=== PATIENT | male | born 1935 | race Caucasian/White ===

== ENCOUNTER → 2016-08-27 | Outpatient (CLI) | payer BC ==
[~2016-08-27] MED LIST: ACET-1256 PO; ADVIN25/60 INH; ALBUAER19 INH; AMB5 PO; ASPEC81 PO; ASPI81TA21 PO; ATOR10TA82 PO; BALS1CAP2 PO; BISA1TAB15 PO; CLON1TAB3 PO; CRD200 PO; DABI150C PO; DLC5 PO; DOCU100C31 PO; FLX10 PO; FNTTP25 TOP; FNTTP50 TD; GABA-113 PO; HYDR-5688 PO; IMD/2 PO; IMMODIUM PO; LDDP5 TD; LEVO88TA3 PO; LORA-741 PO; LSN5 PO; MRLP17 PO; MRLP17X PO; NUTR-977 PO; OXYC1TAB3 PO; PRD150 PO; PRD20 PO; PRD75 PO; PREG100C PO; SIMV10TA5 PO; TADA10TA PO; TAMS0.4C38 PO; TRAM-10 PO; ULT50X PO; VLTG EXT; VLTG TOP; oxycodone
== END | disposition home or self-care (01) ==
LOC: C.LABVPSUW 09:39
PROVIDERS: ATTEND Internal Medicine Critical Care Medicine
DX: E03.9 Hypothyroidism, unspecified (principal)

== ENCOUNTER 2016-11-07 08:15 | Inpatient (IN) | payer BC, OTHER ==
[~2016-11-07] VITALS: Ht 182.9 cm; Wt 80.9 kg
[~2016-11-07 08:15] MED LIST changes: -ACET-1256 PO; -ADVIN25/60 INH; -AMB5 PO; -ASPI81TA21 PO; -ATOR10TA82 PO; -BISA1TAB15 PO; -DABI150C PO; -DLC5 PO; -DOCU100C31 PO; -FLX10 PO; -FNTTP25 TOP; -FNTTP50 TD; -GABA-113 PO; -HYDR-5688 PO; -IMD/2 PO; -LDDP5 TD; -LEVO88TA3 PO; -LORA-741 PO; -LSN5 PO; -MRLP17 PO; -MRLP17X PO; -NUTR-977 PO; -OXYC1TAB3 PO; -PRD150 PO; -PRD20 PO; -PREG100C PO; -TRAM-10 PO; -ULT50X PO; -VLTG EXT; -VLTG TOP; -oxycodone
[2016-11-07] MEDS ORDERED: ONDANSETRON 4MG OD TAB PO STA (08:56)
[2016-11-07] MEDS ORDERED: KETOROLAC TROMETHAMINE 60 MG/2 ML VIAL IM STA (08:56)
[2016-11-07] MEDS ORDERED: HYDROmorphone INJ 2 MG/ML SYR/VIAL IM STA (08:56)
[2016-11-07] MEDS ORDERED: DEXAMETHASONE SOD INJ 10 MG/ML VIAL IM STA (08:56)
[2016-11-07] MEDS ORDERED: ADVIN25/60 INH (09:01)
[2016-11-07] MEDS ORDERED: PRD150 PO (09:01)
[2016-11-07] MEDS ORDERED: CRD200 PO (09:01)
[2016-11-07] MEDS ORDERED: ASPI81TA21 PO (09:01)
[2016-11-07] MEDS ORDERED: NALOXONE HCL 0.4 MG/1 ML VIAL/CARP ONE (10:12)
--- NOTE | 2016-11-07 11:47 | DIAGNOSTIC IMAGING REPORT ---
MRI LUMBAR SPINE W/O CONTRAST CLINICAL HISTORY: LOW BACK PAIN TECHNIQUE: Sagittal and axial T1, T2 and STIR images were obtained. COMPARISON STUDY: No previous studies for comparison. OBSERVATIONS: There is a possible transitional vertebra present. There is complete marrow replacement and expansion of what will be labeled the S1 vertebra. There is extension of the marrow replacement process into the transverse processes. There is secondary spinal canal narrowing. 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 No additional areas of marrow replacement are visualized L1-2: No disc protrusions or extrusions. No evidence of spinal canal or neural foraminal compromise. L2-3: No disc protrusions or extrusions. No evidence of spinal canal or neural foraminal compromise. L3-4: There is a mild circumferential disc bulge. There is no significant spinal foraminal stenosis L4-5: There is a mild circumferential disc bulge. There is no significant spinal or foraminal stenosis L5-S1: There is spinal canal narrowing secondary to the expansile S1 mass. There is a grade 2/4 spondylolisthesis of L5 on S1. The conus medullaris and cauda equina appear normal. 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 Further workup and/or biopsy is recommended. Electronically signed by: Joe Jerome M.D. 11/07/2016 11:45 AM Dictated Date/Time: 11/07/2016 11:37 AM
--- NOTE | 2016-11-07 12:23 | DIAGNOSTIC IMAGING REPORT ---
CHEST ONE VIEW PORTABLE CLINICAL HISTORY: Pt c/o spine mass pain. Mass. COMPARISON STUDY: 10/16/2014 FINDINGS: Old fracture left clavicle. Lungs are clear. Diaphragms smooth. IMPRESSION: No acute process. Electronically signed by: Yahir Wells M.D. 11/07/2016 12:22 PM Dictated Date/Time: 11/07/2016 12:21 PM
[2016-11-07 12:43] LABS: BASO % 0.1 %; BASO ABS # 0.01 K/uL (0-0.2); COMPLETE YES; EOS % 0.2 %; HEMATOCRIT 43.5 % (42-52); IG% 0.2 %; LYMPH % 4.3 %; LYMPH ABS # 0.35 K/uL (1.2-3.4); MEAN CELL VOLUME 95.8 fL (80-100); MEAN CORPUSCULAR HEMOGLOBIN 31.1 pg (25-34); MEAN CORPUSCULAR HGB CONC 32.4 g/dl (32-36); MEAN PLATELET VOLUME 9.9 fL (7.4-10.4); MONO % 1.5 %; NEUT % 93.7 %; PLATELET COUNT 143 K/uL (130-400); RED BLOOD COUNT 4.54 M/uL (4.7-6.1)
[2016-11-07 13:03] LABS: BUN/CREATININE RATIO 18.3 (10-20); CREATININE 1.1 mg/dl (0.60-1.40)
[2016-11-07 13:08] LABS: PROSTATE SPECIFIC ANTIGEN 2.06 ng/ml (0.000-4.000)
--- NOTE | 2016-11-07 13:08 | EMERGENCY ROOM VISIT NOTE ---
History Report prepared by Jitendra: Fouzia Figueroa Under the Supervision of: Dr. Raymond Plasencia M.D. First contact with patient: 08:19 Chief Complaint: BACK PAIN Stated Complaint: BACK PAIN History of Present Illness The patient is a 81 year old male who presents to the Emergency Room with complaints of worsening left lower back pain that started yesterday. He describes the pain as dull. The patient states that the pain gradually worsened throughout the day yesterday. He has been going to physical therapy for right- sided back pain secondary to ankylosing spondylitis. The right-sided back pain started 2 weeks ago and yesterday, the pain moved into the left side of his back. The patient has been following with Dr. Padilla for his right-sided back pain. He rates his discomfort as a 10/10 in severity. The patient has been alternating between Tylenol and aspirin to relieve his pain. The patient took Tylenol this morning, but has not taken Aleve since yesterday. The pain is worse when changing from a recumbent position to sitting upright. The patient states that he is able to walk with a limp, but he feels unsteady. He denies any bowel or bladder incontinence. The patient is on Plavix. Source of History: patient Onset: yesterday Position: back (lower left) Symptom Intensity: 10/10 Quality: dull Timing: worsening (gradually) Modifying Factors (Worsening): movement (from recumbent position to sitting upright) Modifying Factors (Relieving): other (None) Note: able to walk with limp but feels unsteady, no bowel or bladder incontinence Review of Systems See HPI for pertinent positives & negatives. A total of 10 systems reviewed and were otherwise negative. Past Medical & Surgical Medical Problems: (1) Anemia (2) Atrial fibrillation (3) Cataract, left (4) Cataract, right (5) Hyperkalemia (6) Hypotension (7) Hypothyroid (8) Influenza-like illness (9) Influenza-like symptoms Surgical Problems: (1) History of hip replacement (2) History of knee replacement (3) Post-operative state Family History Cancer Gallbladder disease Heart disease Hypertension Lung disease Social History Smoking Status: Never Smoker Drug Use: none Marital Status: in relationship Housing Status: lives alone Occupation Status: retired Current/Historical Medications Scheduled Amiodarone HCl (Amiodarone HCl), 200 MG PO DAILY Aspirin Enteric Coated (Ecotrin Or Generic), 81 MG PO DAILY Balsalazide Disodium (Colazal), 750 MG PO QAM Clonazepam (Klonopin), 1 MG PO HS Dabigatran Elexilate (Pradaxa), 150 MG PO BID Fluticasone Prop/Salmeterol (Advair Diskus 250/50 60 Dose), 1 PUFF INH BID Simvastatin (Zocor), 10 MG PO QPM Tamsulosin Hcl (Flomax), 0.4 MG PO HS Allergies Coded Allergies: Animal Dander (Verified Allergy, Mild, ASTHMATIC REACTION, 11/07/16) IMPROVEMENT WITH INHALERS Horse Serum Proteins (Verified Allergy, Unknown, ASTHMA ATTACK, 11/07/16) Physical Exam Vital Signs Date Time Temp Pulse Resp B/P (MAP) Pulse Ox O2 Delivery O2 Flow Rate FiO2 11/07/16 13:10 46 11/07/16 12:24 54 16 124/80 97 Room Air 11/07/16 11:29 58 16 143/78 95 Room Air 11/07/16 10:17 57 11/07/16 10:17 57 16 117/56 97 2.0 11/07/16 08:24 36.8 53 16 178/97 94 Room Air Physical Exam GENERAL: Patient is an uncomfortable-appearing well-nourished male HEAD: Normocephalic atraumatic EYES: Ocular movements intact pupils equal and react to light OROPHARYNX mucous membranes are moist no exudates present no erythema or edema present NECK: Supple no nuchal rigidity CHEST: Good equal expansion LUNGS: Clear and equal to auscultation CARDIAC: Normal S1 and S2 ABDOMEN: Soft nontender no guarding BACK: No CVA tenderness, no loss of bowel or bladder control, no saddle anesthesia EXTREMITIES: Lower extremity strength 4/5 bilaterally no pain upon palpation normal muscle strength in all groups no clubbing cyanosis or edema NEURO: Patient is following commands and answering questions appropriately. Alert and oriented x3 Cranial Nerves 2-12 grossly intact Medical Decision & Procedures ER Provider Diagnostic Interpretation: Radiology results as stated below per my review and radiologist interpretation: CHEST ONE VIEW PORTABLE CLINICAL HISTORY: Pt c/o spine mass pain. Mass. COMPARISON STUDY: 10/16/2014 FINDINGS: Old fracture left clavicle. Lungs are clear. Diaphragms smooth. IMPRESSION: No acute process. Electronically signed by: Yahir Wells M.D. 11/07/2016 12:22 PM Dictated Date/Time: 11/07/2016 12:21 PM MRI LUMBAR SPINE W/O CONTRAST OBSERVATIONS: There is a possible transitional vertebra present. There is complete marrow replacement and expansion of what will be labeled the S1 vertebra. There is extension of the marrow replacement process into the transverse processes. There is secondary spinal canal narrowing. 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 No additional areas of marrow replacement are visualized L1-2: No disc protrusions or extrusions. No evidence of spinal canal or neural foraminal compromise. L2-3: No disc protrusions or extrusions. No evidence of spinal canal or neural foraminal compromise. L3-4: There is a mild circumferential disc bulge. There is no significant spinal foraminal stenosis L4-5: There is a mild circumferential disc bulge. There is no significant spinal or foraminal stenosis L5-S1: There is spinal canal narrowing secondary to the expansile S1 mass. There is a grade 2/4 spondylolisthesis of L5 on S1. The conus medullaris and cauda equina appear normal. 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 Further workup and/or biopsy is recommended. Electronically signed by: Joe Jerome M.D. 11/07/2016 11:45 AM Dictated Date/Time: 11/07/2016 11:37 AM Laboratory Results 11/07/16 12:20 Red Blood Count 4.54, Mean Corpuscular Volume 95.8, Mean Corpuscular Hemoglobin 31.1, Mean Corpuscular Hemoglobin Concent 32.4, Mean Platelet Volume 9.9, Neutrophils (%) (Auto) 93.7, Lymphocytes (%) (Auto) 4.3, Monocytes (%) (Auto) 1.5, Eosinophils (%) (Auto) 0.2, Basophils (%) (Auto) 0.1, Neutrophils # (Auto) 7.58, Lymphocytes # (Auto) 0.35, Monocytes # (Auto) 0.12, Eosinophils # (Auto) 0.02, Basophils # (Auto) 0.01 11/07/16 12:20 Test 11/07/16 12:20 White Blood Count 8.10 K/uL (4.8-10.8) Red Blood Count 4.54 M/uL (4.7-6.1) Hemoglobin 14.1 g/dL (14.0-18.0) Hematocrit 43.5 % (42-52) Mean Corpuscular Volume 95.8 fL (80-100) Mean Corpuscular Hemoglobin 31.1 pg (25-34) Mean Corpuscular Hemoglobin Concent 32.4 g/dl (32-36) Platelet Count 143 K/uL (130-400) Mean Platelet Volume 9.9 fL (7.4-10.4) Neutrophils (%) (Auto) 93.7 % Lymphocytes (%) (Auto) 4.3 % Monocytes (%) (Auto) 1.5 % Eosinophils (%) (Auto) 0.2 % Basophils (%) (Auto) 0.1 % Neutrophils # (Auto) 7.58 K/uL (1.4-6.5) Lymphocytes # (Auto) 0.35 K/uL (1.2-3.4) Monocytes # (Auto) 0.12 K/uL (0.11-0.59) Eosinophils # (Auto) 0.02 K/uL (0-0.5) Basophils # (Auto) 0.01 K/uL (0-0.2) RDW Standard Deviation 45.2 fL (36.4-46.3) RDW Coefficient of Variation 12.9 % (11.5-14.5) Immature Granulocyte % (Auto) 0.2 % Immature Granulocyte # (Auto) 0.02 K/uL (0.00-0.02) Anion Gap 8.0 mmol/L (3-11) Est Creatinine Clear Calc Drug Dose 59.8 ml/min Estimated GFR () 73.6 Estimated GFR (Non- 63.5 BUN/Creatinine Ratio 18.3 (10-20) Calcium Level 8.7 mg/dl (8.5-10.1) Total Bilirubin 0.6 mg/dl (0.2-1) Direct Bilirubin 0.1 mg/dl (0-0.2) Aspartate Amino Transf (AST/SGOT) 18 U/L (15-37) Alanine Aminotransferase (ALT/SGPT) 21 U/L (12-78) Alkaline Phosphatase 56 U/L (45-117) Total Protein 6.8 gm/dl (6.4-8.2) Albumin 3.7 gm/dl (3.4-5.0) Lipase 73 U/L (73-393) Prostate Specific Antigen 2.060 ng/ml (0.000-4.000) Labs reviewed by ED physician. Medications Administered Medications (Trade) Dose Ordered Sig/Cassandra Route Start Time Stop Time Status Last Admin Dose Admin Ketorolac Tromethamine (Toradol Inj) 30 mg NOW STAT IM 11/07/16 08:56 11/07/16 08:59 DC 11/07/16 09:06 30 MG Hydromorphone HCl (Dilaudid Inj) 2 mg NOW STAT IM 11/07/16 08:56 11/07/16 08:59 DC 11/07/16 09:05 6 MG Dexamethasone Sodium Phosphate (Decadron Inj) 10 mg NOW STAT IM 11/07/16 08:56 11/07/16 08:59 DC 11/07/16 09:04 10 MG Ondansetron HCl (Zofran Odt) 4 mg ONE STAT PO 11/07/16 08:56 11/07/16 08:59 DC 11/07/16 09:07 4 MG Naloxone HCl (Narcan Inj) 0.4 mg STK-MED ONCE .ROUTE 11/07/16 10:12 11/07/16 10:13 DC 11/07/16 10:15 0.4 MG ECG Indication: back/shoulder pain Rate (beats per minute): 48 Rhythm: junctional Findings: no acute ischemic change, no ectopy ED Course 0822: The medical student evaluated the patient at this time. We discussed his findings and potential treatment plans. 0852: Past medical records reviewed. The patient was evaluated in room B12. A complete history and physical examination was performed. 0856: Ordered Zofran Odt 4 mg PO, Decadron Inj 10 mg IM, Dilaudid Inj 2 mg IM, Toradol Inj 30 mg IM 1010: The lead principal technical architect informed me that the patient appears cyanotic with oxygen saturations in 50s-60s. 1011: I immediately evaluated the patient. 1012: Ordered Narcan Inj 0.4 mg IV 1013: I reassessed the patient. His oxygen saturations have improved. 1121: The patient just got back from MRI. He is resting comfortable. 1140: The lead principal technical architect informed me that the patient is desaturating when he sleeps, so he put an oxygen mask on him and his oxygen saturations have improved. 1200: Upon reexamination the patient is resting comfortably. I discussed results and treatment plan with the patient. He verbalizes agreement and understanding. The patient will be evaluated for further management. 1216: I discussed the patient's case with Dr. Jordin RUEDA, he asked me to consult Dr. Valerie Scott before he evaluates him for further management. 1218: I discussed the patient's case with Dr. Valerie Scott. He recommended admitting the patient to medicine and he also requested that I consult oncology. 1251: I discussed the patient's case with Dr. Montero - Hematology & Oncology. He agrees that the patient should be evaluated for further management. He has agreed to consult. 1256: I updated Dr. Jordin RUEDA on the patient's case. He has agreed to evaluate the patient for further management and care. Medical Decision Differential diagnosis: Etiologies such as musculoskeletal, disc herniation, fracture, aortic disease, metastatic disease, cord compression, discitis, infection, renal colic, gastrointestinal, acute exacerbation of chronic back pain, sciatica, cauda equina, as well as others were entertained. Medication Reconciliation: I attest that I have personally reviewed the patient' s current medication list This is a 81-year-old male who presents emergency department complaining of diffuse back pain. Due to the inability the patient to walk he was sent for an MRI. He was also given 2 mg of Dilaudid in the emergency department along with Toradol. He was sent for an MRI the back. This was concerning for neoplastic lesion S1. Based on these findings I did discuss the patient with both orthopedics as well as oncology. Consults Time Called: 1208 Consulting Physician: Dr. Jordin RUEDA Returned Call: 1216 I discussed the patient's case with Dr. Jordin RUEDA, he asked me to consult Dr. Valerie Scott before he evaluates him for further management. Additional Consults: Time Called: 1216 Consulted Physician: Dr. Valerie [facility] Returned Call: 1218 Additional Comments: I discussed the patient's case with Dr. Valerie Scott. He recommended admitting the patient to medicine and he also requested that I consult oncology. Time Called: 1233 Consulted Physician: Dr. Montero - Hematology & Oncology Returned Call: 1251 Additional Comments: I discussed the patient's case with Dr. Montero - Hematology & Oncology. He agrees that the patient should be evaluated for further management. He has agreed to consult. Impression Primary Impression: Back pain Additional Impression: Sacral lesion Scribe Attestation The scribe's documentation has been prepared under my direction and personally reviewed by me in its entirety. I confirm that the note above accurately reflects all work, treatment, procedures, and medical decision making performed by me. Departure Information Dispostion Being Evaluated By Hospitalist Referrals [facility] (PCP) Patient Instructions My [facility] Problem Qualifiers Primary Impression: Back pain Back pain location: low back pain Chronicity: acute Back pain laterality: left Sciatica presence: unspecified whether sciatica present Qualified Codes : M54.5 - Low back pain
[2016-11-07 13:09] LABS: CALCIUM 8.7 mg/dl (8.5-10.1)
[2016-11-07] MEDS ORDERED: MAGNESIUM HYDROXIDE SUSP 30 ML UDC PO PRN (13:45)
[2016-11-07] MEDS ORDERED: ONDANSETRON INJ 2 MG/ML 2 ML VIAL IV PRN (13:45)
[2016-11-07] MEDS ORDERED: ALUMINUM/MAGNESIUM/SIMETH (MAALOX MAX) 30 ML UDC PO PRN (13:45)
--- NOTE | 2016-11-07 14:25 | History and Physical ---
History & Physical Date & Time of Service: Nov 07, 2016 at 13:49 Chief Complaint: Back Pain Primary Care Physician: Steven Cummings M.D. History of Present Illness Source: patient, partner Patient is a 81 year old male that presents with left sided back pain since 10pm yesterday evening. The patient has a past medical history of ankylosing spondylitis, bph, atrial fibrillation, and bilateral hip and knee replacements. The patient has been having right sided leg pain of a similar nature for the last few weeks and had an appointment with Dr. Padilla last Thursday. He has been participating in physical therapy for the pain. Starting earlier this week he began having left sided pain that he attributed to his diagnosis, but last night the pain became 10/10 in severity. He said he took a high dose of Tylenol last night but was able to sleep. This morning he needed to roll over and to get out of bed and use his knees because the pain was unbearable. In the ED the patient had an MRI that showed the chronic ankylosing spondylitis in addition to spinal canal narrowing secondary to the expansile S1 mass. The patient has had some pain relief with Dilaudid in the ED, but states that earlier today it was a 10/10 with hip flexion and 7/10 at rest. The pain did not radiate down the leg, he denies any numbness or tingling, he has not lost control of his bowel or bladder, and says there is still full strength in the leg with only severe pain. Past Medical/Surgical History Medical Problems: (1) Anemia Status: Resolved (2) Atrial fibrillation Status: Resolved (3) Cataract, left Status: Resolved (4) Cataract, right Status: Resolved (5) Hyperkalemia Status: Resolved (6) Hypotension Status: Resolved (7) Hypothyroid Status: Resolved (8) Influenza-like illness Status: Resolved (9) Influenza-like symptoms Status: Resolved Surgical Problems: (1) History of hip replacement Status: Resolved (2) History of knee replacement Status: Resolved (3) Post-operative state Status: Resolved Family History Cancer Gallbladder disease Heart disease Hypertension Lung disease Social History Smoking Status: Never Smoker Drug Use: none Marital Status: in relationship Occupational Status: retired Allergies Coded Allergies: Animal Dander (Verified Allergy, Mild, ASTHMATIC REACTION, 11/07/16) IMPROVEMENT WITH INHALERS Horse Serum Proteins (Verified Allergy, Unknown, ASTHMA ATTACK, 11/07/16) Home Medications Scheduled Amiodarone HCl (Amiodarone HCl), 200 MG PO DAILY Aspirin Enteric Coated (Ecotrin Or Generic), 81 MG PO DAILY Balsalazide Disodium (Colazal), 750 MG PO QAM Clonazepam (Klonopin), 1 MG PO HS Dabigatran Elexilate (Pradaxa), 150 MG PO BID Fluticasone Prop/Salmeterol (Advair Diskus 250/50 60 Dose), 1 PUFF INH BID Simvastatin (Zocor), 10 MG PO QPM Tamsulosin Hcl (Flomax), 0.4 MG PO HS Review of Systems See HPI for pertinent positives and negatives. A total of ten systems were reviewed and were otherwise negative. Constitutional: No fever, No chills Eyes: No problem reported ENT: No problem reported Respiratory: No cough, No shortness of breath Cardiovascular: No chest pain, No edema Abdomen: No pain, No nausea, No vomiting Musculoskeletal: No joint pain Genitourinary - Male: No urinary urgency, No urinary incontinence Neurologic: No paralysis, No weakness, No numbness/tingling Endocrine: No fatigue Hematologic / Lymphatic: No abnormal bleeding/bruising Integumentary: No rash, No bleeding Allergic / Immunologic: No problem reported Physical Exam Vital Signs Date Time Temp Pulse Resp B/P (MAP) Pulse Ox O2 Delivery O2 Flow Rate FiO2 11/07/16 13:10 46 11/07/16 12:24 54 16 124/80 97 Room Air 11/07/16 11:29 58 16 143/78 95 Room Air 11/07/16 10:17 57 11/07/16 10:17 57 16 117/56 97 2.0 11/07/16 08:24 36.8 53 16 178/97 94 Room Air General Appearance: WD/WN, no apparent distress Head: normocephalic, atraumatic Respiratory/Chest: chest non-tender, lungs clear, normal breath sounds Cardiovascular: regular rate, rhythm, no edema, no gallop Abdomen/GI: normal bowel sounds, non tender, soft Back: normal inspection, no CVA tenderness Extremities/Musculoskelatal: normal inspection, no calf tenderness, no pedal edema, + pertinent finding (Left sided point tenderness over the region of the left iliac crest) Neurologic/Psych: no motor/sensory deficits, alert, oriented x 3 Diagnostics Laboratory Results Results Past 24 Hours Test 11/07/16 12:20 Range/Units White Blood Count 8.10 4.8-10.8 K/uL Red Blood Count 4.54 4.7-6.1 M/uL Hemoglobin 14.1 14.0-18.0 g/dL Hematocrit 43.5 42-52 % Mean Corpuscular Volume 95.8 80-100 fL Mean Corpuscular Hemoglobin 31.1 25-34 pg Mean Corpuscular Hemoglobin Concent 32.4 32-36 g/dl Platelet Count 143 130-400 K/uL Mean Platelet Volume 9.9 7.4-10.4 fL Neutrophils (%) (Auto) 93.7 % Lymphocytes (%) (Auto) 4.3 % Monocytes (%) (Auto) 1.5 % Eosinophils (%) (Auto) 0.2 % Basophils (%) (Auto) 0.1 % Neutrophils # (Auto) 7.58 1.4-6.5 K/uL Lymphocytes # (Auto) 0.35 1.2-3.4 K/uL Monocytes # (Auto) 0.12 0.11-0.59 K/uL Eosinophils # (Auto) 0.02 0-0.5 K/uL Basophils # (Auto) 0.01 0-0.2 K/uL RDW Standard Deviation 45.2 36.4-46.3 fL RDW Coefficient of Variation 12.9 11.5-14.5 % Immature Granulocyte % (Auto) 0.2 % Immature Granulocyte # (Auto) 0.02 0.00-0.02 K/uL Sodium Level 139 136-145 mmol/L Potassium Level 4.0 3.5-5.1 mmol/L Chloride Level 103 98-107 mmol/L Carbon Dioxide Level 28 21-32 mmol/L Anion Gap 8.0 3-11 mmol/L Blood Urea Nitrogen 20 7-18 mg/dl Creatinine 1.10 0.60-1.40 mg/dl Est Creatinine Clear Calc Drug Dose 59.8 ml/min Estimated GFR () 73.6 Estimated GFR (Non- 63.5 BUN/Creatinine Ratio 18.3 10-20 Random Glucose 118 70-99 mg/dl Calcium Level 8.7 8.5-10.1 mg/dl Total Bilirubin 0.6 0.2-1 mg/dl Direct Bilirubin 0.1 0-0.2 mg/dl Aspartate Amino Transf (AST/SGOT) 18 15-37 U/L Alanine Aminotransferase (ALT/SGPT) 21 12-78 U/L Alkaline Phosphatase 56 45-117 U/L Total Protein 6.8 6.4-8.2 gm/dl Albumin 3.7 3.4-5.0 gm/dl Lipase 73 73-393 U/L Prostate Specific Antigen 2.060 0.000-4.000 ng/ml Impression Assessment and Plan Patient is a 81 year old male that presents with severe back pain. 1) Back Pain 2/2 S1 mass causing stenosis vs Ankylosing Spondylitis - Pain Control - 0.5mg Dilaudid q3h PRN for pain - Oncology consult - Orthopaedic Surgery consult 2) Atrial Fibrillation - EKG - Continue home Pradaxa 150mg PO BID - Continue home Amiodarone HCL 200mg PO Daily 3) BPH - Flomax 0.4mg PO HS 4) Hyperlipidemia - Simvastatin 10mg PO QPM 5) CAD - Aspitin 81mg PO Daily 6) Resume Home Medications - Colazal 750mg PO QAM - Clonazepam 1mg PO HS - Advair Diskus 250/50 1 Puff INH BID 7) DVT - Continue home Pradaxa 8) Code Status - Full Resuscitation Resident Physician Supervision Note: I was present with the PA. I discussed the case with the resident and agree with the findings and plan as documented in the note. Any exceptions or clarifications are listed here: 81 y/o M w/Hx Ankylosing Spondylitis who follows with ortho spine - worsening back pain over the past 2 days Pt presents with worsening back pain and difficulty walking An MRI was obtained and shows a likely cancerous lesion on S1 leading to a degree of stenosis OE AAO x 3 S1,2 R CTAB NT, ND, BS+ No significant LE numbness - ROM limited by pain P: Will need diagnosis Ortho and H/O to be consulted PT/OT following ortho consult if can weight bear safely Supportive measures currently Documented By: Erik Brenenr Level of Care Med/Surg Resuscitation Status FULL RESUSCITATION VTE Prophylaxis VTE Risk Assessment Done? Y/N: Yes Risk Level: Moderate Given or contraindicated: Other Anticoagulation (Pradaxa)
[2016-11-07] MEDS ORDERED: HYDROmorphone INJ 1 MG/ML SYR IM PRN (15:00)
[2016-11-07 15:12] LABS: URINE APPEARANCE CLEAR (CLEAR); URINE BILIRUBIN NEG (NEG); URINE COLOR YELLOW; URINE NITRITE NEG (NEG); URINE SPECIFIC GRAVITY 1.018 (1.000-1.030); UROBILINOGEN NEG (NEG)
[2016-11-07 15:17] LABS: MANUAL MICROSCOPIC REQUIRED? NO; REVIEW REQ? NO
[2016-11-07 15:50] VITALS: BP 160/81; PULSE 52; TEMP 36.4; O2SAT 97; Ht 182.9 cm; Wt 80.9 kg
--- NOTE | 2016-11-07 16:33 | Oncology Consultation ---
Oncology/Heme Consultation Date of Consultation: Nov 07, 2016. Attending Physician: Erik Brenner M.D. Reason for Consultation: Abnormal appearing S1 Back and leg pain History of Present Illness Mr. Glaser is a 81-year-old gentleman that states for the past few weeks he's had proximal right leg discomfort with associated back pain in his lower back. Last evening he developed the rather acute pain again in his low back with proximal left thigh discomfort that was quite severe. This prompted a visit to the emergency room where an MRI showed an expansile S1 mass. No other abnormalities were noted in regards to the bones. He was subsequently admitted for pain control and diagnostic procedures. Records reflect that in July she had a atraumatic injury to his right lozano. He denies any fever or chills or unusual weight loss. He denies shortness of breath or chest pain. History of having what he states was a benign colon tumor removed in the late requiring a colostomy for short period of time Past Medical/Surgical History Medical Problems: (1) Back pain Status: Acute (2) Sacral lesion Status: Acute Family History Cancer Gallbladder disease Heart disease Hypertension Lung disease Negative for carcinoma in first-degree relatives Social History Negative for significant smoking or alcohol usage Smoking Status: Never Smoker Drug Use: none Marital Status: in relationship Housing Status: lives alone Occupation Status: retired Allergies Coded Allergies: Animal Dander (Verified Allergy, Mild, ASTHMATIC REACTION, 11/07/16) IMPROVEMENT WITH INHALERS Horse Serum Proteins (Verified Allergy, Unknown, ASTHMA ATTACK, 11/07/16) Home Medications Scheduled Amiodarone HCl (Amiodarone HCl), 200 MG PO DAILY Aspirin Enteric Coated (Ecotrin Or Generic), 81 MG PO DAILY Balsalazide Disodium (Colazal), 750 MG PO QAM Clonazepam (Klonopin), 1 MG PO HS Dabigatran Elexilate (Pradaxa), 150 MG PO BID Fluticasone Prop/Salmeterol (Advair Diskus 250/50 60 Dose), 1 PUFF INH BID Simvastatin (Zocor), 10 MG PO QPM Tamsulosin Hcl (Flomax), 0.4 MG PO HS Current Inpatient Medications Current Inpatient Medications Medications (Trade) Dose Ordered Sig/Cassandra Route Start Time Stop Time Status Last Admin Dose Admin Acetaminophen (Tylenol Tab) 650 mg Q4H PRN PO 11/07/16 13:45 7/16/17 13:44 Al Hydrox/Mg Hydrox/Simethicone (Maalox Max Susp) 15 ml Q4H PRN PO 11/07/16 13:45 12/07/16 13:44 Magnesium Hydroxide (Milk Of Magnesia Susp) 30 ml Q6H PRN PO 11/07/16 13:45 12/07/16 13:44 Ondansetron HCl (Zofran Inj) 4 mg Q6H PRN IV 11/07/16 13:45 12/07/16 13:44 Amiodarone HCl (Cordarone Tab) 200 mg DAILY PO 11/08/16 08:00 12/08/16 08:59 Aspirin (Ecotrin Tab) 81 mg DAILY PO 11/08/16 08:00 12/08/16 08:59 Clonazepam (Klonopin Tab) 1 mg HS PO 11/07/16 21:00 12/07/16 20:59 Salmeterol Xinafoate/ Fluticasone (Advair Diskus 250/50 Inh) 1 puff BID INH 11/07/16 20:00 12/07/16 20:59 Simvastatin (Zocor Tab) 10 mg QPM PO 11/07/16 21:00 12/07/16 20:59 Tamsulosin HCl (Flomax Cap) 0.4 mg HS PO 11/07/16 21:00 12/07/16 20:59 Miscellaneous Information (Order Awaiting Action) 1 ea QS N/A 11/07/16 16:00 12/07/16 15:59 Dabigatran (Pradaxa Cap) 150 mg BID PO 11/07/16 20:00 12/07/16 20:59 Hydromorphone HCl (Dilaudid Inj) 0.5 mg Q3H PRN IM 11/07/16 15:00 11/21/16 14:59 11/07/16 15:38 0.5 MG Review of Systems Constitutional: Negative for weight loss, night sweats, or fever Eyes: Negative for event change of vision ENT: Negative for epistaxis, nasal discharge, sore throat, or deafness Cardiovascular: Negative for chest pain, palpitations, dizziness, diaphoresis Respiratory: Negative for new shortness of breath,hemoptysis, or purulent cough Gastrointestinal: Negative for diarrhea, hematemesis, melena, nausea, vomiting , or dyspepsia Integumentary (skin): Negative for rash or jaundice discoloration Genitourinary: Negative for urinary frequency, hematuria, or dysuria Neurological: Negative for weakness, seizure activity, headache, or dizziness. He is able to control bowel and bladder. He denies any numbness in his extremities Lymphatic/Hematologic: Negative for petechiae, bleeding or new adenopathy Musculoskeletal: Again positive for low back pain and now proximal portion of both legs particularly the left thigh Allergic/Immunologic: Negative for unusual rash or pruritis. Physical Exam Date Time Temp Pulse Resp B/P (MAP) Pulse Ox O2 Delivery O2 Flow Rate FiO2 11/07/16 14:09 51 16 146/70 98 Diffusion Mask 3.0 11/07/16 13:10 46 11/07/16 12:24 54 16 124/80 97 Room Air 11/07/16 11:29 58 16 143/78 95 Room Air 11/07/16 10:17 57 11/07/16 10:17 57 16 117/56 97 2.0 11/07/16 08:24 36.8 53 16 178/97 94 Room Air Constitutional: vitals are stable. Eyes: Eyes are LYNN EOMI without conjuctival erythema or icterus. ENT: External examination was negative for masses. Neck: Negative for masses or palpable thyromegaly Respiratory: Lung sounds were generally clear bilaterally Cardiovascular: Heart was RRR with occasional ectopic beat significant murmur, gallops or rubs (history of atrial fibrillation) Gastrointestinal: No palpable hepatic or splenomegaly. The abdomen was soft with normal bowel sounds. Lymphatic system: there was no palpable peripheral lymphadenopathy Musculoskeletal System: The musculoskeletal system seemed concordant with age. He has a deformed left clavicle that he states he fractured years ago Skin: The skin was negative for jaundice. Neurologic exam: The exam was negative for any focal findings. Deep tendon reflexes were equal and symmetrical. Psychiatric exam: Was essentially negative with normal mood and effect. Extremities: Negative for edema or erythema. Laboratory Results Last 24 Hours Test 11/07/16 12:20 11/07/16 14:45 White Blood Count 8.10 K/uL Red Blood Count 4.54 M/uL Hemoglobin 14.1 g/dL Hematocrit 43.5 % Mean Corpuscular Volume 95.8 fL Mean Corpuscular Hemoglobin 31.1 pg Mean Corpuscular Hemoglobin Concent 32.4 g/dl Platelet Count 143 K/uL Mean Platelet Volume 9.9 fL Neutrophils (%) (Auto) 93.7 % Lymphocytes (%) (Auto) 4.3 % Monocytes (%) (Auto) 1.5 % Eosinophils (%) (Auto) 0.2 % Basophils (%) (Auto) 0.1 % Neutrophils # (Auto) 7.58 K/uL Lymphocytes # (Auto) 0.35 K/uL Monocytes # (Auto) 0.12 K/uL Eosinophils # (Auto) 0.02 K/uL Basophils # (Auto) 0.01 K/uL RDW Standard Deviation 45.2 fL RDW Coefficient of Variation 12.9 % Immature Granulocyte % (Auto) 0.2 % Immature Granulocyte # (Auto) 0.02 K/uL Sodium Level 139 mmol/L Potassium Level 4.0 mmol/L Chloride Level 103 mmol/L Carbon Dioxide Level 28 mmol/L Anion Gap 8.0 mmol/L Blood Urea Nitrogen 20 mg/dl Creatinine 1.10 mg/dl Est Creatinine Clear Calc Drug Dose 59.8 ml/min Estimated GFR () 73.6 Estimated GFR (Non- 63.5 BUN/Creatinine Ratio 18.3 Random Glucose 118 mg/dl Calcium Level 8.7 mg/dl Total Bilirubin 0.6 mg/dl Direct Bilirubin 0.1 mg/dl Aspartate Amino Transf (AST/SGOT) 18 U/L Alanine Aminotransferase (ALT/SGPT) 21 U/L Alkaline Phosphatase 56 U/L Total Protein 6.8 gm/dl Albumin 3.7 gm/dl Lipase 73 U/L Prostate Specific Antigen 2.060 ng/ml Urine Color YELLOW Urine Appearance CLEAR Urine pH 7.0 Urine Specific [place] 1.018 Urine Protein NEG Urine Glucose (UA) NEG Urine Ketones 1+ Urine Occult Blood TRACE Urine Nitrite NEG Urine Bilirubin NEG Urine Urobilinogen NEG Urine Leukocyte Esterase NEG Urine WBC (Auto) 1-5 /hpf Urine RBC (Auto) 5-10 /hpf Urine Hyaline Casts (Auto) 0 /lpf Urine Epithelial Cells (Auto) 5-10 /lpf Urine Bacteria (Auto) NEG Assessment & Plan Radiologic evidence of an expansile mass at S1 rule out underlying neoplasm MRI of his lower back was reviewed. Radiologist feels comfortable that this is probably not osteomyelitis in that the lesion is so expansile and without discitis. A biopsy will eventually need to be done. Along the way a CT scan of his chest abdomen pelvis should be done. His CBC general chemistries are acceptable. We will ask for a serum immunofixation and LDH. Again I suspect that a biopsy will need to be done of S1 unless something else turns up on the CT scans
[2016-11-07] MEDS ORDERED: OPTIRAY 320 IV PRN (16:45)
--- NOTE | 2016-11-07 17:23 | ORTHOPEDIC CONSULTATION ---
DATE OF CONSULTATION: 11/07/2016 CHIEF COMPLAINT: Low back pain. HISTORY OF PRESENT ILLNESS: Mr. Cardoso is a delightful gentleman. I have known him for the past, saw him in the office only a week ago. He had a history at the time of back pain, aFib and some knee replacements (hip and knee ) and he is doing well. He is a stoic individual, not a complainer, only takes Tylenol for pain. He developed some back pain, lower extremity difficulty that escalated over the last 24 hours, basically unbearable. He could not get comfortable, anyway shape or form. He had just gotten started physical therapy. This morning he rolled over and pain again was unbearable, came to the Emergency Room for evaluation and treatment. The MRI showed some spondylosis of the spine and spinal cord narrowing, a spondylolisthesis and unfortunately an expansile mass of the sacral 1 segment. It seems to be an outpocketing posterior, the posterior wall of the S1 vertebra. PAST MEDICAL HISTORY: Positive for anemia, atrial fibrillation, bilateral cataracts, hypotension; all basically resolved. PAST SURGICAL HISTORY: Has a history of hip and knee replacements. FAMILY HISTORY: Gallbladder disease, heart disease, hypertension. SOCIAL HISTORY: He is a nonsmoker, non-ETOH user. He is . He is retired. REVIEW OF SYSTEMS: He denies any blurred vision, double vision, tinnitus, vertigo, mentation issues. Denies any shortness of breath, coughing. Denies chest pain, angina. No nausea, vomiting. No urgency, frequency, dysuria. He did have some constipation over the last couple days. MEDICATIONS: Listed. OBJECTIVE: VITAL SIGNS: Blood pressure 130/80; pulse of 80, slightly irregular. HEENT: Ear, nose and throat normal. RESPIRATORY: Good breath sounds. ABDOMEN: Soft, nontender. BACK: Spine was normal on palpation. He does have some pain in lower lumbar segments. EXTREMITIES: He has no edema to the extremities. NEUROLOGIC: He had intact motor sensory exam. LABORATORY DATA: White blood count was 8.1, hemoglobin 14.1, hematocrit 43.5. IMAGING DATA: His MRI scan was evaluated. I agree with the findings. This seemed to have an expansile aspect to the S1 segment from the vertebral body posteriorly, giving him significant compression. Does not appear to be infectious etiology and I think it is a stretch that I think is simply trauma related but the patient has not had trauma in the course of last few weeks. 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 DISPOSITION: He will be admitted to the medical service. I am on board from the spine aspect. Doubtful he will need spinal surgery, decompression but I will be prepared if that is required. Sometimes the nerves get significantly compressed and it does need a decompression. I would recommend a radiation treatment to this problem preceded by a biopsy to try to get good tissue. If need be, I could get good tissue from a surgical perspective too if it cannot be done by the department of radiology. ROLAN
[2016-11-07 20:02] VITALS: BP 179/90; PULSE 53; TEMP 36.5; O2SAT 95
--- NOTE | 2016-11-07 20:20 | DIAGNOSTIC IMAGING REPORT ---
CHEST, ABDOMEN AND PELVIS CT WITH CONTRAST CT DOSE: 816.66 mGy.cm HISTORY: S1 mass. abnormal S1 r/o underlying neoplasm TECHNIQUE: Multiaxial CT images of the chest, abdomen and pelvis were performed following the oral and intravenous administration of contrast. COMPARISON: Lumbar spine MRI 11/07/2016. FINDINGS: There are few small scarlike linear densities within the right lung apex. Bilateral lower lobe linear densities favor subsegmental atelectasis. No suspicious pulmonary nodules. No pleural effusions. No pneumothorax. 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 No suspicious lytic or blastic osseous lesions within the chest. Old, healed bilateral rib fractures. The heart is normal in size. No mediastinal or hilar lymphadenopathy. The ascending thoracic aorta measures up to 4 cm in diameter. The central pulmonary arteries are patent. Moderate calcified plaque within the left coronary artery. 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 Destructive soft tissue abnormality occupying the majority of the S1 vertebral body. This likely represents a mass. This demonstrates epidural extension which measures up to 5 mm resulting in severe central canal narrowing at this location. Small fat-containing midline ventral hernias. Left external iliac lymph nodes measure subcentimeter in short axis diameter. The pelvic structures are not well visualized due to the metallic artifact. This includes the majority of the bladder. The prostate gland is enlarged. Tiny fat-containing left inguinal hernia. No retroperitoneal or mesenteric lymphadenopathy. Multiple subcentimeter hypodense lesions within the kidneys with the largest measuring 5 mm. These are too small to characterize. There are also 2 hypodense lesions within the left kidney which measure 2.2 and 3.1 cm. These likely represent cysts. Left circumaortic renal vein. The liver, gallbladder, left adrenal gland, and pancreas are unremarkable. There is a 1 cm indeterminate lesion within the right adrenal gland. The spleen is mildly enlarged measuring 14 cm in length. The appendix is surgically absent. Colonic diverticulosis. No bowel wall thickening or obstruction. IMPRESSION: 1. Destructive soft tissue abnormality occupying the majority S1 vertebral body with soft tissue epidural extension which measures up to 5 mm. This results in severe central canal narrowing at this location. This favors a mass and may represent a lymphoma. Infectious process could also have a similar appearance but is considered less likely. 2. Mild splenomegaly. 3. No significant abnormality within the chest. Electronically signed by: Rk Pritchett M.D. 11/07/2016 8:19 PM Dictated Date/Time: 11/07/2016 7:54 PM
[2016-11-07] MEDS: TAMSULOSIN HCL 0.4 MG CAP PO SCH (21:15)
[2016-11-07] MEDS: CLONAZEPAM 1 MG TAB PO SCH (21:15)
[2016-11-07] MEDS: SIMVASTATIN 10 MG TAB PO SCH (21:15)
[2016-11-07] MEDS: DABIGATRAN ELEXILATE 75 MG CAP PO SCH (21:16)
[2016-11-07] MEDS: FLUTICASONE/SALMETEROL 250/50 (ADVAIR) 14 PUFF/1 INHALER INH SCH ×2 (21:17→21:25)
[2016-11-07] MEDS ORDERED: NURSING VERBAL MED ORDER ONE (22:45)
[2016-11-08] VITALS (8 sets, daily range): BP systolic 97–143; BP diastolic 57–84; PULSE 46–68; TEMP 36.4–36.6; O2SAT 93–99
[2016-11-08] MEDS: HYDROmorphone INJ 0.5 MG/0.5 ML SYR IV PRN ×2 (03:18→22:00)
[2016-11-08] MEDS ORDERED: ASPIRIN 81 MG ECTAB PO SCH (08:00)
[2016-11-08] MEDS: FLUTICASONE/SALMETEROL 250/50 (ADVAIR) 14 PUFF/1 INHALER INH SCH ×2 (08:14→20:00)
[2016-11-08] MEDS: DABIGATRAN ELEXILATE 75 MG CAP PO SCH (08:15)
[2016-11-08] MEDS: AMIODARONE 200 MG TAB PO SCH (08:15)
--- NOTE | 2016-11-08 10:52 | Hematology/Oncology Prog Note ---
Hematology/Onc Progress Note Date of Service Nov 08, 2016. Diagnoses Abnormal appearing S1 rule out underlying neoplasm Back pain Radicular pain down both legs (thighs) Medications Medications Administered Medications (Trade) Dose Ordered Sig/Cassandra Route Start Time Stop Time Status Last Admin Dose Admin Ketorolac Tromethamine (Toradol Inj) 30 mg NOW STAT IM 11/07/16 08:56 11/07/16 08:59 DC 11/07/16 09:06 30 MG Hydromorphone HCl (Dilaudid Inj) 2 mg NOW STAT IM 11/07/16 08:56 11/07/16 08:59 DC 11/07/16 09:05 6 MG Dexamethasone Sodium Phosphate (Decadron Inj) 10 mg NOW STAT IM 11/07/16 08:56 11/07/16 08:59 DC 11/07/16 09:04 10 MG Ondansetron HCl (Zofran Odt) 4 mg ONE STAT PO 11/07/16 08:56 11/07/16 08:59 DC 11/07/16 09:07 4 MG Naloxone HCl (Narcan Inj) 0.4 mg STK-MED ONCE .ROUTE 11/07/16 10:12 11/07/16 10:13 DC 11/07/16 10:15 0.4 MG Amiodarone HCl (Cordarone Tab) 200 mg DAILY PO 11/08/16 08:00 12/08/16 08:59 11/08/16 08:15 200 MG Aspirin (Ecotrin Tab) 81 mg DAILY PO 11/08/16 08:00 12/08/16 08:59 11/08/16 08:15 81 MG Clonazepam (Klonopin Tab) 1 mg HS PO 11/07/16 21:00 12/07/16 20:59 11/07/16 21:15 1 MG Salmeterol Xinafoate/ Fluticasone (Advair Diskus 250/50 Inh) 1 puff BID INH 11/07/16 20:00 12/07/16 20:59 11/08/16 08:14 1 PUFF Simvastatin (Zocor Tab) 10 mg QPM PO 11/07/16 21:00 12/07/16 20:59 11/07/16 21:15 10 MG Tamsulosin HCl (Flomax Cap) 0.4 mg HS PO 11/07/16 21:00 12/07/16 20:59 11/07/16 21:15 0.4 MG Dabigatran (Pradaxa Cap) 150 mg BID PO 11/07/16 20:00 11/08/16 08:59 DC 11/08/16 08:15 150 MG Hydromorphone HCl (Dilaudid Inj) 0.5 mg Q3H PRN IM 11/07/16 15:00 11/07/16 22:57 DC 11/07/16 15:38 0.5 MG Hydromorphone HCl (Dilaudid Inj) 0.5 mg Q3H PRN IV 11/07/16 23:00 11/21/16 22:59 11/08/16 03:18 0.5 MG Subjective Seems to be doing well. Denies new bone pain. No further neurologic deficit Review of Systems: Constitutional: Negative for night sweats, or fever Eyes: Negative for event change of vision ENT: Negative for epistaxis, nasal discharge, sore throat, or deafness Cardiovascular: Negative for chest pain, palpitations, dizziness, diaphoresis Respiratory: Negative for new shortness of breath,hemoptysis, or purulent cough Gastrointestinal: Negative for diarrhea, hematemesis, melena, nausea, vomiting , or dyspepsia Integumentary (skin): Negative for rash or jaundice discoloration Genitourinary: Negative for urinary frequency, hematuria, or dysuria Neurological: Negative for weakness, seizure activity, headache, or dizziness Lymphatic/Hematologic: Negative for petechiae, bleeding or new adenopathy Musculoskeletal: Admitted with back pain Allergic/Immunologic: Negative for unusual rash or pruritis. Vital Signs Vital Signs Past 12 Hours Date Time Temp Pulse Resp B/P (MAP) Pulse Ox O2 Delivery O2 Flow Rate FiO2 11/08/16 07:44 36.4 46 18 97/59 (72) 93 CPAP 11/08/16 04:30 36.5 57 18 105/57 (73) 94 CPAP 11/08/16 00:19 36.5 52 16 116/66 (83) 94 Room Air 11/08/16 00:00 Room Air Physical Exam Constitutional: vitals are stable. Eyes: Eyes are LYNN EOMI without conjuctival erythema or icterus. ENT: External examination was negative for masses. Neck: Negative for masses or palpable thyromegaly Respiratory: Lung sounds were generally clear bilaterally Cardiovascular: Heart was RRR without significant murmur, gallops aoe rubs Gastrointestinal: No palpable hepatic or splenomegaly. The abdomen was soft with normal bowel sounds. Lymphatic system: there was no palpable peripheral lymphadenopathy Musculoskeletal System: The musculoskeletal system seemed concordant with age. Skin: The skin was negative for jaundice. Neurologic exam: The exam was negative for any focal findings. Deep tendon reflexes were equal and symmetrical. Psychiatric exam: Was essentially negative with normal mood and effect. Extremities: Negative for edema. Evidence of skin changes consistent with vascular insufficiency bilateral lower extremities. Laboratory Last 24 Hours Test 11/07/16 12:20 11/07/16 14:45 11/07/16 17:49 White Blood Count 8.10 K/uL Red Blood Count 4.54 M/uL Hemoglobin 14.1 g/dL Hematocrit 43.5 % Mean Corpuscular Volume 95.8 fL Mean Corpuscular Hemoglobin 31.1 pg Mean Corpuscular Hemoglobin Concent 32.4 g/dl Platelet Count 143 K/uL Mean Platelet Volume 9.9 fL Neutrophils (%) (Auto) 93.7 % Lymphocytes (%) (Auto) 4.3 % Monocytes (%) (Auto) 1.5 % Eosinophils (%) (Auto) 0.2 % Basophils (%) (Auto) 0.1 % Neutrophils # (Auto) 7.58 K/uL Lymphocytes # (Auto) 0.35 K/uL Monocytes # (Auto) 0.12 K/uL Eosinophils # (Auto) 0.02 K/uL Basophils # (Auto) 0.01 K/uL RDW Standard Deviation 45.2 fL RDW Coefficient of Variation 12.9 % Immature Granulocyte % (Auto) 0.2 % Immature Granulocyte # (Auto) 0.02 K/uL Sodium Level 139 mmol/L Potassium Level 4.0 mmol/L Chloride Level 103 mmol/L Carbon Dioxide Level 28 mmol/L Anion Gap 8.0 mmol/L Blood Urea Nitrogen 20 mg/dl Creatinine 1.10 mg/dl Est Creatinine Clear Calc Drug Dose 59.8 ml/min Estimated GFR () 73.6 Estimated GFR (Non- 63.5 BUN/Creatinine Ratio 18.3 Random Glucose 118 mg/dl Calcium Level 8.7 mg/dl Total Bilirubin 0.6 mg/dl Direct Bilirubin 0.1 mg/dl Aspartate Amino Transf (AST/SGOT) 18 U/L Alanine Aminotransferase (ALT/SGPT) 21 U/L Alkaline Phosphatase 56 U/L Total Protein 6.8 gm/dl Albumin 3.7 gm/dl Lipase 73 U/L Prostate Specific Antigen 2.060 ng/ml Urine Color YELLOW Urine Appearance CLEAR Urine pH 7.0 Urine Specific [place] 1.018 Urine Protein NEG Urine Glucose (UA) NEG Urine Ketones 1+ Urine Occult Blood TRACE Urine Nitrite NEG Urine Bilirubin NEG Urine Urobilinogen NEG Urine Leukocyte Esterase NEG Urine WBC (Auto) 1-5 /hpf Urine RBC (Auto) 5-10 /hpf Urine Hyaline Casts (Auto) 0 /lpf Urine Epithelial Cells (Auto) 5-10 /lpf Urine Bacteria (Auto) NEG Erythrocyte Sedimentation Rate 2 mm/hr Lactate Dehydrogenase 194 U/L Assessment & Plan CT scans of chest abdomen pelvis are interpreted as not reflecting any changes that could be consistent with a neoplastic process. The S1 change continues to be seen and it appears that then that area will need to be biopsied. Patient was informed of the CT scan results. Interestingly the sedimentation rate is 2 and the rest of the blood work is quite normal. He also reviews with me that the trauma to his left lozano was over a year ago. Will await results of biopsy.
[2016-11-08] MEDS: ACETAMINOPHEN 325 MG TAB PO PRN (15:22)
--- NOTE | 2016-11-08 15:40 | Progress Note ---
Subjective Date of Service: Nov 08, 2016. Subjective Pt evaluation today including: conversation w/ patient, conversation w/ family , physical exam, lab review, review of studies, conversation w/ outbound sales consultant, review of inpatient medication list Pain: mild back pain PO Intake: adequate Voiding: no voiding problems appreciate consults from spine surgery and oncology need to get biopsy of lesion, no evidence of prostate CA (PSA normal) and no lung lesions on CT chest need to d/w radiology, possibility of biopsy Thursday? updated patient on plan, answered all questions, he is stable, ambulating in hallway Problem List Medical Problems: (1) Back pain Status: Acute (2) Sacral lesion Status: Acute Review of Systems Musculoskeletal: + joint pain (low back, radicular pain on left) All Other Systems: Reviewed and Negative Medications Current Inpatient Medications Medications (Trade) Dose Ordered Sig/Cassandra Route Start Time Stop Time Status Last Admin Dose Admin Acetaminophen (Tylenol Tab) 650 mg Q4H PRN PO 11/07/16 13:45 12/07/16 13:44 11/08/16 15:22 650 MG Al Hydrox/Mg Hydrox/Simethicone (Maalox Max Susp) 15 ml Q4H PRN PO 11/07/16 13:45 12/07/16 13:44 Magnesium Hydroxide (Milk Of Magnesia Susp) 30 ml Q6H PRN PO 11/07/16 13:45 12/07/16 13:44 Ondansetron HCl (Zofran Inj) 4 mg Q6H PRN IV 11/07/16 13:45 12/07/16 13:44 Amiodarone HCl (Cordarone Tab) 200 mg DAILY PO 11/08/16 08:00 12/08/16 08:59 11/08/16 08:15 200 MG Aspirin (Ecotrin Tab) 81 mg DAILY PO 11/08/16 08:00 12/08/16 08:59 11/08/16 08:15 81 MG Clonazepam (Klonopin Tab) 1 mg HS PO 11/07/16 21:00 12/07/16 20:59 11/07/16 21:15 1 MG Salmeterol Xinafoate/ Fluticasone (Advair Diskus 250/50 Inh) 1 puff BID INH 11/07/16 20:00 12/07/16 20:59 11/08/16 08:14 1 PUFF Simvastatin (Zocor Tab) 10 mg QPM PO 11/07/16 21:00 12/07/16 20:59 11/07/16 21:15 10 MG Tamsulosin HCl (Flomax Cap) 0.4 mg HS PO 11/07/16 21:00 12/07/16 20:59 11/07/16 21:15 0.4 MG Ioversol (Optiray 320) 100 ml UD PRN IV 11/07/16 16:45 11/11/16 16:44 Hydromorphone HCl (Dilaudid Inj) 0.5 mg Q3H PRN IV 11/07/16 23:00 11/21/16 22:59 11/08/16 03:18 0.5 MG Balsalazide (Colazal) 750 mg DAILY PO 11/09/16 08:00 12/09/16 07:59 Objective Vital Signs Date Time Temp Pulse Resp B/P (MAP) Pulse Ox O2 Delivery O2 Flow Rate FiO2 11/08/16 15:19 36.6 60 18 112/80 (91) 98 11/08/16 11:28 36.5 55 16 102/60 (74) 94 Room Air 11/08/16 08:30 93 Room Air 11/08/16 07:44 36.4 46 18 97/59 (72) 93 CPAP 11/08/16 04:30 36.5 57 18 105/57 (73) 94 CPAP 11/08/16 00:19 36.5 52 16 116/66 (83) 94 Room Air 11/08/16 00:00 Room Air 11/07/16 20:02 36.5 53 19 179/90 (119) 95 Room Air 11/07/16 20:00 Room Air 11/07/16 15:50 36.4 52 18 160/81 97 Nasal Cannula 3.0 Physical Exam General Appearance: no apparent distress, + thin Neck: supple, no adenopathy, no JVD, trachea midline Respiratory/Chest: chest non-tender, lungs clear, normal breath sounds, no respiratory distress, no accessory muscle use Cardiovascular: regular rate, rhythm, no edema, no gallop, no JVD, no murmur Abdomen: normal bowel sounds, non tender, soft, no organomegaly Extremities: normal inspection, no pedal edema, no calf tenderness, normal capillary refill, pelvis stable, + pertinent finding (decreased ROM of lumbar spine) Neurologic/Psychiatric: 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
[2016-11-08] MEDS: TAMSULOSIN HCL 0.4 MG CAP PO SCH (20:00)
[2016-11-08] MEDS: SIMVASTATIN 10 MG TAB PO SCH (22:00)
[2016-11-08] MEDS: CLONAZEPAM 1 MG TAB PO SCH (22:01)
[2016-11-09] VITALS (9 sets, daily range): BP systolic 106–136; BP diastolic 65–80; PULSE 51–72; TEMP 36.5–36.7; O2SAT 94–98
[2016-11-09] MEDS: HYDROmorphone INJ 0.5 MG/0.5 ML SYR IV PRN ×4 (04:33→21:30)
[2016-11-09] MEDS: FLUTICASONE/SALMETEROL 250/50 (ADVAIR) 14 PUFF/1 INHALER INH SCH ×2 (07:33→20:00)
[2016-11-09] MEDS: BALSALAZIDE 750 MG CAP PO SCH (07:34)
[2016-11-09] MEDS: AMIODARONE 200 MG TAB PO SCH (07:34)
--- NOTE | 2016-11-09 11:06 | Progress Note ---
Subjective Date of Service: Nov 09, 2016. Subjective Pt evaluation today including: conversation w/ patient, conversation w/ family , physical exam, conversation w/ performance consultant, review of inpatient medication list Pain: some pain earlier, went away PO Intake: adequate Voiding: no voiding problems confirmed with radiology today that they will plan to perform CT guided biopsy of S1 lesion tomorrow patient doing well, no new issues, still with intermittent low back pain Problem List Medical Problems: (1) Back pain Status: Acute (2) Sacral lesion Status: Acute Review of Systems Constitutional: + weakness Musculoskeletal: + joint pain (low back pain, radiating left side) All Other Systems: Reviewed and Negative Medications Current Inpatient Medications Medications (Trade) Dose Ordered Sig/Cassandra Route Start Time Stop Time Status Last Admin Dose Admin Acetaminophen (Tylenol Tab) 650 mg Q4H PRN PO 11/07/16 13:45 12/07/16 13:44 11/08/16 15:22 650 MG Al Hydrox/Mg Hydrox/Simethicone (Maalox Max Susp) 15 ml Q4H PRN PO 11/07/16 13:45 12/07/16 13:44 Magnesium Hydroxide (Milk Of Magnesia Susp) 30 ml Q6H PRN PO 11/07/16 13:45 12/07/16 13:44 Ondansetron HCl (Zofran Inj) 4 mg Q6H PRN IV 11/07/16 13:45 12/07/16 13:44 Amiodarone HCl (Cordarone Tab) 200 mg DAILY PO 11/08/16 08:00 12/08/16 08:59 11/09/16 07:34 200 MG Clonazepam (Klonopin Tab) 1 mg HS PO 11/07/16 21:00 12/07/16 20:59 11/08/16 22:01 1 MG Salmeterol Xinafoate/ Fluticasone (Advair Diskus 250/50 Inh) 1 puff BID INH 11/07/16 20:00 12/07/16 20:59 11/09/16 07:33 1 PUFF Simvastatin (Zocor Tab) 10 mg QPM PO 11/07/16 21:00 12/07/16 20:59 11/08/16 22:00 10 MG Tamsulosin HCl (Flomax Cap) 0.4 mg HS PO 11/07/16 21:00 12/07/16 20:59 11/08/16 20:00 0.4 MG Ioversol (Optiray 320) 100 ml UD PRN IV 11/07/16 16:45 11/11/16 16:44 Hydromorphone HCl (Dilaudid Inj) 0.5 mg Q3H PRN IV 11/07/16 23:00 11/21/16 22:59 11/09/16 07:39 0.5 MG Balsalazide (Colazal) 750 mg DAILY PO 11/09/16 08:00 12/09/16 07:59 11/09/16 07:34 750 MG Objective Vital Signs Date Time Temp Pulse Resp B/P (MAP) Pulse Ox O2 Delivery O2 Flow Rate FiO2 11/09/16 08:30 98 Room Air 11/09/16 07:30 36.6 72 16 125/78 (94) 98 11/09/16 04:00 36.5 51 16 131/76 (94) 95 Room Air 11/09/16 01:26 36.5 53 16 127/69 (88) 94 BiPAP 11/09/16 00:00 Room Air 11/08/16 19:41 36.5 68 19 143/84 (103) 99 Room Air 11/08/16 16:00 98 Room Air 11/08/16 15:19 36.6 60 18 112/80 (91) 98 11/08/16 11:28 36.5 55 16 102/60 (74) 94 Room Air Physical Exam General Appearance: WD/WN, no apparent distress Eyes: normal inspection, EOMI, sclerae normal Neck: supple, no adenopathy, no JVD, trachea midline Respiratory/Chest: chest non-tender, lungs clear, normal breath sounds, no respiratory distress, no accessory muscle use Cardiovascular: regular rate, rhythm, no edema, no gallop, no JVD, no murmur Abdomen: normal bowel sounds, non tender, soft, no organomegaly Extremities: normal range of motion, non-tender, normal inspection, no pedal edema, no calf tenderness Neurologic/Psychiatric: 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 - Pain Control - 0.5mg Dilaudid q3h PRN for pain, providing adequate relief, will keep for now, transition to PO narcotics prior to D/C - appreciate consults from ortho and oncology, need to get biopsy - plan for CT guided biopsy tomorrow, last dose of Pradaxa was Thursday AM, 48 hours would be tomorrow AM - PSA normal and no lung lesions on CT chest so treating this likely primary spine lesion 2) Atrial Fibrillation - rate controlled on Amiodarone, hold Pradaxa for planned biopsy Thursday would be earliest 3) BPH - Flomax 0.4mg PO HS 4) Hyperlipidemia - Simvastatin 10mg PO QPM 5) CAD - will hold Aspirin for planned biopsy 7) DVT: SCD only 8) Code Status - Full Resuscitation
--- NOTE | 2016-11-09 11:30 | ORTHOPEDIC PROGRESS NOTE ---
DATE: 11/08/2016 CHIEF COMPLAINT: Presents with low back pain with bilateral radiculopathy. HISTORY OF PRESENT ILLNESS: Mr. Cardoso is a 81-year-old male admitted to [facility] recently. He has had an exacerbation of low back pain, bilateral radiculopathy of his lower extremities. On today's visit, he is sitting up in bed. He is alert and oriented. He does not describe any bowel or bladder incontinence. He is able to get to the side of the bed and ambulate without too much difficulty. He rates his pain at approximately ranging from 4/10 up to 6/10. Right now, he is just kind of waiting until Thursday to see if he is going to get scheduled for a biopsy on a mass that was found on the posterior wall of the S1 vertebrae. OBJECTIVE: PHYSICAL EXAMINATION: GENERAL: He is alert and oriented x3. RECENT VITAL SIGNS: His temperature is 36.5 degrees, his pulse is ____ , his respiratory rate is 19, blood pressure is 143/84, pulse ox is 99% on room air. CARDIOVASCULAR: Brisk cap refill in distal extremities. RESPIRATORY: Equal and bilateral breath sounds upon auscultation. GASTROINTESTINAL: Abdomen is soft, nontender. No masses or organomegaly. INTEGUMENTARY: No breakages of the skin. No rashes or lesions. MUSCULOSKELETAL: No pain with straight leg raises. Sensory and motor mechanisms are intact in lower extremities. Appropriate reflexes. IMAGING DATA: MRI was read of his lumbar spine. There is a mass affect to the S1 segment from the vertebral body projecting posteriorly. This has given him significant cord compression at that level. This did not appear to be an infectious etiology. IMPRESSION: Includes: 1. 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 2. Atrial fibrillation. 3. Hyperlipidemia. 4. Coronary heart disease. DISPOSITION: He is admitted at [facility] under the medical services. Heme/Oncology has been consulted as well. PLAN: At this time, we are waiting to schedule a biopsy hopefully for tomorrow morning, which will be Thursday11/10/2016. Specimens will go to pathology to determine if this is a neoplastic-type etiology or more of benign mass. Course of action from that point will be determined. Continue with current pain management to keep his pain under control. He may ambulate to the bathroom as needed. [facility]
--- NOTE | 2016-11-09 11:31 | ORTHOPEDIC PROGRESS NOTE ---
DATE: 11/09/2016 CHIEF COMPLAINT: He presents with low back pain and bilateral lower extremities numbness and tingling. HISTORY OF PRESENT ILLNESS: Overall Mr. Cardoso is doing okay. He is lying supine in bed and his pain is rated about a 2/10. He described some discomfort trying to get up from a supine to a sitting position to be able to go to the bathroom. This causes some exacerbation in pain. He is not describing any bowel and bladder incontinence or retention. He is voiding appropriately. Currently, awaiting information on one of his biopsy is going to be hopefully tomorrow. OBJECTIVE: VITAL SIGNS: Include his temperature is 36.6 degree orally, his pulse is 72, respiratory rate 16, his blood pressure is 125/78, his pulse ox is 98% on room air. GENERAL APPEARANCE: He is alert and oriented x3. He is in no apparent distress. He is lying supine in bed. CARDIAC: Brisk capillary refill in his distal extremities. RESPIRATORY: Equal bilateral breath sounds. INTEGUMENTARY: No rashes or lesions. No breakages of the skin or bed sores. MUSCULOSKELETAL: No pain with straight leg raises. He is having a difficult time ambulating due to pain. LABORATORY DATA: No new images were done today. Diagnostics, his most recent hematocrit is 43.5, hemoglobin is 14.1, this is the most recent. H&H dated back to 11/07/2016. ASSESSMENT AND DIAGNOSES: Lower extremity radiculopathy due to cord compression from a possible mass abutting from the S1 vertebral body. PLAN: At this time, recommend continue with current pain control measures. He can get some assist with the nursing staff to help him get to the bathroom, more specifically get out of bed without flaring up his back pain. Awaiting results from any biopsy that he has done tomorrow to dictate course of action as far as his treatment plan. DENISED
[2016-11-09] MEDS: TAMSULOSIN HCL 0.4 MG CAP PO SCH (20:47)
[2016-11-09] MEDS: SIMVASTATIN 10 MG TAB PO SCH (20:47)
[2016-11-09] MEDS: CLONAZEPAM 1 MG TAB PO SCH (20:47)
[2016-11-10] VITALS (7 sets, daily range): BP systolic 113–150; BP diastolic 67–85; PULSE 54–59; TEMP 36.2–36.7; O2SAT 94–99
[2016-11-10] MEDS: HYDROmorphone INJ 0.5 MG/0.5 ML SYR IV PRN ×2 (03:14→14:02)
--- NOTE | 2016-11-10 07:10 | ORTHOPEDIC PROGRESS NOTE ---
DATE: 11/08/2016 DATE: 11/08/2016. CHIEF COMPLAINT: He presents with low back pain, bilateral leg radiculopathy. HISTORY OF PRESENT ILLNESS: Khalif is a 81-year-old male who was admitted into the hospitalist service at [facility] on 11/07/2016. We did see him in our office at [facility] approximately a week ago for low back pain. At the time, we had this pain fairly well controlled. He was doing some physical therapy. He did have an exacerbation of some radiculopathy a couple days ago, went to the Emergency Room. He was placed as an inpatient status. Had a difficult time getting comfortable. MRI was done in the hospital, did show spondylosis of the lumbar spine as well as some spinal cord narrowing and spondylolisthesis. Unfortunately there was an expansile mass of the sacral 1 segment as well. There seemed to be an outpocketing to the posterior wall of the S1 vertebra. He is here for consultations with the medical oncology team as well as the spinal surgery team. OBJECTIVE: VITAL SIGNS: He is sitting in bed, he is alert, oriented in no distress. Most recent vital signs his temperature is 36.4, pulse is 46, respiratory rate 18, blood pressure is 97/59, pulse ox is 93% with CPAP. MUSCULOSKELETAL EXAMINATION: No pain with straight leg raises. He is able to ambulate without the use of a walker or cane. Good motor and sensory in lower extremities. IMAGING: He had the MRI done yesterday. It was evaluated. There seemed to be an expansile aspect to the S1 segment of the vertebral body posterior giving significant cord compression at that level. Did have a subsequent CT scan yesterday which has not been reviewed or interpreted yet. IMPRESSION: A paraspinal muscle mass involving the S1 vertebral, atrial fibrillation, hyperlipidemia, and coronary heart disease. DISPOSITION: He is admitted to the medical service at this point. He is being evaluated by medical oncology as well. He is scheduled for a biopsy of the S1 vertebral mass on Thursday. PLAN: At this time we are just going to keep him comfortable with pain control. His pain is fairly well-controlled at this point. He is able to get up to go to the bathroom or ambulate as needed. He is scheduled for Thursday for a biopsy of the mass. Recommendations will be made at that point. ROLAN
[2016-11-10] MEDS: AMIODARONE 200 MG TAB PO SCH (07:45)
[2016-11-10] MEDS: FLUTICASONE/SALMETEROL 250/50 (ADVAIR) 14 PUFF/1 INHALER INH SCH ×2 (07:46→20:39)
[2016-11-10] MEDS: BALSALAZIDE 750 MG CAP PO SCH (07:46)
[2016-11-10] MEDS: ACETAMINOPHEN 325 MG TAB PO PRN (08:49)
[2016-11-10 09:46] LABS: PLATELET COUNT 155 K/uL (130-400)
[2016-11-10 10:06] LABS: PROTHROMBIN TIME (PATIENT) 10.5 SECONDS (9.0-12.0)
[2016-11-10] MEDS: HYDROCODONE/ACETAMINOPHEN 7.5/325MG TAB PO PRN ×3 (12:10→22:21)
--- NOTE | 2016-11-10 15:34 | DIAGNOSTIC IMAGING REPORT ---
CT-guided FNA of a sacral mass CLINICAL HISTORY: s1 mass PROCEDURE: Written informed consent was obtained. The patient was laid prone on the CT table. Preliminary imaging was performed to determine a safe needle injury site. 1% lidocaine was used for local anesthesia. 2 passes using a 22-gauge x 3 1/2 in. Josh needle were made through the S1 mass under CT guidance. The patient tolerated the procedure well. No immediate complications. Specimens were given to the on-site pathologist who determined adequate tissue for diagnosis. The patient was transferred to the floor in stable condition. IMPRESSION: CT guided FNA of a sacral mass. No immediate complications. Electronically signed by: Rk Pritchett M.D. 11/10/2016 3:33 PM Dictated Date/Time: 11/10/2016 3:29 PM
--- NOTE | 2016-11-10 17:33 | PROGRESS NOTE ---
DATE: 11/10/2016 SUBJECTIVE: Moderate complaints of pain. No incontinence of bowel or bladder function. He has more comfort sitting, more difficulty lying. OBJECTIVE: Vital signs are stable, 36.7 temperature. Rest of the vital signs are stable. NEUROLOGICALLY: Intact. No warmth or erythema. He does have pain with percussion. IMAGES: Reviewed demonstrating a tumor type process in the sacral region of the sacral lumbar spine. LABORATORY DATA: White cell count 8.1, hemoglobin 14.1. ASSESSMENT: A delightful 81-year-old male with severe back pain, having a mass or tumor in the sacral segments expanding posteriorly causing associated stenosis. The patient had a biopsy earlier today about 2 hours ago, so we do await the biopsy result. Optimistically, this can respond to good radiation care. The surgical excision of the tumor process can be quite rigorous and debilitating. I will follow him closely. Will check on him again tomorrow. I have also explained to him I will be talking to his son later on this evening as well who is an orthopedic surgeon in [place].
[2016-11-10] MEDS: TAMSULOSIN HCL 0.4 MG CAP PO SCH (20:39)
[2016-11-10] MEDS: SIMVASTATIN 10 MG TAB PO SCH (20:39)
--- NOTE | 2016-11-10 20:44 | Progress Note ---
Subjective Date of Service: Nov 10, 2016. Subjective Pt evaluation today including: conversation w/ patient, conversation w/ family (significant other & son), physical exam, chart review, lab review, review of studies (MRI L-spine), conversation w/ healthcare management consultant (radiology), review of inpatient medication list Pain: sacral region-ongoing; did have right leg pain recently but improved PO Intake: normal Voiding: no voiding problems, no incontinence patient with continued pain in the sacrum/low back needing 3-4 injections of dilaudid daily to stay comfortable denies saddle paresthesias, bowel/bladder incontinence or difficulty walking anxious about getting the biopsy done, wanting answers about what the next steps are, etc. Problem List Medical Problems: (1) Back pain Status: Acute (2) Sacral lesion Status: Acute Review of Systems Constitutional: No fever Respiratory: No shortness of breath Cardiac: No chest pain Abdomen: No pain Objective Vital Signs Date Time Temp Pulse Resp B/P (MAP) Pulse Ox O2 Delivery O2 Flow Rate FiO2 11/10/16 20:00 Room Air 11/10/16 19:30 36.6 55 18 150/82 (104) 96 Room Air 11/10/16 16:00 Room Air 11/10/16 15:33 36.7 54 18 148/81 (103) 96 Room Air 11/10/16 11:30 36.6 58 18 130/75 (93) 95 Room Air 11/10/16 08:00 94 Room Air 11/10/16 07:39 36.7 59 18 113/67 (82) 94 Room Air 11/10/16 04:29 36.4 59 20 122/73 (89) 95 Room Air CPAP 11/10/16 00:00 CPAP 11/09/16 23:24 36.7 60 18 136/80 (98) 96 CPAP Physical Exam General Appearance: no apparent distress ENT: pharynx normal Neck: no JVD Respiratory/Chest: lungs clear, no respiratory distress, no accessory muscle use Cardiovascular: regular rate, rhythm, no gallop, no murmur Abdomen: normal bowel sounds, non tender, soft, no organomegaly Extremities: no pedal edema Neurologic/Psychiatric: alert, oriented x 3, + pertinent finding (no motor deficits of right or left leg appreciated) Comments: back - tender over lower lumbar spine especially near the sacral region Laboratory Results Last 24 Hours Test 11/10/16 09:23 11/10/16 14:55 Platelet Count 155 K/uL Prothrombin Time 10.5 SECONDS Prothromb Time International Ratio 1.0 Activated Partial Thromboplast Time 25.7 SECONDS Partial Thromboplastin Ratio 1.0 Assessment and Plan 81yo male with: 1. S1 vertebral body mass - s/p CT-guided biopsy today by radiology. Appreciate their assistance. While awaiting pathology focus on pain control. 2. back pain - try norco 5's and 7.5's in gretchen of dilaudid to see if oral pain meds will suffice for pain control. 3. h/o a. fib - remains in NSR. Continue amiodarone. Holding systemic anticoagulation due to #1 above and biopsy. 4. BPH - flomax. 5. DVT proph - holding anticoagulation due to biopsy; SCDs and early ambulation in meantime. 6. ankylosing spondylitis - continue colazal. 7. PT eval appreciated; cleared for home. Needs OT - will order. Significant other extensively updated today. Son extensively updated by phone; questions answered. Time coordinating care today - 40 minutes Continued [facility] stay due to: inadequate oral pain control, other (bx of S1 vertebral body) Discharge planning: home
[2016-11-10] MEDS: CLONAZEPAM 1 MG TAB PO SCH (22:21)
[2016-11-11 07:16] VITALS: BP 118/74; PULSE 51; TEMP 36.6; O2SAT 96
[2016-11-11] MEDS: HYDROCODONE/ACETAMINOPHEN 7.5/325MG TAB PO PRN ×4 (07:27→21:37)
[2016-11-11] MEDS: FLUTICASONE/SALMETEROL 250/50 (ADVAIR) 14 PUFF/1 INHALER INH SCH ×2 (08:00→20:00)
[2016-11-11] MEDS: BALSALAZIDE 750 MG CAP PO SCH (08:29)
[2016-11-11] MEDS: AMIODARONE 200 MG TAB PO SCH (08:29)
[2016-11-11 12:01] VITALS: BP 135/77; PULSE 65; TEMP 36.6; O2SAT 97
[2016-11-11] MEDS: LIDODERM (LIDOCAINE) PATCH 5% TD SCH (12:33)
[2016-11-11 15:53] VITALS: BP 123/79; PULSE 64; TEMP 36.4; O2SAT 95
[2016-11-11 19:56] VITALS: BP 120/67; PULSE 67; TEMP 36.9; O2SAT 93
[2016-11-11] MEDS: CLONAZEPAM 1 MG TAB PO SCH (21:33)
[2016-11-11] MEDS: SIMVASTATIN 10 MG TAB PO SCH (21:33)
[2016-11-11] MEDS: TAMSULOSIN HCL 0.4 MG CAP PO SCH (21:37)
[2016-11-11 23:43] VITALS: BP 154/84; PULSE 61; TEMP 36.4; O2SAT 98
[2016-11-12] MEDS: HYDROmorphone INJ 0.5 MG/0.5 ML SYR IV PRN ×2 (00:43→09:48)
--- NOTE | 2016-11-12 05:21 | Progress Note ---
Subjective Date of Service: late entry for visit Nov 11, 2016. Subjective Pt evaluation today including: conversation w/ patient, conversation w/ family (significant other at bedside), physical exam, chart review, lab review, review of studies (pathology slides with the pathologist), conversation w/ farm consultant ( pathology, heme/onc), review of inpatient medication list Pain: sacral area - ongoing; worse lying down; also pain LLE anterior lozano PO Intake: normal Voiding: no voiding problems, no incontinence no events overnight when asked if he thinks he needs the pain meds titrate up he declines no new saddle paresthesias, bowel or bladder incontinence, or weakness of the distal legs reports a pain in his right leg, anterior lozano, at night-time only Problem List Medical Problems: (1) Back pain Status: Acute (2) Sacral lesion Status: Acute Review of Systems Constitutional: No fever Respiratory: No shortness of breath Cardiac: No chest pain Abdomen: No pain Objective Vital Signs Date Time Temp Pulse Resp B/P (MAP) Pulse Ox O2 Delivery O2 Flow Rate FiO2 11/12/16 00:00 CPAP 11/11/16 23:43 36.4 61 20 154/84 (107) 98 CPAP 11/11/16 20:00 Room Air 11/11/16 19:56 36.9 67 18 120/67 (84) 93 Room Air 11/11/16 15:53 36.4 64 16 123/79 (94) 95 Room Air 11/11/16 15:30 Room Air 11/11/16 12:01 36.6 65 18 135/77 (96) 97 Room Air 11/11/16 11:55 Room Air 11/11/16 07:16 36.6 51 18 118/74 (89) 96 CPAP Physical Exam General Appearance: no apparent distress ENT: pharynx normal Neck: no JVD Respiratory/Chest: lungs clear, no respiratory distress, no accessory muscle use Cardiovascular: regular rate, rhythm, no gallop, no murmur Abdomen: normal bowel sounds, non tender, soft, no organomegaly Extremities: no pedal edema Neurologic/Psychiatric: no motor/sensory deficits (b/l LEs), alert, oriented x 3 Laboratory Results Last 24 Hours Test 11/11/16 17:38 Assessment and Plan 81yo male with: 1. S1 vertebral body mass - s/p CT-guided biopsy. Spoke personally with pathologist today. Initial slides highly suggest a plasmacytoma. Will send SPEP and 24-hour urine for protein electrophoresis. Consult rad onc as radiation would be Rx for the sacral mass. Will need skeletal survey at some point. 2. back pain - cont norco 5's and 7.5's and add lidoderm patches. 3. h/o a. fib - remains in NSR. Continue amiodarone. Holding systemic anticoagulation due to #1. 4. BPH - flomax. 5. DVT proph - can likely resume his anticoagulation tomorrow 6. ankylosing spondylitis - continue colazal. 7. PT eval appreciated; cleared for home. OT pending. discussed prelim path report with patient and his significant other today will update son by phone once final path report has returned focus on pain control today Continued [facility] stay due to: inadequate oral pain control, other (official/ final pathology report from S1 biopsy) Discharge planning: home
[2016-11-12] MEDS: AMIODARONE 200 MG TAB PO SCH (07:47)
[2016-11-12] MEDS: LIDODERM (LIDOCAINE) PATCH 5% TD SCH (07:48)
[2016-11-12] MEDS: BALSALAZIDE 750 MG CAP PO SCH (07:48)
[2016-11-12] MEDS: FLUTICASONE/SALMETEROL 250/50 (ADVAIR) 14 PUFF/1 INHALER INH SCH ×2 (07:48→19:33)
[2016-11-12] MEDS: HYDROCODONE/ACETAMINOPHEN 7.5/325MG TAB PO PRN (07:53)
--- NOTE | 2016-11-12 08:02 | HEME/ONC PROGRESS NOTE ---
DATE: 11/12/2016 DIAGNOSES: 1. Intractable lumbar pain. 2. Plasmacytoma. HOSPITAL COURSE: Mr. Cardoso is a pleasant 81-year-old gentleman who was admitted to [facility] for intractable back pain. Radiographic studies including MRI of the lumbar spine revealed an expansile mass involving L5 and S1. Biopsy was carried out and preliminary reports suggest underlying plasmacytoma. I was contacted by the hospitalist service in this regard and advised them to proceed with serum and urine studies to rule out an underlying plasma cell dyscrasia. Clinically he continues to suffer from quite a bit of pain currently on opioid analgesia. Recommend radiation oncology consult for definitive treatment. PHYSICAL EXAMINATION: GENERAL: He is in no acute distress. VITAL SIGNS: Temperature 36.4, pulse 61, respirations 20, blood pressure 154/84. SKIN: Warm, dry, noncyanotic without rash or lesion. HEENT: Oral mucosa without erythema or ulceration. NECK: Supple. HEART: Regular rate and rhythm. LUNGS: Clear to auscultation. ABDOMEN: Soft, nontender, nondistended. EXTREMITIES: No clubbing, cyanosis or edema. NEUROLOGIC: Grossly intact. LABORATORY DATA: Pending. IMPRESSION: 1. Plasmacytoma. 2. Intractable back pain. PLAN: Mr. Cardoso underwent biopsy a couple of days ago and preliminary reports suggest plasmacytoma. These lesions are amenable to radiation therapy; however, systemic disease should be ruled out. Asked the primary service to proceed with a serum and urine studies, which are ongoing. I anticipate a good response and will arrange for outpatient followup to discuss bisphosphonate therapy. Looking back at his prior peripheral counts his hemoglobin is within normal limits suggesting against systemic disease. Continue pain management as prescribed. We will continue to follow Mr. Cardoso periodically during his hospital stay. Thank you again for allowing us to participate in his care.
[2016-11-12 08:30] VITALS: O2SAT 96
[2016-11-12 08:51] VITALS: BP 130/71; PULSE 72; TEMP 36.6; O2SAT 96
[2016-11-12] MEDS: POLYETHYLENE (MIRALAX) 17 GM PACK PO SCH (11:37)
[2016-11-12] MEDS: BISACODYL 5 MG TABEC PO SCH (11:37)
--- NOTE | 2016-11-12 12:00 | Radiation Oncology Consult ---
Radiation Oncology Consult Date / Reason Nov 12, 2016. Probably solitary plasmacytoma [facility]icians Medical Oncologist: Dr. Jairon Gutierrez Radiation Oncologist: Dr. Sandra Martin Other Providers: Dr. Dolan - Hospitalist Diagnosis (1) Solitary plasmacytoma Location: S1 (sacrum) Permanent Comment: Pathologic Diagnosis is pending - biopsy completed Last Edited By: Sandra Martin on Nov 12, 2016 11:44 History of Present Illness I am seeing Mr. Cardoso in consultation at the request of Dr. Rock Camacho. ECOG PS: 2 - 3 Mr. Cardoso is a 81 year old male who recently presented with significant lower back pain. The patient presented the emergency room and underwent an MRI of the lumbar spine on 11/07/2016 which revealed: "Expansile lesion with complete marrow replacement of the S1 vertebrae. 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 Further workup and/or biopsy is recommended." He also had a CT of the thorax on 11/07/2016 which revealed: "IMPRESSION: 1. Destructive soft tissue abnormality occupying the majority S1 vertebral body with soft tissue epidural extension which measures up to 5 mm. This results in severe central canal narrowing at this location. This favors a mass and may represent a lymphoma. Infectious process could also have a similar appearance but is considered less likely. 2. Mild splenomegaly. 3. No significant abnormality within the chest." The patient also had a CT of the abdomen/pelvis on 2016 which revealed: "IMPRESSION: 1. Destructive soft tissue abnormality occupying the majority S1 vertebral body with soft tissue epidural extension which measures up to 5 mm. This results in severe central canal narrowing at this location. This favors a mass and may represent a lymphoma. Infectious process could also have a similar appearance but is considered less likely. 2. Mild splenomegaly. 3. No significant abnormality within the chest." The patient was seen in consultation by Dr. Raciel Montero from medical oncology who recommended a CT guided biopsy of the mass in the sacrum. The patient underwent a CT-guided biopsy on 11/10/2016 and the pathology is currently pending. In the meantime, there is suspicion that this is related to a solitary plasmacytoma or multiple myeloma and medical oncology has recommended a complete workup including a skeletal survey and SPEP/UPEP. We've been asked to evaluate the patient for consideration of radiation therapy. Currently, the patient continues to suffer from low back pain and has significant discomfort. He does find it hard to get comfortable in general. He denies any focal neurologic deficits including bladder incontinence or urinary incontinence. Pacemaker Hx Pacemaker: No Past History Past Medical/Surgical History: Atrial Fibrillation, Thyroid Disease Social History Smoking Status: Never Smoker Hx Tobacco Use In Past Year?: No Do You Dip or Chew Tobacco: No Hx Alcohol Use: Yes (2 drinks/day) Hx Substance Use : No Allergies Coded Allergies: Animal Dander (Verified Allergy, Mild, ASTHMATIC REACTION, 11/07/16) IMPROVEMENT WITH INHALERS Horse Serum Proteins (Verified Allergy, Unknown, ASTHMA ATTACK, 11/07/16) Home Medications Scheduled Amiodarone HCl (Amiodarone HCl), 200 MG PO DAILY Aspirin Enteric Coated (Ecotrin Or Generic), 81 MG PO DAILY Balsalazide Disodium (Colazal), 750 MG PO QAM Clonazepam (Klonopin), 1 MG PO HS Dabigatran Elexilate (Pradaxa), 150 MG PO BID Fluticasone Prop/Salmeterol (Advair Diskus 250/50 60 Dose), 1 PUFF INH BID Simvastatin (Zocor), 10 MG PO QPM Tamsulosin Hcl (Flomax), 0.4 MG PO HS Review of Systems Ear/Hearing: Ear Side: Bilateral Hearing Ability: Hard of Hearing Hearing Aid: Bilateral Edema: Present?: No Location Body Site Modifier: Bilateral Type: Non-pitting Degree: Trace Pain Management Side: Mid Patient Preferred Pain Scale: 0 - 10 Initial Pain Intensity: 3.0 Physical Exam Height: 6 (Feet) 0.00 (Inches) 182.9 (Centimeters) 1.8288 (Meters) Weight: 178 (Pounds) 5.6 (Ounces) 80.900 (Kilograms) 77136.000 (Grams) Date Time Temp Pulse Resp B/P (MAP) Pulse Ox O2 Delivery O2 Flow Rate FiO2 11/12/16 08:51 36.6 72 18 130/71 (90) 96 Room Air 11/12/16 08:30 96 Room Air 11/12/16 00:00 CPAP 11/11/16 23:43 36.4 61 20 154/84 (107) 98 CPAP 11/11/16 20:00 Room Air 11/11/16 19:56 36.9 67 18 120/67 (84) 93 Room Air 11/11/16 15:53 36.4 64 16 123/79 (94) 95 Room Air 11/11/16 15:30 Room Air 11/11/16 12:01 36.6 65 18 135/77 (96) 97 Room Air 11/11/16 11:55 Room Air General Appearance: WD/WN, no apparent distress Head: normocephalic, atraumatic Eyes: normal inspection ENT: normal ENT inspection Neck: supple, no adenopathy Respiratory/Chest: chest non-tender, lungs clear, normal breath sounds, no respiratory distress Cardiovascular: regular rate, rhythm, no edema, no gallop, no JVD Abdomen/GI: normal bowel sounds, non tender, soft, no organomegaly Back: normal inspection Extremities: normal inspection 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 Cardoso is a 81-year-old gentleman with a presumed diagnosis of a solitary plasmacytoma involving the sacrum. The patient was admitted to the hospital due to lower back pain and imaging studies have shown a lesion involving S1. The patient did undergo a CT-guided needle biopsy of the mass on 11/10/[address] Dolan reviewed the pathology with the pathologist and the preliminary diagnosis is a solitary plasmacytoma however the final pathologic diagnosis has not been confirmed. The patient has been evaluated by medical oncology who also is suggesting that this is most likely consistent with a solitary plasmacytoma pending confirmation from tissue diagnosis. We have been asked to evaluate the patient for consideration of primary radiation therapy of the S1 lesion. Today, I did have an in depth discussion with the patient regarding the potential diagnosis of solitary plasmacytoma including multiple myeloma. At this point, we think it is reasonable to have a discussion regarding radiation therapy for treatment given the patient's symptoms. I did explain to the patient that if he truly does have a solitary plasmacytoma then we would recommend a longer course of radiation therapy for durable control. If the patient does have a diagnosis of multiple myeloma, we would recommend a short course of palliative radiation therapy. In order to expedite the process, we will have the patient come down for CT simulation and begin treatment planning with the plan to start radiation therapy tomorrow. The patient understands that if the final tissue diagnosis has not been confirmed then we could elect to start treatment with the understanding that the final diagnosis may change or we could wait to start treatment after the final pathology results have been confirmed and this decision has to be made by the patient. The patient understands and would like to start with treatment planning as soon as possible. He states he is comfortable starting radiation therapy without a confirmation with final diagnosis. The patient understands that we may modify his treatment course if we determine that he does have a diagnosis of multiple myeloma as opposed to a solitary plasmacytoma. We have explained the indications, alternatives, benefits, risks and side effects of radiation therapy. We have explained the most common side effects including but are not limited to skin erythema, skin break down, hair loss, fibrosis, adhesion development, radiation pneumonitis, rib and bone fracture, heart failure and heart disease, esophagitis, bowel obstruction, urinary symptoms, thyroid disorders, mucositis, nauesea, vomiting, diarrhea, anemia, fatigue and development of secondary malignancy. We also discussed that male patients may have issues with erections (potency) and infertility issues depending on their age and area of treatment. We have explained the CT simulation process and treatment planning. We explained what to expect before, during and after treatment on a regular basis. The patient understands and would be willing to consent to treatment. The patient had multiple questions which were answered to their full satisfaction. Thank you for allowing us to participate in the care of this patient. This chart was completed in part utilizing [employer] Speech Voice Recognition software. Attempts were made to minimize the grammatical errors, random word insertions, pronoun errors and incomplete sentences. Any formal questions or concerns about the content, text or information contained within the body of this dictation should be directly addressed to the provider for clarification. Sandra Martin MD Department of Radiation Oncology [facility] Total Time In Consultation I spent 30 minutes examining and counseling the patient. I spent 15 minutes completing this note. Copy To Jairon Gutierrez D.O.; Harshad Dolan MD
[2016-11-12] MEDS: HYDROCODONE/ACETAMI 10/325 TAB PO PRN ×2 (13:25→20:53)
[2016-11-12 15:18] VITALS: BP 130/79; PULSE 60; TEMP 36.8; O2SAT 98
[2016-11-12 16:03] VITALS: O2SAT 98
[2016-11-12] MEDS: HYDROCODONE/ACETAMOPHEN 5/325MG TAB PO PRN (16:22)
[2016-11-12 19:07] VITALS: BP 109/72; PULSE 66; TEMP 36.5; O2SAT 95
[2016-11-12] MEDS: CLONAZEPAM 1 MG TAB PO SCH (20:48)
[2016-11-12] MEDS: TAMSULOSIN HCL 0.4 MG CAP PO SCH (20:48)
[2016-11-12] MEDS: SIMVASTATIN 10 MG TAB PO SCH (20:49)
[2016-11-12 23:05] VITALS: BP 132/77; PULSE 61; TEMP 36.4; O2SAT 98
--- NOTE | 2016-11-13 00:19 | Progress Note ---
Subjective Date of Service: Nov 12, 2016. Subjective Pt evaluation today including: conversation w/ patient, physical exam, chart review, lab review, review of inpatient medication list Pain: sacral area and right leg PO Intake: normal Voiding: no voiding problems, no incontinence continues with sacral pain despite pain meds again had RLE pain overnight - anterior lozano he spoke with rad onc and he will proceed forward with radiation tomorrow; CT simulation done this am Problem List Medical Problems: (1) Back pain Status: Acute (2) Sacral lesion Status: Acute Review of Systems Constitutional: No fever Respiratory: No shortness of breath Cardiac: No chest pain Abdomen: + constipation Objective Vital Signs Date Time Temp Pulse Resp B/P (MAP) Pulse Ox O2 Delivery O2 Flow Rate FiO2 11/12/16 23:05 36.4 61 18 132/77 (95) 98 BiPAP 11/12/16 20:00 Nasal Cannula 11/12/16 19:07 36.5 66 18 109/72 (84) 95 Room Air 11/12/16 16:03 98 Room Air 11/12/16 15:18 36.8 60 18 130/79 (96) 98 Room Air 11/12/16 08:51 36.6 72 18 130/71 (90) 96 Room Air 11/12/16 08:30 96 Room Air Physical Exam General Appearance: no apparent distress ENT: pharynx normal Neck: no JVD Respiratory/Chest: lungs clear, no respiratory distress, no accessory muscle use Cardiovascular: regular rate, rhythm, no gallop, no murmur Abdomen: normal bowel sounds, non tender, soft, no organomegaly Extremities: no pedal edema Neurologic/Psychiatric: alert, oriented x 3 Skin: no rash Laboratory Results Last 24 Hours Test 11/12/16 20:30 Assessment and Plan 81yo male with: 1. S1 vertebral body mass - s/p CT-guided biopsy. Tentative dx is solitary plasmacytoma. SPEP and 24-hour urine for protein electrophoresis pending. Will need skeletal survey at some point. Rad onc consulted for consideration of radiation to sacrum. Heme/onc following. 2. back pain - cont norco but increase to 10mg strength. Cont lidoderm. Palliative radiation to begin soon. 3. h/o a. fib - remains in NSR. Continue amiodarone. Likely can resume anticoagulation tomorrow am. 4. BPH - flomax. 5. DVT proph - can likely resume his anticoagulation. 6. ankylosing spondylitis - continue colazal. 7. PT/OT have cleared him for home left message for son today Continued [facility] stay due to: inadequate oral pain control, other (official/ final pathology report from S1 biopsy) Discharge planning: home
[2016-11-13 04:04] VITALS: BP 111/63; PULSE 57; TEMP 36.1; O2SAT 96
[2016-11-13] MEDS: POLYETHYLENE (MIRALAX) 17 GM PACK PO SCH (07:40)
[2016-11-13] MEDS: BISACODYL 5 MG TABEC PO SCH (07:40)
[2016-11-13] MEDS: FLUTICASONE/SALMETEROL 250/50 (ADVAIR) 14 PUFF/1 INHALER INH SCH ×2 (07:41→20:00)
[2016-11-13] MEDS: AMIODARONE 200 MG TAB PO SCH (07:41)
[2016-11-13] MEDS: LIDODERM (LIDOCAINE) PATCH 5% TD SCH (07:41)
[2016-11-13] MEDS: BALSALAZIDE 750 MG CAP PO SCH (07:42)
[2016-11-13] MEDS: HYDROCODONE/ACETAMI 10/325 TAB PO PRN ×3 (07:50→21:05)
[2016-11-13 07:52] VITALS: BP 116/71; PULSE 60; TEMP 36.2; O2SAT 97
[2016-11-13] MEDS ORDERED: BISACODYL 10 MG SUPP PR STA (09:10)
[2016-11-13 11:37] VITALS: BP 95/63; PULSE 75; TEMP 36.8; O2SAT 93
--- NOTE | 2016-11-13 13:40 | DIAGNOSTIC IMAGING REPORT ---
RIGHT FOOT MIN 3 VIEWS ROUTINE CLINICAL HISTORY: right proximal metatarsal pain, eval for bony lesions Right COMPARISON: None. DISCUSSION: Hallux valgus configuration of the great toe. Bony exostosis consistent with a bunion formation distal aspect first metatarsal. Mild degenerative changes of the remaining osseous structures. No well-defined acute bony abnormality. Mild degenerative change of the interphalangeal joints throughout. There is no evidence for soft tissue swelling. IMPRESSION: Hallux valgus deformity of the great toe with a bunion deformity distal first metatarsal. Mild degenerative change of all remaining osseous structures. No acute bony abnormality. Electronically signed by: Yahir Wells M.D. 11/13/2016 1:39 PM Dictated Date/Time: 11/13/2016 1:37 PM
--- NOTE | 2016-11-13 13:41 | DIAGNOSTIC IMAGING REPORT ---
RIGHT TIBIA/FIBULA 2 VIEWS HISTORY: mid shaft tibial pain, eval for bony lesions Right COMPARISON: None. FINDINGS: There is no fracture or dislocation. Soft tissues are unremarkable. Right total knee arthroplasty. No suspicious lytic or blastic osseous lesions. IMPRESSION: Unremarkable right lower leg. Electronically signed by: Rk Pritchett M.D. 11/13/2016 1:40 PM Dictated Date/Time: 11/13/2016 1:38 PM
[2016-11-13] MEDS: DABIGATRAN ELEXILATE 75 MG CAP PO SCH ×2 (13:43→20:58)
[2016-11-13] MEDS: DICLOFENAC SOD 1% GEL 100 GM TUBE EXT SCH ×3 (13:44→20:55)
[2016-11-13] MEDS: HYDROmorphone INJ 0.5 MG/0.5 ML SYR IV PRN (15:48)
[2016-11-13 16:00] VITALS: O2SAT 93
[2016-11-13] MEDS: HYDROCODONE/ACETAMOPHEN 5/325MG TAB PO PRN (17:21)
[2016-11-13 18:59] LABS: ALBUMIN 3.9 G/DL (3.8-4.8); GAMMA GLOBULIN 1.2 G/DL (0.8-1.7); MONOCLONAL PROTEIN BAND 1 0.9 G/DL (NOT DETECTED); TOTAL PROTEIN 6.8 G/DL (6.2-8.3)
[2016-11-13 19:31] VITALS: BP 134/73; PULSE 66; TEMP 36.7; O2SAT 96
[2016-11-13] MEDS: CLONAZEPAM 1 MG TAB PO SCH (20:57)
[2016-11-13] MEDS: SIMVASTATIN 10 MG TAB PO SCH (20:57)
[2016-11-13] MEDS: TAMSULOSIN HCL 0.4 MG CAP PO SCH (20:57)
[2016-11-13 23:02] VITALS: BP 168/83; PULSE 67; TEMP 37.1; O2SAT 96
--- NOTE | 2016-11-14 00:32 | Progress Note ---
Subjective Date of Service: Nov 13, 2016. Subjective Pt evaluation today including: conversation w/ patient, physical exam, chart review, lab review, review of studies (x-rays of right tib/fib, right foot), review of inpatient medication list Pain: right leg (anterior), right dorsum of foot; sacral area PO Intake: normal Voiding: no voiding problems finally had a bowel movement this am continues with intermittent pain over right distal leg (the lozano) denies that it feels like paresthesias/pins & needles Problem List Medical Problems: (1) Back pain Status: Acute (2) Sacral lesion Status: Acute Review of Systems Constitutional: No fever Respiratory: No shortness of breath Cardiac: No chest pain Abdomen: + constipation, No pain Objective Vital Signs Date Time Temp Pulse Resp B/P (MAP) Pulse Ox O2 Delivery O2 Flow Rate FiO2 11/13/16 23:02 37.1 67 20 168/83 (111) 96 BiPAP 11/13/16 19:31 36.7 66 20 134/73 (93) 96 Room Air 11/13/16 16:00 93 Room Air 11/13/16 13:29 Room Air 11/13/16 11:37 36.8 75 18 95/63 (74) 93 Room Air 11/13/16 07:52 36.2 60 18 116/71 (86) 97 CPAP 11/13/16 04:04 36.1 57 18 111/63 (79) 96 BiPAP Physical Exam General Appearance: no apparent distress ENT: pharynx normal Neck: no JVD Respiratory/Chest: lungs clear, no respiratory distress, no accessory muscle use Cardiovascular: regular rate, rhythm, no gallop, no murmur Abdomen: normal bowel sounds, non tender, soft, no organomegaly, + hernia ( incisional, reducible (has at least 2 hernias)) Extremities: + pedal edema (trace b/l, a little worse on left ), + pertinent finding (varicose veins b/l; no palpable cords; no palpable clots) Neurologic/Psychiatric: alert, oriented x 3 Assessment and Plan 81yo male with: 1. S1 vertebral body mass - pathology suggests solitary plasmacytoma. Multiple myeloma is possible but unlikely given the lack of systemic symptoms, normal cbc, etc. SPEP and 24-hour urine for protein electrophoresis pending. Will need skeletal survey at some point. Rad onc consulted for radiation to sacrum and he received treatment #1 today. Heme/onc following as well. 2. back pain - cont norco 10's. Cont lidoderm patches. Palliative radiation initiated today. 3. h/o a. fib - remains in NSR. Continue amiodarone. Resume pradaxa. 4. BPH - flomax. 5. DVT proph - pradaxa. 6. ankylosing spondylitis - continue colazal. 7. right leg discomfort - unclear of etiology. Checked tib/fib and right foot films - no significant pathology. Voltaren gel qid. d/c home in AM radiation treatment #2 scheduled for tomorrow at 1600 Continued [facility] stay due to: inadequate oral pain control, other Discharge planning: home
[2016-11-14 04:38] VITALS: BP 124/73; PULSE 61; TEMP 36.8; O2SAT 96
[2016-11-14] MEDS: HYDROCODONE/ACETAMI 10/325 TAB PO PRN ×2 (07:08→12:22)
[2016-11-14 07:11] VITALS: BP 117/74; PULSE 60; TEMP 36.4; O2SAT 97
--- NOTE | 2016-11-14 08:25 | HEME/ONC PROGRESS NOTE ---
DATE: 11/14/2016 DIAGNOSES: 1. Intractable lumbar pain. 2. Plasmacytoma. HOSPITAL COURSE: Mr. Cardoso is a pleasant 81-year-old gentleman, now on hospital day #7, with the above diagnoses. Radiographic studies, including MRI of the lumbar spine, revealed an expansile mass involving L5 and S1. Biopsy confirms plasmacytoma. Mr. Cardoso started radiation therapy yesterday, but still is experiencing significant pain. He is tolerating a diet and actually moved his bowels within last 24 hours with the help of the suppository. I believe he is getting closer to discharge at this point. 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 We will plan an outpatient followup to discuss the rest of his results and establish a definitive treatment plan. PHYSICAL EXAMINATION: GENERAL: He is in no acute distress. VITAL SIGNS: Temperature 36.4, pulse 60, respirations 20, blood pressure 117/74. SKIN: Without rash or lesion. HEENT: Oral mucosa without erythema or ulceration. NECK: Supple. HEART: Regular rate and rhythm. LUNGS: Clear to auscultation. ABDOMEN: Soft, nontender, nondistended. EXTREMITIES: No clubbing, cyanosis or edema. NEUROLOGIC: Grossly intact. LABORATORY DATA: Again, immunofixation suggests an IgG kappa monoclonal gammopathy. M-spike approximately 0.9 grams per deciliter. A 24-hour urine protein electrophoresis with immunofixation is pending. IMPRESSION: 1. Plasmacytoma of the lumbosacral spine. 2. Intractable back pain, secondary to #1. 3. Monoclonal gammopathy of unclear significance. PLAN: Mr. Cardoso received his initial course of radiation therapy. He continues to experience difficulty with ambulation because of intractable back pain. Would continue opioids as prescribed. Perhaps, a rapid course of steroids would be helpful in this regard as well. We will arrange for outpatient followup to discuss the remainder of the myeloma panel pending. I have nothing further to add at this juncture. Thank you very much for allowing me to participate in his care.
[2016-11-14] MEDS: DABIGATRAN ELEXILATE 75 MG CAP PO SCH (08:30)
[2016-11-14] MEDS: AMIODARONE 200 MG TAB PO SCH (08:32)
[2016-11-14] MEDS: BISACODYL 5 MG TABEC PO SCH (08:33)
[2016-11-14] MEDS: POLYETHYLENE (MIRALAX) 17 GM PACK PO SCH (08:34)
[2016-11-14] MEDS: LIDODERM (LIDOCAINE) PATCH 5% TD SCH (08:38)
[2016-11-14] MEDS: BALSALAZIDE 750 MG CAP PO SCH (08:39)
[2016-11-14] MEDS: FLUTICASONE/SALMETEROL 250/50 (ADVAIR) 14 PUFF/1 INHALER INH SCH (08:41)
[2016-11-14] MEDS: DICLOFENAC SOD 1% GEL 100 GM TUBE EXT SCH ×2 (08:49→10:29)
[2016-11-14 11:14] VITALS: BP 123/75; PULSE 68; TEMP 36.4; O2SAT 98
[2016-11-14 14:54] VITALS: BP 93/57; PULSE 71; TEMP 36.5; O2SAT 94
[2016-11-14 14:55] VITALS: BP 123/75; PULSE 68; TEMP 36.4; O2SAT 98
[2016-11-14] MEDS ORDERED: DLC5 PO (15:29)
[2016-11-14] MEDS ORDERED: LDDP5 TD (15:29)
[2016-11-14] MEDS ORDERED: HYDR-5688 PO (15:29)
[2016-11-14] MEDS ORDERED: PRD20 PO (15:29)
[2016-11-14] MEDS ORDERED: MRLP17 PO (15:29)
[2016-11-14] MEDS ORDERED: VLTG EXT (15:29)
--- NOTE | 2016-11-14 15:38 | Discharge Instructions ---
Discharge Instructions Date of Service Nov 14, 2016. Admission Reason for Admission: Back Pain Discharge Discharge Diagnosis / Problem: back pain due to plasmacytoma of sacrum Discharge Goals Goal(s): Decrease discomfort, Improve disease control, Learn about illness, Diagnostic testing, Therapeutic intervention Activity Recommendations Activity Limitations: as noted below Lifting Limitations: no more than 10 pounds Exercise/Sports Limitations: gradually increase as tolerated Shower/Bathe: no limitations Driving or Machine Use: do not drive if you are taking narcotic pain medication as those pills can impair your driving . Instructions / Follow-Up Instructions / Follow-Up From Dr. Dolan - 1. Pain control - * may take norco (hydrocodone/tylenol) 5/325mg tablets, 1 - 2 tablets every 6 hours as needed for pain * know that the pain pills WILL constipate you (see below) * do NOT take any extra [id number] tylenol since the narcotics contain tylenol * may use lidoderm patches to the back as needed; place for 12 hours, remove for 12 hours * take a prednisone course - 40mg daily for 4 days; start this TOMORROW on ; take the prednisone with food * while on the prednisone do NOT take your aspirin, and do not take any motrin/ ibuprofen/alleve/naprosyn 2. Constipation / bowel regimen - * take miralax once-twice daily every day * take dulcolax OR senna (sennakot) daily * you will likely need to do a combination of medications to maintain normal bowel movements 3. OK to initiate a physical therapy program as an outpatient over the next 1- 2 weeks. 4. May use voltaren gel to the right leg for pain as needed. 4 grams every 6 hours as needed. 5. Return to [facility] if - * your pain is not being controlled despite the above pain medication regimen * you have fever over 100.4 degrees * you develop numbness/tingling in your legs * you develop difficulty with urination, urinary incontinence, or incontinence of your stool 6. Follow-up appointments - * see Dr. Gutierrez as scheduled next week * see Dr. Martin in the radiation oncology clinic THIS COMING THURSDAY as scheduled for radiation * you can see Dr. Padilla on an as needed basis for your back * [address], [address], [place] [id number] Current Hospital Diet Patient's current hospital diet: Regular Diet Discharge Diet Recommended Diet: Regular Diet Procedures Procedures Performed: 1. MRI of lumbar spine showing a mass in your sacrum. 2. CAT scans of your chest/abdomen/pelvis - normal. 3. Biopsy of the sacral mass showing a plasmacytoma. 4. Radiation treatments to your back x 2. Pending Studies Studies pending at discharge: no Medical Emergencies . Who to Call and When: Medical Emergencies: If at any time you feel your situation is an emergency, please call 911 immediately. . Non-Emergent Contact Non-Emergency issues call your: Oncologist (Dr. Gutierrez) Call Non-Emergent contact if: temperature is above 100.5, your pain is not controlled, your pain is worsening, your pain is unusual for you, your pain is concerning you, you have any medication questions . . "Provider Documentation" section prepared by Harshad Dolan. . VTE Core Measure Inpt VTE Proph given/why not?: Other Anticoagulation (Pradaxa)
[2016-11-17 08:23] LABS: ALBUMIN % 19.49 %; ALPHA-2-GLOBULIN % 16.88 %; BETA GLOBULIN % 15.95 %; CREATININE UR 120 MG/DL (20-370); GAMMA GLOBULIN % 44.22 %
[2016-11-17] MEDS ORDERED: LEVO88TA3 PO (14:13)
--- NOTE | 2016-11-18 22:10 | Discharge Summary ---
Discharge Summary Date of Service Nov 18, 2016. Discharge Summary Admission Date: Nov 07, 2016 at 13:42 Discharge Date: Nov 14, 2016 Discharge Disposition: Home Principal Diagnosis: sacral plasmacytoma Problems/Secondary Diagnoses: ankylosing spondylitis BPH atrial fibrillation bilateral hip and knee replacements constipation Procedures: 1. lumbar spine MRI: 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 Further workup and/or biopsy is recommended. 2. CT chest/abd/pelvis: IMPRESSION: 1. Destructive soft tissue abnormality occupying the majority S1 vertebral body with soft tissue epidural extension which measures up to 5 mm. This results in severe central canal narrowing at this location. This favors a mass and may represent a lymphoma. Infectious process could also have a similar appearance but is considered less likely. 2. Mild splenomegaly. 3. No significant abnormality within the chest. 3. CT-guided biopsy of sacral mass Consultations: 1. radiation oncology - Sandra Martin MD 2. hematology/oncology - Jairon Gutierrez DO 3. orthopedics/spine - Rock Padilla DO 4. PT, OT Medication Reconciliation New Medications: Prednisone (Prednisone) 20 Mg Tab 40 MG PO DAILY for 4 Days, #8 TABS 0 Refills start 11/15/16; take with food. Bisacodyl (Bisacodyl EC) 5 Mg Tabec 5 MG PO DAILY, #30 TAB 1 Refill Diclofenac Sod (Voltaren) 100 Appln/100 Gm Gel 1 APPLN EXT QID, #1 TUBE 1 Refill apply 4 grams to right leg every 6 hrs as needed Hydrocodone/Acetaminophen 5MG/325MG ([place] 5MG/325MG) Tab 1-2 TAB PO Q6H PRN for Pain, #45 TAB 0 Refills PRN PAIN Lidocaine (Lidocaine) 1 Patch Tdsy 3 PATCH TD QAM, #60 PATCH 2 Refills may apply up to 3 patches at site(s) of pain for 12 hours, remove for 12 hours Polyethylene (Miralax) 17 Gm Pow 17 GM PO DAILY, #30 PKT 2 Refills Continued Medications: Amiodarone HCl (Amiodarone HCl) 200 Mg Tab 200 MG PO DAILY Aspirin Enteric Coated (Ecotrin Or Generic) 81 Mg Tab 81 MG PO DAILY Balsalazide Disodium (Colazal) 750 Mg Cap 750 MG PO QAM Clonazepam (Klonopin) 1 Mg Tab 1 MG PO HS, TAB Dabigatran Elexilate (Pradaxa) 150 Mg Cap 150 MG PO BID Fluticasone Prop/Salmeterol (Advair Diskus 250/50 60 Dose) 1 Ea Aerp 1 PUFF INH BID, INHALER Simvastatin (Zocor) 10 Mg Tab 10 MG PO QPM, TAB Tamsulosin Hcl (Flomax) 0.4 Mg Cap 0.4 MG PO HS, CAP Referrals At Discharge Follow up Referrals: Oncology/Hematology Referral - Within 1 Week with Jairon Gutierrez D.O. Discharge Exam Physical Exam: General Appearance: no apparent distress ENT: pharynx normal Neck: no JVD Respiratory/Chest: lungs clear, no respiratory distress, no accessory muscle use Cardiovascular: regular rate, rhythm, no gallop, no murmur, normal peripheral pulses Abdomen / GI: normal bowel sounds, non tender, soft, no organomegaly Extremities: no pedal edema, + pertinent finding (varicose veins b/l legs) Neurologic/Psychiatric: no motor/sensory deficits (b/l legs), alert, oriented x 3 Hospital Course HISTORY OF PRESENT ILLNESS: Patient is a 81 year old male that presented with back pain since 10pm starting the evening prior to admission. The patient has a past medical history of ankylosing spondylitis, bph, atrial fibrillation, and bilateral hip and knee replacements. The patient had been having right sided leg pain of a similar nature for the last few weeks and had an appointment with Dr. Padilla last Thursday. He has been participating in physical therapy for the pain. Starting earlier this week he began having left sided pain that he attributed to his ankylosing spondylitis diagnosis, but last night the pain became 10/10 in severity. He said he took a high dose of Tylenol last night for the pain. On the AM of admission he needed to roll over and get out of bed and use his knees because the pain was unbearable. In the ED the patient had an MRI of his lumbar spine that showed chronic ankylosing spondylitis but also spinal canal narrowing secondary to an expansile sacral mass. The patient had some pain relief with Dilaudid in the ED. He denied any numbness or tingling and denied any bowel or bladder incontinence. HOSPITAL COURSE: The patient ultimately underwent a CT-guided biopsy of the S1 sacral mass by radiology. Pathology showed a solitary plasmacytoma. CTs of the chest, abdomen, and pelvis were normal except for mild splenomegaly. He underwent SPEP, UPEP, serum/urine immunofixation, and a 24-hour urine immunofixation. Most of these results were pending at time of discharge. Much of his hospital stay was spent adjusting his pain medication regimen. In addition, radiation oncology was consulted, and he received 2 radiation treatments to the sacral region prior to discharge. The patient complained of a vague right distal leg pain but imaging studies were negative for discrete pathology. At time of discharge his pain control was acceptable. PT/OT were both consulted and he was cleared for discharge home. He will continue with radiation treatments post-discharge and have follow-up with hematology/oncology within 1 week of discharge. Total Time Spent: Greater than 30 minutes This includes examination of the patient, discharge planning, medication reconciliation, and communication with other providers. Discharge Instructions Please refer to the electronic Patient Visit Report (Discharge Instructions) for additional information. Follow-Up 1. radiation therapy - Rust - 11/17/16 2. hematology/oncology - Dr. Jairon Gutierrez - within 1 week 3. PCP - Dr. Cummings - within 1 week Additional Copies To Steven Cummings M.D.; Jairon Gutierrez D.O.; Veeral. Martin MD; Rock Padilla,
[2016-11-24] MEDS ORDERED: FNTTP25 TOP (15:45)
[2016-12-02] MEDS ORDERED: HYDR-5688 PO (15:46)
[2016-12-02] MEDS ORDERED: MRLP17X PO (15:49)
[2016-12-02] MEDS ORDERED: GABA-113 PO (15:49)
[2016-12-02] MEDS ORDERED: BISA1TAB15 PO (15:51)
[2016-12-08] MEDS ORDERED: OXYC1TAB3 PO (16:36)
[2016-12-15] MEDS ORDERED: FNTTP50 TD ×2 (15:49→16:01)
[2016-12-15] MEDS ORDERED: OXYC1TAB3 PO (15:50)
[2016-12-15] MEDS ORDERED: oxycodone (16:01)
[2016-12-26] MEDS ORDERED: LDDP5 TD (11:53)
[2016-12-26] MEDS ORDERED: FLX10 PO (11:53)
[2016-12-26] MEDS ORDERED: ULT50X PO (11:53)
[2016-12-26] MEDS ORDERED: LSN5 PO (11:53)
[2016-12-26] MEDS ORDERED: AMB5 PO (11:53)
[2017-01-22] MEDS ORDERED: TRAM-10 PO (15:13)
[2017-01-22] MEDS ORDERED: ACET-1256 PO (15:13)
[2017-01-22] MEDS ORDERED: DABI150C PO (15:13)
[2017-01-22] MEDS ORDERED: NUTR-977 PO (15:13)
[2017-01-22] MEDS ORDERED: DOCU100C31 PO (15:13)
[2017-01-22] MEDS ORDERED: ATOR10TA82 PO (15:13)
[2017-01-22] MEDS ORDERED: PREG100C PO (15:13)
== END 2016-11-14 16:06 | disposition home or self-care (01) | DRG 543 ==
LOC: EDBD 08:15 → C.EDB 08:16 → C.4E 13:42 → ENRESERV 14:12
PROVIDERS: ADMIT Internal Medicine; ATTEND Internal Medicine
DX: C41.4 Malignant neoplasm of pelvic bones, sacrum and coccyx (principal); G95.29 Other cord compression; M47.26 Other spondylosis with radiculopathy, lumbar region; M45.9 Ankylosing spondylitis of unspecified sites in spine; E78.5 Hyperlipidemia, unspecified; N40.0 Benign prostatic hyperplasia without lower urinary tract symptoms; I25.10 Atherosclerotic heart disease of native coronary artery without angina pectoris; I48.91 Unspecified atrial fibrillation; E03.9 Hypothyroidism, unspecified; K43.2 Incisional hernia without obstruction or gangrene; Z79.899 Other long term (current) drug therapy; Z96.653 Presence of artificial knee joint, bilateral; Z96.643 Presence of artificial hip joint, bilateral; Z80.9 Family history of malignant neoplasm, unspecified; Z83.79 Family history of other diseases of the digestive system; Z82.49 Family history of ischemic heart disease and other diseases of the circulatory system; Z83.6 Family history of other diseases of the respiratory system; Z91.048 Other nonmedicinal substance allergy status

== ENCOUNTER 2016-12-16 15:16 | Emergency (ER) | payer BC ==
[~2016-12-16] VITALS: Ht 180.3 cm; Wt 73.9 kg
[~2016-12-16 15:16] MED LIST changes: -ALBUAER19 INH; -ASPEC81 PO; +ASPI81TA21 PO; +BISA1TAB15 PO; +FNTTP50 TD; +GABA-113 PO; -IMMODIUM PO; +LEVO88TA3 PO; +MRLP17X PO; +OXYC1TAB3 PO; +PRD150 PO; -PRD75 PO; -TADA10TA PO; +VLTG EXT; +oxycodone
[2016-12-16 15:26] VITALS: Ht 180.3 cm; Wt 73.9 kg
[2016-12-16] MEDS ORDERED: SODIUM CHLORIDE 0.9% 1000ML 1,000 ML IV STA (15:44)
[2016-12-16] MEDS ORDERED: SODIUM CHLORIDE 0.9% 250ML 250 ML IV STA (15:44)
--- NOTE | 2016-12-16 15:59 | EMERGENCY ROOM VISIT NOTE ---
History Report prepared by Jitendra: Joel Serna Under the Supervision of: Dr. Maria T Jalloh M.D. First contact with patient: 15:22 Chief Complaint: PAIN (GENERALIZED) Stated Complaint: back pain History of Present Illness The patient is a 81 year old male who presents to the Emergency Room with complaints of worsened, severe pain located diffusely below the sacrum starting a few weeks ago and worsening a few days ago. As per family member, the patient has a history of plasmacytoma with a lesion on sacrum. He receives radiation treatment every weekday and his last one will be on December 23. He started having pain since the start of the radiation treatment. The dose for oxycodone was recently increased and he now has 2 Fentanyl patches instead of one. He was due for radiation today but could not be performed secondary to the severity of the pain and related agitation. He is not on chemotherapy. As per family member, the patient has had a loss of appetite and weight loss. He did not have loss of consciousness, or any other complaints. Source of History: patient, family History Limited By: other (severe pain) Onset: a few weeks ago Position: other (below sacrum) Symptom Intensity: severe Timing: worsening Associated Symptoms: No LOC Review of Systems See HPI for pertinent positives & negatives. A total of 10 systems reviewed and were otherwise negative. 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 Surgical Problems: (1) History of hip replacement (2) History of knee replacement (3) Post-operative state Family History Cancer Gallbladder disease Heart disease Hypertension Lung disease Social History Smoking Status: Never Smoker Drug Use: none Marital Status: in relationship Housing Status: lives alone Occupation Status: retired Current/Historical Medications Scheduled Amiodarone HCl (Amiodarone HCl), 200 MG PO DAILY Aspirin Enteric Coated (Ecotrin Or Generic), 81 MG PO DAILY Balsalazide Disodium (Colazal), 750 MG PO QAM Clonazepam (Klonopin), 1 MG PO HS Dabigatran Elexilate (Pradaxa), 150 MG PO BID Fentanyl (Duragesic), 50 MCG TD [id number] Fluticasone Prop/Salmeterol (Advair Diskus 250/50 60 Dose), 1 PUFFS INH BID Gabapentin (Neurontin), 300 MG PO BID Levothyroxine Sodium (Levothyroxine Sodium), 1 TAB PO DAILY Loperamide Hcl (Imodium), 2 MG PO Q2D Simvastatin (Zocor), 10 MG PO QPM Tadalafil (Cialis), 5 MG PO UD Tamsulosin Hcl (Flomax), 0.4 MG PO HS Scheduled PRN Diclofenac Sod (Voltaren), 1 APPLN TOP Q6H PRN for RIGHT LEG PAIN Lorazepam (Ativan), 0.5 MG PO TID PRN for Anxiety/Agitation Oxycodone Ir (Roxicodone Ir), 10 MG PO Q4H PRN for Severe Pain Polyethylene (Miralax), 1 PKT PO DAILY PRN for Constipation Allergies Coded Allergies: Animal Dander (Verified Allergy, Intermediate, ASTHMATIC REACTION, 12/17/16 ) IMPROVEMENT WITH INHALERS Horse Serum Proteins (Verified Allergy, Intermediate, ASTHMA ATTACK, ) Physical Exam Vital Signs Date Time Temp Pulse Resp B/P (MAP) Pulse Ox O2 Delivery O2 Flow Rate FiO2 12/16/16 19:02 65 18 152/91 94 12/16/16 16:55 36.6 77 17 155/95 95 Room Air 12/16/16 16:05 96 12/16/16 15:26 36.6 18 Physical Exam Vital signs reviewed. General: Somnolent, difficult to arouse but answers questions, in no significant distress. HEENT: No scleral icterus, PERRLA, neck supple. Atraumatic. Dry mucous membranes. Cardiovascular: Regular rate and rhythm, no extra sounds. Pulmonary: Clear to auscultation bilaterally, normal work of breathing. Abdomen: Soft, nontender, nondistended, positive bowel sounds. Musculoskeletal: Atraumatic, no peripheral edema. Neurologic: Patient awake alert and oriented x 3, full strength in all 4 extremities. Cranial nerves 2 through 12 grossly intact. Skin: Warm, dry, no rash Medical Decision & Procedures Laboratory Results 12/16/16 16:20 Red Blood Count 4.73, Mean Corpuscular Volume 93.2, Mean Corpuscular Hemoglobin 30.9, Mean Corpuscular Hemoglobin Concent 33.1, Mean Platelet Volume 9.3, Neutrophils (%) (Auto) 89.4, Lymphocytes (%) (Auto) 6.8, Monocytes (%) (Auto) 3.0, Eosinophils (%) (Auto) 0.3, Basophils (%) (Auto) 0.2, Neutrophils # (Auto) 5.95, Lymphocytes # (Auto) 0.45, Monocytes # (Auto) 0.20, Eosinophils # (Auto) 0.02, Basophils # (Auto) 0.01 12/16/16 16:20 Test 12/16/16 16:20 White Blood Count 6.65 K/uL (4.8-10.8) Red Blood Count 4.73 M/uL (4.7-6.1) Hemoglobin 14.6 g/dL (14.0-18.0) Hematocrit 44.1 % (42-52) Mean Corpuscular Volume 93.2 fL (80-100) Mean Corpuscular Hemoglobin 30.9 pg (25-34) Mean Corpuscular Hemoglobin Concent 33.1 g/dl (32-36) Platelet Count 185 K/uL (130-400) Mean Platelet Volume 9.3 fL (7.4-10.4) Neutrophils (%) (Auto) 89.4 % Lymphocytes (%) (Auto) 6.8 % Monocytes (%) (Auto) 3.0 % Eosinophils (%) (Auto) 0.3 % Basophils (%) (Auto) 0.2 % Neutrophils # (Auto) 5.95 K/uL (1.4-6.5) Lymphocytes # (Auto) 0.45 K/uL (1.2-3.4) Monocytes # (Auto) 0.20 K/uL (0.11-0.59) Eosinophils # (Auto) 0.02 K/uL (0-0.5) Basophils # (Auto) 0.01 K/uL (0-0.2) RDW Standard Deviation 44.6 fL (36.4-46.3) RDW Coefficient of Variation 13.0 % (11.5-14.5) Immature Granulocyte % (Auto) 0.3 % Immature Granulocyte # (Auto) 0.02 K/uL (0.00-0.02) Anion Gap 6.0 mmol/L (3-11) Est Creatinine Clear Calc Drug Dose 52.2 ml/min Estimated GFR () 66.3 Estimated GFR (Non- 57.2 BUN/Creatinine Ratio 20.6 (10-20) Calcium Level 9.3 mg/dl (8.5-10.1) Phosphorus Level 2.9 mg/dl (2.5-4.9) Magnesium Level 2.1 mg/dl (1.8-2.4) Total Bilirubin 0.7 mg/dl (0.2-1) Direct Bilirubin 0.2 mg/dl (0-0.2) Aspartate Amino Transf (AST/SGOT) 29 U/L (15-37) Alanine Aminotransferase (ALT/SGPT) 29 U/L (12-78) Alkaline Phosphatase 65 U/L (45-117) Total Protein 7.0 gm/dl (6.4-8.2) Albumin 3.7 gm/dl (3.4-5.0) Laboratory results per my review. Medications Administered Medications (Trade) Dose Ordered Sig/Cassandra Route Start Time Stop Time Status Last Admin Dose Admin Sodium Chloride 250 ml @ 999 mls/hr Q16M STAT IV 12/16/16 15:44 12/16/16 15:59 DC 12/16/16 16:30 999 MLS/HR Sodium Chloride 1,000 ml @ 150 mls/hr Q6H40M STAT IV 12/16/16 15:44 12/16/16 19:28 DC 12/16/16 16:49 150 MLS/HR Lorazepam (Ativan Inj) 0.5 mg NOW STAT IV 12/16/16 16:25 12/16/16 16:26 DC 12/16/16 16:33 0.5 MG Lorazepam (Ativan Tab) 1.5 mg NOW STAT SL 12/16/16 18:27 12/16/16 18:28 DC 12/16/16 18:43 1.5 MG Oxycodone HCl (Roxicodone Immediate Rel Tab) 5 mg NOW STAT PO 12/16/16 18:31 12/16/16 18:32 DC 12/16/16 18:45 5 MG ECG Indication: other (Generalized pain) Rate (beats per minute): 76 Rhythm: sinus rhythm Findings: 1st degree AV block, no acute ischemic change, no ectopy, other ( possible previous anterior infarct; LVH) ED Course 1522: Past medical records reviewed. The patient was evaluated in room A04B. A complete history and physical examination was performed. 1544: Sodium Chloride 1000 ml @ 150 mls/hr IV, Sodium Chloride 250 ml @ 999 mls/ hr IV 1625: Ativan Inj 0.5 mg IV 1751: Upon reevaluation, the patient appeared to have improvement of his symptoms. I discussed findings with the patient and his . They verbalized agreement of the treatment plan. The patient was discharged home. 1827: Ativan Tab 1.5 mg SL Medical Decision Differential diagnosis: Etiologies such as metabolic, infection, hypoglycemia, electrolyte abnormalities , cardiac sources, intracerebral event, toxicologic, neurologic, as well as others were entertained. This pt was evaluated and appeared to be very comfortable, sleeping. IV access was obtained and lab work was drawn. Pt was placed on the monitoring engineer. Patient's laboratory work is fairly unrevealing. He was hydrated with normal saline solution. He woke up rather suddenly and became very agitated. He was difficult for nursing staff to keep safe. Patient was given 0.5 mg of Ativan IV. Patient did have some improvement. There is a lot of anxiety in the patient's room regarding his medications and pain episodes. His was advised to use Ativan 0.5 mg 3 times a day as it seemed to be helpful. He will continue his fentanyl patches as prescribed and OxyContin only for breakthrough pain. Case management was consulted and evaluated the patient in the room. They stated they were not interested in continuing with home health services. They were discharged follow-up with her primary care physician and return to the ER for worsening of symptoms or any medical concerns. Medication Reconcilliation Current Medication List: was personally reviewed by me Blood Pressure Screening Patient's blood pressure: Elevated blood pressure Blood pressure disposition: Elevated BP felt to be situational Impression Primary Impression: Cancer associated pain Additional Impression: Anxiety Scribe Attestation The scribe's documentation has been prepared under my direction and personally reviewed by me in its entirety. I confirm that the note above accurately reflects all work, treatment, procedures, and medical decision making performed by me. Departure Information Dispostion Home / Self-Care Prescriptions Lorazepam (ATIVAN) 0.5 Mg Tab 0.5 MG PO TID Y for Anxiety/Agitation, #20 TAB Prov: Maria T Jalloh M.D. 12/16/16 Referrals Steven Cummings M.D. Forms HOME CARE DOCUMENTATION FORM, IMPORTANT VISIT INFORMATION, WORK / SCHOOL INSTRUCTIONS Patient Instructions My [facility] Additional Instructions Diagnosis: Cancer related pain, anxiety Continue with the fentanyl patches as prescribed. Use your OxyIR only as needed. You may cut tablets in half. Ativan 0.5 mg three times daily as needed (for example: breakfast, mid afternoon and before bed) Follow up with your doctor this week for reevaluation. Return to the ED for worsening of symptoms or any medical concerns. Problem Qualifiers
[2016-12-16] MEDS ORDERED: VLTG TOP (16:01)
[2016-12-16] MEDS ORDERED: LORAZEPAM 2 MG/ML 1 ML VIAL IV STA (16:25)
[2016-12-16 16:35] LABS: BASO % 0.2 %; BASO ABS # 0.01 K/uL (0-0.2); COMPLETE YES; EOS % 0.3 %; HEMATOCRIT 44.1 % (42-52); IG% 0.3 %; LYMPH % 6.8 %; LYMPH ABS # 0.45 K/uL (1.2-3.4); MEAN CELL VOLUME 93.2 fL (80-100); MEAN CORPUSCULAR HEMOGLOBIN 30.9 pg (25-34); MEAN CORPUSCULAR HGB CONC 33.1 g/dl (32-36); MEAN PLATELET VOLUME 9.3 fL (7.4-10.4); NEUT % 89.4 %; PLATELET COUNT 185 K/uL (130-400); RED BLOOD COUNT 4.73 M/uL (4.7-6.1); WHITE BLOOD COUNT 6.65 K/uL (4.8-10.8)
[2016-12-16 16:55] VITALS: TEMP 36.6
[2016-12-16 16:56] LABS: BUN/CREATININE RATIO 20.6 (10-20); CALCIUM 9.3 mg/dl (8.5-10.1); CREATININE 1.2 mg/dl (0.60-1.40); MAGNESIUM 2.1 mg/dl (1.8-2.4); POTASSIUM 3.9 mmol/L (3.5-5.1)
[2016-12-16 17:07] LABS: PHOSPHORUS 2.9 mg/dl (2.5-4.9)
[2016-12-16] MEDS ORDERED: LORA-741 PO (18:26)
[2016-12-16] MEDS ORDERED: LORAZEPAM 0.5 MG TAB SL STA (18:27)
[2016-12-16] MEDS ORDERED: OXYCODONE HCL IR 5 MG TAB (IMMEDIATE RELEASE) PO STA (18:31)
[2016-12-16 19:02] VITALS: BP 152/91; PULSE 65; O2SAT 94
[2016-12-17] MEDS ORDERED: ADVIN25/60 INH (10:18)
[2016-12-17] MEDS ORDERED: TADA10TA PO (10:18)
[2016-12-17] MEDS ORDERED: IMD/2 PO (10:18)
[2016-12-26] MEDS ORDERED: AMB5 PO (11:53)
[2016-12-26] MEDS ORDERED: FLX10 PO (11:53)
[2016-12-26] MEDS ORDERED: LSN5 PO (11:53)
[2016-12-26] MEDS ORDERED: LDDP5 TD (11:53)
[2016-12-26] MEDS ORDERED: ULT50X PO (11:53)
[2017-01-22] MEDS ORDERED: ACET-1256 PO (15:13)
[2017-01-22] MEDS ORDERED: TRAM-10 PO (15:13)
[2017-01-22] MEDS ORDERED: PREG100C PO (15:13)
[2017-01-22] MEDS ORDERED: DOCU100C31 PO (15:13)
[2017-01-22] MEDS ORDERED: ATOR10TA88 PO (15:13)
[2017-01-22] MEDS ORDERED: DABI150C PO (15:13)
[2017-01-22] MEDS ORDERED: NUTR-977 PO (15:13)
== END 2016-12-16 19:05 | disposition home or self-care (01) ==
LOC: EDBD 15:16 → C.EDA 15:18
DX: G89.3 Neoplasm related pain (acute) (chronic) (principal); F41.9 Anxiety disorder, unspecified; D64.9 Anemia, unspecified; I48.91 Unspecified atrial fibrillation; E87.5 Hyperkalemia; I10 Essential (primary) hypertension; E03.9 Hypothyroidism, unspecified; Z82.49 Family history of ischemic heart disease and other diseases of the circulatory system; Z79.82 Long term (current) use of aspirin

== ENCOUNTER 2016-12-17 09:16 | Inpatient (IN) | payer BC, OTHER ==
[~2016-12-17] VITALS: Ht 182.9 cm; Wt 76.7 kg
[~2016-12-17 09:16] MED LIST changes: +LORA-741 PO; -VLTG EXT; +VLTG TOP; -oxycodone
[2016-12-17] MEDS ORDERED: SODIUM CHLORIDE 0.9% 1000ML 1,000 ML IV STA (09:21)
[2016-12-17 09:44] LABS: BASO % 0.1 %; BASO ABS # 0.01 K/uL (0-0.2); COMPLETE YES; EOS % 0.1 %; HEMATOCRIT 44.7 % (42-52); IG% 0.4 %; LYMPH % 4.3 %; MEAN CELL VOLUME 95.7 fL (80-100); MEAN CORPUSCULAR HGB CONC 32.4 g/dl (32-36); MEAN PLATELET VOLUME 9.3 fL (7.4-10.4); MONO % 12.3 %; NEUT % 82.8 %; PLATELET COUNT 207 K/uL (130-400); RED BLOOD COUNT 4.67 M/uL (4.7-6.1); WHITE BLOOD COUNT 6.98 K/uL (4.8-10.8)
--- NOTE | 2016-12-17 09:51 | EMERGENCY ROOM VISIT NOTE ---
History Report prepared by Jitendra: Asher Parada Under the Supervision of: Dr. Danny Steel M.D. First contact with patient: 09:18 Stated Complaint: AMS/ LF HIP PAIN History of Present Illness The patient is a 81 year old male who presents to the Emergency Room with complaints of constant left hip pain beginning last night. EMS states that the patient fell last night and was given oxycodone for pain, and then sent to bed. EMS reports that when they were called, the patient had an altered mental status , pinpoint pupils, and low O2Sat. They note the patient was given an IV, and his blood sugar was fine. The patient's states that the patient has had two hip and two knee replacements. She reports that the last two or three days he has had a decreased appetite. The notes that the patient currently has to Fentanyl patches in place. HPI limited secondary to the patient's altered mental status. Source of History: spouse/significant other, EMS History Limited By: AMS Onset: last night Position: pelvis (left) Timing: constant Review of Systems ROS limited secondary to the patient's altered mental status. 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 Surgical Problems: (1) History of hip replacement (2) History of knee replacement (3) Post-operative state Family History Cancer Gallbladder disease Heart disease Hypertension Lung disease Social History Smoking Status: Never Smoker Drug Use: none Marital Status: in relationship Housing Status: lives alone Occupation Status: retired Current/Historical Medications Scheduled Amiodarone HCl (Amiodarone HCl), 200 MG PO DAILY Aspirin Enteric Coated (Ecotrin Or Generic), 81 MG PO DAILY Balsalazide Disodium (Colazal), 750 MG PO QAM Clonazepam (Klonopin), 1 MG PO HS Dabigatran Elexilate (Pradaxa), 150 MG PO BID Fentanyl (Duragesic), 50 MCG TD [id number] Fluticasone Prop/Salmeterol (Advair Diskus 250/50 60 Dose), 1 PUFFS INH BID Gabapentin (Neurontin), 300 MG PO BID Levothyroxine Sodium (Levothyroxine Sodium), 1 TAB PO DAILY Loperamide Hcl (Imodium), 2 MG PO Q2D Simvastatin (Zocor), 10 MG PO QPM Tadalafil (Cialis), 5 MG PO UD Tamsulosin Hcl (Flomax), 0.4 MG PO HS Scheduled PRN Diclofenac Sod (Voltaren), 1 APPLN TOP Q6H PRN for RIGHT LEG PAIN Lorazepam (Ativan), 0.5 MG PO TID PRN for Anxiety/Agitation Oxycodone Ir (Roxicodone Ir), 10 MG PO Q4H PRN for Severe Pain Polyethylene (Miralax), 1 PKT PO DAILY PRN for Constipation Allergies Coded Allergies: Animal Dander (Verified Allergy, Intermediate, ASTHMATIC REACTION, 12/17/16 ) IMPROVEMENT WITH INHALERS Horse Serum Proteins (Verified Allergy, Intermediate, ASTHMA ATTACK, ) Physical Exam Vital Signs Date Time Temp Pulse Resp B/P (MAP) Pulse Ox O2 Delivery O2 Flow Rate FiO2 12/17/16 12:43 37.0 86 18 117/75 98 Nasal Cannula 2.0 12/17/16 12:41 76 16 137/76 98 Room Air 12/17/16 11:24 80 12/17/16 11:12 81 16 147/75 96 Room Air 12/17/16 11:10 36.9 12/17/16 10:36 90 12/17/16 09:56 86 18 114/71 96 Nasal Cannula 2.0 12/17/16 09:33 82 Room Air 12/17/16 09:33 Nasal Cannula 2.0 12/17/16 09:25 37.6 92 14 123/79 82 Room Air Physical Exam GENERAL: Patient is obtunded, altered, awaken to painful stimuli. HEENT: No acute trauma, normocephalic atraumatic, mucous membranes dry and cracked, no nasal congestion, no scleral icterus. Pinpoint pupils bilaterally but reactive. NECK: No stridor, no adenopathy, no meningismus, trachea is midline. LUNGS: No dyspnea. Clear to auscultation and equal bilaterally. No wheeze, no rhonchi. HEART: Regular rate and rhythm. No murmurs, rubs, gallops appreciated. ABDOMEN: Soft, nontender, bowel sounds positive, no masses appreciated, no peritonitis. BACK: No midline tenderness, no CVA tenderness EXTREMITIES: No cyanosis, no edema. Abrasion over the left elbow. Mild tenderness to palpation of the mid-left femur, left leg was shorter without rotation. NEUROLOGIC: Alert and oriented, no acute motor or sensory deficits, no focal weakness, cranial nerves grossly intact. SKIN: No rash, no jaundice, no diaphoresis. Medical Decision & Procedures ER Provider Diagnostic Interpretation: Radiology results and stated below per my review and radiologist interpretation: SINGLE VIEW PELVIS CLINICAL HISTORY: Fall with left leg pain. FINDINGS: 2 AP portable views of the pelvis are correlated with pelvic CT dated 11/07/2016. The skeletal structures are osteopenic. No fracture is seen. Bilateral hip arthroplasties are in near-anatomic alignment. No periprosthetic lucency is identified. Mild sclerotic degenerative change is noted in the sacroiliac joints. Surgical clips are present in the pelvis. There is a nonobstructed abdominal bowel gas pattern. The overlying soft tissues are within normal limits. IMPRESSION: 1. There is no radiographic evidence of pelvic fracture. 2. Bilateral hip arthroplasties are in near-anatomic alignment. Electronically signed by: Alfred Avila M.D. 12/17/2016 10:03 AM Dictated Date/Time: 12/17/2016 10:[address] SCAN OF THE BRAIN WITHOUT IV CONTRAST CLINICAL HISTORY: Recent fall. Change in mental status. COMPARISON STUDY: No priors. TECHNIQUE: Unenhanced axial CT scan of the brain is performed from the vertex to the skull base. CT DOSE: 788.63 mGycm FINDINGS: Brain parenchyma: There are age-related involutional changes noting mild subcortical and periventricular microangiopathic change. There is no hemorrhage, mass effect, or evidence of acute territorial ischemia by CT criteria. Granados-white matter is preserved. No extra-axial fluid collection is seen. Ventricles, sulci, cisterns: Prominent secondary to involutional change. Intracranial vasculature: There is atherosclerotic calcification of the cavernous carotid and vertebral arteries. Calvarium: Skeletal structures are osteopenic. No depressed calvarial fracture is seen. Sinuses and mastoids: Trace mucosal thickening is seen in the right maxillary antrum. The remaining visualized paranasal sinuses are clear. The mastoid air cells are well pneumatized. Orbits: The bony orbits are grossly intact. There are bilateral ocular lens implants. IMPRESSION: There is no hemorrhage, mass effect, or evidence of acute territorial ischemia by CT criteria. Electronically signed by: Alfred Avila M.D. 12/17/2016 10:28 AM Dictated Date/Time: 12/17/2016 10:25 AM LEFT FEMUR 2 VIEWS ROUTINE CLINICAL HISTORY: fall, left leg shortening trauma. Pain. COMPARISON: None. DISCUSSION: Total left hip and knee replacement. Good contact between prosthetic and underlying bone. No acute bony abnormality. There is no evidence for soft tissue swelling. IMPRESSION: No acute process status post left hip and knee arthroplasties. The above report was generated using voice recognition software. It may contain grammatical, syntax or spelling errors. Electronically signed by: Yahir Wells M.D. 12/17/2016 10:03 AM Dictated Date/Time: 12/17/2016 10:02 AM SINGLE VIEW CHEST CLINICAL HISTORY: Change in mental status. Fall. FINDINGS: An AP, portable, upright chest radiograph is compared to chest x-ray and chest CT dated 11/07/2016. The examination is degraded by portable technique and patient rotation. The heart is enlarged and there is atherosclerotic calcification of the thoracic aorta. The pulmonary vasculature is noncongested. Chronic interstitial thickening is noted. Bibasilar atelectasis is observed. No airspace consolidation is seen typical for pneumonia and there is no large pleural effusion. No pneumothorax is seen. The skeletal structures are osteopenic. There are healed right-sided rib fractures. IMPRESSION: Cardiomegaly with no acute cardiopulmonary abnormality. Electronically signed by: Alfred Avila M.D. 12/17/2016 10:01 AM Dictated Date/Time: 12/17/2016 10:00 AM Laboratory Results Test 12/17/16 00:00 12/17/16 09:31 12/17/16 10:35 Urine Color DK YELLOW Urine Appearance CLEAR (CLEAR) Urine pH 5.5 (4.5-7.5) Urine Specific [place] 1.020 (1.000-1.030) Urine Protein 1+ (NEG) Urine Glucose (UA) NEG (NEG) Urine Ketones TRACE (NEG) Urine Occult Blood NEG (NEG) Urine Nitrite NEG (NEG) Urine Bilirubin NEG (NEG) Urine Urobilinogen NEG (NEG) Urine Leukocyte Esterase NEG (NEG) Urine WBC (Auto) 0 /hpf (0-5) Urine RBC (Auto) 0-4 /hpf (0-4) Urine Hyaline Casts (Auto) 0 /lpf (0-5) Urine Epithelial Cells (Auto) 0-5 /lpf (0-5) Urine Bacteria (Auto) NEG (NEG) Urine Opiates Screen POS (NEG) Urine Methadone, Qualitative NEG (NEG) Urine Barbiturates NEG (NEG) Urine Phencyclidine (PCP) Level NEG (NEG) Ur Amphetamine/Methamphetamine NEG (NEG) MDMA (Ecstasy) Screen NEG (NEG) Urine Benzodiazepines Screen NEG (NEG) Urine Cocaine Metabolite NEG (NEG) Urine Marijuana (THC) NEG (NEG) Prothrombin Time 11.7 SECONDS (9.0-12.0) Prothromb Time International Ratio 1.1 (0.9-1.1) Activated Partial Thromboplast Time 23.3 SECONDS (21.0-31.0) Partial Thromboplastin Ratio 0.9 Direct Bilirubin 0.2 mg/dl (0-0.2) Thyroid Stimulating Hormone (TSH) 3.240 uIu/ml (0.300-4.500) Bedside Lactic Acid Venous 0.96 mmol/L (0.90-1.70) Laboratory results as reviewed by me. Medications Administered Medications (Trade) Dose Ordered Sig/Cassandra Route Start Time Stop Time Status Last Admin Dose Admin Sodium Chloride 1,000 ml @ 999 mls/hr Q1H1M STAT IV 12/17/16 09:21 12/17/16 10:21 DC 12/17/16 09:21 999 MLS/HR ECG Indication: altered mental status Rate (beats per minute): 87 Rhythm: sinus rhythm Findings: 1st degree AV block, no acute ischemic change, no ectopy Comparison ECG Date: 12/16/16 Change: no significant change Change: Morphology is similar to previous. ED Course 0920: The patient was evaluated in room A12B. A complete history and physical exam was performed. 0921: Ordered Sodium Chloride 1000 ml @ 999 mls/hr IV 1019: I reevaluated the patient. He is starting to wake up. 1050: I reevaluated the patient and updated him and his of his exam finding and test results. He is a little more awake and complaining of leg soreness. 1144: I discussed the patients case with Dr. Zhang, [facility] Hospitalist. The patient will be evaluated for further treatment. Medical Decision Differential: Toxicological, Infectious, Stroke, SAH, Trauma, Electrolyte Abnormality, Hypoglycemia, Alcohol Intoxication, Drug Intoxication, Cardiac Abnormality, Sepsis, Meningitis/Encephalitis, Trauma, Excited Delirium, Serotonin Syndrome, Psychiatric, amongst other pathologies entertained. 81 yr old male arrives from home altered, hypoxic, and clearly dehydrated. Exam consistent with narcotic overdose and thus fentanyl patches removed. With O2 sats doing OK on NC felt that narcan not indicated, especially given he was just here the day earlier for pain control. Large work-up for AMS done, including blood cultures. No clear evidence of infection thus will hold on abx. No indication for LP at this time. Patient stable and starting to slowly improve with fluids. Labs reveal renal insufficiency acute from yesterday, now with a trop elevation. Suspect this is hypoxic/renal related rather than ACS. He will need to come in for further work-up and evaluation. Of note, significant other periodically asking for pain control of patient, though I made clear it would be contraindicated at this time, especially given he does not appear in significant distress at this time. Medication Reconcilliation Current Medication List: was personally reviewed by me Blood Pressure Screening Patient's blood pressure: Elevated blood pressure He will be monitored by the hospitalist. Consults Time Called: 1129 Consulting Physician: Dr. Zhang [facility] Hospitalist Returned Call: 1144 I discussed the patients case with Dr. Zhang [facility] Hospitalist. The patient will be evaluated for further treatment. Impression Primary Impression: Altered mental status Additional Impressions: Hypoxia Renal insufficiency Dehydration Elevated troponin I level Scribe Attestation The scribe's documentation has been prepared under my direction and personally reviewed by me in its entirety. I confirm that the note above accurately reflects all work, treatment, procedures, and medical decision making performed by me. Departure Information Dispostion Being Evaluated By Hospitalist Referrals Steven Cummings M.D. (PCP) Problem Qualifiers
[2016-12-17 09:57] LABS: ALT/SGPT 30 U/L (12-78); BLOOD UREA NITROGEN 34 mg/dl (7-18); BUN/CREATININE RATIO 21.2 (10-20); CALCIUM 9.3 mg/dl (8.5-10.1); CARBON DIOXIDE 29 mmol/L (21-32); CHLORIDE 100 mmol/L (98-107); GLUCOSE 100 mg/dl (70-99); MAGNESIUM 2.3 mg/dl (1.8-2.4); POTASSIUM 4.1 mmol/L (3.5-5.1); SODIUM 137 mmol/L (136-145)
[2016-12-17 09:58] LABS: INR 1.1 (0.9-1.1); PARTIAL THROMBOPLASTIN RATIO 0.9; PROTHROMBIN TIME (PATIENT) 11.7 SECONDS (9.0-12.0)
--- NOTE | 2016-12-17 10:03 | DIAGNOSTIC IMAGING REPORT ---
SINGLE VIEW CHEST CLINICAL HISTORY: Change in mental status. Fall. FINDINGS: An AP, portable, upright chest radiograph is compared to chest x-ray and chest CT dated 11/07/2016. The examination is degraded by portable technique and patient rotation. The heart is enlarged and there is atherosclerotic calcification of the thoracic aorta. The pulmonary vasculature is noncongested. Chronic interstitial thickening is noted. Bibasilar atelectasis is observed. No airspace consolidation is seen typical for pneumonia and there is no large pleural effusion. No pneumothorax is seen. The skeletal structures are osteopenic. There are healed right-sided rib fractures. IMPRESSION: Cardiomegaly with no acute cardiopulmonary abnormality. Electronically signed by: Alfred Avila M.D. 12/17/2016 10:01 AM Dictated Date/Time: 12/17/2016 10:00 AM
--- NOTE | 2016-12-17 10:04 | DIAGNOSTIC IMAGING REPORT ---
LEFT FEMUR 2 VIEWS ROUTINE CLINICAL HISTORY: fall, left leg shortening trauma. Pain. COMPARISON: None. DISCUSSION: Total left hip and knee replacement. Good contact between prosthetic and underlying bone. No acute bony abnormality. There is no evidence for soft tissue swelling. IMPRESSION: No acute process status post left hip and knee arthroplasties. The above report was generated using voice recognition software. It may contain grammatical, syntax or spelling errors. Electronically signed by: Yahir Wells M.D. 12/17/2016 10:03 AM Dictated Date/Time: 12/17/2016 10:02 AM
--- NOTE | 2016-12-17 10:04 | DIAGNOSTIC IMAGING REPORT ---
SINGLE VIEW PELVIS CLINICAL HISTORY: Fall with left leg pain. FINDINGS: 2 AP portable views of the pelvis are correlated with pelvic CT dated 11/07/2016. The skeletal structures are osteopenic. No fracture is seen. Bilateral hip arthroplasties are in near-anatomic alignment. No periprosthetic lucency is identified. Mild sclerotic degenerative change is noted in the sacroiliac joints. Surgical clips are present in the pelvis. There is a nonobstructed abdominal bowel gas pattern. The overlying soft tissues are within normal limits. IMPRESSION: 1. There is no radiographic evidence of pelvic fracture. 2. Bilateral hip arthroplasties are in near-anatomic alignment. Electronically signed by: Alfred Avila M.D. 12/17/2016 10:03 AM Dictated Date/Time: 12/17/2016 10:01 AM
[2016-12-17 10:05] LABS: ALKALINE PHOSPHATASE 63 U/L (45-117); AST/SGOT 28 U/L (15-37)
[2016-12-17] MEDS ORDERED: IMD/2 PO (10:18)
[2016-12-17] MEDS ORDERED: ADVIN25/60 INH (10:18)
[2016-12-17] MEDS ORDERED: TADA10TA PO (10:18)
--- NOTE | 2016-12-17 10:30 | DIAGNOSTIC IMAGING REPORT ---
CT SCAN OF THE BRAIN WITHOUT IV CONTRAST CLINICAL HISTORY: Recent fall. Change in mental status. COMPARISON STUDY: No priors. TECHNIQUE: Unenhanced axial CT scan of the brain is performed from the vertex to the skull base. CT DOSE: 788.63 mGycm FINDINGS: Brain parenchyma: There are age-related involutional changes noting mild subcortical and periventricular microangiopathic change. There is no hemorrhage, mass effect, or evidence of acute territorial ischemia by CT criteria. Granados-white matter is preserved. No extra-axial fluid collection is seen. Ventricles, sulci, cisterns: Prominent secondary to involutional change. Intracranial vasculature: There is atherosclerotic calcification of the cavernous carotid and vertebral arteries. Calvarium: Skeletal structures are osteopenic. No depressed calvarial fracture is seen. Sinuses and mastoids: Trace mucosal thickening is seen in the right maxillary antrum. The remaining visualized paranasal sinuses are clear. The mastoid air cells are well pneumatized. Orbits: The bony orbits are grossly intact. There are bilateral ocular lens implants. IMPRESSION: There is no hemorrhage, mass effect, or evidence of acute territorial ischemia by CT criteria. Electronically signed by: Alfred Avila M.D. 12/17/2016 10:28 AM Dictated Date/Time: 12/17/2016 10:25 AM
[2016-12-17 11:16] LABS: URINE APPEARANCE CLEAR (CLEAR); URINE COLOR DK YELLOW; URINE EPITHELIAL CELL AUTO 0-5 /lpf (0-5); URINE NITRITE NEG (NEG); URINE PH 5.5 (4.5-7.5); UROBILINOGEN NEG (NEG); ZZURINE CULT IF INDIC CATH NO
[2016-12-17 11:23] LABS: MANUAL MICROSCOPIC REQUIRED? NO; REVIEW REQ? NO
[2016-12-17 11:24] LABS: URINE BILIRUBIN NEG (NEG)
[2016-12-17 11:32] LABS: BENZODIAZEPINE, URINE NEG (NEG); COCAINE,URINE NEG (NEG); PHENCYCLIDINE, URINE NEG (NEG)
[2016-12-17 12:43] VITALS: BP 117/75; PULSE 86; TEMP 37; O2SAT 98; Ht 182.9 cm; Wt 76.7 kg
[2016-12-17] MEDS ORDERED: ONDANSETRON INJ 2 MG/ML 2 ML VIAL IV PRN (13:15)
[2016-12-17] MEDS ORDERED: LORAZEPAM 0.5 MG TAB PO PRN (13:15)
[2016-12-17] MEDS ORDERED: MAGNESIUM HYDROXIDE SUSP 30 ML UDC PO PRN (13:15)
[2016-12-17] MEDS ORDERED: OXYCODONE HCL IR 5 MG TAB (IMMEDIATE RELEASE) PO PRN (13:15)
[2016-12-17] MEDS ORDERED: POLYETHYLENE (MIRALAX) 17 GM PACK PO PRN (13:15)
[2016-12-17] MEDS ORDERED: ALUMINUM/MAGNESIUM/SIMETH (MAALOX MAX) 30 ML UDC PO PRN (13:15)
--- NOTE | 2016-12-17 14:16 | DIAGNOSTIC IMAGING REPORT ---
(RENAL)RETROPERITONEA COMP HISTORY: Renal insufficiency CHRISTINE COMPARISON: None. FINDINGS: Right kidney: Maximum dimension 11.1 cm. No evidence for hydronephrosis. Normal corticomedullary differentiation and cortical thickness. Left kidney: Maximum dimension 10.7 cm. No evidence for hydronephrosis. Several cysts extending to 3.5 cm. Normal corticomedullary differentiation and cortical thickness. Bladder: No bladder wall thickening. The bilateral ureteral jets were identified. IMPRESSION: 1. Several left renal cysts. 2. Otherwise normal renal ultrasound. 3. No evidence for hydronephrosis. The above report was generated using voice recognition software. It may contain grammatical, syntax or spelling errors. Electronically signed by: Yahir Wells M.D. 12/17/2016 2:15 PM Dictated Date/Time: 12/17/2016 2:14 PM
--- NOTE | 2016-12-17 14:45 | HISTORY & PHYSICAL EXAMINATION ---
DATE OF ADMISSION: 12/17/2016 CHIEF COMPLAINT: Confusion. HISTORY OF PRESENT ILLNESS: The patient is a 81-year-old gentleman who was recently diagnosed with lumbar mass causing significant lower extremity pain. 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 The patient also to have multiple other medical conditions including: Atrial fibrillation, ankylosing spondylitis, bilateral hip and knee replacement and benign prostatic enlargement. The patient has been on a pain regimen including oxycodone and fentanyl patch. Came to the ED yesterday complaining of worsening pain and was given extra dose of OxyContin and as per , his fentanyl patch was increased. The patient has been slowly getting more confused over the past few days, but yesterday he was completely confused. His brought him back to the ED today and he was found to have a creatinine of 1.6, which was 1.2 yesterday and he was significantly confused. He had 2 Fentanyl patches on him which was as per the instructions of the ED the day before. Both has been removed and he will be admitted for further evaluation and management. REVIEW OF SYSTEMS: Unobtainable secondary to his mental status. PAST MEDICAL HISTORY: As in HPI plus hypothyroidism, history of chronic anemia, history of cataract surgery both eyes. FAMILY HISTORY: He does have a family history of cancer in his mother's side and family history of heart disease. SOCIAL HISTORY: He used to drink daily until he was diagnosed and quit drinking about 3-4 weeks ago. He stopped drinking cold turkey. He was never a smoker. He is and lives with his who he 4 years ago after his previous . HOME MEDICATIONS: Amiodarone 200 mg daily, aspirin 81 mg daily, Colazal 750 daily, Klonopin 1 mg p.o. at bedtime, Pradaxa 150 b.i.d., fentanyl patch 50 mg TD, q. 72 hours, Advair Diskus inhaler, gabapentin 300 b.i.d., levothyroxine, simvastatin, Cialis, Flomax and for pain he uses p.r.n. oxycodone IR. ALLERGIES: NO KNOWN DRUG ALLERGY, BUT HAS AN ALLERGY TO HORSE SERUM PROTEIN AND ANIMAL DANDER. PHYSICAL EXAMINATION: VITAL SIGNS: Temperature is 36.9, heart rate is 80, respirations 16, blood pressure 147/75, pulse ox 96% room air. GENERAL: The patient is average built, appears to be not in acute distress. HEAD, EYES, EARS, NOSE, AND THROAT: No jaundice. No pallor. Moist mucous membranes. NECK: Supple. HEART: S1, S2 normal. No gallop, rub or murmur. LUNGS: Clear to auscultation bilaterally. Normal chest wall expansion. ABDOMEN: Soft, nontender, nondistended. NEUROLOGIC: Awake, alert, oriented to time, place, and person. Moves all extremities. Sensation intact. Cranial nerves II-XII appear to be intact. The patient though sometimes gets confused and side tracked, sometimes as per talks about different subjects. PSYCHIATRIC: Appears to be fussy and inappropriate thought process of thinking. IMAGING: Chest x-ray showed no acute findings. CT scan of the head showed no hemorrhage, mass effect, or evidence of acute ischemia. LABORATORY DATA: White blood cell count 6.9, hemoglobin 14.5, platelet 207. BUN is 34, creatinine 1.6. Sodium 137, potassium 4.1. ASSESSMENT AND PLAN: 1. Acute kidney injury on chronic kidney disease likely secondary to decreased oral intake and prerenal. 2. Change in mental status secondary to metabolic encephalopathy. 3. Possible accidental drug overdose with fentanyl and oxycodone. 4. Plasmacytoma with intractable pain. 5. Atrial fibrillation. 6. Dyslipidemia. 7. Hypothyroidism. PLAN: 1. Continue amiodarone and Pradaxa/aspirin for Afib. 2. Admit to telemetry. 3. IV fluid hydration 100 mL per hour. 4. Obtain renal ultrasound to rule out any hydronephrosis/obstruction. 5. Continue gabapentin with decreased fentanyl patch to 25 instead of 50, and decrease the frequency of oxycodone IR to every 8 hours. 6. I would like to try Dilaudid low dose with him given the failure of the above-mentioned regimen. 7. Continue Synthroid and check TSH to make sure it is not contributing to his confusion. 8. Urinalysis was noted and showed no evidence for infection. 9. Continue supportive care and recheck renal function in the a.m. If no improvement consult cash posting representative.
[2016-12-17 15:10] VITALS: BP 151/98; PULSE 95; TEMP 36.8; O2SAT 95
[2016-12-17] MEDS ORDERED: FENTANYL PATCH REMOVE & WASTE ONE (15:59)
[2016-12-17] MEDS: CHECK FENTANYL PATCH PLACEMENT SCH (16:00)
[2016-12-17] MEDS ORDERED: FENTANYL 25 MCG/HR TDSY TD ONE (16:00)
[2016-12-17] MEDS: SODIUM CHLORIDE 0.9% 1000ML 1,000 ML IV SCH (16:42)
[2016-12-17 18:52] VITALS: BP 167/96; PULSE 88; TEMP 37.1; O2SAT 97
[2016-12-17] MEDS: TAMSULOSIN HCL 0.4 MG CAP PO SCH (20:44)
[2016-12-17] MEDS: CLONAZEPAM 1 MG TAB PO SCH (20:44)
[2016-12-17] MEDS: DABIGATRAN ELEXILATE 75 MG CAP PO SCH (20:45)
[2016-12-17] MEDS: FLUTICASONE/SALMETEROL 250/50 (ADVAIR) 14 PUFF/1 INHALER INH SCH ×2 (20:45→21:00)
[2016-12-17] MEDS: GABAPENTIN 300 MG CAP PO SCH (20:45)
[2016-12-17] MEDS: SIMVASTATIN 10 MG TAB PO SCH (20:46)
[2016-12-17] MEDS ORDERED: DABIGATRAN ELEXILATE 75 MG CAP PO SCH (21:00)
[2016-12-17 22:54] VITALS: PULSE 88; TEMP 36.9; O2SAT 96
[2016-12-17 23:12] VITALS: BP 173/89
[2016-12-17 23:40] VITALS: BP 142/76
[2016-12-18] VITALS (8 sets, daily range): BP systolic 147–195; BP diastolic 84–118; PULSE 83–101; TEMP 36.5–37.1; O2SAT 93–95
[2016-12-18] MEDS: CHECK FENTANYL PATCH PLACEMENT SCH ×3 (00:12→16:00)
[2016-12-18] MEDS: SODIUM CHLORIDE 0.9% 1000ML 1,000 ML IV SCH (02:02)
[2016-12-18] MEDS: LEVOTHYROXINE 88 MCG TAB PO SCH (06:11)
[2016-12-18 06:17] LABS: BASO % 0.2 %; BASO ABS # 0.01 K/uL (0-0.2); COMPLETE YES; EOS % 1.2 %; HEMATOCRIT 38.8 % (42-52); IG% 0.4 %; MEAN CELL VOLUME 94.2 fL (80-100); MEAN PLATELET VOLUME 8.9 fL (7.4-10.4); MONO % 13.9 %; NEUT % 78.3 %; PLATELET COUNT 162 K/uL (130-400); RED BLOOD COUNT 4.12 M/uL (4.7-6.1); WHITE BLOOD COUNT 4.97 K/uL (4.8-10.8)
[2016-12-18 06:45] LABS: BUN/CREATININE RATIO 21.2 (10-20); CALCIUM 8.2 mg/dl (8.5-10.1); CREATININE 0.93 mg/dl (0.60-1.40); MAGNESIUM 1.9 mg/dl (1.8-2.4); POTASSIUM 3.6 mmol/L (3.5-5.1)
[2016-12-18 06:56] LABS: PHOSPHORUS 1.8 mg/dl (2.5-4.9)
[2016-12-18] MEDS: AMIODARONE 200 MG TAB PO SCH (07:53)
[2016-12-18] MEDS: GABAPENTIN 300 MG CAP PO SCH (07:53)
[2016-12-18] MEDS: FLUTICASONE/SALMETEROL 250/50 (ADVAIR) 14 PUFF/1 INHALER INH SCH ×2 (07:53→20:32)
[2016-12-18] MEDS: DABIGATRAN ELEXILATE 75 MG CAP PO SCH ×2 (07:53→20:34)
[2016-12-18] MEDS: ASPIRIN 81 MG ECTAB PO SCH (07:53)
--- NOTE | 2016-12-18 08:45 | Clinical Documentation Query ---
CLINICAL DOCUMENTATION QUERY Dr. DONG, In your clinical opinion is this patient being managed for: (x ) Chronic kidney disease, stage 2-3 ( ) Other explanation of clinical findings (Please Explain) ( ) Unable to determine (Please Define) ( ) Need to Discuss ( ) Not Agree The medical record reflects the following clinical findings, treatment, and risk factors. Clinical Indicators: 81 yo male presenting with acute kidney failure on chronic kidney disease. Review of GFR over the past 5 years reveals range of 58-82.5 Treatment: monitor PRP's, treat comorbid conditions Risk Factors: age, A fib Please clarify and document your clinical opinion in the progress notes and discharge summary. Terms such as "probable", "suspected", "likely", "questionable", "possible", or "still to be ruled out" are acceptable. IF IN AGREEMENT, YOU MUST DOCUMENT ABOVE DIAGNOSTIC STATEMENT IN DAILY PROGRESS NOTES AND DISCHARGE SUMMARY. This document is not part of the patient's record. Thank You, Kimmie De La Rosa, SUZANNE [phone]
[2016-12-18] MEDS ORDERED: POTASSIUM PHOS 3 MMOL/1 ML INFUSION IV STA (09:04)
[2016-12-18] MEDS ORDERED: POTASSIUM PHOSPHATE INJ 21 MMOL in SODIUM CHLORIDE 0.9% 500ML 500 ML IV SCH (09:30)
[2016-12-18] MEDS ORDERED: TAPENTADOL ER 50 MG TABCR PO ONE (10:00)
[2016-12-18] MEDS ORDERED: QUETIAPINE FUMARATE 25 MG TAB PO ONE (10:15)
--- NOTE | 2016-12-18 11:02 | Progress Note ---
Subjective Date of Service: Dec 18, 2016. Subjective Pt evaluation today including: conversation w/ patient, conversation w/ family (), physical exam, lab review, conversation w/ media consultant, review of inpatient medication list Pain: low back pain PO Intake: poor oral intake Voiding: no voiding problems patient still confused, thinks he has a little more clarity, certainly less agitated, less violent behavior reviewed details of admission, altered mental status has been progressive as outpatient seems like polypharmacy is playing a role since no infection and electrolytes stable, renal function better d/w Dr. Martin, radiation oncology, over the phone since he has been following patient in clinic he reports that the changes were gradual, that the patient was running out of Gabapentin faster than expected, perhaps taking too much he doubted that plasmacytoma would cause brain mets, especially with normal head CT, but still on differential Problem List Medical Problems: (1) Altered mental status Status: Acute (2) Anxiety Status: Acute (3) Back pain Status: Acute (4) Cancer associated pain Status: Acute (5) Dehydration Status: Acute (6) Elevated troponin I level Status: Acute (7) Hypoxia Status: Acute (8) Renal insufficiency Status: Acute (9) Sacral lesion Status: Acute Review of Systems Abdomen: + problem reported (per , poor appetite) Musculoskeletal: + joint pain (back) Neurologic: + memory loss, + problem reported (confusion) Psychiatric: + anxiety (agitation) All Other Systems: Reviewed and Negative Medications Current Inpatient Medications Medications (Trade) Dose Ordered Sig/Cassandra Route Start Time Stop Time Status Last Admin Dose Admin Amiodarone HCl (Cordarone Tab) 200 mg DAILY PO 12/18/16 09:00 01/17/17 08:59 12/18/16 07:53 200 MG Aspirin (Ecotrin Tab) 81 mg DAILY PO 12/18/16 09:00 01/17/17 08:59 12/18/16 07:53 81 MG Clonazepam (Klonopin Tab) 1 mg HS PO 12/17/16 21:00 01/16/17 20:59 Salmeterol Xinafoate/ Fluticasone (Advair Diskus 250/50 Inh) 1 puff BID INH 12/17/16 21:00 01/16/17 20:59 Levothyroxine Sodium (Synthroid Tab) 88 mcg DAILYBB PO 12/18/16 06:00 01/17/17 06:59 12/18/16 06:11 88 MCG Polyethylene (Miralax Powder Packet) 17 gm DAILY PRN PO 12/17/16 13:15 01/16/17 13:14 Simvastatin (Zocor Tab) 10 mg QPM PO 12/17/16 21:00 01/16/17 20:59 12/17/16 20:46 10 MG Tamsulosin HCl (Flomax Cap) 0.4 mg HS PO 12/17/16 21:00 01/16/17 20:59 12/17/16 20:44 0.4 MG Acetaminophen (Tylenol Tab) 650 mg Q4H PRN PO 12/17/16 13:15 01/16/17 13:14 Al Hydrox/Mg Hydrox/Simethicone (Maalox Max Susp) 15 ml Q4H PRN PO 12/17/16 13:15 01/16/17 13:14 Magnesium Hydroxide (Milk Of Magnesia Susp) 30 ml Q12H PRN PO 12/17/16 13:15 01/16/17 13:14 Zolpidem Tartrate (Ambien Tab) 5 mg HSZ PRN PO 12/17/16 13:15 01/16/17 13:14 Ondansetron HCl (Zofran Inj) 4 mg Q6H PRN IV 12/17/16 13:15 01/16/17 13:14 Miscellaneous Information (Check Fentanyl Patch Placement) 1 ea QS N/A 12/17/16 16:00 01/16/17 15:59 12/18/16 00:12 1 EA Miscellaneous (Fentanyl Patch Remove & Waste) 1 ea Q72H ONCE N/A 12/20/16 16:00 12/20/16 16:01 Dabigatran (Pradaxa Cap) 150 mg BID PO 12/17/16 21:00 01/16/17 20:59 12/18/16 07:53 150 MG Potassium Phosphate 21 mmol/ Sodium Chloride 507 ml @ 88 mls/hr TODAY@0930 IV 12/18/16 09:30 12/18/16 15:16 12/18/16 10:12 88 MLS/HR Quetiapine Fumarate (seroQUEL TAB) 25 mg HS PO 12/18/16 21:00 01/17/17 20:59 Tapentadol (Nucynta Er Tab) 50 mg Q12 PO 12/18/16 21:00 01/17/17 20:59 Tapentadol (Nucynta Tab) 50 mg Q4H PRN PO 12/18/16 09:30 01/17/17 09:29 Gabapentin (Neurontin Cap) 200 mg BID PO 12/18/16 21:00 01/16/17 20:59 Objective Vital Signs Date Time Temp Pulse Resp B/P (MAP) Pulse Ox O2 Delivery O2 Flow Rate FiO2 12/18/16 08:00 Room Air 12/18/16 07:14 36.9 88 20 168/87 (114) 95 Room Air 12/18/16 04:00 Room Air 12/18/16 03:11 37.1 83 17 164/84 (110) 93 Room Air 12/17/16 23:59 Room Air 12/17/16 23:40 142/76 (98) 12/17/16 23:12 173/89 (117) 12/17/16 22:54 36.9 88 21 96 Room Air 12/17/16 20:00 Room Air 12/17/16 18:52 37.1 88 20 167/96 (119) 97 Nasal Cannula 2.0 12/17/16 16:00 Nasal Cannula 2.0 12/17/16 15:10 36.8 95 20 151/98 (115) 95 Nasal Cannula 2.0 12/17/16 13:45 72 16 138/74 98 Nasal Cannula 2.0 12/17/16 12:43 37.0 86 18 117/75 98 Nasal Cannula 2.0 12/17/16 12:41 76 16 137/76 98 Room Air 12/17/16 11:24 80 12/17/16 11:12 81 16 147/75 96 Room Air 12/17/16 11:10 36.9 Physical Exam General Appearance: WD/WN, no apparent distress Eyes: normal inspection, EOMI, sclerae normal Neck: supple, no adenopathy, no JVD, trachea midline Respiratory/Chest: chest non-tender, lungs clear, normal breath sounds, no respiratory distress, no accessory muscle use Cardiovascular: regular rate, rhythm, no edema, no gallop, no JVD, no murmur Abdomen: normal bowel sounds, non tender, soft, no organomegaly Extremities: normal inspection, no pedal edema, no calf tenderness, pelvis stable, + pertinent finding (low core composer 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 tender, decreased ROM due to pain) Neurologic/Psychiatric: 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 II-XII nml as tested, + motor weakness, + depressed affect, + disoriented Skin: normal color, warm/dry, no rash Laboratory Results Last 24 Hours Test 12/17/16 14:12 12/18/16 05:59 Troponin I 0.124 ng/ml 0.064 ng/ml Lipase 90 U/L White Blood Count 4.97 K/uL Red Blood Count 4.12 M/uL Hemoglobin 13.2 g/dL Hematocrit 38.8 % Mean Corpuscular Volume 94.2 fL Mean Corpuscular Hemoglobin 32.0 pg Mean Corpuscular Hemoglobin Concent 34.0 g/dl Platelet Count 162 K/uL Mean Platelet Volume 8.9 fL Neutrophils (%) (Auto) 78.3 % Lymphocytes (%) (Auto) 6.0 % Monocytes (%) (Auto) 13.9 % Eosinophils (%) (Auto) 1.2 % Basophils (%) (Auto) 0.2 % Neutrophils # (Auto) 3.89 K/uL Lymphocytes # (Auto) 0.30 K/uL Monocytes # (Auto) 0.69 K/uL Eosinophils # (Auto) 0.06 K/uL Basophils # (Auto) 0.01 K/uL RDW Standard Deviation 44.1 fL RDW Coefficient of Variation 12.8 % Immature Granulocyte % (Auto) 0.4 % Immature Granulocyte # (Auto) 0.02 K/uL Sodium Level 137 mmol/L Potassium Level 3.6 mmol/L Chloride Level 101 mmol/L Carbon Dioxide Level 31 mmol/L Anion Gap 5.0 mmol/L Blood Urea Nitrogen 20 mg/dl Creatinine 0.93 mg/dl Est Creatinine Clear Calc Drug Dose 66.9 ml/min Estimated GFR () 90.2 Estimated GFR (Non- 77.8 BUN/Creatinine Ratio 21.2 Random Glucose 78 mg/dl Calcium Level 8.2 mg/dl Phosphorus Level 1.8 mg/dl Magnesium Level 1.9 mg/dl Total Bilirubin 0.7 mg/dl Aspartate Amino Transf (AST/SGOT) 31 U/L Alanine Aminotransferase (ALT/SGPT) 28 U/L Alkaline Phosphatase 55 U/L Total Protein 6.3 gm/dl Albumin 3.2 gm/dl Globulin 3.1 gm/dl Albumin/Globulin Ratio 1.0 Assessment and Plan 81 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, undergoing radiation, with severe pain and neuropathy treated with Fentanyl patches, Oxy IR and gabapentin, presented to the ED with progressive changes in mental status, confusion, agitation, violent behavior that were progressive per family and outpatient providers - Encephalopathy: suspect this is toxic due to polypharmacy with gabapentin and narcotics certainly combination of Fentanyl patch, Oxy IR and gabapentin coupled with renal dysfunction and old age could cause this d/c Fentanyl patch, d/c Oxy IR and decrease gabapentin to 200mg BID add Nucynta ER 50mg q12 first dose now and immediate release 50mg q4 PRN no signs of infection as cause, CT head negative for ischemia or mass effect or bleeding had NAY on admission with Cr. of 1.6 but that is resolved today and still with encephalopathy monitor mental status with above changes in medications, may take a few days for mind to clear if no improvement, will consider MRI brain to r/o brain mets, currently patient unable to lay still for MRI - NAY: Cr was 1.6 on admission, likely prerenal since Cr improved to 0.9 with IV fluids, will continue fluids for now - Hypophosphatemia: replace with KPhos IV 21mmol - Plasmacytoma with bone pain and radiculopathy: change to Nucynta for pain relief decrease gabapentin to 200mg q12 from 300mg - Poor appetite: add dextrose to fluids, Boost, consider Remeron but not while patient has altered mental status - Atrial fibrillation: amiodarone and Pradaxa, rates controlled DVT proph: on Pradaxa Full code
[2016-12-18] MEDS ORDERED: DEXAMETHASONE INJ 8 MG in SYRINGE 0 ML IV SCH (15:00)
[2016-12-18] MEDS: D5NSS + 20MEQ KCL 1,000 ML IV SCH (15:25)
[2016-12-18] MEDS: TAPENTADOL HCL 50 MG TAB PO PRN ×2 (16:29→23:58)
[2016-12-18] MEDS: TAMSULOSIN HCL 0.4 MG CAP PO SCH (20:32)
[2016-12-18] MEDS: GABAPENTIN 100 MG CAP PO SCH (20:33)
[2016-12-18] MEDS: QUETIAPINE FUMARATE 25 MG TAB PO SCH (20:33)
[2016-12-18] MEDS: SIMVASTATIN 10 MG TAB PO SCH (20:34)
[2016-12-18] MEDS: CLONAZEPAM 1 MG TAB PO SCH (20:36)
[2016-12-18] MEDS: TAPENTADOL ER 50 MG TABCR PO SCH (20:36)
[2016-12-18] MEDS ORDERED: METOPROLOL TARTRATE 25 MG TAB PO ONE (23:00)
[2016-12-19] MEDS ORDERED: NURSING VERBAL MED ORDER ONE (00:01)
[2016-12-19 00:46] VITALS: BP 162/98; PULSE 80
[2016-12-19] MEDS: ZOLPIDEM TARTRATE 5 MG TAB PO PRN ×2 (02:24→23:30)
[2016-12-19] MEDS: D5NSS + 20MEQ KCL 1,000 ML IV SCH (03:15)
[2016-12-19] MEDS: TAPENTADOL HCL 50 MG TAB PO PRN (04:09)
[2016-12-19] MEDS: LEVOTHYROXINE 88 MCG TAB PO SCH (06:48)
[2016-12-19 07:08] VITALS: BP 167/105; PULSE 81; TEMP 36.9; O2SAT 98
[2016-12-19] MEDS: ACETAMINOPHEN 325 MG TAB PO PRN ×2 (07:51→23:31)
[2016-12-19] MEDS: TAPENTADOL ER 50 MG TABCR PO SCH (07:53)
[2016-12-19] MEDS: FLUTICASONE/SALMETEROL 250/50 (ADVAIR) 14 PUFF/1 INHALER INH SCH ×2 (07:53→20:32)
[2016-12-19] MEDS: DABIGATRAN ELEXILATE 75 MG CAP PO SCH ×2 (07:54→20:33)
[2016-12-19] MEDS: AMIODARONE 200 MG TAB PO SCH (07:54)
[2016-12-19] MEDS: GABAPENTIN 100 MG CAP PO SCH (07:54)
[2016-12-19] MEDS: ASPIRIN 81 MG ECTAB PO SCH (07:54)
[2016-12-19 08:29] LABS: COD UR NEGATIVE NG/ML (CUTOFF=50); HYDROCOD UR NEGATIVE NG/ML (CUTOFF=50); HYDROMOR UR NEGATIVE NG/ML (CUTOFF=50); MORPHINE UR NEGATIVE NG/ML (CUTOFF=50); NORHYDROCODONE CONF UR NEGATIVE NG/ML (CUTOFF=50); OXYMORPH UR 1540 NG/ML (CUTOFF=50)
[2016-12-19] MEDS ORDERED: HYDROmorphone INJ 0.5 MG/0.5 ML SYR IV PRN (09:30)
--- NOTE | 2016-12-19 09:52 | Pain Management Consultation ---
Pain Management Consultation Date of Consultation Dec 19, 2016. Reason for Consultation Assistance with pain management. 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 reports that he has had poor intake last several days prior to the [employer] changes. Patient is unable to provide any history as he is non communicative, therefore , most of the history was obtaied form the EMR and the . She reports the patient was experiencing severe low back and bilateral pretibial pain. Pain was described as being burning sensation in the legs and occur with any tactile stimulation and spontaneously. Pain was reported to be 10/10. Minimal efficacy was reported with the use of the opiates and gabapentin. reported no neurological symptoms such as bowel bladder incontinence, saddle anesthesia or leg weakness associated with the pain. Past Medical/Surgical History (1) Solitary plasmacytoma (2) NAY (acute kidney injury) (3) Dehydration (4) Renal insufficiency (5) Altered mental status (6) Cataract, right (7) Cataract, left (8) Anemia (9) Atrial fibrillation (10) History of knee replacement (11) History of hip replacement (12) Anxiety Family History Cancer Gallbladder disease Heart disease Hypertension Lung disease Social / Work History Marital Status: , in relationship Housing Status: lives with family Occupation: retired Allergies Coded Allergies: Animal Dander (Verified Allergy, Intermediate, ASTHMATIC REACTION, 12/17/16 ) IMPROVEMENT WITH INHALERS Horse Serum Proteins (Verified Allergy, Intermediate, ASTHMA ATTACK, ) Medications Current Inpatient Medications Medications (Trade) Dose Ordered Sig/Cassandra Route Start Time Stop Time Status Last Admin Dose Admin Amiodarone HCl (Cordarone Tab) 200 mg DAILY PO 12/18/16 09:00 01/17/17 08:59 12/19/16 07:54 200 MG Aspirin (Ecotrin Tab) 81 mg DAILY PO 12/18/16 09:00 01/17/17 08:59 12/19/16 07:54 81 MG Clonazepam (Klonopin Tab) 1 mg HS PO 12/17/16 21:00 01/16/17 20:59 12/18/16 20:36 1 MG Salmeterol Xinafoate/ Fluticasone (Advair Diskus 250/50 Inh) 1 puff BID INH 12/17/16 21:00 01/16/17 20:59 12/19/16 07:53 1 PUFF Levothyroxine Sodium (Synthroid Tab) 88 mcg DAILYBB PO 12/18/16 06:00 01/17/17 06:59 12/19/16 06:48 88 MCG Polyethylene (Miralax Powder Packet) 17 gm DAILY PRN PO 12/17/16 13:15 01/16/17 13:14 Simvastatin (Zocor Tab) 10 mg QPM PO 12/17/16 21:00 01/16/17 20:59 12/18/16 20:34 10 MG Tamsulosin HCl (Flomax Cap) 0.4 mg HS PO 12/17/16 21:00 01/16/17 20:59 12/18/16 20:32 0.4 MG Acetaminophen (Tylenol Tab) 650 mg Q4H PRN PO 12/17/16 13:15 01/16/17 13:14 12/19/16 07:51 650 MG Al Hydrox/Mg Hydrox/Simethicone (Maalox Max Susp) 15 ml Q4H PRN PO 12/17/16 13:15 01/16/17 13:14 Magnesium Hydroxide (Milk Of Magnesia Susp) 30 ml Q12H PRN PO 12/17/16 13:15 01/16/17 13:14 Zolpidem Tartrate (Ambien Tab) 5 mg HSZ PRN PO 12/17/16 13:15 01/16/17 13:14 12/19/16 02:24 5 MG Ondansetron HCl (Zofran Inj) 4 mg Q6H PRN IV 12/17/16 13:15 01/16/17 13:14 Dabigatran (Pradaxa Cap) 150 mg BID PO 12/17/16 21:00 01/16/17 20:59 12/19/16 07:54 150 MG Quetiapine Fumarate (seroQUEL TAB) 25 mg HS PO 12/18/16 21:00 01/17/17 20:59 12/18/16 20:33 25 MG Tapentadol (Nucynta Er Tab) 50 mg Q12 PO 12/18/16 21:00 01/17/17 20:59 12/19/16 07:53 50 MG Tapentadol (Nucynta Tab) 50 mg Q4H PRN PO 12/18/16 09:30 01/17/17 09:29 12/19/16 04:09 50 MG Gabapentin (Neurontin Cap) 200 mg BID PO 12/18/16 20:00 01/16/17 20:59 12/19/16 07:54 200 MG Potassium Chloride/Dextrose/ Sod Cl 1,000 ml @ 80 mls/hr [id number] IV 12/18/16 14:45 01/17/17 14:44 Future Hold 12/18/16 15:25 80 MLS/HR Review of Systems unable to provide information and patient non communicative Physical Exam Height & Weight: Height 6 feet, 0.00 inches. Weight 73.400 (Kilograms) 161 (Pounds) Last Vital Signs Documentation Date Time Temp Pulse Resp B/P (MAP) Pulse Ox O2 Delivery O2 Flow Rate FiO2 12/19/16 07:08 36.9 81 18 167/105 (125) 98 Room Air 12/17/16 18:52 2.0 Exam: Upon entering the room, Mr. Cardoso appears to be lying in supine position with eyes closed and groaning. He does not respond to verbal stimuli. Tendon examination reveals hyperpathia over both pretibial regions. He demonstrates spontaneous movement of both lower extremities. He was uncooperative and therefore rest of the exam including inspection of the lumbar spine as well as a thorough neurological exam could not be performed. Laboratory Laboratory Results (Last CBC): 12/18/16 05:59 Red Blood Count 4.12 L, Mean Corpuscular Volume 94.2, Mean Corpuscular Hemoglobin 32.0, Mean Corpuscular Hemoglobin Concent 34.0, Mean Platelet Volume 8.9, Neutrophils (%) (Auto) 78.3, Lymphocytes (%) (Auto) 6.0, Monocytes (%) ( Auto) 13.9, Eosinophils (%) (Auto) 1.2, Basophils (%) (Auto) 0.2, Neutrophils # (Auto) 3.89, Lymphocytes # (Auto) 0.30 L, Monocytes # (Auto) 0.69 H, Eosinophils # (Auto) 0.06, Basophils # (Auto) 0.01 Imaging MRI: enhanced, reports reviewed MRI Findings MRI LUMBAR SPINE: There is a possible transitional vertebra present. There is complete marrow replacement and expansion of what will be labeled the S1 vertebra. There is extension of the marrow replacement process into the transverse processes. There is secondary spinal canal narrowing. 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 No additional areas of marrow replacement are visualized L1-2: No disc protrusions or extrusions. No evidence of spinal canal or neural foraminal compromise. L2-3: No disc protrusions or extrusions. No evidence of spinal canal or neural foraminal compromise. L3-4: There is a mild circumferential disc bulge. There is no significant spinal foraminal stenosis L4-5: There is a mild circumferential disc bulge. There is no significant spinal or foraminal stenosis L5-S1: There is spinal canal narrowing secondary to the expansile S1 mass. There is a grade 2/4 spondylolisthesis of L5 on S1. The conus medullaris and cauda equina appear normal. 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 Further workup and/or biopsy is recommended. Electronically signed by: Joe Jerome M.D. 11/07/2016 11:45 AM Dictated Date/Time: 11/07/2016 11:[address]: reports reviewed CT Findings TECHNIQUE: Unenhanced axial CT scan of the brain is performed from the vertex to the skull base. CT DOSE: 788.63 mGycm FINDINGS: Brain parenchyma: There are age-related involutional changes noting mild subcortical and periventricular microangiopathic change. There is no hemorrhage, mass effect, or evidence of acute territorial ischemia by CT criteria. Granados-white matter is preserved. No extra-axial fluid collection is seen. Ventricles, sulci, cisterns: Prominent secondary to involutional change. Intracranial vasculature: There is atherosclerotic calcification of the cavernous carotid and vertebral arteries. Calvarium: Skeletal structures are osteopenic. No depressed calvarial fracture is seen. HEAD CT Sinuses and mastoids: Trace mucosal thickening is seen in the right maxillary antrum. The remaining visualized paranasal sinuses are clear. The mastoid air cells are well pneumatized. Orbits: The bony orbits are grossly intact. There are bilateral ocular lens implants. IMPRESSION: There is no hemorrhage, mass effect, or evidence of acute territorial ischemia by CT criteria. Electronically signed by: Alfred Avila M.D. 12/17/2016 10:28 AM Assessment 1. Dehydration. 2. Acute mental status changes, possibly due to the opioids and and neuropathic medications. 3. Neuropathic pain right extremities. 4. Sacral lesion from monoclonal gammopathy. 5. Acute kidney injury. Recommendations 1. Recommend IV hydration. 2. Recommend discontinuation of gabapentin as it is renally dependent for excretion, all current opioids in any sedative hypnotic medications. 3. Recommend IV hydromorphone on a when necessary basis until patient mental status returned to baseline. Then recommend transitioning to oral hydromorphone. 4. Orders written.
--- NOTE | 2016-12-19 14:37 | Progress Note ---
Subjective Date of Service: Dec 19, 2016. Subjective Pt evaluation today including: conversation w/ patient, conversation w/ family (daughter at the bedside), physical exam, lab review, conversation w/ documentum consultant (Dr. Patten), review of inpatient medication list Pain: lumbar pain better controlled PO Intake: improved, eating much more than yesterday Voiding: no voiding problems discussed the case with Dr. Patten, appreciate input all prior medications stopped, using Dilaudid IV for pain control at this point patient more lucid today, remembered my name, oriented x 3 however, parts of conversation are still foggy and his reasoning is not clear says that pain is slightly better today with the Dilaudid explained to patient and daughter that unsure of how long it will take for encephalopathy to completely resolve encouraged by improvement today Problem List Medical Problems: (1) Altered mental status Status: Acute (2) Anxiety Status: Acute (3) Back pain Status: Acute (4) Cancer associated pain Status: Acute (5) Dehydration Status: Acute (6) Elevated troponin I level Status: Acute (7) Hypoxia Status: Acute (8) Renal insufficiency Status: Acute (9) Sacral lesion Status: Acute Review of Systems Constitutional: + weakness, + fatigue Musculoskeletal: + joint pain (low back pain) Neurologic: + memory loss All Other Systems: Reviewed and Negative Medications Current Inpatient Medications Medications (Trade) Dose Ordered Sig/Cassandra Route Start Time Stop Time Status Last Admin Dose Admin Amiodarone HCl (Cordarone Tab) 200 mg DAILY PO 12/18/16 09:00 01/17/17 08:59 12/19/16 07:54 200 MG Aspirin (Ecotrin Tab) 81 mg DAILY PO 12/18/16 09:00 01/17/17 08:59 12/19/16 07:54 81 MG Clonazepam (Klonopin Tab) 1 mg HS PO 12/17/16 21:00 01/16/17 20:59 12/18/16 20:36 1 MG Salmeterol Xinafoate/ Fluticasone (Advair Diskus 250/50 Inh) 1 puff BID INH 12/17/16 21:00 01/16/17 20:59 12/19/16 07:53 1 PUFF Levothyroxine Sodium (Synthroid Tab) 88 mcg DAILYBB PO 12/18/16 06:00 01/17/17 06:59 12/19/16 06:48 88 MCG Polyethylene (Miralax Powder Packet) 17 gm DAILY PRN PO 12/17/16 13:15 01/16/17 13:14 Simvastatin (Zocor Tab) 10 mg QPM PO 12/17/16 21:00 01/16/17 20:59 12/18/16 20:34 10 MG Tamsulosin HCl (Flomax Cap) 0.4 mg HS PO 12/17/16 21:00 01/16/17 20:59 12/18/16 20:32 0.4 MG Acetaminophen (Tylenol Tab) 650 mg Q4H PRN PO 12/17/16 13:15 01/16/17 13:14 12/19/16 07:51 650 MG Al Hydrox/Mg Hydrox/Simethicone (Maalox Max Susp) 15 ml Q4H PRN PO 12/17/16 13:15 01/16/17 13:14 Magnesium Hydroxide (Milk Of Magnesia Susp) 30 ml Q12H PRN PO 12/17/16 13:15 01/16/17 13:14 Zolpidem Tartrate (Ambien Tab) 5 mg HSZ PRN PO 12/17/16 13:15 01/16/17 13:14 12/19/16 02:24 5 MG Ondansetron HCl (Zofran Inj) 4 mg Q6H PRN IV 12/17/16 13:15 01/16/17 13:14 Dabigatran (Pradaxa Cap) 150 mg BID PO 12/17/16 21:00 01/16/17 20:59 12/19/16 07:54 150 MG Quetiapine Fumarate (seroQUEL TAB) 25 mg HS PO 12/18/16 21:00 01/17/17 20:59 12/18/16 20:33 25 MG Potassium Chloride/Dextrose/ Sod Cl 1,000 ml @ 80 mls/hr [id number] IV 12/18/16 14:45 01/17/17 14:44 Future Hold 12/18/16 15:25 80 MLS/HR Hydromorphone HCl (Dilaudid Inj) 0.5 mg Q2H PRN IV 12/19/16 09:30 01/02/17 09:29 Objective Vital Signs Date Time Temp Pulse Resp B/P (MAP) Pulse Ox O2 Delivery O2 Flow Rate FiO2 12/19/16 08:00 Room Air 12/19/16 07:08 36.9 81 18 167/105 (125) 98 Room Air 12/19/16 00:46 80 162/98 (119) 12/19/16 00:05 Room Air 12/18/16 22:41 182/112 (135) 170/110 (130) 12/18/16 22:08 36.7 101 22 195/118 (143) 93 Room Air 171/114 (133) 12/18/16 16:02 94 Room Air 12/18/16 15:54 36.5 85 20 147/90 (109) 94 Room Air 12/18/16 15:41 36.9 85 20 94 Physical Exam General Appearance: WD/WN, no apparent distress Eyes: normal inspection, EOMI, sclerae normal ENT: normal ENT inspection, hearing grossly normal, pharynx normal Neck: supple, no adenopathy, no JVD, trachea midline Respiratory/Chest: chest non-tender, lungs clear, normal breath sounds, no respiratory distress, no accessory muscle use Cardiovascular: regular rate, rhythm, no edema, no gallop, no JVD, no murmur Abdomen: normal bowel sounds, non tender, soft, no organomegaly Extremities: normal inspection, no pedal edema, no calf tenderness, pelvis stable, + pertinent finding (low back pain, decreased ROM due to pain) Neurologic/Psychiatric: 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, no motor/sensory deficits, alert, oriented x 3, + pertinent finding Skin: normal color, warm/dry, no rash Assessment and Plan 81 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, undergoing radiation, with severe pain and neuropathy treated with Fentanyl patches, Oxy IR and gabapentin, presented to the ED with progressive changes in mental status, confusion, agitation, violent behavior that were progressive per family and outpatient providers - Encephalopathy: suspect this is toxic due to polypharmacy with gabapentin and narcotics certainly combination of Fentanyl patch, Oxy IR and gabapentin coupled with renal dysfunction and old age could cause this d/c Fentanyl patch, d/c Oxy IR and decrease gabapentin to 200mg BID on 12/18 added Nucynta on 12/18 appreciate pain management consult, stop gabapentin and Nucynta, try Dilaudid IV for pain control no signs of infection as cause, CT head negative for ischemia or mass effect or bleeding had NAY on admission with Cr. of 1.6 but that is resolved in first 24 hours - NAY: Cr was 1.6 on admission, likely prerenal since Cr improved to 0.9 with IV fluids, stop fluids today since appetite improved, drinking more - Hypophosphatemia: replaced with KPhos IV 21mmol on 12/18 - Plasmacytoma with bone pain and radiculopathy: utilize Dilaudid IV for pain relief plan to resume radiation therapy once able, probable for Thursday - Poor appetite: much improved today, continue to monitor - Atrial fibrillation: amiodarone and Pradaxa, rates controlled DVT proph: on Pradaxa Full code
[2016-12-19 15:07] VITALS: BP 97/65; PULSE 72; TEMP 36.9; O2SAT 96
[2016-12-19] MEDS: SIMVASTATIN 10 MG TAB PO SCH (20:33)
[2016-12-19] MEDS: TAMSULOSIN HCL 0.4 MG CAP PO SCH (20:33)
[2016-12-19] MEDS: QUETIAPINE FUMARATE 25 MG TAB PO SCH (20:34)
[2016-12-19] MEDS: CLONAZEPAM 1 MG TAB PO SCH (20:35)
[2016-12-20] MEDS: ACETAMINOPHEN 325 MG TAB PO PRN ×2 (09:20→23:47)
[2016-12-20] MEDS: AMIODARONE 200 MG TAB PO SCH (12:24)
[2016-12-20] MEDS: LEVOTHYROXINE 88 MCG TAB PO SCH (12:24)
[2016-12-20] MEDS: ASPIRIN 81 MG ECTAB PO SCH (12:24)
[2016-12-20] MEDS: FLUTICASONE/SALMETEROL 250/50 (ADVAIR) 14 PUFF/1 INHALER INH SCH ×2 (12:25→20:42)
[2016-12-20] MEDS: DABIGATRAN ELEXILATE 75 MG CAP PO SCH ×2 (12:25→20:41)
[2016-12-20 13:19] VITALS: BP 117/77; PULSE 79; TEMP 36.7; O2SAT 94
[2016-12-20] MEDS: KETOROLAC TROMETHAMINE 15 MG/ML VIAL IV. PRN (13:35)
--- NOTE | 2016-12-20 14:55 | Progress Note ---
Subjective Date of Service: Dec 20, 2016. Subjective Pt evaluation today including: conversation w/ patient, conversation w/ family (daughter), physical exam, review of inpatient medication list Pain: moderate to severe pain PO Intake: adequate Voiding: no voiding problems daughter was at bedside last night when he got first dose of Dilaudid immediately acting crazy, talking non-sense, she does not want any further doses of Dilaudid last night he got Ambien 5mg and Tylenol at bedtime and slept all night and most of the morning he also received Seroquel and klonopin at bedtime still with intermittent confusion discussed plan with daughter to use Toradol IV since renal function normal plan for rehab eventually, likely here for several more days Problem List Medical Problems: (1) Altered mental status Status: Acute (2) Anxiety Status: Acute (3) Back pain Status: Acute (4) Cancer associated pain Status: Acute (5) Dehydration Status: Acute (6) Elevated troponin I level Status: Acute (7) Hypoxia Status: Acute (8) Renal insufficiency Status: Acute (9) Sacral lesion Status: Acute Review of Systems Constitutional: + fatigue Musculoskeletal: + joint pain (low back) All Other Systems: Reviewed and Negative Medications Current Inpatient Medications Medications (Trade) Dose Ordered Sig/Cassandra Route Start Time Stop Time Status Last Admin Dose Admin Amiodarone HCl (Cordarone Tab) 200 mg DAILY PO 12/18/16 09:00 01/17/17 08:59 12/20/16 12:24 200 MG Aspirin (Ecotrin Tab) 81 mg DAILY PO 12/18/16 09:00 01/17/17 08:59 12/20/16 12:24 81 MG Clonazepam (Klonopin Tab) 1 mg HS PO 12/17/16 21:00 01/16/17 20:59 12/19/16 20:35 1 MG Salmeterol Xinafoate/ Fluticasone (Advair Diskus 250/50 Inh) 1 puff BID INH 12/17/16 21:00 01/16/17 20:59 12/20/16 12:25 1 PUFF Levothyroxine Sodium (Synthroid Tab) 88 mcg DAILYBB PO 12/18/16 06:00 01/17/17 06:59 12/20/16 12:24 88 MCG Polyethylene (Miralax Powder Packet) 17 gm DAILY PRN PO 12/17/16 13:15 01/16/17 13:14 Simvastatin (Zocor Tab) 10 mg QPM PO 12/17/16 21:00 01/16/17 20:59 12/19/16 20:33 10 MG Tamsulosin HCl (Flomax Cap) 0.4 mg HS PO 12/17/16 21:00 01/16/17 20:59 12/19/16 20:33 0.4 MG Acetaminophen (Tylenol Tab) 650 mg Q4H PRN PO 12/17/16 13:15 01/16/17 13:14 12/20/16 09:20 650 MG Al Hydrox/Mg Hydrox/Simethicone (Maalox Max Susp) 15 ml Q4H PRN PO 12/17/16 13:15 01/16/17 13:14 Magnesium Hydroxide (Milk Of Magnesia Susp) 30 ml Q12H PRN PO 12/17/16 13:15 01/16/17 13:14 Zolpidem Tartrate (Ambien Tab) 5 mg HSZ PRN PO 12/17/16 13:15 01/16/17 13:14 12/19/16 23:30 5 MG Ondansetron HCl (Zofran Inj) 4 mg Q6H PRN IV 12/17/16 13:15 01/16/17 13:14 Dabigatran (Pradaxa Cap) 150 mg BID PO 12/17/16 21:00 01/16/17 20:59 12/20/16 12:25 150 MG Quetiapine Fumarate (seroQUEL TAB) 25 mg HS PO 12/18/16 21:00 01/17/17 20:59 12/19/16 20:34 25 MG Ketorolac Tromethamine (Toradol Inj) 15 mg Q6H PRN IV. 12/20/16 13:15 12/25/16 13:14 12/20/16 13:35 15 MG Objective Vital Signs Date Time Temp Pulse Resp B/P (MAP) Pulse Ox O2 Delivery O2 Flow Rate FiO2 12/20/16 13:19 36.7 79 18 117/77 (90) 94 Room Air 12/20/16 10:00 Room Air 12/20/16 00:05 Room Air 12/19/16 20:05 Room Air 12/19/16 16:00 Room Air 12/19/16 15:07 36.9 72 20 97/65 (76) 96 Room Air Physical Exam General Appearance: WD/WN, no apparent distress Eyes: normal inspection, EOMI, sclerae normal Neck: supple, no adenopathy, no JVD, trachea midline Respiratory/Chest: chest non-tender, lungs clear, normal breath sounds, no respiratory distress, no accessory muscle use Cardiovascular: regular rate, rhythm, no edema, no gallop, no JVD, no murmur Abdomen: normal bowel sounds, non tender, soft, no organomegaly Extremities: normal range of motion, non-tender, normal inspection, no pedal edema, no calf tenderness, pelvis stable Neurologic/Psychiatric: 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, alert, + abnormal gait (poor balance), + motor weakness, + pertinent finding (anxious, intermittently confused, non-sense words) Skin: normal color, warm/dry, no rash Assessment and Plan 81 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 he became very confused and agitated hold off on any further narcotics at this time no signs of infection as cause, CT head negative for ischemia or mass effect or bleeding had NAY on admission with Cr. of 1.6 but that is resolved in first 24 hours - NAY: Cr was 1.6 on admission, likely prerenal since Cr improved to 0.9 with IV fluids drinking adequately today, if he does not drink enough then resume IV fluids - Hypophosphatemia: replaced with KPhos IV 21mmol on 12/18 - Plasmacytoma with bone pain and radiculopathy: stop Dilaudid due to altered mental status Toradol 30mg IV q6 and Tylenol hopeful for radiation therapy on Thursday Dr. Gutierrez recommends an MRI of the lumbar spine, he is uncooperative today and in too much pain will attempt once he can tolerate - Poor appetite: improved overall, continue to monitor - Atrial fibrillation: amiodarone and Pradaxa, rates controlled DVT proph: on Pradaxa Full code
[2016-12-20] MEDS ORDERED: FENTANYL PATCH REMOVE & WASTE ONE (16:00)
[2016-12-20 19:31] VITALS: BP 116/76; PULSE 75; TEMP 36.7; O2SAT 95
[2016-12-20] MEDS: CLONAZEPAM 1 MG TAB PO SCH (20:40)
[2016-12-20] MEDS: SIMVASTATIN 10 MG TAB PO SCH (20:40)
[2016-12-20] MEDS: QUETIAPINE FUMARATE 25 MG TAB PO SCH (20:41)
[2016-12-20] MEDS: TAMSULOSIN HCL 0.4 MG CAP PO SCH (20:41)
[2016-12-20 23:23] VITALS: BP 115/69; PULSE 64; TEMP 36.6; O2SAT 96
[2016-12-20] MEDS: ZOLPIDEM TARTRATE 5 MG TAB PO PRN (23:47)
[2016-12-21 06:12] LABS: BASO % 0.4 %; BASO ABS # 0.02 K/uL (0-0.2); COMPLETE YES; EOS % 2.1 %; HEMATOCRIT 43.6 % (42-52); IG% 0.6 %; LYMPH % 9.8 %; LYMPH ABS # 0.51 K/uL (1.2-3.4); MEAN CELL VOLUME 94.6 fL (80-100); MEAN CORPUSCULAR HEMOGLOBIN 32.1 pg (25-34); MEAN CORPUSCULAR HGB CONC 33.9 g/dl (32-36); MONO % 9.8 %; NEUT % 77.3 %; PLATELET COUNT 186 K/uL (130-400); RED BLOOD COUNT 4.61 M/uL (4.7-6.1); WHITE BLOOD COUNT 5.22 K/uL (4.8-10.8)
[2016-12-21 06:46] LABS: BUN/CREATININE RATIO 23.1 (10-20); CALCIUM 8.9 mg/dl (8.5-10.1); CREATININE 1.4 mg/dl (0.60-1.40); POTASSIUM 3.4 mmol/L (3.5-5.1)
[2016-12-21] MEDS: LEVOTHYROXINE 88 MCG TAB PO SCH (06:54)
[2016-12-21] MEDS: ASPIRIN 81 MG ECTAB PO SCH (09:54)
[2016-12-21] MEDS: FLUTICASONE/SALMETEROL 250/50 (ADVAIR) 14 PUFF/1 INHALER INH SCH ×2 (09:54→12:23)
[2016-12-21] MEDS: AMIODARONE 200 MG TAB PO SCH (09:54)
[2016-12-21] MEDS: DABIGATRAN ELEXILATE 75 MG CAP PO SCH ×2 (09:55→20:08)
[2016-12-21] MEDS: ACETAMINOPHEN 325 MG TAB PO PRN ×2 (09:58→17:03)
[2016-12-21] MEDS: SODIUM CHLORIDE 0.9% 1000ML 1,000 ML IV SCH (11:05)
[2016-12-21 12:11] VITALS: BP 122/78; PULSE 79; TEMP 36.6; O2SAT 94
[2016-12-21 15:14] VITALS: BP 122/76; PULSE 72; TEMP 36.5; O2SAT 96
[2016-12-21] MEDS ORDERED: NURSING VERBAL MED ORDER ONE (16:00)
--- NOTE | 2016-12-21 16:33 | Progress Note ---
Subjective Date of Service: Dec 21, 2016. Subjective Pt evaluation today including: conversation w/ patient, physical exam, lab review, review of inpatient medication list Pain: mild to moderate per patient PO Intake: poor Voiding: no voiding problems patient sleeping well, pain controlled with Tylenol confused still this AM, although he is continuously trying to figure out what is going on and he is getting frustrated fixated on things he knows, like he keeps telling me what time it is and the description of his nurse overnight met with daughter and patient's girlfriend at the bedside reviewed lab results, Cr up to 1.4, not drinking well, will start some fluids discussed plan for MRI lumbar spine, PT/OT evaluations, will need rehab, questions answered Problem List Medical Problems: (1) Altered mental status Status: Acute (2) Anxiety Status: Acute (3) Back pain Status: Acute (4) Cancer associated pain Status: Acute (5) Dehydration Status: Acute (6) Elevated troponin I level Status: Acute (7) Hypoxia Status: Acute (8) Renal insufficiency Status: Acute (9) Sacral lesion Status: Acute Review of Systems Musculoskeletal: + joint pain (back pain and right sided radiculopathy) Neurologic: + memory loss, + weakness All Other Systems: Reviewed and Negative Medications Current Inpatient Medications Medications (Trade) Dose Ordered Sig/Cassandra Route Start Time Stop Time Status Last Admin Dose Admin Amiodarone HCl (Cordarone Tab) 200 mg DAILY PO 12/18/16 09:00 01/17/17 08:59 12/21/16 09:54 200 MG Aspirin (Ecotrin Tab) 81 mg DAILY PO 12/18/16 09:00 01/17/17 08:59 12/21/16 09:54 81 MG Clonazepam (Klonopin Tab) 1 mg HS PO 12/17/16 21:00 01/16/17 20:59 12/20/16 20:40 1 MG Levothyroxine Sodium (Synthroid Tab) 88 mcg DAILYBB PO 12/18/16 06:00 01/17/17 06:59 12/21/16 06:54 88 MCG Polyethylene (Miralax Powder Packet) 17 gm DAILY PRN PO 12/17/16 13:15 01/16/17 13:14 Simvastatin (Zocor Tab) 10 mg QPM PO 12/17/16 21:00 01/16/17 20:59 12/20/16 20:40 10 MG Tamsulosin HCl (Flomax Cap) 0.4 mg HS PO 12/17/16 21:00 01/16/17 20:59 12/20/16 20:41 0.4 MG Acetaminophen (Tylenol Tab) 650 mg Q4H PRN PO 12/17/16 13:15 01/16/17 13:14 12/21/16 09:58 650 MG Al Hydrox/Mg Hydrox/Simethicone (Maalox Max Susp) 15 ml Q4H PRN PO 12/17/16 13:15 01/16/17 13:14 Magnesium Hydroxide (Milk Of Magnesia Susp) 30 ml Q12H PRN PO 12/17/16 13:15 01/16/17 13:14 Zolpidem Tartrate (Ambien Tab) 5 mg HSZ PRN PO 12/17/16 13:15 01/16/17 13:14 12/20/16 23:47 5 MG Ondansetron HCl (Zofran Inj) 4 mg Q6H PRN IV 12/17/16 13:15 01/16/17 13:14 Dabigatran (Pradaxa Cap) 150 mg BID PO 12/17/16 21:00 01/16/17 20:59 12/21/16 09:55 150 MG Quetiapine Fumarate (seroQUEL TAB) 25 mg HS PO 12/18/16 21:00 01/17/17 20:59 12/20/16 20:41 25 MG Ketorolac Tromethamine (Toradol Inj) 15 mg Q6H PRN IV. 12/20/16 13:15 12/25/16 13:14 12/20/16 13:35 15 MG Sodium Chloride 1,000 ml @ 75 mls/hr [id number] IV 12/21/16 10:00 01/20/17 09:59 12/21/16 11:05 75 MLS/HR Objective Vital Signs Date Time Temp Pulse Resp B/P (MAP) Pulse Ox O2 Delivery O2 Flow Rate FiO2 12/21/16 15:14 36.5 72 18 122/76 (91) 96 Room Air 12/21/16 12:11 36.6 79 18 122/78 (93) 94 Room Air 12/21/16 09:14 Room Air 12/21/16 00:05 Room Air 12/20/16 23:23 36.6 64 18 115/69 (84) 96 Room Air 12/20/16 20:05 Room Air 12/20/16 19:31 36.7 75 16 116/76 (89) 95 Room Air Physical Exam General Appearance: no apparent distress, + thin Neck: supple, no adenopathy, no JVD, trachea midline Respiratory/Chest: chest non-tender, lungs clear, normal breath sounds, no respiratory distress, no accessory muscle use Cardiovascular: regular rate, rhythm, no edema, no gallop, no JVD, no murmur Abdomen: normal bowel sounds, non tender, soft, no organomegaly Extremities: normal inspection, no pedal edema, no calf tenderness, pelvis stable, + pertinent finding (back tender cylinder, decreased ROM due to pain) 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, alert, oriented x 3, + pertinent finding (anxious, frustrated not knowing all the details of his admission, pleasantly confused about some things) Laboratory Results Last 24 Hours Test 12/21/16 05:58 White Blood Count 5.22 K/uL Red Blood Count 4.61 M/uL Hemoglobin 14.8 g/dL Hematocrit 43.6 % Mean Corpuscular Volume 94.6 fL Mean Corpuscular Hemoglobin 32.1 pg Mean Corpuscular Hemoglobin Concent 33.9 g/dl Platelet Count 186 K/uL Mean Platelet Volume 9.0 fL Neutrophils (%) (Auto) 77.3 % Lymphocytes (%) (Auto) 9.8 % Monocytes (%) (Auto) 9.8 % Eosinophils (%) (Auto) 2.1 % Basophils (%) (Auto) 0.4 % Neutrophils # (Auto) 4.04 K/uL Lymphocytes # (Auto) 0.51 K/uL Monocytes # (Auto) 0.51 K/uL Eosinophils # (Auto) 0.11 K/uL Basophils # (Auto) 0.02 K/uL RDW Standard Deviation 45.3 fL RDW Coefficient of Variation 13.2 % Immature Granulocyte % (Auto) 0.6 % Immature Granulocyte # (Auto) 0.03 K/uL Sodium Level 140 mmol/L Potassium Level 3.4 mmol/L Chloride Level 101 mmol/L Carbon Dioxide Level 33 mmol/L Anion Gap 6.0 mmol/L Blood Urea Nitrogen 32 mg/dl Creatinine 1.40 mg/dl Est Creatinine Clear Calc Drug Dose 44.4 ml/min Estimated GFR () 55.0 Estimated GFR (Non- 47.5 BUN/Creatinine Ratio 23.1 Random Glucose 85 mg/dl Calcium Level 8.9 mg/dl Assessment and Plan 81 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, undergoing radiation, with severe pain and neuropathy treated with Fentanyl patches, Oxy IR and gabapentin, presented to the ED with progressive changes in mental status, confusion, agitation, violent behavior that were progressive per family and outpatient providers - Encephalopathy: suspect this is toxic due to polypharmacy with gabapentin and narcotics stopped all narcotics on admission as well as Gabapentin, some improvements in mentation still with confusion but he is regaining clarity unsure of what else to eliminate has been taking Klonopin as outpatient for restless legs at night, if confusion doesn't resolve completely would stop that next Ambien was added by electric stove installer three nights ago, but he actually has good response and sleeps all night Seroquel started on admission for delirium, unsure if it is actually helping , could consider stopping he is frequently re-oriented, awake during the day, sleeping at night and says his pain is controlled no signs of infection as cause, CT head negative for ischemia or mass effect or bleeding had NAY on admission with Cr. of 1.6 but that is resolved in first 24 hours, Cr went down to 0.9 - NAY: Cr was 1.6 on admission, likely prerenal since Cr improved to 0.9 with IV fluids stopped fluids after 36 hours but poor oral intake more recently Cr up to 1.4 today, resume IV hydration with NSS at 75cc/hr - Plasmacytoma with bone pain and radiculopathy: stop Dilaudid due to altered mental status Toradol 30mg IV q6 and Tylenol, only using Tylenol currently hopeful for radiation therapy on Thursday Dr. Gutierrez recommends an MRI of the lumbar spine, ordered today - Poor appetite: improved overall but still suboptimal, continue to monitor - Atrial fibrillation: amiodarone and Pradaxa, rates controlled DVT proph: on Pradaxa Full code Plan: may need to eliminate Klonopin and Seroquel if delirium does not improve, call radiation oncology on Thursday to discuss radiation therapy, no formal consult needed will need rehab, lives at the [facility], family would like [facility] if needed
--- NOTE | 2016-12-21 18:03 | DIAGNOSTIC IMAGING REPORT ---
LUMBAR SPINE W/O CONTRAST HISTORY: Mass assess plasmacytoma TECHNIQUE: Multiplanar multisequence MRI of the lumbar spine was performed without the use of contrast. COMPARISON: 11/07/2016 FINDINGS: For the purpose of the report the L5-S1 disc space will be located on axial image 2125. Very limited exam due to severe patient motion. Persistent complete bone marrow replacement of the S1 segment. Moderate compression similar compared to the prior study. The posterior expansile characteristics appear slightly diminished. Grade 2 anterolisthesis of L5 on S1 appears similar. Characteristics of the remaining vertebral bodies appear unremarkable. L1-L2: No significant central canal or neural foraminal narrowing. L2-L3: No significant central canal or neural foraminal narrowing. L3-L4: No significant central canal or neural foraminal narrowing. L4-L5: Minimal disc bulge unchanged L5-S1: Slight improvement of the anterior to posterior dimension narrowing of the spinal canal. Current anterior to posterior dimension is 9 mm slightly increased in the prior study of 6.8 mm. IMPRESSION: 1. Severely limited exam as the patient cannot tolerate the study. Severe motion artifact. 2. Complete replacement of the S1 segment with a slight improvement in posterior concavity of the expansile component of the posterior margin of the vertebral body. 3. 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 The above report was generated using voice recognition software. It may contain grammatical, syntax or spelling errors. Electronically signed by: Yahir Wells M.D. 12/21/2016 6:02 PM Dictated Date/Time: 12/21/2016 5:48 PM
[2016-12-21 19:34] VITALS: BP 138/76; PULSE 74; TEMP 36.6; O2SAT 96
[2016-12-21] MEDS: TAMSULOSIN HCL 0.4 MG CAP PO SCH (20:07)
[2016-12-21] MEDS: SIMVASTATIN 10 MG TAB PO SCH (20:07)
[2016-12-21] MEDS: QUETIAPINE FUMARATE 25 MG TAB PO SCH (20:08)
[2016-12-21] MEDS: ZOLPIDEM TARTRATE 5 MG TAB PO PRN (20:12)
[2016-12-21] MEDS: CLONAZEPAM 1 MG TAB PO SCH (20:12)
[2016-12-21 23:26] VITALS: BP 116/73; PULSE 68; TEMP 36.6; O2SAT 93
[2016-12-22] VITALS (7 sets, daily range): BP systolic 128–161; BP diastolic 72–91; PULSE 66–87; TEMP 36.6–36.9; O2SAT 95–97
[2016-12-22] MEDS: SODIUM CHLORIDE 0.9% 1000ML 1,000 ML IV SCH ×2 (01:15→14:33)
[2016-12-22] MEDS: LEVOTHYROXINE 88 MCG TAB PO SCH (06:25)
[2016-12-22] MEDS: AMIODARONE 200 MG TAB PO SCH (07:15)
[2016-12-22] MEDS: ASPIRIN 81 MG ECTAB PO SCH (07:15)
[2016-12-22] MEDS: DABIGATRAN ELEXILATE 75 MG CAP PO SCH ×2 (07:15→20:28)
[2016-12-22 07:16] LABS: BUN/CREATININE RATIO 16.3 (10-20); CALCIUM 8.4 mg/dl (8.5-10.1); CREATININE 1.1 mg/dl (0.60-1.40); MAGNESIUM 2.1 mg/dl (1.8-2.4); POTASSIUM 3.4 mmol/L (3.5-5.1)
[2016-12-22] MEDS ORDERED: POTASSIUM CHLORIDE 10 MEQ TABCR PO ONE (08:30)
--- NOTE | 2016-12-22 11:22 | Progress Note ---
Subjective Date of Service: Dec 22, 2016. Subjective Pt evaluation today including: conversation w/ patient, conversation w/ family , physical exam, chart review, lab review, review of studies, review of inpatient medication list Continue to have body ache, and upper back pain However is more awake and alert and orientated, conversational, no name, , and place, conversational, Per family, was able to sit up in bedside this morning Problem List Medical Problems: (1) Altered mental status Status: Acute (2) Anxiety Status: Acute (3) Back pain Status: Acute (4) Cancer associated pain Status: Acute (5) Dehydration Status: Acute (6) Elevated troponin I level Status: Acute (7) Hypoxia Status: Acute (8) Renal insufficiency Status: Acute (9) Sacral lesion Status: Acute Review of Systems Constitutional: + weakness, + fatigue Eyes: No worsening of vision, No eye pain, No redness, No discharge, No diplopia ENT: No hearing loss, No unusual epistaxis, No nasal symptoms, No sore throat, No tinnitus, No dental problems, No trouble swallowing Respiratory: No cough, No sputum, No wheezing, No shortness of breath, No dyspnea on exertion, No dyspnea at rest, No hemoptysis Cardiac: No chest pain, No orthopnea, No PND, No edema, No claudication, No palpitations Abdomen: No pain, No nausea, No vomiting, No diarrhea, No constipation Musculoskeletal: No joint pain, No muscle pain, No swelling, No calf pain Male : No dysuria, No urinary frequency, No incontinence, No nocturia more than once/night, No slowing stream, No hematuria Neurologic: No memory loss, No paralysis, No weakness, No numbness/tingling, No vertigo, No balance problems Psychiatric: No depression symptoms, No anhedonism, No anxiety, No insomnia, No substance abuse Heme: No abnormal bleeding/bruising, No clotting problems, No swollen lymph nodes, No night sweats Endo: No fatigue, No excessive thirst, No excessive urination Skin: No rash, No itch, No new/changing skin lesions, No color change, No bleeding Objective Vital Signs Date Time Temp Pulse Resp B/P (MAP) Pulse Ox O2 Delivery O2 Flow Rate FiO2 12/22/16 10:35 87 97 12/22/16 08:27 Room Air 12/22/16 07:07 36.9 72 20 133/87 (102) 96 Room Air 12/22/16 04:05 36.9 66 18 138/72 (94) 95 Room Air 12/22/16 00:00 Room Air 12/21/16 23:26 36.6 68 18 116/73 (87) 93 Room Air 12/21/16 20:00 Room Air 12/21/16 19:34 36.6 74 18 138/76 (96) 96 Room Air 12/21/16 17:12 Room Air 12/21/16 15:14 36.5 72 18 122/76 (91) 96 Room Air 12/21/16 12:11 36.6 79 18 122/78 (93) 94 Room Air Physical Exam General Appearance: WD/WN, no apparent distress, + cachetic, + thin Eyes: normal inspection, PERRL, EOMI, sclerae normal ENT: normal ENT inspection, hearing grossly normal, pharynx normal Neck: supple, no adenopathy, thyroid normal, no JVD, no carotid bruits, trachea midline Respiratory/Chest: chest non-tender, normal breath sounds, no respiratory distress, no accessory muscle use, + decreased breath sounds Cardiovascular: regular rate, rhythm, no edema, no gallop, no JVD, no murmur Abdomen: normal bowel sounds, non tender, soft, no organomegaly, no pulsatile mass Extremities: normal range of motion, non-tender, normal inspection, no pedal edema, no calf tenderness, normal capillary refill, pelvis stable 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, no motor/sensory deficits, alert, normal mood/affect, oriented x 3 Skin: normal color, warm/dry, no rash Lymphatic: no adenopathy Laboratory Results Last 24 Hours Test 12/22/16 06:23 Sodium Level 142 mmol/L Potassium Level 3.4 mmol/L Chloride Level 105 mmol/L Carbon Dioxide Level 32 mmol/L Anion Gap 5.0 mmol/L Blood Urea Nitrogen 18 mg/dl Creatinine 1.10 mg/dl Est Creatinine Clear Calc Drug Dose 56.2 ml/min Estimated GFR () 73.6 Estimated GFR (Non- 63.5 BUN/Creatinine Ratio 16.3 Random Glucose 89 mg/dl Calcium Level 8.4 mg/dl Phosphorus Level 2.5 mg/dl Magnesium Level 2.1 mg/dl Assessment and Plan 81 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, 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 treated with Fentanyl patches, Oxy IR and gabapentin admitted on Per report, patient presented to the ED with progressive changes in mental status, confusion, agitation, violent behavior that were progressive per family and outpatient providers - Encephalopathy: suspect this is toxic due to polypharmacy with gabapentin and narcotics Today is totally resolved, these became improved after stopping all narcotics on admission as well as Gabapentin, some improvements in mentation Gabapentin stop on 12/19/2016, there was no signs of withdrawal has been taking Klonopin as outpatient for restless legs at night, keeping mind of this, and continue for now Nichol was added by ranjana three nights ago, but he actually has good response and sleeps all night Seroquel started on admission for delirium, unsure if it is actually helping, will stop today no signs of infection as cause, CT head negative for ischemia or mass effect or bleeding - NAY: Cr was 1.6 on admission, likely prerenal since Cr improved to 0.9 with IV fluids stopped fluids after 36 hours but poor oral intake more recently Cr up to 1.4 yesterday, resume IV hydration with NSS at 75cc/hr, today's creatinine is normal, we'll continue IV fluid for now, encourage oral intake - Plasmacytoma with bone pain and radiculopathy: stop Dilaudid due to altered mental status Toradol 30mg IV q6 and Tylenol, only using Tylenol currently hopeful for radiation therapy on Thursday Dr. Gutierrez recommends an MRI of the lumbar spine, which was done reported see below, discussed with the radiation oncologist, patient should be okay to start radiation treatment today L spine MRI result on 12/21/2016 per report: 1. Severely limited exam as the patient cannot tolerate the study. Severe motion artifact. 2. Complete replacement of the S1 segment with a slight improvement in posterior concavity of the expansile component of the posterior margin of the vertebral body. 3. 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 - Poor appetite: improved overall but still suboptimal, continue to monitor - Atrial fibrillation: amiodarone and Pradaxa, rates controlled DVT proph: on Pradaxa Full code Plan: Discussed with patient and patient's daughter in bedside, , family would like [facility] if needed, we'll follow-up PT OT evaluation and treatment Continued [facility] stay due to: multiple IV medications needed Discharge planning: home
[2016-12-22] MEDS: ACETAMINOPHEN 325 MG TAB PO PRN ×2 (16:29→20:27)
[2016-12-22] MEDS: KETOROLAC TROMETHAMINE 15 MG/ML VIAL IV. PRN (17:52)
[2016-12-22] MEDS: ZOLPIDEM TARTRATE 5 MG TAB PO PRN (20:27)
[2016-12-22] MEDS: CLONAZEPAM 1 MG TAB PO SCH (20:27)
[2016-12-22] MEDS: SIMVASTATIN 10 MG TAB PO SCH (20:28)
[2016-12-22] MEDS: TAMSULOSIN HCL 0.4 MG CAP PO SCH (20:28)
[2016-12-23] VITALS (7 sets, daily range): BP systolic 148–176; BP diastolic 81–97; PULSE 69–84; TEMP 36.7–36.9; O2SAT 94–97
[2016-12-23] MEDS: ACETAMINOPHEN 325 MG TAB PO PRN (02:19)
[2016-12-23] MEDS: SODIUM CHLORIDE 0.9% 1000ML 1,000 ML IV SCH (02:26)
[2016-12-23] MEDS: KETOROLAC TROMETHAMINE 15 MG/ML VIAL IV. PRN ×3 (04:27→21:58)
[2016-12-23] MEDS: LEVOTHYROXINE 88 MCG TAB PO SCH (06:18)
--- NOTE | 2016-12-23 07:51 | Radiation Oncology Progress Nt ---
Radiation Oncology Progress Nt Date of Service Date of Service: 12/22/2016 Reason For Admission Dehydration/Poor Oral Intake, Electrolyte Abnormality Altered mental status likely due to polypharmacy and acute kidney injury Requesting Physician Dr. Danny Malik Diagnosis (1) Solitary plasmacytoma Last Edited By: Sandra Martin on Dec 23, 2016 07:45 Subjective Pt evaluation today including: conversation w/ patient, conversation w/ family , chart review, review of studies, conversation w/ technology consultant Today, Mr. Hector cognition and awareness has significantly improved. He continues to have a high level of pain in his lower back that radiates to his lower extremities bilaterally. Radiation Therapy Has patient started Radiation: Yes Number of Treatments Received: 22 Number of Treatments Planned: 25 Current Chemotherapy: No Objective Vital Signs Date Time Temp Pulse Resp B/P (MAP) Pulse Ox O2 Delivery O2 Flow Rate FiO2 12/23/16 00:11 36.7 80 18 151/93 (112) 97 CPAP 12/22/16 23:45 Room Air 12/22/16 19:53 36.7 81 18 143/86 (105) 95 Room Air 12/22/16 15:45 36.6 79 18 128/84 (99) 96 12/22/16 12:23 36.9 81 16 143/89 97 12/22/16 11:26 36.9 87 18 130/83 (99) 95 Room Air 12/22/16 10:35 87 97 12/22/16 08:27 Room Air Physical Exam General Appearance: + mild distress Eyes: normal inspection ENT: normal ENT inspection Neck: supple, no adenopathy Respiratory/Chest: chest non-tender, lungs clear, normal breath sounds, no respiratory distress Cardiovascular: regular rate, rhythm, no edema, no gallop, no JVD Abdomen: normal bowel sounds, non tender, soft, no organomegaly Neurologic/Psychiatric: 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 COMPARISON: 11/07/2016 FINDINGS: For the purpose of the report the L5-S1 disc space will be located on axial image 2125. Very limited exam due to severe patient motion. Persistent complete bone marrow replacement of the S1 segment. Moderate compression similar compared to the prior study. The posterior expansile characteristics appear slightly diminished. Grade 2 anterolisthesis of L5 on S1 appears similar. Characteristics of the remaining vertebral bodies appear unremarkable. L1-L2: No significant central canal or neural foraminal narrowing. L2-L3: No significant central canal or neural foraminal narrowing. L3-L4: No significant central canal or neural foraminal narrowing. L4-L5: Minimal disc bulge unchanged L5-S1: Slight improvement of the anterior to posterior dimension narrowing of the spinal canal. Current anterior to posterior dimension is 9 mm slightly increased in the prior study of 6.8 mm. IMPRESSION: 1. Severely limited exam as the patient cannot tolerate the study. Severe motion artifact. 2. Complete replacement of the S1 segment with a slight improvement in posterior concavity of the expansile component of the posterior margin of the vertebral body. 3. 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 Laboratory Results Last 24 Hours Test 12/23/16 07:07 Assessment and Plan We have discussed the patients care with the primary hospital service. The patients reason for admission is unrelated to radiation therapy. His mentation/ cognition has improved significantly since he has been admitted to the hospital. He continues to have pain and that is being addressed by the primary service. I have reviewed his imaging studies and feel that he may being responding to treatment; the increased spinal stenosis may be due to loss of bone structure due to the initial malginancy and the bone structure may not improve in the long run without intervention (potentially kyphoplasty). I have recommended completion of his radiation therapy and then restage him in several months. He was agreeable to this plan. The patient will be brought down for radiation therapy today. Please call us with any further questions or concerns or if the patients condition changes during the hospital admission.
[2016-12-23] MEDS: DABIGATRAN ELEXILATE 75 MG CAP PO SCH ×2 (07:55→20:50)
[2016-12-23] MEDS: ASPIRIN 81 MG ECTAB PO SCH (07:55)
[2016-12-23] MEDS: AMIODARONE 200 MG TAB PO SCH (07:56)
[2016-12-23 08:04] LABS: BUN/CREATININE RATIO 16.3 (10-20); CALCIUM 8.7 mg/dl (8.5-10.1); CREATININE 0.96 mg/dl (0.60-1.40); MAGNESIUM 1.9 mg/dl (1.8-2.4); POTASSIUM 3.9 mmol/L (3.5-5.1)
[2016-12-23] MEDS ORDERED: NURSING VERBAL MED ORDER ONE (15:15)
--- NOTE | 2016-12-23 15:59 | Progress Note ---
Subjective Date of Service: Dec 23, 2016. Subjective Pt evaluation today including: conversation w/ patient, conversation w/ family , physical exam, chart review, lab review, review of studies, conversation w/ access consultant, review of inpatient medication list Continue doing fairly okay, pain is much better than yesterday, more interactive conversational and feel more energetic, has good urination, no other complaint Problem List Medical Problems: (1) Altered mental status Status: Acute (2) Anxiety Status: Acute (3) Back pain Status: Acute (4) Cancer associated pain Status: Acute (5) Dehydration Status: Acute (6) Elevated troponin I level Status: Acute (7) Hypoxia Status: Acute (8) Renal insufficiency Status: Acute (9) Sacral lesion Status: Acute Review of Systems Constitutional: + weakness, + fatigue, No fever, No chills, No sweats, No weight loss, No problem reported Eyes: No worsening of vision, No eye pain, No redness, No discharge, No diplopia ENT: No hearing loss, No unusual epistaxis, No nasal symptoms, No sore throat, No tinnitus, No dental problems, No trouble swallowing Respiratory: No cough, No sputum, No wheezing, No shortness of breath, No dyspnea on exertion, No dyspnea at rest, No hemoptysis Cardiac: No chest pain, No orthopnea, No PND, No edema, No claudication, No palpitations Abdomen: No pain, No nausea, No vomiting, No diarrhea, No constipation Musculoskeletal: + joint pain, No muscle pain, No swelling, No calf pain Male : No dysuria, No urinary frequency, No incontinence, No nocturia more than once/night, No slowing stream, No hematuria Neurologic: No memory loss, No paralysis, No weakness, No numbness/tingling, No vertigo, No balance problems Psychiatric: No depression symptoms, No anhedonism, No anxiety, No insomnia, No substance abuse Heme: No abnormal bleeding/bruising, No clotting problems, No swollen lymph nodes, No night sweats Endo: No fatigue, No excessive thirst, No excessive urination Skin: No rash, No itch, No new/changing skin lesions, No color change, No bleeding Objective Vital Signs Date Time Temp Pulse Resp B/P (MAP) Pulse Ox O2 Delivery O2 Flow Rate FiO2 12/23/16 11:53 36.9 70 18 159/83 (108) 96 12/23/16 08:21 Room Air 12/23/16 08:17 36.8 71 18 176/92 (120) 97 Room Air 12/23/16 00:11 36.7 80 18 151/93 (112) 97 CPAP 12/22/16 23:45 Room Air 12/22/16 19:53 36.7 81 18 143/86 (105) 95 Room Air Physical Exam General Appearance: WD/WN, no apparent distress, + thin, + pertinent finding ( looks much better and then yesterday) Eyes: normal inspection, PERRL, EOMI, sclerae normal ENT: normal ENT inspection, hearing grossly normal, pharynx normal Neck: supple, no adenopathy, thyroid normal, no JVD, no carotid bruits, trachea midline Respiratory/Chest: chest non-tender, normal breath sounds, no respiratory distress, no accessory muscle use, + decreased breath sounds Cardiovascular: regular rate, rhythm, no edema, no gallop, no JVD, no murmur Abdomen: normal bowel sounds, non tender, soft, no organomegaly, no pulsatile mass Extremities: normal range of motion, non-tender, normal inspection, no pedal edema, no calf tenderness, normal capillary refill, pelvis stable Neurologic/Psychiatric: 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-XII 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 as tested, no motor/sensory deficits, alert, normal mood/affect, oriented x 3 Skin: normal color, warm/dry, no rash Lymphatic: no adenopathy Laboratory Results Last 24 Hours Test 12/23/16 07:07 Sodium Level 141 mmol/L Potassium Level 3.9 mmol/L Chloride Level 108 mmol/L Carbon Dioxide Level 29 mmol/L Anion Gap 4.0 mmol/L Blood Urea Nitrogen 16 mg/dl Creatinine 0.96 mg/dl Est Creatinine Clear Calc Drug Dose 63.3 ml/min Estimated GFR () 86.8 Estimated GFR (Non- 74.9 BUN/Creatinine Ratio 16.3 Random Glucose 105 mg/dl Calcium Level 8.7 mg/dl Phosphorus Level 2.0 mg/dl Magnesium Level 1.9 mg/dl Assessment and Plan 81 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, 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 treated with Fentanyl patches, Oxy IR and gabapentin admitted on Per report, patient presented to the ED with progressive changes in mental status, confusion, agitation, violent behavior that were progressive per family and outpatient providers - Encephalopathy: suspect this is toxic due to polypharmacy with gabapentin and narcotics totally resolved after stopping all narcotics on admission as well as Gabapentin , Gabapentin stop on 12/19/2016, there was no signs of withdrawal has been taking Klonopin as outpatient for restless legs at night, keeping mind of this, and continue for now Nichol was added by sash assembler three nights ago, but he actually has good response and sleeps all night Seroquel started on admission for delirium, unsure if it is actually helping, was stopped yesterday no signs of infection as cause, CT head negative for ischemia or mass effect or bleeding - NAY: Cr was 1.6 on admission, likely prerenal since Cr improved to 0.9 with IV fluids, totally resolved, discontinue IV fluid - Plasmacytoma with bone pain and radiculopathy: stop Dilaudid due to altered mental status Toradol 30mg IV q6 and Tylenol, only using Tylenol currently hopeful for radiation therapy on Thursday Dr. Gutierrez recommends an MRI of the lumbar spine, which was done reported see below, discussed with the radiation oncologist, patient should be okay to start radiation treatment started from yesterday, we'll continue L spine MRI result on 12/21/2016 per report: 1. Severely limited exam as the patient cannot tolerate the study. Severe motion artifact. 2. Complete replacement of the S1 segment with a slight improvement in posterior concavity of the expansile component of the posterior margin of the vertebral body. 3. 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 - Poor appetite: improved - Atrial fibrillation: amiodarone and Pradaxa, rates controlled DVT proph: on Pradaxa Full code Plan: Discussed with patient and partner , plan to [facility] tomorrow Continued [facility] stay due to: home environment unsafe for pt Discharge planning: rehab hospital
[2016-12-23] MEDS: SIMVASTATIN 10 MG TAB PO SCH (20:46)
[2016-12-23] MEDS: TAMSULOSIN HCL 0.4 MG CAP PO SCH (20:46)
[2016-12-23] MEDS: CLONAZEPAM 1 MG TAB PO SCH (20:46)
[2016-12-23] MEDS: ZOLPIDEM TARTRATE 5 MG TAB PO PRN (21:57)
[2016-12-24 04:00] VITALS: BP 152/93; PULSE 79; TEMP 36.8; O2SAT 96
[2016-12-24] MEDS: LEVOTHYROXINE 88 MCG TAB PO SCH (05:44)
[2016-12-24 07:43] VITALS: BP 147/93; PULSE 81; TEMP 37; O2SAT 97
[2016-12-24] MEDS: ACETAMINOPHEN 325 MG TAB PO PRN ×3 (08:01→20:04)
[2016-12-24] MEDS: ASPIRIN 81 MG ECTAB PO SCH (08:02)
[2016-12-24] MEDS: DABIGATRAN ELEXILATE 75 MG CAP PO SCH ×2 (08:02→20:05)
[2016-12-24] MEDS: AMIODARONE 200 MG TAB PO SCH (08:02)
[2016-12-24] MEDS ORDERED: LISINOPRIL 5 MG TAB PO ONE (08:15)
--- NOTE | 2016-12-24 09:09 | Progress Note ---
Subjective Date of Service: Dec 24, 2016. Subjective Pt evaluation today including: conversation w/ patient, conversation w/ family , physical exam, chart review, lab review, review of studies, review of inpatient medication list doing good, OOB to chair with retail sales assistant, eating meal.c/o LBP which is not new, actually is better Problem List Medical Problems: (1) Altered mental status Status: Acute (2) Anxiety Status: Acute (3) Back pain Status: Acute (4) Cancer associated pain Status: Acute (5) Dehydration Status: Acute (6) Elevated troponin I level Status: Acute (7) Hypoxia Status: Acute (8) Renal insufficiency Status: Acute (9) Sacral lesion Status: Acute Review of Systems Constitutional: + fatigue, No fever, No chills, No sweats, No weight loss, No weakness, No problem reported Eyes: No worsening of vision, No eye pain, No redness, No discharge, No diplopia ENT: No hearing loss, No unusual epistaxis, No nasal symptoms, No sore throat, No tinnitus, No dental problems, No trouble swallowing Respiratory: No cough, No sputum, No wheezing, No shortness of breath, No dyspnea on exertion, No dyspnea at rest, No hemoptysis Cardiac: No chest pain, No orthopnea, No PND, No edema, No claudication, No palpitations Abdomen: No pain, No nausea, No vomiting, No diarrhea, No constipation Musculoskeletal: + joint pain, No muscle pain, No swelling, No calf pain Male : No dysuria, No urinary frequency, No incontinence, No nocturia more than once/night, No slowing stream, No hematuria Neurologic: No memory loss, No paralysis, No weakness, No numbness/tingling, No vertigo, No balance problems Psychiatric: No depression symptoms, No anhedonism, No anxiety, No insomnia, No substance abuse Heme: No abnormal bleeding/bruising, No clotting problems, No swollen lymph nodes, No night sweats Endo: No fatigue, No excessive thirst, No excessive urination Skin: No rash, No itch, No new/changing skin lesions, No color change, No bleeding Objective Vital Signs Date Time Temp Pulse Resp B/P (MAP) Pulse Ox O2 Delivery O2 Flow Rate FiO2 12/24/16 08:00 Room Air 12/24/16 07:43 37.0 81 20 147/93 (111) 97 12/24/16 04:00 36.8 79 20 152/93 (112) 96 Room Air 12/24/16 00:00 CPAP 12/23/16 23:55 36.8 78 18 155/92 (113) 94 BiPAP 12/23/16 19:33 36.9 84 18 159/81 (107) 96 Room Air 12/23/16 16:53 69 148/97 (114) 12/23/16 16:10 Room Air 12/23/16 16:08 36.8 76 18 165/86 (112) 95 Room Air 12/23/16 11:53 36.9 70 18 159/83 (108) 96 Physical Exam General Appearance: WD/WN, no apparent distress, + thin, + pertinent finding ( decreased hearing, and [id number]) Eyes: normal inspection, PERRL, EOMI, sclerae normal ENT: normal ENT inspection, hearing grossly normal, pharynx normal Neck: supple, no adenopathy, thyroid normal, no JVD, no carotid bruits, trachea midline Respiratory/Chest: chest non-tender, lungs clear, normal breath sounds, no respiratory distress, no accessory muscle use Cardiovascular: regular rate, rhythm, no edema, no gallop, no JVD, no murmur Abdomen: normal bowel sounds, non tender, soft, no organomegaly, no pulsatile mass Extremities: normal range of motion, non-tender, normal inspection, no pedal edema, no calf tenderness, normal capillary refill, pelvis stable Neurologic/Psychiatric: captain cannery tender II-XII nml as tested, no motor/sensory deficits, alert, normal mood/affect, oriented x 3 Skin: normal color, warm/dry, no rash Lymphatic: no adenopathy Assessment and Plan 81 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, 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 treated with Fentanyl patches, Oxy IR and gabapentin admitted on Per report, patient presented to the ED with progressive changes in mental status, confusion, agitation, violent behavior that were progressive per family and outpatient providers - Encephalopathy: suspect this is toxic due to polypharmacy with gabapentin and narcotics totally resolved after stopping all narcotics on admission as well as Gabapentin , continue stable Gabapentin stop on 12/19/2016, there was no signs of withdrawal has been taking Klonopin as outpatient for restless legs at night, keeping mind of this, and continue for now Ambien was added by account development representative three nights ago, but he actually has good response and sleeps all night Seroquel started on admission for delirium, unsure if it is actually helping, was stopped yesterday no signs of infection as cause, CT head negative for ischemia or mass effect or bleeding - NAY: Cr was 1.6 on admission, likely prerenal since Cr improved to 0.9 with IV fluids, discontinue IV fluid, resolved - Plasmacytoma with bone pain and radiculopathy: stop Dilaudid due to altered mental status Toradol 30mg IV q6 and Tylenol, only using Tylenol currently hopeful for radiation therapy on Thursday Dr. Gutierrez recommends an MRI of the lumbar spine, which was done reported see below, discussed with the radiation oncologist, has started radiation treatment started 3 days ago, will continue, pt is concern about if he can continue radiation treatment while in [facility], I told him that [facility] will coordinate with radiation oncologist team L spine MRI result on 12/21/2016 per report: 1. Severely limited exam as the patient cannot tolerate the study. Severe motion artifact. 2. Complete replacement of the S1 segment with a slight improvement in posterior concavity of the expansile component of the posterior margin of the vertebral body. 3. 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 - Poor appetite: continue improved - Atrial fibrillation: amiodarone and Pradaxa, rates controlled - acclerated HTN, added lisinopril today DVT proph: on Pradaxa Full code Plan: Discussed with patient and partner , [employer] pending auth Continued [facility] stay due to: home environment unsafe for pt Discharge planning: rehab hospital
[2016-12-24 11:51] VITALS: BP 164/89; PULSE 72; TEMP 36.8; O2SAT 97
[2016-12-24] MEDS: KETOROLAC TROMETHAMINE 15 MG/ML VIAL IV. PRN ×2 (14:42→23:19)
[2016-12-24] MEDS: CYCLOBENZAPRINE HCL 10 MG TAB PO SCH (16:18)
[2016-12-24 19:42] VITALS: BP 121/77; PULSE 79; TEMP 36.8; O2SAT 96
[2016-12-24 20:00] VITALS: O2SAT 96
[2016-12-24] MEDS: CLONAZEPAM 1 MG TAB PO SCH (20:02)
[2016-12-24] MEDS: ZOLPIDEM TARTRATE 5 MG TAB PO PRN (20:03)
[2016-12-24] MEDS: SIMVASTATIN 10 MG TAB PO SCH (20:06)
[2016-12-24] MEDS: TAMSULOSIN HCL 0.4 MG CAP PO SCH (20:06)
[2016-12-25] VITALS: BP 136/83; PULSE 93; TEMP 36.8; O2SAT 96; O2SAT 98
[2016-12-25 04:26] VITALS: BP 129/73; PULSE 93; TEMP 36.9; O2SAT 98
[2016-12-25] MEDS: LEVOTHYROXINE 88 MCG TAB PO SCH (06:07)
[2016-12-25] MEDS: CYCLOBENZAPRINE HCL 10 MG TAB PO SCH (07:21)
[2016-12-25] MEDS: AMIODARONE 200 MG TAB PO SCH (07:22)
[2016-12-25] MEDS: DABIGATRAN ELEXILATE 75 MG CAP PO SCH ×2 (07:22→20:53)
[2016-12-25] MEDS: ASPIRIN 81 MG ECTAB PO SCH (07:22)
[2016-12-25] MEDS: LISINOPRIL 5 MG TAB PO SCH (07:22)
[2016-12-25] MEDS: KETOROLAC TROMETHAMINE 15 MG/ML VIAL IV. PRN (07:34)
[2016-12-25] MEDS: ACETAMINOPHEN 325 MG TAB PO PRN ×2 (10:06→14:45)
[2016-12-25 10:18] VITALS: BP 161/89; PULSE 74; TEMP 36.6; O2SAT 97
[2016-12-25 11:57] VITALS: BP 149/82; PULSE 78; TEMP 36.7; O2SAT 96
[2016-12-25] MEDS ORDERED: NURSING VERBAL MED ORDER ONE ×2 (12:30→15:30)
[2016-12-25] MEDS: TRAMADOL HCL 50 MG TAB PO SCH ×2 (12:56→20:53)
[2016-12-25] MEDS ORDERED: LIDODERM (LIDOCAINE) PATCH 5% TD ONE (15:45)
[2016-12-25 16:09] VITALS: BP 95/61; PULSE 79; TEMP 36.7; O2SAT 96
--- NOTE | 2016-12-25 16:11 | Progress Note ---
Subjective Date of Service: Dec 25, 2016. Subjective Pt evaluation today including: conversation w/ patient, conversation w/ family , physical exam, chart review, lab review, review of studies, conversation w/ real estate consultant, review of inpatient medication list Report pain in the right buttock area, is spasm sharp pain suddenly coming out from this morning, Was no sacral area pain Poor sleeping this He reported to the son has been a total no legs weakness and left thigh pain Problem List Medical Problems: (1) Altered mental status Status: Acute (2) Anxiety Status: Acute (3) Back pain Status: Acute (4) Cancer associated pain Status: Acute (5) Dehydration Status: Acute (6) Elevated troponin I level Status: Acute (7) Hypoxia Status: Acute (8) Renal insufficiency Status: Acute (9) Sacral lesion Status: Acute Review of Systems Constitutional: + weakness, + fatigue, No fever, No chills, No sweats, No weight loss, No problem reported Eyes: No worsening of vision, No eye pain, No redness, No discharge, No diplopia ENT: No hearing loss, No unusual epistaxis, No nasal symptoms, No sore throat, No tinnitus, No dental problems, No trouble swallowing Respiratory: No cough, No sputum, No wheezing, No shortness of breath, No dyspnea on exertion, No dyspnea at rest, No hemoptysis Cardiac: No chest pain, No orthopnea, No PND, No edema, No claudication, No palpitations Abdomen: No pain, No nausea, No vomiting, No diarrhea, No constipation Musculoskeletal: + see HPI, + joint pain, + muscle pain, No swelling, No calf pain Male : No dysuria, No urinary frequency, No incontinence, No nocturia more than once/night, No slowing stream, No hematuria Neurologic: No memory loss, No paralysis, No weakness, No numbness/tingling, No vertigo, No balance problems Psychiatric: No depression symptoms, No anhedonism, No anxiety, No insomnia, No substance abuse Heme: No abnormal bleeding/bruising, No clotting problems, No swollen lymph nodes, No night sweats Endo: No fatigue, No excessive thirst, No excessive urination Skin: No rash, No itch, No new/changing skin lesions, No color change, No bleeding Objective Vital Signs Date Time Temp Pulse Resp B/P (MAP) Pulse Ox O2 Delivery O2 Flow Rate FiO2 12/25/16 11:57 36.7 78 20 149/82 (104) 96 Room Air 12/25/16 10:18 36.6 74 18 161/89 (113) 97 Room Air 12/25/16 08:00 Room Air 12/25/16 04:26 36.9 93 20 129/73 (91) 98 12/25/16 00:00 36.8 93 20 136/83 (100) 98 Room Air 12/25/16 00:00 96 Room Air 12/24/16 20:00 96 Room Air 12/24/16 19:42 36.8 79 18 121/77 (92) 96 Room Air Physical Exam General Appearance: WD/WN, no apparent distress, + thin, + pertinent finding ( frail and anxious, decreased hearing, anxiety is getting worse when not able to hear) Eyes: normal inspection, PERRL, EOMI, sclerae normal ENT: normal ENT inspection, hearing grossly normal, pharynx normal Neck: supple, no adenopathy, thyroid normal, no JVD, no carotid bruits, trachea midline Respiratory/Chest: chest non-tender, normal breath sounds, no respiratory distress, no accessory muscle use, + decreased breath sounds Cardiovascular: regular rate, rhythm, no edema, no gallop, no JVD, no murmur Abdomen: normal bowel sounds, non tender, soft, no organomegaly, no pulsatile mass Extremities: normal range of motion, non-tender, normal inspection, no pedal edema, no calf tenderness, normal capillary refill, pelvis stable, + pertinent finding (right buttock area pain) Neurologic/Psychiatric: 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 as tested, no motor/sensory deficits, alert, normal mood/affect, oriented x 3 Skin: normal color, warm/dry, no rash Lymphatic: no adenopathy Assessment and Plan 81 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, 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 treated with Fentanyl patches, Oxy IR and gabapentin admitted on Per report, patient presented to the ED with progressive changes in mental status, confusion, agitation, violent behavior that were progressive per family and outpatient providers - Encephalopathy: suspect this is toxic due to polypharmacy with gabapentin and narcotics totally resolved after stopping all narcotics on admission as well as Gabapentin , continue stable Gabapentin stop on 12/19/2016, there was no signs of withdrawal has been taking Klonopin as outpatient for restless legs at night, keeping mind of this, and continue for now Nichol was added by blow down operator three nights ago, but he actually has good response and sleeps all night 3 days ago but not last night Seroquel started on admission for delirium, unsure if it is actually helping, was stopped no signs of infection as cause, CT head negative for ischemia or mass effect or bleeding - NAY: Cr was 1.6 on admission, likely prerenal since Cr improved to 0.9 with IV fluids, discontinue IV fluid, resolved - Plasmacytoma with bone pain and radiculopathy: stop Dilaudid due to altered mental status Has been on Toradol 30mg IV q6 and Tylenol, only using Tylenol currently Has been on radiation therapy , today is 9 stay for the cycle Dr. Gutierrez recommends an MRI of the lumbar spine, which was done reported see below, discussed with the radiation oncologist, we'll continue follow-up - antonio lower extremity weakness, and left thigh pain, and right buttock area pain , unsure what is not etiology and how much related to the Plasmacytoma , Discussed with patient's son, who is orthopedic surgeon, we agreed to give tramadol 50 mg by mouth every 12 for the pain control, he accepted and risks L spine MRI result on 12/21/2016 per report: 1. Severely limited exam as the patient cannot tolerate the study. Severe motion artifact. 2. Complete replacement of the S1 segment with a slight improvement in posterior concavity of the expansile component of the posterior margin of the vertebral body. 3. 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 - Poor appetite: continue improved - Atrial fibrillation: amiodarone and Pradaxa, rates controlled - acclerated HTN, added lisinopril today DVT proph: on Pradaxa Full code Plan: Discussed with patient and his son in details about care plan, they don' t want to go to rehabilitation but want to go back to long-term, I agreed Possible tomorrow Continued [facility] stay due to: home environment unsafe for pt Discharge planning: long-term facility
[2016-12-25 19:20] VITALS: BP 130/77; PULSE 72; TEMP 36.5; O2SAT 96
[2016-12-25] MEDS: ZOLPIDEM TARTRATE 5 MG TAB PO PRN (20:53)
[2016-12-25] MEDS: SIMVASTATIN 10 MG TAB PO SCH (20:55)
[2016-12-25] MEDS: TAMSULOSIN HCL 0.4 MG CAP PO SCH (20:55)
[2016-12-25] MEDS: CLONAZEPAM 1 MG TAB PO SCH (20:56)
[2016-12-26] MEDS: ACETAMINOPHEN 325 MG TAB PO PRN ×3 (02:13→15:48)
[2016-12-26] MEDS: LEVOTHYROXINE 88 MCG TAB PO SCH (06:03)
[2016-12-26] MEDS: AMIODARONE 200 MG TAB PO SCH (07:33)
[2016-12-26] MEDS: ASPIRIN 81 MG ECTAB PO SCH (07:34)
[2016-12-26] MEDS: LISINOPRIL 5 MG TAB PO SCH (07:34)
[2016-12-26] MEDS: CYCLOBENZAPRINE HCL 10 MG TAB PO SCH (07:34)
[2016-12-26] MEDS: DABIGATRAN ELEXILATE 75 MG CAP PO SCH (07:35)
[2016-12-26] MEDS: TRAMADOL HCL 50 MG TAB PO SCH (07:38)
[2016-12-26] MEDS ORDERED: LIDODERM (LIDOCAINE) PATCH 5% TD SCH ×2 (08:00→10:00)
[2016-12-26 08:29] VITALS: BP 120/61; PULSE 80; TEMP 36.9; O2SAT 96
[2016-12-26] MEDS ORDERED: NURSING VERBAL MED ORDER ONE (09:15)
[2016-12-26 11:48] VITALS: BP 138/84; PULSE 73; TEMP 36.7; O2SAT 96
[2016-12-26] MEDS ORDERED: ULT50X PO (11:53)
[2016-12-26] MEDS ORDERED: FLX10 PO (11:53)
[2016-12-26] MEDS ORDERED: LDDP5 TD (11:53)
[2016-12-26] MEDS ORDERED: AMB5 PO (11:53)
[2016-12-26] MEDS ORDERED: LSN5 PO (11:53)
--- NOTE | 2016-12-26 11:54 | Discharge Instructions ---
Discharge Instructions Date of Service Dec 26, 2016. Admission Reason for Admission: Travis (Acute Kidney Injury) Discharge Discharge Diagnosis / Problem: Encephalopathy: suspect this is toxic due to polypharmacy Discharge Goals Goal(s): Decrease discomfort, Improve function, Increase independence, Improve disease control, Improve nutritional status, Learn about illness, Diagnostic testing, Therapeutic intervention, Prevent Disease Progression, Specific goals Activity Recommendations Activity Level: OOB In Chair Therapies: Physical Therapy, Occupational Therapy . Additional Information Patient informed of condition: Yes Advance Directives: Yes DNR: No Level of Care: Skilled Communicable Disease: No Prognosis: Other (very guarded) Instructions / Follow-Up Instructions / Follow-Up you have Encephalopathy suspect this is toxic due to polypharmacy with gabapentin and narcotics you should be very cautious about pain medicine follow up with Dr. Gutierrez and Dr. 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 - call your primary care physician OR go to local emergency room if has any fever/chill, chest pain, shortness of breathing, nausea/vomiting/abdominal pain , facial droop/slurry speech/local weakness, or if has any questions. - fall precaution - diet as instructed - you need to follow up with your subspecialists - you should understand that it is important to follow up the above instruction , and "not following the above instruction" may cause delayed or missed care of your medical conditions which may cause permanent organ damage and even . Current Hospital Diet Patient's current hospital diet: Regular Diet Discharge Diet Recommended Diet: AHA Diet (Heart Healthy), Low Sodium Diet (2gm Na) Procedures Procedures Performed: no Pending Studies Studies pending at discharge: no Physician Orders On Transfer POLST Discussion: Not Applicable (he old polst form done) Medical Emergencies . Who to Call and When: Medical Emergencies: If at any time you feel your situation is an emergency, please call 911 immediately. . Non-Emergent Contact Non-Emergency issues call your: Primary Care Provider, Oncologist (and radiation oncologist) . . "Provider Documentation" section prepared by Danny Malik. . Core Measure Problem Core Measures: None
[2016-12-26 12:03] VITALS: BP 138/84; PULSE 73; TEMP 36.7; O2SAT 96
[2016-12-26 15:55] VITALS: BP 110/69; PULSE 76; TEMP 36.7; O2SAT 94
--- NOTE | 2016-12-26 17:24 | Discharge Summary ---
Discharge Summary Date of Service Dec 26, 2016. Discharge Summary Admission Date: Dec 17, 2016 at 13:24 Discharge Date: Dec 26, 2016 Discharge Disposition: alf facility Principal Diagnosis: Encephalopathy suspect this is toxic due to polypharmacy with gabapentin an Problems/Secondary Diagnoses: Plasmacytoma accelerated HTN, Procedures: Radiation treatment Consultations: Oncologist and radiation oncologist and pain management Medication Reconciliation New Medications: Cyclobenzaprine HCl (Cyclobenzaprine HCl) 10 Mg Tab 10 MG PO QAM for 14 Days, TAB Lidocaine (Lidocaine) 1 Patch Tdsy 2 PATCH TD QAM for 5 Days, #10 Lisinopril (Lisinopril) 5 Mg Tab 5 MG PO QAM for 30 Days, TAB Tramadol HCl (Tramadol HCl) 50 Mg Tab 50 MG PO BID for 5 Days, #10 TAB Zolpidem Tartrate (Zolpidem Tartrate) 5 Mg Tab 5 MG PO HSZ PRN for Insomnia for 5 Days, TAB Continued Medications: Amiodarone HCl (Amiodarone HCl) 200 Mg Tab 200 MG PO DAILY Aspirin Enteric Coated (Ecotrin Or Generic) 81 Mg Tab 81 MG PO DAILY UNKNOWN IF STILL on hold for now Balsalazide Disodium (Colazal) 750 Mg Cap 750 MG PO QAM Dabigatran Elexilate (Pradaxa) 150 Mg Cap 150 MG PO BID Diclofenac Sod (Voltaren) 100 Appln/100 Gm Gel 1 APPLN TOP Q6H PRN for RIGHT LEG PAIN Fluticasone Prop/Salmeterol (Advair Diskus 250/50 60 Dose) 1 Ea Aerp 1 PUFFS INH BID for 30 Days, #1 INHALER 5 Refills Levothyroxine Sodium (Levothyroxine Sodium) 88 Mcg Tab 1 TAB PO DAILY for 30 Days, #30 TAB 5 Refills Loperamide Hcl (Imodium) 2 Mg Cap 2 MG PO Q2D, CAP Polyethylene (Miralax) 17 Gm Pow 1 PKT PO DAILY PRN for Constipation Simvastatin (Zocor) 10 Mg Tab 10 MG PO QPM, TAB Tadalafil (Cialis) 10 Mg Tab 5 MG PO UD, TAB Tamsulosin Hcl (Flomax) 0.4 Mg Cap 0.4 MG PO HS, CAP Discontinued Medications: Clonazepam (Klonopin) 1 Mg Tab 1 MG PO HS, TAB Fentanyl (Duragesic) 50 Mcg Tdsy 50 MCG TD [id number], PATCH Gabapentin (Neurontin) 300 Mg Cap 300 MG PO BID, CAP Weaning(starting 12/16/16): 300mg BID x 7 days, 200mg BID x 7 days, 100mg BID x 7 days,100mg daily x 7 days then stop Lorazepam (Ativan) 0.5 Mg Tab 0.5 MG PO TID PRN for Anxiety/Agitation, #20 TAB Oxycodone Ir (Roxicodone Ir) 5 Mg Tab 10 MG PO Q4H PRN for Severe Pain, TAB Discharge Exam Very pleasant with female partners in known, pain fairly controlled with Lidoderm patch is good to care home facility Review of Systems: Constitutional: No fever, No chills, No sweats, No weight loss, No weakness , No fatigue, No problem reported Eyes: No worsening of vision, No eye pain, No redness, No discharge, No diplopia, No problem reported ENT: No hearing loss, No unusual epistaxis, No nasal symptoms, No sore throat, No tinnitus, No dental problems, No trouble swallowing, No problem reported Respiratory: No cough, No sputum, No wheezing, No shortness of breath, No dyspnea on exertion, No dyspnea at rest, No hemoptysis, No problem reported Cardiovascular: No chest pain, No orthopnea, No PND, No edema, No claudication, No palpitations, No problem reported Abdomen: No pain, No nausea, No vomiting, No diarrhea, No constipation, No GI bleeding, No problem reported Musculoskeletal: + joint pain, + muscle pain Genitourinary - Male: No hematuria, No dysuria, No urinary frequency, No urinary urgency, No urinary hesitancy, No urinary retention, No urinary incontinence, No penile discharge, No lesions, No impotence, No problem reported Neurologic: No memory loss, No paralysis, No weakness, No numbness/tingling , No vertigo, No balance problems, No problem reported Psychiatric: No depression symptoms, No anhedonism, No anxiety, No insomnia , No substance abuse, No problem reported Endocrine: No fatigue, No excessive thirst, No excessive urination, No problem reported Hematologic / Lymphatic: No abnormal bleeding/bruising, No clotting problems , No swollen lymph nodes, No night sweats, No problem reported Integumentary: No rash, No itch, No new/changing skin lesions, No color change, No bleeding, No problem reported Physical Exam: General Appearance: WD/WN, no apparent distress, + pertinent finding (thin, and pleasant, conversational) Eyes: normal inspection, PERRL ENT: normal ENT inspection, hearing grossly normal Neck: supple, no adenopathy Respiratory/Chest: chest non-tender, + decreased breath sounds Cardiovascular: regular rate, rhythm, no edema, no gallop Abdomen / GI: normal bowel sounds, non tender, soft, no organomegaly, no pulsatile mass Extremities: normal inspection, no calf tenderness, normal capillary refill , no pedal edema, normal range of motion Neurologic/Psychiatric: inspector firearms II-XII nml as tested, no motor/sensory deficits , alert, normal mood/affect, normal reflexes Skin: normal color Hospital Course 81 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, 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 treated with Fentanyl patches, Oxy IR and gabapentin admitted on Per report, patient presented to the ED with progressive changes in mental status, confusion, agitation, violent behavior that were progressive per family and outpatient providers - Encephalopathy: suspect this is toxic due to polypharmacy with gabapentin and narcotics totally resolved after stopping all narcotics on admission as well as Gabapentin , continue stable Gabapentin stop on 12/19/2016, there was no signs of withdrawal has been taking Klonopin as outpatient for restless legs at night, keeping mind of this, and continue for now Nichol was added by abstract manager three nights ago, but he actually has good response and sleeps all night 3 days ago but not last night Seroquel started on admission for delirium, unsure if it is actually helping, was stopped no signs of infection as cause, CT head negative for ischemia or mass effect or bleeding - NAY: Cr was 1.6 on admission, likely prerenal since Cr improved to 0.9 with IV fluids, discontinue IV fluid, resolved - Plasmacytoma with bone pain and radiculopathy: stop Dilaudid due to altered mental status Has been on Toradol 30mg IV q6 and Tylenol, only using Tylenol currently Has been on radiation therapy , today is 9 stay for the cycle Dr. Gutierrez recommends an MRI of the lumbar spine, which was done reported see below, discussed with the radiation oncologist, we'll continue follow-up - antonio lower extremity weakness, and left thigh pain, and right buttock area pain , unsure what is not etiology and how much related to the Plasmacytoma , Discussed with patient's son, who is orthopedic surgeon, we agreed to give tramadol 50 mg by mouth every 12 for the pain control, he accepted and risks - Different area lower back pain and left thigh pain, which seem improved on current medication such as Ultram and Lidoderm patch L spine MRI result on 12/21/2016 per report: 1. Severely limited exam as the patient cannot tolerate the study. Severe motion artifact. 2. Complete replacement of the S1 segment with a slight improvement in posterior concavity of the expansile component of the posterior margin of the vertebral body. 3. 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 - Poor appetite: continue improved - Atrial fibrillation: amiodarone and Pradaxa, rates controlled - acclerated HTN, added lisinopril, yesterday, blood pressure better DVT proph: on Pradaxa Full code Plan: Discussed with patient and his son in details about care plan, they don' t want to go to rehabilitation but want to go back to care home, I agreed Instructions / Follow-Up you have Encephalopathy suspect this is toxic due to polypharmacy with gabapentin and narcotics you should be very cautious about pain medicine follow up with Dr. Gutierrez and Dr. 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 - call your primary care physician OR go to local emergency room if has any fever/chill, chest pain, shortness of breathing, nausea/vomiting/abdominal pain , facial droop/slurry speech/local weakness, or if has any questions. - fall precaution - diet as instructed - you need to follow up with your subspecialists - you should understand that it is important to follow up the above instruction , and "not following the above instruction" may cause delayed or missed care of your medical conditions which may cause permanent organ damage and even . Total Time Spent: Greater than 30 minutes This includes examination of the patient, discharge planning, medication reconciliation, and communication with other providers. Discharge Instructions Please refer to the electronic Patient Visit Report (Discharge Instructions) for additional information.
[2016-12-27] MEDS ORDERED: LIDODERM (LIDOCAINE) PATCH 5% TD SCH (08:00)
[2017-01-22] MEDS ORDERED: DOCU100C31 PO (15:13)
[2017-01-22] MEDS ORDERED: ATOR10TA88 PO (15:13)
[2017-01-22] MEDS ORDERED: DABI150C PO (15:13)
[2017-01-22] MEDS ORDERED: NUTR-977 PO (15:13)
[2017-01-22] MEDS ORDERED: TRAM-10 PO (15:13)
[2017-01-22] MEDS ORDERED: PREG100C PO (15:13)
[2017-01-22] MEDS ORDERED: ACET-1256 PO (15:13)
== END 2016-12-26 15:55 | DRG 682 ==
LOC: EDBD 09:16 → C.EDA 09:18 → C.2T 13:24 → ENRESERV 13:40 → C.4E 12-18 15:45
PROVIDERS: ADMIT Internal Medicine; ATTEND Hospitalist
DX: N17.9 Acute kidney failure, unspecified (principal); G92 Toxic encephalopathy; R64 Cachexia; C90.30 Solitary plasmacytoma not having achieved remission; I48.91 Unspecified atrial fibrillation; I12.9 Hypertensive chronic kidney disease with stage 1 through stage 4 chronic kidney disease, or unspecified chronic kidney disease; N18.9 Chronic kidney disease, unspecified; E78.5 Hyperlipidemia, unspecified; N40.0 Benign prostatic hyperplasia without lower urinary tract symptoms; F41.9 Anxiety disorder, unspecified; M45.9 Ankylosing spondylitis of unspecified sites in spine; E03.9 Hypothyroidism, unspecified; E86.0 Dehydration; Z68.22 Body mass index [BMI] 22.0-22.9, adult; D47.2 Monoclonal gammopathy; M54.10 Radiculopathy, site unspecified; D64.9 Anemia, unspecified; Z80.9 Family history of malignant neoplasm, unspecified; Z82.49 Family history of ischemic heart disease and other diseases of the circulatory system; Z79.82 Long term (current) use of aspirin; Z79.899 Other long term (current) drug therapy; Z91.048 Other nonmedicinal substance allergy status; Z83.6 Family history of other diseases of the respiratory system; Z83.79 Family history of other diseases of the digestive system; Z96.653 Presence of artificial knee joint, bilateral; Z96.643 Presence of artificial hip joint, bilateral; G89.3 Neoplasm related pain (acute) (chronic); E87.5 Hyperkalemia

== ENCOUNTER → 2017-01-22 | Outpatient (CLI) | payer BC ==
[~2017-01-22] MED LIST changes: +ACET-1256 PO; +ADVIN25/60 INH; +AMB5 PO; +ATOR10TA88 PO; -BISA1TAB15 PO; -CLON1TAB3 PO; +DABI150C PO; +DOCU100C31 PO; +FLX10 PO; -FNTTP50 TD; -GABA-113 PO; +IMD/2 PO; +LDDP5 TD; -LORA-741 PO; +LSN5 PO; +NUTR-977 PO; -OXYC1TAB3 PO; +PREG100C PO; +TADA10TA PO; +TRAM-10 PO; +ULT50X PO
[2017-01-22 14:16] VITALS: BP 109/63; PULSE 87; TEMP 36.9; O2SAT 95
--- NOTE | 2017-01-22 15:57 | Radiation Oncology Follow-Up ---
Radiation Oncology Follow-Up Date of Visit Jan 22, 2017. 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 Cardoso is a 81 year old male who recently presented with significant lower back pain. The patient presented the emergency room and underwent an MRI of the lumbar spine on 11/07/2016 which revealed: "Expansile lesion with complete marrow replacement of the S1 vertebrae. 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 Further workup and/or biopsy is recommended." He also had a CT of the thorax on 11/07/2016 which revealed: "IMPRESSION: 1. Destructive soft tissue abnormality occupying the majority S1 vertebral body with soft tissue epidural extension which measures up to 5 mm. This results in severe central canal narrowing at this location. This favors a mass and may represent a lymphoma. Infectious process could also have a similar appearance but is considered less likely. 2. Mild splenomegaly. 3. No significant abnormality within the chest." The patient also had a CT of the abdomen/pelvis on 2016 which revealed: "IMPRESSION: 1. Destructive soft tissue abnormality occupying the majority S1 vertebral body with soft tissue epidural extension which measures up to 5 mm. This results in severe central canal narrowing at this location. This favors a mass and may represent a lymphoma. Infectious process could also have a similar appearance but is considered less likely. 2. Mild splenomegaly. 3. No significant abnormality within the chest." The patient was seen in consultation by Dr. Raciel Montero from medical oncology who recommended a CT guided biopsy of the mass in the sacrum. The patient underwent a CT-guided biopsy on and the pathology is currently pending. In the meantime, there is suspicion that this is related to a solitary plasmacytoma or multiple myeloma and medical oncology has recommended a complete workup including a skeletal survey and SPEP/UPEP. We've been asked to evaluate the patient for consideration of radiation therapy. Currently, the patient continues to suffer from low back pain and has significant discomfort. He does find it hard to get comfortable in general. He denies any focal neurologic deficits including bladder incontinence or urinary incontinence. Radiation was completed 12/25/2016. He received 4500 cGy Interim History Following the completion of radiation therapy there were issues with pain management. He was hospitalized [facility]. He was also hospitalized for one week at [facility]. He has had an orthopedic evaluation and it is felt that he would benefit from back surgery. There are plans for him to undergo surgery in the near future. He also had developed radiation dermatitis. Our office had been notified and instructions were given to the physician at [facility]. This was treated with Silvadene and Aquaphor. Skin has steadily healed. He now has a pain level of 2. He does have decreased strength in the left lower extremity. He has dropped foot on the right. He is currently at the [facility]. Pain medications are managed by Dr. Cummings area he is doing well with his current medication regimen. He is receiving physical therapy and occupational therapy. Allergies Coded Allergies: Animal Dander (Verified Allergy, Intermediate, ASTHMATIC REACTION, 12/17/16 ) IMPROVEMENT WITH INHALERS Horse Serum Proteins (Verified Allergy, Intermediate, ASTHMA ATTACK, ) Home Medications Scheduled Acetaminophen (Tylenol), 2 TAB PO Q6 Amiodarone HCl (Amiodarone HCl), 200 MG PO DAILY Aspirin Enteric Coated (Ecotrin Or Generic), 81 MG PO DAILY Atorvastatin (Lipitor), 1 TAB PO DAILY Balsalazide Disodium (Colazal), 2,250 MG PO QAM Dabigatran Etexilate Mesylate (Pradaxa), 1 CAP PO BID Docusate Sodium (Docusate Sodium), 1 CAP PO BID Enteral Nutrition Formula (Ensure Plus Vanilla), 1 CAN PO QID Levothyroxine Sodium (Levothyroxine Sodium), 1 TAB PO DAILY Lidocaine (Lidocaine), 2 PATCH TD QAM Lisinopril (Lisinopril), 5 MG PO QAM Pregabalin (Lyrica), 1 CAP PO BID Tamsulosin Hcl (Flomax), 0.4 MG PO HS Tramadol (Ultram), 50 MG PO Q6H Scheduled PRN Polyethylene (Miralax), 1 PKT PO DAILY PRN for Constipation Zolpidem Tartrate (Zolpidem Tartrate), 5 MG PO HSZ PRN for Insomnia Review of Systems Gastrointestinal: Symptoms: WNL GI Comments: Colace for constipation Oral: Symptoms: No Problems Respiratory: Symptoms: WNL Urinary: Symptoms: WNL Comments: Martinez when starting - freq during the day, feels 1 testicle is smaller Skin: Symptoms: No Problems Other Skin Symptoms: Slightly dry on right bottom of back - aquaphor HS Physical Exam Vital Signs Date Time Temp Pulse Resp B/P (MAP) Pulse Ox O2 Delivery O2 Flow Rate FiO2 01/22/17 14:16 36.9 87 18 109/63 95 Fatigue: None General Appearance: no apparent distress Eyes: normal inspection, EOMI Extremities: normal inspection Neurologic/Psychiatric: alert, normal mood/affect, + motor weakness (left lower extremity at the quadriceps. Right foot drop) Skin: normal color, warm/dry, + pertinent finding (radiation dermatitis of the sacral area has resolved) Laboratory Studies Test 11/07/16 12:20 11/07/16 14:45 11/07/16 17:49 11/10/16 09:23 Lipase 73 U/L (73-393) Prostate Specific Antigen 2.060 ng/ml (0.000-4.000) Urine Color YELLOW Urine Appearance CLEAR (CLEAR) Urine pH 7.0 (4.5-7.5) Urine Specific [place] 1.018 (1.000-1.030) Urine Glucose (UA) NEG (NEG) Urine Ketones 1+ (NEG) Urine Occult Blood TRACE (NEG) Urine Nitrite NEG (NEG) Urine Bilirubin NEG (NEG) Urine Urobilinogen NEG (NEG) Urine Leukocyte Esterase NEG (NEG) Urine WBC (Auto) 1-5 /hpf (0-5) Urine RBC (Auto) 5-10 /hpf (0-4) Urine Hyaline Casts (Auto) 0 /lpf (0-5) Urine Epithelial Cells (Auto) 5-10 /lpf (0-5) Urine Bacteria (Auto) NEG (NEG) Erythrocyte Sedimentation Rate 2 mm/hr (0-14) Lactate Dehydrogenase 194 U/L (87-241) Serum Immunofixation SEE NOTE Prothrombin Time 10.5 SECONDS (9.0-12.0) Prothrombin Time INR 1.0 (0.9-1.1) PTT 25.7 SECONDS (21.0-31.0) Partial Thromboplastin Ratio 1.0 Test 11/10/16 14:55 11/11/16 17:38 11/12/16 20:30 12/16/16 16:20 Flow Cytometry Comment See Comment Ezsiv-2-Mqeqrqtoo 0.3 G/DL (0.2-0.3) Oxspe-6-Avwuzvklv 0.7 G/DL (0.5-0.9) Cden-2-Emqbwkks 0.4 G/DL (0.4-0.6) Fqfr-5-Dhrnngri 0.3 G/DL (0.2-0.5) Gamma Globulins 1.2 G/DL (0.8-1.7) Prot Electrophor Monoclonal Peak 3 G/DL (NOT DETECTED) Serum Monoclonal Protein 0.9 G/DL (NOT DETECTED) Serum Monoclonal Protein (2) G/DL (NOT DETECTED) Protein Electrophoresis Interpret SEE NOTE Total Protein (IRVING) 6.8 G/DL (6.2-8.3) Albumin (IRVING) 3.9 G/DL (3.8-4.8) Urine Protein 117 (<85) Urine Total Volume 2100 ML Urine Creatinine mg/dL 120 MG/DL (20-370) Urine Total Protein Concentration 14 MG/DL Urine Total Protein 24 Hour 294 MG/24HRS. (0-149) Urine Albumin (%) 19.49 % Urine Cijqs-3-Gpbtdmmvz (%) 3.46 % Urine Beta-Globulin (%) 15.95 % Urine Gamma Globulin (%) 44.22 % Urine Vqgbm-5-Dgzqzvavo (%) 16.88 % Urine Immunofixation Interpretation SEE NOTE Direct Bilirubin 0.2 mg/dl (0-0.2) Test 12/17/16 00:00 12/17/16 09:31 12/17/16 10:35 12/17/16 14:12 Urine Color DK YELLOW Urine Appearance CLEAR (CLEAR) Urine pH 5.5 (4.5-7.5) Urine Specific [place] 1.020 (1.000-1.030) Urine Protein 1+ (NEG) Urine Glucose (UA) NEG (NEG) Urine Ketones TRACE (NEG) Urine Occult Blood NEG (NEG) Urine Nitrite NEG (NEG) Urine Bilirubin NEG (NEG) Urine Urobilinogen NEG (NEG) Urine Leukocyte Esterase NEG (NEG) Urine WBC (Auto) 0 /hpf (0-5) Urine RBC (Auto) 0-4 /hpf (0-4) Urine Hyaline Casts (Auto) 0 /lpf (0-5) Urine Epithelial Cells (Auto) 0-5 /lpf (0-5) Urine Bacteria (Auto) NEG (NEG) Urine Opiates Screen POS (NEG) Urine Codeine Confirmation (GC/MS) NEGATIVE NG/ML (CUTOFF=50) Urine Morphine Confirm (GC/MS) NEGATIVE NG/ML (CUTOFF=50) Urine Hydrocodone Confirm (GC/MS) NEGATIVE NG/ML (CUTOFF=50) Urine Norhydrocodone NEGATIVE NG/ML (CUTOFF=50) Urine Noroxycodone 35654 NG/ML (CUTOFF=50) Urine Oxycodone Confirm (GC/MS) 6500 NG/ML (CUTOFF=50) Urine Oxymorphone Confirm (GC/MS) 1540 NG/ML (CUTOFF=50) Urine Methadone, Qualitative NEG (NEG) Urine Hydromorphone Confirm (GC/MS) NEGATIVE NG/ML (CUTOFF=50) Urine Barbiturates NEG (NEG) Urine Phencyclidine (PCP) Level NEG (NEG) Ur Amphetamine/Methamphetamine NEG (NEG) MDMA (Ecstasy) Screen NEG (NEG) Urine Benzodiazepines Screen NEG (NEG) Urine Cocaine Metabolite NEG (NEG) Urine Marijuana (THC) NEG (NEG) Prothrombin Time 11.7 SECONDS (9.0-12.0) Prothrombin Time INR 1.1 (0.9-1.1) PTT 23.3 SECONDS (21.0-31.0) Partial Thromboplastin Ratio 0.9 Total Bilirubin 0.6 mg/dl (0.2-1) Direct Bilirubin 0.2 mg/dl (0-0.2) Aspartate Amino Transferase (AST) 28 U/L (15-37) Alanine Aminotransferase (ALT) 30 U/L (12-78) Alkaline Phosphatase 63 U/L (45-117) Total Protein 7.2 gm/dl (6.4-8.2) Albumin 3.6 gm/dl (3.4-5.0) Thyroid Stimulating Hormone (TSH) 3.240 uIu/ml (0.300-4.500) POC Lactic Acid Venous 0.96 mmol/L (0.90-1.70) Troponin I 0.124 ng/ml (0-0.045) Lipase 90 U/L (73-393) Test 12/18/16 05:59 12/21/16 05:58 12/22/16 06:23 12/23/16 07:07 White Blood Count 4.97 K/uL (4.8-10.8) 5.22 K/uL (4.8-10.8) Red Blood Count 4.12 M/uL (4.7-6.1) 4.61 M/uL (4.7-6.1) Hemoglobin 13.2 g/dL (14.0-18.0) 14.8 g/dL (14.0-18.0) Hematocrit 38.8 % (42-52) 43.6 % (42-52) Mean Corpuscular Volume 94.2 fL (80-100) 94.6 fL (80-100) Mean Corpuscular Hemoglobin 32.0 pg (25-34) 32.1 pg (25-34) Mean Corpuscular Hemoglobin Concent 34.0 g/dl (32-36) 33.9 g/dl (32-36) Platelet Count 162 K/uL (130-400) 186 K/uL (130-400) Mean Platelet Volume 8.9 fL (7.4-10.4) 9.0 fL (7.4-10.4) Neutrophils (%) (Auto) 78.3 % 77.3 % Lymphocytes (%) (Auto) 6.0 % 9.8 % Monocytes (%) (Auto) 13.9 % 9.8 % Eosinophils (%) (Auto) 1.2 % 2.1 % Basophils (%) (Auto) 0.2 % 0.4 % Neutrophils # (Auto) 3.89 K/uL (1.4-6.5) 4.04 K/uL (1.4-6.5) Lymphocytes # (Auto) 0.30 K/uL (1.2-3.4) 0.51 K/uL (1.2-3.4) Monocytes # (Auto) 0.69 K/uL (0.11-0.59) 0.51 K/uL (0.11-0.59) Eosinophils # (Auto) 0.06 K/uL (0-0.5) 0.11 K/uL (0-0.5) Basophils # (Auto) 0.01 K/uL (0-0.2) 0.02 K/uL (0-0.2) RDW Standard Deviation 44.1 fL (36.4-46.3) 45.3 fL (36.4-46.3) RDW Coefficient of Variation 12.8 % (11.5-14.5) 13.2 % (11.5-14.5) Immature Granulocyte % (Auto) 0.4 % 0.6 % Immature Granulocyte # (Auto) 0.02 K/uL (0.00-0.02) 0.03 K/uL (0.00-0.02) Total Bilirubin 0.7 mg/dl (0.2-1) Aspartate Amino Transferase (AST) 31 U/L (15-37) Alanine Aminotransferase (ALT) 28 U/L (12-78) Alkaline Phosphatase 55 U/L (45-117) Troponin I 0.064 ng/ml (0-0.045) Total Protein 6.3 gm/dl (6.4-8.2) Albumin 3.2 gm/dl (3.4-5.0) Globulin 3.1 gm/dl (2.5-4.0) Albumin/Globulin Ratio 1.0 (0.9-2) Est Creatinine Clear Calc Drug Dose 56.2 ml/min 63.3 ml/min Magnesium Level 2.1 mg/dl (1.8-2.4) 1.9 mg/dl (1.8-2.4) Sodium Level 141 mmol/L (136-145) Potassium Level 3.9 mmol/L (3.5-5.1) Chloride Level 108 mmol/L (98-107) Carbon Dioxide Level 29 mmol/L (21-32) Anion Gap 4.0 mmol/L (3-11) Blood Urea Nitrogen 16 mg/dl (7-18) Creatinine 0.96 mg/dl (0.60-1.40) Estimated GFR () 86.8 Estimated GFR (Non- 74.9 BUN/Creatinine Ratio 16.3 (10-20) Random Glucose 105 mg/dl (70-99) Calcium Level 8.7 mg/dl (8.5-10.1) Phosphorus Level 2.0 mg/dl (2.5-4.9) Test 12/26/16 08:04 01/22/17 07:20 Phosphorus Level 3.0 mg/dl (2.5-4.9) Total Creatine Kinase 50 U/L (39-308) Sodium Level 141 mmol/L (136-145) Potassium Level 4.0 mmol/L (3.5-5.1) Chloride Level 105 mmol/L (98-107) Carbon Dioxide Level 32 mmol/L (21-32) Anion Gap 4.0 mmol/L (3-11) Blood Urea Nitrogen 26 mg/dl (7-18) Creatinine 0.83 mg/dl (0.60-1.40) Estimated GFR () 97.0 Estimated GFR (Non- 83.7 BUN/Creatinine Ratio 31.8 (10-20) Random Glucose 84 mg/dl (70-99) Calcium Level 9.1 mg/dl (8.5-10.1) Prealbumin 40.0 mg/dl (20-40) Assessment & Plan Plan: Patient is also seen and examined by Dr. Martin. He continues care at the [facility]. Continue follow-up with medical oncology. There are plans for him to undergo surgery for the spinal stenosis. Continue on his current pain regimen. We asked him to return to our office in 6 months. He may call if he has the questions or concerns that he feels are related to radiation therapy. Assessment & Plan (Attending) ADDENDUM: I agree with note created by Jennifer Kan PA-C. I reviewed the patient's chart and information with her. I have examined and evaluated the patient. I reviewed relevant clinical information and answered the patient's and /or family's questions. MANUFACTURING ENGINEER ASSEMBLY Total Time In Follow-Up I spent 20 minutes speaking to patient performing examination. I spent 15 minutes reviewing information and completeness note. AK Total Time (Attending) In Follow-Up I spent 15 minutes examining and counseling the patient. MANUFACTURING ENGINEER ASSEMBLY Copy To Steven Cummings M.D.; Jairon Gutierrez D.O.
== END | disposition home or self-care (01) ==
LOC: C.ONC 14:11
PROVIDERS: ATTEND Physician Assistant Medical
DX: Z08 Encounter for follow-up examination after completed treatment for malignant neoplasm (principal); Z92.3 Personal history of irradiation; Z85.89 Personal history of malignant neoplasm of other organs and systems; N18.9 Chronic kidney disease, unspecified; I12.9 Hypertensive chronic kidney disease with stage 1 through stage 4 chronic kidney disease, or unspecified chronic kidney disease

== ENCOUNTER → 2017-01-22 | Outpatient (CLI) | payer BC ==
[2017-01-22 09:14] LABS: BLOOD UREA NITROGEN 26 mg/dl (7-18); BUN/CREATININE RATIO 31.8 (10-20); CALCIUM 9.1 mg/dl (8.5-10.1); CARBON DIOXIDE 32 mmol/L (21-32); CHLORIDE 105 mmol/L (98-107); CREATININE 0.83 mg/dl (0.60-1.40); GLUCOSE 84 mg/dl (70-99); SODIUM 141 mmol/L (136-145)
== END ==
LOC: C.LABVPSUA 08:52
PROVIDERS: ATTEND Internal Medicine Critical Care Medicine
DX: N18.9 Chronic kidney disease, unspecified (principal); I12.9 Hypertensive chronic kidney disease with stage 1 through stage 4 chronic kidney disease, or unspecified chronic kidney disease

== ENCOUNTER → 2017-04-20 | Outpatient (CLI) | payer BC ==
[~2017-04-20] MED LIST changes: -ADVIN25/60 INH; +ATOR10TA82 PO; -ATOR10TA88 PO; -FLX10 PO; -IMD/2 PO; -PRD150 PO; -SIMV10TA5 PO; -TADA10TA PO; -ULT50X PO; -VLTG TOP
--- NOTE | 2017-04-20 13:01 | DIAGNOSTIC IMAGING REPORT ---
SKELETAL SURVEY COMPLETE HISTORY: 82 years-old Male PLASMACYTOMA expansile lesion of the S1 vertebral body. Follow-up exam. COMPARISON: Lumbar spine MR 11/07/2016 and 12/21/2016 TECHNIQUE: Skeletal survey radiographs were obtained of the axial and appendicular skeletal system. FINDINGS: Multilevel intervertebral disc space narrowing, spondylitic spurring and facet arthropathy is seen throughout cervical, thoracic and lumbar spine. Degenerative changes are also seen about the shoulders and pelvis. 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 Posterior nader and screw fusion hardware of the lumbar spine is seen extending from L3 through the upper sacrum. No evidence of hardware fracture or loosening. Remote bilateral rib fractures.Remote fracture deformity of the mid left clavicle. Atherosclerosis of the aorta. No lytic calvarial lesions identified. Destructive lesion of the S1 vertebral body is again noted with partial collapse. There is 1.6 cm anterolisthesis L5 on S1. No additional destructive lytic lesions identified. IMPRESSION: 1. Destructive lesion of S1 redemonstrated causing partial collapse of the vertebral body. There is associated 1.6 cm anterolisthesis L5 on S1 with lumbosacral fusion hardware. 2. No additional lytic lesions identified throughout the imaged axial or appendicular skeletal system. The above report was generated using voice recognition software. It may contain grammatical, syntax or spelling errors. Electronically signed by: Lew Don M.D. 04/20/2017 1:00 PM Dictated Date/Time: 04/20/2017 12:45 PM
== END | disposition home or self-care (01) ==
LOC: C.RAD 11:42
PROVIDERS: ATTEND Internal Medicine Hematology & Oncology
DX: C90.30 Solitary plasmacytoma not having achieved remission (principal)

== ENCOUNTER → 2017-07-16 | Outpatient (CLI) | payer BC ==
[~2017-07-16] MED LIST changes: +LISI-729 PO; +NAPR1TAB9 PO; +SIMV10TA2 PO
[2017-07-16 13:36] VITALS: BP 112/68; PULSE 63; TEMP 36.8; O2SAT 95
--- NOTE | 2017-07-16 16:29 | Radiation Oncology Follow-Up ---
Radiation Oncology Follow-Up Date of Visit Jul 16, 2017. 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 Cardoso is a 82year old male who recently presented with significant lower back pain. The patient presented the emergency room and underwent an MRI of the lumbar spine on 11/07/2016 which revealed: "Expansile lesion with complete marrow replacement of the S1 vertebrae. 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 Further workup and/or biopsy is recommended." He also had a CT of the thorax on 11/07/2016 which revealed: "IMPRESSION: 1. Destructive soft tissue abnormality occupying the majority S1 vertebral body with soft tissue epidural extension which measures up to 5 mm. This results in severe central canal narrowing at this location. This favors a mass and may represent a lymphoma. Infectious process could also have a similar appearance but is considered less likely. 2. Mild splenomegaly. 3. No significant abnormality within the chest." The patient also had a CT of the abdomen/pelvis on 2016 which revealed: "IMPRESSION: 1. Destructive soft tissue abnormality occupying the majority S1 vertebral body with soft tissue epidural extension which measures up to 5 mm. This results in severe central canal narrowing at this location. This favors a mass and may represent a lymphoma. Infectious process could also have a similar appearance but is considered less likely. 2. Mild splenomegaly. 3. No significant abnormality within the chest." The patient was seen in consultation by Dr. Raciel Montero from medical oncology who recommended a CT guided biopsy of the mass in the sacrum. The patient underwent a CT-guided biopsy on and the pathology is currently pending. In the meantime, there is suspicion that this is related to a solitary plasmacytoma or multiple myeloma and medical oncology has recommended a complete workup including a skeletal survey and SPEP/UPEP. We've been asked to evaluate the patient for consideration of radiation therapy. Currently, the patient continues to suffer from low back pain and has significant discomfort. He does find it hard to get comfortable in general. He denies any focal neurologic deficits including bladder incontinence or urinary incontinence. Radiation was completed 12/25/2016. He received 4500 cGy Interim History He is doing well in regards to his back pain. He denies any pain in his back currently. He has not had any problems with leg weakness or paresthesias. He underwent back surgery with lumbosacral spine fusion and placement of hardware. He underwent physical therapy and has had resolution of his previous back pain. He no longer requires any pain medications. He has been followed by medical oncology and had a skeletal survey April 20, 2017. This showed a destructive lesion of S1 causing partial collapse of the vertebral body. There is associated 1.6 cm anterior listhesis L5 on S1 with lumbosacral fusion hardware. No additional lytic lesions identified throughout the imaged axial or appendicular skeletal system. Allergies Coded Allergies: Animal Dander (Verified Allergy, Intermediate, ASTHMATIC REACTION, 12/17/16 ) IMPROVEMENT WITH INHALERS Horse Serum Proteins (Verified Allergy, Intermediate, ASTHMA ATTACK, ) Home Medications Scheduled Acetaminophen (Tylenol), 2 TAB PO Q6 Amiodarone HCl (Amiodarone HCl), 200 MG PO DAILY Aspirin Enteric Coated (Ecotrin Or Generic), 81 MG PO DAILY Balsalazide Disodium (Colazal), 750 MG PO QAM Dabigatran Etexilate Mesylate (Pradaxa), 1 CAP PO BID Levothyroxine Sodium (Levothyroxine Sodium), 1 TAB PO DAILY Lisinopril (Zestril), 2.5 MG PO DAILY Simvastatin (Zocor), 1 TAB PO HS Tamsulosin Hcl (Flomax), 0.4 MG PO HS Scheduled PRN Naproxen (Aleve), 220 MG PO Q6 PRN for Moderate Pain Review of Systems Gastrointestinal: Symptoms: WNL GI Comments: Colace for constipation Oral: Symptoms: No Problems Respiratory: Symptoms: Dry Cough Urinary: Symptoms: WNL Comments: rare nocturia Skin: Symptoms: No Problems Other Skin Symptoms: to have MOHS surgery on right cheek Physical Exam Vital Signs Date Time Temp Pulse Resp B/P (MAP) Pulse Ox O2 Delivery O2 Flow Rate FiO2 07/16/17 13:36 36.8 63 16 112/68 95 Fatigue: None General Appearance: no apparent distress Eyes: normal inspection, EOMI ENT: normal ENT inspection, hearing grossly normal Respiratory/Chest: lungs clear, no respiratory distress, no accessory muscle use Cardiovascular: regular rate, rhythm, no gallop, no murmur Extremities: no pedal edema Additional Exam Notes: Well-healed incision of the lumbosacral spine area. There is no tenderness. There is no hyperpigmentation. There is mild dryness of the skin. Pain Management Patient Reports Pain: No Side: Bilateral Patient Preferred Pain Scale: 0 - 10 Initial Pain Intensity: 0.0 Pain Management Plan He denies pain therefore requires no pain management. Laboratory Laboratory Results: not applicable Pathology Pathology Results: not applicable Imaging Imaging Studies: were reviewed, and pertinent findings noted below Imaging Comments Patient: MERCEDEZ CARDOSO JR Address1: [address] Rec: [id number] Address2: Acct ID: [id number] [facility] Zip: [place] [address] Date: 1935 Sex: M Room/Bed: Ref Phy: Steven Cummings M.D. SC: GOYO Silva Phy: Jairon Gutierrez D.O. Report #: [id number] Mavis Phy: Steven Cummings M.D. Test: SS Admit Phy: Storm Door Maker: ZORAIDA Interpreting Phy: Lino Don D.O. Diagnosis: PLASMACYTOMA Ordering Phy: Jairon Gutierrez D.O. Service Date: 04/20/17 Admit Date: 04/20/17 MNE: [id number] CONF: DICTATED BY: Lino Don D.O.]] CC: Steven Cummings M.D. Lieb, James V. D.O. Endcc: [~ rep ct add3]] SKELETAL SURVEY COMPLETE HISTORY: 82 years-old Male PLASMACYTOMA expansile lesion of the S1 vertebral body. Follow-up exam. COMPARISON: Lumbar spine MR 11/07/2016 and 12/21/2016 TECHNIQUE: Skeletal survey radiographs were obtained of the axial and appendicular skeletal system. FINDINGS: Multilevel intervertebral disc space narrowing, spondylitic spurring and facet arthropathy is seen throughout cervical, thoracic and lumbar spine. Degenerative changes are also seen about the shoulders and pelvis. 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 Posterior nader and screw fusion hardware of the lumbar spine is seen extending from L3 through the upper sacrum. No evidence of hardware fracture or loosening. Remote bilateral rib fractures.Remote fracture deformity of the mid left clavicle. Atherosclerosis of the aorta. No lytic calvarial lesions identified. Destructive lesion of the S1 vertebral body is again noted with partial collapse. There is 1.6 cm anterolisthesis L5 on S1. No additional destructive lytic lesions identified. IMPRESSION: 1. Destructive lesion of S1 redemonstrated causing partial collapse of the vertebral body. There is associated 1.6 cm anterolisthesis L5 on S1 with lumbosacral fusion hardware. 2. No additional lytic lesions identified throughout the imaged axial or appendicular skeletal system. The above report was generated using voice recognition software. It may contain grammatical, syntax or spelling errors. Electronically signed by: Lew Don M.D. 04/20/2017 1:00 PM Dictated Date/Time: 04/20/2017 12:45 PM Assessment & Plan Plan: Continue regular follow-up with Dr. Cummings and Dr. Gutierrez. He was seen and examined today by Dr. Martin. Follow-up appointment with our office was not given. He may return on an as-needed basis. He may call our office if he has any questions or concerns or feels that he has any questions related to the prior radiation therapy. Assessment & Plan (Attending) I agree with note created by Jennifer Kan PA-C. I reviewed the patient's chart and information with her. I have examined and evaluated the patient. I reviewed relevant clinical information and answered the patient's and/or family' s questions. ENCEPHALOGRAPHER Total Time In Follow-Up I spent 20 minutes speaking to the patient in performing examination. I spent 15 minutes reviewing information and completing this note. AK Total Time (Attending) In Follow-Up I spent 15 minutes examining and counseling the patient. ENCEPHALOGRAPHER Copy To Steven Cummings M.D.; Jairon Gutierrez D.O.
== END | disposition home or self-care (01) ==
LOC: C.ONC 13:03
PROVIDERS: ATTEND Physician Assistant Medical
DX: Z08 Encounter for follow-up examination after completed treatment for malignant neoplasm (principal); Z92.3 Personal history of irradiation; Z85.89 Personal history of malignant neoplasm of other organs and systems

== ENCOUNTER 2017-08-11 16:01 | Emergency (ER) | payer BC ==
[~2017-08-11] VITALS: Ht 180.3 cm; Wt 78.3 kg
[~2017-08-11 16:01] MED LIST changes: -AMB5 PO; -ATOR10TA82 PO; -DOCU100C31 PO; -LDDP5 TD; -LSN5 PO; -MRLP17X PO; -NUTR-977 PO; -PREG100C PO; -TRAM-10 PO
[2017-08-11 16:05] VITALS: TEMP 36.3; Ht 180.3 cm; Wt 78.3 kg
[2017-08-11] MEDS ORDERED: LISI-789 PO (16:37)
--- NOTE | 2017-08-11 17:01 | DIAGNOSTIC IMAGING REPORT ---
CT HEAD WITHOUT CONTRAST (CT) CLINICAL HISTORY: Closed head injury with loss of consciousness COMPARISON STUDY: 12/17/2016 TECHNIQUE: Axial CT of the brain is performed from the vertex to the skull base. IV contrast was not administered for this examination. A dose lowering technique was utilized adhering to the principles of ALARA. CT DOSE: 614.27 mGy.cm FINDINGS: No intra or extra-axial mass lesions are visualized. There is no CT evidence of acute cortical infarction. There is no evidence of midline shift. There is no acute hemorrhage. No calvarial fractures are visualized. There are minimal white matter hypodensities likely on a small vessel basis. There is no evidence of pathologic ventricular dilatation. There is no evidence of acute sinusitis IMPRESSION: No acute intracranial findings Electronically signed by: Joe Jerome M.D. 08/11/2017 5:00 PM Dictated Date/Time: 08/11/2017 4:58 PM
[2017-08-11 17:25] VITALS: BP 141/81; PULSE 55; O2SAT 99
--- NOTE | 2017-08-11 17:32 | EMERGENCY ROOM VISIT NOTE ---
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 The patient reports that he accidentally got his foot caught on the door frame, and was unable to get his cane in front of him before he fell. He reports falling against the wall and then sliding down to the floor. He does believe that he hit the left side of his head, but had no loss of consciousness. He currently denies any headache, neck pain or other injuries from his fall except for a mild abrasion to the left elbow. Tetanus immunization is up-to-date. The patient currently denies any pain. 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 Surgical Problems: (1) History of hip replacement (2) History of knee replacement (3) Post-operative state Family History Cancer Gallbladder disease Heart disease Hypertension Lung disease Social History Smoking Status: Never Smoker Drug Use: none Marital Status: , in relationship Housing Status: lives alone Occupation Status: retired Current/Historical Medications Scheduled Acetaminophen (Tylenol), 2 TAB PO Q6 Amiodarone HCl (Amiodarone HCl), 200 MG PO DAILY Aspirin Enteric Coated (Ecotrin Or Generic), 81 MG PO DAILY Balsalazide Disodium (Colazal), 750 MG PO QAM Dabigatran Etexilate Mesylate (Pradaxa), 150 MG PO BID Levothyroxine Sodium (Levothyroxine Sodium), 88 MCG PO DAILY Lisinopril (Zestril), 2.5 MG PO DAILY Simvastatin (Zocor), 10 MG PO HS Tamsulosin Hcl (Flomax), 0.4 MG PO HS Physical Exam Vital Signs Date Time Temp Pulse Resp B/P (MAP) Pulse Ox O2 Delivery O2 Flow Rate FiO2 08/11/17 17:25 55 16 141/81 99 08/11/17 17:19 55 16 141/81 99 Room Air 08/11/17 16:05 36.3 63 18 164/82 97 Room Air Physical Exam CONSTITUTIONAL: Healthy and well nourished. Alert and oriented X 3 with positive affect. HEENT: Normocephalic, atraumatic. Pupils equal, round and reactive. No scalp edema, ecchymosis, abrasions or lacerations. No separate palpable hemorrhage, hemotympanum, raccoon's eyes or lilly sign. A surgical dressing is in place on the right cheek. NECK: Full active range of motion without discomfort. RESPIRATORY: Clear to auscultation bilaterally with no wheezing, crackles, rhonchi or stridor. CARDIOVASCULAR: Regular rate and rhythm with no murmurs, rubs or gallops. MUSCULOSKELETAL: Full range of motion of all joints without discomfort. Sure abrasion on the left elbow with full range of motion without discomfort. INTEGUMENTARY: No rash or other significant dermatologic conditions noted. NEUROLOGIC: No focal neurologic deficits noted. Medical Decision & Procedures ER Provider Diagnostic Interpretation: Noncontrast CT of the head is negative for intracranial bleed or fracture. Radiologist report is as follows: CT HEAD WITHOUT CONTRAST (CT) CLINICAL HISTORY: Closed head injury with loss of consciousness COMPARISON STUDY: 12/17/2016 TECHNIQUE: Axial CT of the brain is performed from the vertex to the skull base. IV contrast was not administered for this examination. A dose lowering technique was utilized adhering to the principles of ALARA. CT DOSE: 614.27 mGy.cm FINDINGS: No intra or extra-axial mass lesions are visualized. There is no CT evidence of acute cortical infarction. There is no evidence of midline shift. There is no acute hemorrhage. No calvarial fractures are visualized. There are minimal white matter hypodensities likely on a small vessel basis. There is no evidence of pathologic ventricular dilatation. There is no evidence of acute sinusitis IMPRESSION: No acute intracranial findings ED Course Patient history and physical exam were performed. Nurse's notes were reviewed. Vital signs were reviewed, showing a mildly elevated blood pressure 164/82. The patient denied any significant symptoms on initial exam. I did recommend a head CT to rule out intracranial bleed or other injuries, and the patient was in agreement. Noncontrast CT of the head was normal. The patient was instructed to return to the emergency department for any developing or worsening symptoms. Tylenol as needed for any developing discomfort. He may also intermittently apply ice to the scalp as needed. The patient was also seen and examined by Dr. Soni, ED attending physician who agrees with workup and plan of care. The patient was also happy with plan of care, and denied any symptoms at the time of discharge. The patient's blood pressure was 141/81 at the time of discharge. Medical Decision Medication Reconcilliation Current Medication List: was personally reviewed by me Blood Pressure Screening Patient's blood pressure: Elevated blood pressure Blood pressure disposition: Did not require urgent referral Impression Primary Impression: Closed head injury Additional Impression: Fall from slip, trip, or stumble Departure Information Referrals No Doctor, Assigned (PCP) Patient Instructions My [facility] Health Problem Qualifiers
--- NOTE | 2017-08-11 17:47 | EMERGENCY ROOM VISIT NOTE ---
ED Visit Note First contact with patient: 16:13 I have personally evaluated this patient examined her and reviewed the pertinent labs and data. I have discussed the case with Eleuterio Mooney, the physician foundation assistant and agree with the plan. Please refer to the PA note. This patient comes in after hitting his head against the wall when he tripped. He is on a blood thinner and thus we got a CAT scan of his head it was unremarkable. On my exam, he is resting comfortably and has a normal neurologic exam without any complaints his head is nontender. He has a bandage from his Mohs surgery. He was reassured and will be discharged home.
== END 2017-08-11 17:20 | disposition home or self-care (01) ==
LOC: C.EDB 16:02 → C.EDD 17:20
DX: S09.90XA Unspecified injury of head, initial encounter (principal); W18.09XA Striking against other object with subsequent fall, initial encounter; N17.9 Acute kidney failure, unspecified; I48.91 Unspecified atrial fibrillation; E87.5 Hyperkalemia; I10 Essential (primary) hypertension; E03.9 Hypothyroidism, unspecified; Z82.49 Family history of ischemic heart disease and other diseases of the circulatory system

== ENCOUNTER → 2017-08-21 | Outpatient (CLI) | payer BC ==
[~2017-08-21] MED LIST changes: -LISI-729 PO; +LISI-789 PO; -NAPR1TAB9 PO
--- NOTE | 2017-08-21 11:38 | DIAGNOSTIC IMAGING REPORT ---
CHEST 2 VIEWS ROUTINE CLINICAL HISTORY: COUGH dyspnea COMPARISON STUDY: 12/17/2016 FINDINGS: Mild stable cardia megaly. Mild emphysematous change. Mild chronic parenchymal fibrotic change unaltered from the prior study. No acute or superimposed infiltrate. IMPRESSION: Chronic change. Mild stable cardiomegaly. No acute process. The above report was generated using voice recognition software. It may contain grammatical, syntax or spelling errors. Electronically signed by: Yahir Wells M.D. 08/21/2017 11:37 AM Dictated Date/Time: 08/21/2017 11:36 AM
--- NOTE | 2017-08-21 11:39 | DIAGNOSTIC IMAGING REPORT ---
L-SPINE MIN 4 VIEWS ROUTINE CLINICAL HISTORY: PLASMACYTOMA COMPARISON STUDY: MRI dated 12/21/2016, skeletal survey dated 04/20/2017 FINDINGS: There is no pathologic bowel dilatation. There is scattered stool present throughout the colon. There are bilateral total hip arthroplasties. Postsurgical changes are present within the lumbar spine. There are pedicle screws at the L3-L4 and S1 levels with adjoining spinal rods. There are bilateral sacroiliac screws. There is slight lucency surrounding the L3 and L4 pedicle screws. This may indicate loosening. No acute fractures are visualized. A destructive S1 lesion is again evident. There is a grade 1-2/4 spondylolisthesis of L5 on S1. IMPRESSION: 1. Persistent destructive S1 lesion similar to the prior study. Grade 1-2/4 spondylolisthesis of L5 on S1 2. Postsurgical changes. Possible loosening of the L3 and L4 pedicle screws Electronically signed by: Joe Jerome M.D. 08/21/2017 11:37 AM Dictated Date/Time: 08/21/2017 11:32 AM
== END | disposition home or self-care (01) ==
LOC: C.RAD 10:34
PROVIDERS: ATTEND Internal Medicine Critical Care Medicine
DX: E03.9 Hypothyroidism, unspecified (principal); R05 Cough; C90.30 Solitary plasmacytoma not having achieved remission; M43.17 Spondylolisthesis, lumbosacral region

== ENCOUNTER → 2018-01-08 | Outpatient (CLI) | payer BC ==
[~2018-01-08] MED LIST changes: +ASPI-319 PO; -ASPI81TA21 PO
== END | disposition home or self-care (01) ==
LOC: C.LABVPSUW 10:31
PROVIDERS: ATTEND Internal Medicine Critical Care Medicine
DX: E03.9 Hypothyroidism, unspecified (principal)

== ENCOUNTER 2022-01-28 20:05 | Inpatient (IN) ==
[2022-01-28] MEDS ORDERED: ACETAMINOPHEN 500 MG TAB PO STA (21:30)
--- NOTE | 2022-01-28 21:31 | Emergency Department Note ---
Impression & Plan Fall, Hypoxia, RLL pneumonia, Left leg swelling ED Provider Note Provider: Nathan Martínez MD DATE OF SERVICE: 01/28/2022 CHIEF COMPLAINT: Weakness HISTORY OF PRESENT ILLNESS: Patient is a 86-year-old gentleman history of atrial fibrillation on Pradaxa, chronic back pain, knee replacement, hypothyroidism, sacral plasmacytoma, melanoma of the spine presenting here today for dental he has been weak and having diarrhea and had some kind of fall today. The patient states that he was going for a chair and missed and fell. Was found to EMS to be mildly hypoxic on room air is not normally on oxygen. Febrile upon arrival. Patient states he has some chronic swelling of his left lower leg and this is unchanged but mildly tender. States he been having diarrhea for several months. Patient denies falling and hitting his head. He states he is some chronic back pain related to cancer issues here. Patient states he is taking his blood thinner. Patient is quite hard of hearing. REVIEW OF SYSTEMS: A total of 10 review of systems was obtained and negative except as stated above in the HPI. PAST MEDICAL HISTORY: As noted above MEDICATIONS: Reviewed home medications include Pradaxa SOCIAL HISTORY: Resides at the [facility] PHYSICAL EXAM: GENERAL: alert and oriented in no acute distress on stretcher, hard of hearing Head: normocephalic and atraumatic EYES: No injection, discharge or icterus. PERRL NECK: Trachea midline. Supple. ENT: Mucous membranes pink and moist. LUNGS: Airway patent. No retractions. Breath sounds clear with good air entry bilaterally. HEART: Regular rate and rhythm. No chest wall tenderness ABDOMEN: Soft and non-tender, without guarding or rebound. BACK: No bilateral flank tenderness. SKIN: Acyanotic, warm, dry, without rashes EXTREMITIES: 2+ swelling of the left calf region with some warmth here and chronic stasis changes. Some 1+ swelling of the right lower leg. No significant pain with range of motion of the ankle, knees, or hips. NEUROLOGICAL: No focal deficits. No aphasia. No facial droop or slurred speech. Normal strength and tone in the extremities. Sensation to gross touch normal. EK beats per atrial fibrillation. No PVCs. No acute ST segment elevation or depression. QTc 431. CONTINUOUS CARDIAC MONITORING: was ordered and showed a heart rate of 60s-70s bpm in atrial fibrillation GCS 15. Patient's laboratory studies and imaging reviewed. Differential includes traumatic, Infection, dehydration, metabolic abnormality, hypo/hyperglycemia, electrolyte disturbance, anemia, hypoxia, cardiac sources, intracerebral event, toxicologic, neurologic, as well as other pathologies. IMPRESSION/MEDICAL DECISION MAKING: Patient noted by EMS to have oxygen requirement initially did here. Febrile upon arrival. Some swelling and tenderness of the left lower leg. Is on anticoagulant but declined ultrasound to exclude DVT. Possibly be a cellulitis as there is some skin changes and warmth here. Given the possible fall and the fact he is not the best historian broad imaging was obtained for any traumatic injury as well as basic blood work and cultures. Given some Tylenol here. Patient's blood work with some anemia hemoglobin 8.8 and some slight leukopenia 4.1. Troponin returns at 30. No significant electrolyte or renal dysfunction noted. No evidence of hepatitis. Procalcitonin is undetectably low. There is question as a CT of possible pneumonia. Given this and the fever and some borderline hypoxia will place on ceftriaxone. Nurse concerned about the patient's swallowing capability and will defer p.o. medications at this time. Discussed with son via phone. Additional CT findings as below. Venous ultrasound again of the left lower leg is pending as well; action hematoma versus abscess. Not tense and I doubt compartment syndrome at this time. More likely hematoma given the fall. May have some cellulitis here be covered by antibiotics at this time. Believe he needs further care here at the hospital. He was updated. Reports that he uses bipap at night. On [place] O2 at this time. spitalist contacted. DIAGNOSIS: Fall, hypoxia, right lower lobe pneumonia, left leg swelling DISPOSITION: Hospitalist will evaluate Patient was agreeable with this plan. Preliminary Findings Only See Final Report For Complete Findings CT HEAD: No skull fracture, acute bleed, or acute intracranial abnormality. Stable, mild age-related findings compared with head CT 08/11/17. Radiologist: Sayra Kennedy M.D. Study ready at 23:20 and initial results transmitted at 23:32 Preliminary Findings Only See Final Report For Complete Findings CT C SPINE: No fracture or acute bony abnormality. Severe degenerative change, similar compared with MRI cervical spine 08/28/20, given differences in technique. Radiologist: Sayra Kennedy M.D. Study ready at 23:20 and initial results transmitted at 23:37 Preliminary Findings Only See Final Report For Complete Findings CT CHEST Without Contrast: Mild right pleural effusion and infiltrate, nonspecific, possible pneumonia. Old, healed right sided rib fractures. No sternal or vertebral fracture. Moderate cardiomegaly. No pneumothorax or acute/posttraumatic intrathoracic abnormality. T12 vertebrae with multiple lucent areas, nonspecific, possible hemangiomata. Neoplasm not excluded. Radiologist: Sayra Kennedy M.D. Study ready at 23:20 and initial results transmitted at 23:40 Preliminary Findings Only See Final Report For Complete Findings ADDENDUM - Added by Sayra Kennedy M.D. on 01/28/2022 11:50 PM (-07:00) 15 mm right adrenal nodule. Known melanoma of the spine. See separately dictated lumbar spine CT. CT ABDOMEN & PELVIS Without Contrast: Mildly obstructing, small bowel containing left inguinal hernia, with limited detail due to bilateral hip prosthesis and metal artifact. Cannot rule out incarcerated hernia. No free air or free fluid. Moderate breathing motion artifact. Incidental left renal cysts, and ectatic gallbladder. Metal artifact from bilateral hip prosthesis and orthopedic hardware in the lumbosacral spine. Severe degenerative disc disease L2-3, above the level of fusion. Radiologist: Sayra Kennedy M.D. Study ready at 23:19 and initial results transmitted at 23:45 Preliminary Findings Only See Final Report For Complete Findings CT L SPINE: Redemonstration of lucent lesions at T12, with multiple additional similar lesions in the sacrum. These are nonspecific, given history, could reflect bony metastatic disease. Severe degenerative disc disease L2-L3. Pedicle screws and vertical stabilizing rods L3, L4 and S2-S3. No acute fracture or definite acute abnormality. 15 mm right adrenal nodule. Radiologist: Sayra Kennedy M.D. Study ready at 23:20 and initial results transmitted at 23:50 Preliminary Findings Only See Final Report For Complete Findings US VENOUS LEFT LOWER EXTREMITY: Negative for DVT In the left distal medial calf a complex collection is present measuring 14 x 7 x 3 cm. Differential would include a hematoma or abscess in the correct clinical setting Radiologist: Marty Portillo MD Study ready at 00:21 and initial results transmitted at 00:56 Past Med/Surg History Medical History Cataract, left Cataract, right History of cardioversion Hypercholesteremia Hypertension Hypothyroid Malignant plasmacytoma Paroxysmal atrial fibrillation Surgical History History of appendectomy History of laparotomy History of lumbosacral spine surgery Hx of tonsillectomy Family History Mother Dementia Natural with unknown cause Father Myocardial infarction Heart disease Brother No problems noted. Son No problems noted. Daughter No problems noted. Social History Smoking Status: Never smoker Hx Alcohol Use: Yes (1-2 vodka gimlet/day;) Alcohol type Comment: Occassional wine; Hx Substance Use: No Preferred Language: Guamanian Communication Ability: Effective Visual Impairment: No Limitations Hearing Ability: Hard of Hearing Early Childhood Education Worker Required: No Beliefs That Will Affect Care: None marital status: Current Living Situation: Significant Other current occupational status: retired current occupation: [id number]; Feels Safe at Home: Yes caffeine: Yes (1 cup/day) during the past year weight has: remained stable Allergies Allergies Allergy/AdvReac Type Severity Reaction Status Date / Time animal dander Allergy Intermediate ASTHMATIC Verified 10/25/21 14:41 REACTION Home Meds Home Medications Medication Instructions Recorded Confirmed acetaminophen 500 mg tablet 1,000 mg PO Q6H PRN 11/20/20 10/25/21 aspirin 81 mg tablet,delayed 81 mg PO DAILY 11/20/20 10/25/21 release balsalazide 750 mg capsule 750 mg PO DAILY 11/20/20 10/25/21 (Colazal) dabigatran etexilate 150 mg 150 mg PO BID 11/20/20 10/25/21 capsule (Pradaxa) levothyroxine 88 mcg capsule 88 mcg PO DAILY 11/20/20 10/25/21 lisinopril 2.5 mg tablet 2.5 mg PO DAILY 11/20/20 10/25/21 simvastatin 10 mg tablet 10 mg PO DAILY 11/20/20 10/25/21 tamsulosin 0.4 mg capsule 0.4 mg PO DAILY 11/20/20 10/25/21 Previous Rx's Medication Instructions Recorded metoprolol succinate 25 mg 25 mg PO DAILY #90 tabs 08/05/21 tablet,extended release 24 hr Results & Data (ED) Vital Signs Vital Signs - 24 hr 01/28/22 20:14 01/28/22 21:16 01/28/22 20:18 Temperature 38.0 C H Temperature Source Oral Pulse Rate 70 66 Pulse Rate from SpO2 Sensor 67 Respiratory Rate 14 10 L Blood Pressure 114/61 Blood Pressure Mean 78 Pulse Oximetry 86 L 93 95 Oxygen Delivery Method Room Air Nasal Cannula Nasal Cannula Oxygen Flow Rate 2 2 Sepsis Recent Fever Within 48 Hours Yes Sepsis New/Unexplained Change in Mental Status No Sepsis Action Taken by Nursing No Action Required 01/28/22 21:00 01/28/22 22:21 01/28/22 23:00 Temperature Temperature Source Pulse Rate 67 72 85 Pulse Rate from SpO2 Sensor Respiratory Rate 23 21 12 Blood Pressure 127/68 137/66 134/87 Blood Pressure Mean 87 89 102 Pulse Oximetry 94 95 90 Oxygen Delivery Method Nasal Cannula Room Air Room Air Oxygen Flow Rate 2 Sepsis Recent Fever Within 48 Hours Sepsis New/Unexplained Change in Mental Status Sepsis Action Taken by Nursing Laboratory Data Result diagrams: 01/28/22 20:27 01/28/22 20:27 Lab Results 01/28/22 01/28/22 01/28/22 Range/Units 20:27 20:27 20:27 WBC 4.11 L (4.8-10.8) K/ul RBC 2.89 L (4.63-6.08) M/uL Hgb 8.8 L (14.0-18.0) g/dl Hct 28.9 L (40.1-51.0) % MCV 100.0 (80.0-100.0) fL MCH 30.4 (25.0-34.0) pg MCHC 30.4 L (32.0-36.0) g/dL RDW Std Deviation 60.5 H (36.4-46.3) fL RDW Coeff of Joann 16.3 H (11.5-14.5) % Plt Count 162 (130-400) K/uL MPV 10.9 (9.4-12.4) fL Immature Gran % (Auto) 0.2 % Neut % (Auto) 69.2 % Lymph % (Auto) 11.9 % [place] % (Auto) 13.4 % Eos % (Auto) 3.6 % Baso % (Auto) 1.7 % Neut # (Auto) 2.84 (1.4-6.5) K/uL Lymph # (Auto) 0.49 L (1.2-3.4) K/uL [place] # (Auto) 0.55 (0.24-0.82) K/uL Eos # (Auto) 0.15 (0-0.50) K/uL Baso # (Auto) 0.07 (0-0.2) K/uL Immature Gran # (Auto) 0.01 (0.00-0.02) K/uL PT 15.5 H (9.0-12.0) Seconds INR 1.5 H (0.9-1.1) Sodium 138 (136-145) mmol/L Potassium 3.9 (3.5-5.1) mmol/L Chloride 107 (98-107) mmol/L Carbon Dioxide 27 (21-32) mmol/L Anion Gap 4 (3-11) BUN 16 (6-23) mg/dl Creatinine 0.93 (0.6-1.4) mg/dl Est Cr Clr Drug Dosing 67.6 ml/min Est GFR ( Amer) 87.1 ml/min Est GFR (Non-Af Amer) 75.1 ml/min BUN/Creatinine Ratio 17.2 (10-20) Glucose 98 (70-99(Fasting)) mg/dl Lactate (0.4-2.0) mmol/L Calcium 8.2 L (8.5-10.1) mg/dl Magnesium 1.7 (1.7-2.4) mg/dl Total Bilirubin 0.6 (0.2-1.0) mg/dl AST 12 L (13-39) U/L ALT 10 (7-52) U/L Alkaline Phosphatase 72 (34-104) U/L Total Creatine Kinase 86 (30-223) U/L Troponin I High Sens 30.1 H (0-20) pg/ml Total Protein 5.1 L (6.0-8.3) gm/dl Albumin 3.5 (3.4-5.0) gm/dl Globulin 1.6 L (2.5-4.0) gm/dl Albumin/Globulin Ratio 2.2 H (0.9-2) Procalcitonin (0-0.5) ng/ml TSH (0.300-4.500) uIu/ml SARS-CoV-2, RNA, NAAT (NEGATIVE) 01/28/22 01/28/22 01/28/22 Range/Units 20:27 20:27 20:27 WBC (4.8-10.8) K/ul RBC (4.63-6.08) M/uL Hgb (14.0-18.0) g/dl Hct (40.1-51.0) % MCV (80.0-100.0) fL MCH (25.0-34.0) pg MCHC (32.0-36.0) g/dL RDW Std Deviation (36.4-46.3) fL RDW Coeff of Joann (11.5-14.5) % Plt Count (130-400) K/uL MPV (9.4-12.4) fL Immature Gran % (Auto) % Neut % (Auto) % Lymph % (Auto) % [place] % (Auto) % Eos % (Auto) % Baso % (Auto) % Neut # (Auto) (1.4-6.5) K/uL Lymph # (Auto) (1.2-3.4) K/uL [place] # (Auto) (0.24-0.82) K/uL Eos # (Auto) (0-0.50) K/uL Baso # (Auto) (0-0.2) K/uL Immature Gran # (Auto) (0.00-0.02) K/uL PT (9.0-12.0) Seconds INR (0.9-1.1) Sodium (136-145) mmol/L Potassium (3.5-5.1) mmol/L Chloride (98-107) mmol/L Carbon Dioxide (21-32) mmol/L Anion Gap (3-11) BUN (6-23) mg/dl Creatinine (0.6-1.4) mg/dl Est Cr Clr Drug Dosing ml/min Est GFR ( Amer) ml/min Est GFR (Non-Af Amer) ml/min BUN/Creatinine Ratio (10-20) Glucose (70-99(Fasting)) mg/dl Lactate 0.9 (0.4-2.0) mmol/L Calcium (8.5-10.1) mg/dl Magnesium (1.7-2.4) mg/dl Total Bilirubin (0.2-1.0) mg/dl AST (13-39) U/L ALT (7-52) U/L Alkaline Phosphatase (34-104) U/L Total Creatine Kinase (30-223) U/L Troponin I High Sens (0-20) pg/ml Total Protein (6.0-8.3) gm/dl Albumin (3.4-5.0) gm/dl Globulin (2.5-4.0) gm/dl Albumin/Globulin Ratio (0.9-2) Procalcitonin < 0.05 (0-0.5) ng/ml TSH 2.149 (0.300-4.500) uIu/ml SARS-CoV-2, RNA, NAAT (NEGATIVE) 01/28/22 Range/Units Unknown WBC (4.8-10.8) K/ul RBC (4.63-6.08) M/uL Hgb (14.0-18.0) g/dl Hct (40.1-51.0) % MCV (80.0-100.0) fL MCH (25.0-34.0) pg MCHC (32.0-36.0) g/dL RDW Std Deviation (36.4-46.3) fL RDW Coeff of Joann (11.5-14.5) % Plt Count (130-400) K/uL MPV (9.4-12.4) fL Immature Gran % (Auto) % Neut % (Auto) % Lymph % (Auto) % [place] % (Auto) % Eos % (Auto) % Baso % (Auto) % Neut # (Auto) (1.4-6.5) K/uL Lymph # (Auto) (1.2-3.4) K/uL [place] # (Auto) (0.24-0.82) K/uL Eos # (Auto) (0-0.50) K/uL Baso # (Auto) (0-0.2) K/uL Immature Gran # (Auto) (0.00-0.02) K/uL PT (9.0-12.0) Seconds INR (0.9-1.1) Sodium (136-145) mmol/L Potassium (3.5-5.1) mmol/L Chloride (98-107) mmol/L Carbon Dioxide (21-32) mmol/L Anion Gap (3-11) BUN (6-23) mg/dl Creatinine (0.6-1.4) mg/dl Est Cr Clr Drug Dosing ml/min Est GFR ( Amer) ml/min Est GFR (Non-Af Amer) ml/min BUN/Creatinine Ratio (10-20) Glucose (70-99(Fasting)) mg/dl Lactate (0.4-2.0) mmol/L Calcium (8.5-10.1) mg/dl Magnesium (1.7-2.4) mg/dl Total Bilirubin (0.2-1.0) mg/dl AST (13-39) U/L ALT (7-52) U/L Alkaline Phosphatase (34-104) U/L Total Creatine Kinase (30-223) U/L Troponin I High Sens (0-20) pg/ml Total Protein (6.0-8.3) gm/dl Albumin (3.4-5.0) gm/dl Globulin (2.5-4.0) gm/dl Albumin/Globulin Ratio (0.9-2) Procalcitonin (0-0.5) ng/ml TSH (0.300-4.500) uIu/ml SARS-CoV-2, RNA, NAAT NEGATIVE (NEGATIVE) Administered Medications Discontinued Medications Acetaminophen (Acetaminophen 500 Mg Tab) 1,000 mg PO NOW STA Stop: 01/28/22 21:31 Last Admin: 01/28/22 22:54 Dose: 1,000 mg Documented By: KAREN Cefepime HCl (Maxipime) 2,000 mg in 20 mls @ 5 mls/min IV NOW STA; Protocol Stop: 01/28/22 23:45 Last Admin: 01/29/22 00:21 Dose: 5 mls/min Documented By: KAREN Discharge Plan Visit Data Chief Complaint: Illness Stated Complaint: Fever, Diarrhea, Fall ED Provider: Nathan Martínez Discharge Problem: Fall, Hypoxia, RLL pneumonia, Left leg swelling Patient Disposition: Being Evaluated by Hospitalist Forms Stand Alone Forms: My [facility] Prescriptions Prescriptions: No Action acetaminophen 500 mg tablet 1,000 mg PO Q6H PRN aspirin 81 mg tablet,delayed release (DR/EC) 81 mg PO DAILY balsalazide [Colazal] 750 mg capsule 750 mg PO DAILY Pradaxa 150 mg capsule 150 mg PO BID levothyroxine 88 mcg capsule 88 mcg PO DAILY lisinopril 2.5 mg tablet 2.5 mg PO DAILY simvastatin 10 mg tablet 10 mg PO DAILY tamsulosin 0.4 mg capsule 0.4 mg PO DAILY metoprolol succinate 25 mg tablet extended release 24 hr 25 mg PO DAILY Qty: 90 3RF Referrals Referrals: [facility] [Primary Care Provider] - : Fall Qualifiers: Encounter type: initial encounter Qualified Code(s): W19.XXXA - Unspecified fall, initial encounter RLL pneumonia Qualifiers: Pneumonia type: due to unspecified organism Qualified Code(s): J18.9 - Pneumonia, unspecified organism
[2022-01-28 21:45] LABS: Albumin Globulin Ratio 2.2 (0.9-2); Albumin Level 3.5 gm/dl (3.4-5.0); BUN Creatinine Ratio 17.2 (10-20); Bilirubin,Total 0.6 mg/dl (0.2-1.0); Calcium 8.2 mg/dl (8.5-10.1); Creatinine Clr Calc Pharmacy 67.6 ml/min; Est GFR (African American) 87.1 ml/min; Est GFR (Non-African American) 75.1 ml/min; Globulin 1.6 gm/dl (2.5-4.0); Magnesium 1.7 mg/dl (1.7-2.4); Potassium 3.9 mmol/L (3.5-5.1); Total Protein 5.1 gm/dl (6.0-8.3)
[2022-01-28 21:48] LABS: INR 1.5 (0.9-1.1); Prothrombin Time 15.5 Seconds (9.0-12.0)
[2022-01-28 21:49] LABS: Troponin I High Sensitivity 30.1 pg/ml (0-20)
[2022-01-28 21:59] LABS: Basophils # (auto) 0.07 K/uL (0-0.2); Basophils % (auto) 1.7 %; Eosinophils # (auto) 0.15 K/uL (0-0.50); Eosinophils % (auto) 3.6 %; Hematocrit (blood only) 28.9 % (40.1-51.0); Hemoglobin 8.8 g/dl (14.0-18.0); Immature Granulocytes # (auto) 0.01 K/uL (0.00-0.02); Immature Granulocytes % (auto) 0.2 %; Lymphocytes # (auto) 0.49 K/uL (1.2-3.4); Lymphocytes % (auto) 11.9 %; Mean Corpuscular Hemoglobin 30.4 pg (25.0-34.0); Mean Corpuscular Hgb Conc 30.4 g/dL (32.0-36.0); Mean Platelet Volume 10.9 fL (9.4-12.4); Monocytes # (auto) 0.55 K/uL (0.24-0.82); Monocytes % (auto) 13.4 %; Neutrophils # (auto) 2.84 K/uL (1.4-6.5); Neutrophils % (auto) 69.2 %; Platelet Count 162 K/uL (130-400); RDW Coefficient of Variation 16.3 % (11.5-14.5); RDW Standard Deviation 60.5 fL (36.4-46.3); Red Blood Count 2.89 M/uL (4.63-6.08); White Blood Count 4.11 K/ul (4.8-10.8)
[2022-01-28] MEDS ORDERED: CEFEPIME 2,000 MG/20 ML VIAL IV STA (23:42)
[2022-01-28] MEDS ORDERED: DOXYCYCLINE HYCLATE 100 MG CAP PO STA (23:44)
--- NOTE | 2022-01-29 01:25 | History & Physical Report ---
Date of Service January 29, 2022 Assessment & Plan (1) Fall: Plan: 86yo male presenting from the [facility] after an unwitnessed fall. Patient had a second fall in the ER while trying to get up by himself to the bathroom. No LOC or head trauma. No complaint of focal pain -Fall precautions -PT/OT evaluation (2) Hypoxia: Plan: Possibly secondary to developing PNA -Follow culture -Continue Zosyn and Doxycycline (3) RLL pneumonia: Plan: As above -Continue Zosyn and Doxycycline -Tylenol PRN -Check MRSA nares -Supplemental O2 as needed (4) Left leg swelling: Plan: With complex fluid collection noted on US. 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 Patient reports he was trying to sit in a chair and missed and ended up falling to the floor. He denies head trauma or LOC. No chest pain, palpitations, dizziness or incontinence. He does have some chronic swelling of his LLE, now with some tenderness. Otherwise, he has no complaints. Patient was febrile and hypoxic to the 80's by EMS. Has diarrhea for the last several weeks. Allergies Allergy/AdvReac Type Severity Reaction Status Date / Time animal dander Allergy Intermediate ASTHMATIC Verified 10/25/21 14:41 REACTION Home Medications Medication Instructions Recorded Confirmed Type acetaminophen 500 mg tablet 1,000 mg PO Q6H PRN Pain 11/20/20 01/29/22 History aspirin 81 mg tablet,delayed 81 mg PO DAILY 11/20/20 01/29/22 History release balsalazide 750 mg capsule 750 mg PO DAILY 11/20/20 01/29/22 History (Colazal) dabigatran etexilate 150 mg 150 mg PO BID 11/20/20 01/29/22 History capsule (Pradaxa) levothyroxine 88 mcg capsule 88 mcg PO DAILY 11/20/20 01/29/22 History lisinopril 2.5 mg tablet 2.5 mg PO DAILY 11/20/20 01/29/22 History simvastatin 10 mg tablet 10 mg PO DAILY 11/20/20 01/29/22 History tamsulosin 0.4 mg capsule 0.4 mg PO DAILY 11/20/20 01/29/22 History metoprolol succinate 25 mg 25 mg PO DAILY #90 tabs 08/05/21 01/29/22 Rx tablet,extended release 24 hr acyclovir 400 mg tablet 400 mg PO BID 01/29/22 01/29/22 History clonazepam 1 mg tablet 1 mg PO HS 01/29/22 01/29/22 History dexamethasone 4 mg tablet 20 mg PO WE 01/29/22 01/29/22 History lenalidomide 15 mg capsule 15 mg PO DIRECTED 01/29/22 01/29/22 History (Revlimid) pregabalin 75 mg capsule 75 mg PO HS 01/29/22 01/29/22 History sodium di- and 500 tab PO DAILY 01/29/22 01/29/22 History monophosphate-potassium phos monobasic 250 mg tablet (Phospha 250 Neutral) Past Med/Surg History Medical History Cataract, left Cataract, right History of cardioversion Hypercholesteremia Hypertension Hypothyroid Malignant plasmacytoma Paroxysmal atrial fibrillation Surgical History History of appendectomy History of laparotomy History of lumbosacral spine surgery Hx of tonsillectomy Family History Mother Dementia Natural with unknown cause Father Myocardial infarction Heart disease Brother No problems noted. Son No problems noted. Daughter No problems noted. Social History Smoking Status: Never smoker Hx Alcohol Use: Yes (1-2 vodka gimlet/day;) Alcohol type Comment: Occassional wine; Hx Substance Use: No Preferred Language: Zambian Communication Ability: Effective Visual Impairment: No Limitations Hearing Ability: Hard of Hearing Petrologist Required: No Beliefs That Will Affect Care: None marital status: Current Living Situation: Significant Other current occupational status: retired current occupation: [employer]; Feels Safe at Home: Yes caffeine: Yes (1 cup/day) during the past year weight has: remained stable Review of Systems Review of Systems: All systems reviewed & are unremarkable except as noted in HPI & below Physical Exam Physical Exam: General: elderly male patient resting comfortably, NAD, non- toxic in appearance Skin: warm, dry, intact, redness on LLE HEENT: NC/AT, PERRL, EOMI, anicteric sclera, conjunctiva without injection, external ear normal to inspection and nontender, nares patent, moist mucus membranes, dentition intact, no oropharyngeal lesions, neck supple, trachea midline, no LAD, no thyromegaly, no JVD Heart: +S1/S2, regular, no m/r/g Lungs: equal air entry bilaterally, no rales/rhonchi/wheezes Abd: +BS, soft, NT/ND, no masses/organomegaly/ascites Ext: warm, 2+ pulses in UE/LE bilaterally, no clubbing/cyanosis, LLE warm, swollen and tender, no crepitus/bullae Neuro: nonfocal, speech intact, no facial droop, moving all extremities on command with equal strength 5/5 Results & Data Results & Data ([facility]) Vital Signs (Past 12 Hours) Vital Signs Temp Pulse Resp BP Pulse Ox O2 Del Method O2 Flow Rate 01/28/22 23:00 85 12 134/87 90 Room Air 01/28/22 22:21 72 21 137/66 95 Room Air 01/28/22 21:00 67 23 127/68 94 Nasal Cannula 2 01/28/22 20:18 66 10 L 95 Nasal Cannula 2 01/28/22 21:16 93 Nasal Cannula 2 01/28/22 20:14 38.0 C H 70 14 114/61 86 L Room Air Laboratory Results Laboratory Results WBC 4.11 K/ul (4.8-10.8) L 01/28/22 20:27 RBC 2.89 M/uL (4.63-6.08) L 01/28/22 20:27 Hgb 8.8 g/dl (14.0-18.0) L 01/28/22 20:27 Hct 28.9 % (40.1-51.0) L 01/28/22: MCV 100.0 fL (80.0-100.0) 01/28/22: MCH 30.4 pg (25.0-34.0) 01/28/22: MCHC 30.4 g/dL (32.0-36.0) L 01/28/22: RDW Std Deviation 60.5 fL (36.4-46.3) H 01/28/22: RDW Coeff of Joann 16.3 % (11.5-14.5) H 01/28/22: Plt Count 162 K/uL (130-400) 01/28/22 MPV 10.9 fL (9.4-12.4) 01/28/22 Immature Gran % (Auto) 0.2 % 01/28/22: Neut % (Auto) 69.2 % 01/28/22: Lymph % (Auto) 11.9 % 01/28/22: Citrus % (Auto) 13.4 % 01/28/22: Eos % (Auto) 3.6 % 01/28/22: Baso % (Auto) 1.7 % 01/28/22 Neut # (Auto) 2.84 K/uL (1.4-6.5) 01/28/22: Lymph # (Auto) 0.49 K/uL (1.2-3.4) L 01/28/22: Citrus # (Auto) 0.55 K/uL (0.24-0.82) 01/28/22: Eos # (Auto) 0.15 K/uL (0-0.50) 01/28/22: Baso # (Auto) 0.07 K/uL (0-0.2) 01/28/22 Immature Gran # (Auto) 0.01 K/uL (0.00-0.02) 01/28/22: PT 15.5 Seconds (9.0-12.0) H 01/28/22: INR 1.5 (0.9-1.1) H 09/06/22 20:27 Sodium 138 mmol/L (136-145) 01/28/22 20:27 Potassium 3.9 mmol/L (3.5-5.1) 01/28/22 20: Chloride 107 mmol/L (98-107) 01/28/22 20: Carbon Dioxide 27 mmol/L (21-32) 01/28/22 20:27 Anion Gap 4 (3-11) 01/28/22 20: BUN 16 mg/dl (6-23) 01/28/22 20: Creatinine 0.93 mg/dl (0.6-1.4) 01/28/22 20: Est Cr Clr Drug Dosing 67.6 ml/min 01/28/22 20: Est GFR ( Amer) 87.1 ml/min 01/28/22 20: Est GFR (Non-Af Amer) 75.1 ml/min 01/28/22 20: BUN/Creatinine Ratio 17.2 (10-20) 01/28/22 20: Glucose 98 mg/dl (70-99(Fasting)) 01/28/22 20: Lactate 0.9 mmol/L (0.4-2.0) 01/28/22 20: Calcium 8.2 mg/dl (8.5-10.1) L 01/28/22: Magnesium 1.7 mg/dl (1.7-2.4) 01/28/22: Total Bilirubin 0.6 mg/dl (0.2-1.0) 01/28/22 20: AST 12 U/L (13-39) L 01/28/22 20: ALT 10 U/L (7-52) 01/28/22 20:27 Alkaline Phosphatase 72 U/L (34-104) 01/28/22 20: Total Creatine Kinase 86 U/L (30-223) 01/28/22 20: Troponin I High Sens 30.1 pg/ml (0-20) H 01/28/22 20: Total Protein 5.1 gm/dl (6.0-8.3) L 01/28/22 20: Albumin 3.5 gm/dl (3.4-5.0) 01/28/22 20: Globulin 1.6 gm/dl (2.5-4.0) L 01/28/22 20:27 Albumin/Globulin Ratio 2.2 (0.9-2) H 01/28/22 20:27 Procalcitonin < 0.05 ng/ml (0-0.5) 01/28/22 20:27 TSH 2.149 uIu/ml (0.300-4.500) 01/28/22 20:27 SARS-CoV-2, RNA, NAAT NEGATIVE (NEGATIVE) 01/28/22 Unknown Code Status & VTE Plan VTE Prophylaxis Plan VTE Prophylaxis will be ordered: Yes PG Care Time/CCT Total # of Minutes Spent Total Time Spent with Patient: Total time spent is greater than 50% in coordination of care (as documented) at patient's floor/unit and/or counseling patient: Coding Level of Care Code 88743 Initial Inpt Care Lvl 3 Diagnoses Fall W19.XXXA Encounter type: initial encounter Hypoxia R09.02 RLL pneumonia J18.9 Pneumonia type: due to unspecified organism Left leg swelling M79.89 Persistent atrial fibrillation I48.19 Hypercholesteremia E78.00 Plasmacytoma C90.30 (1) Fall Encounter type: initial encounter Qualified Code(s): W19.XXXA - Unspecified fall, initial encounter (2) RLL pneumonia Pneumonia type: due to unspecified organism Qualified Code(s): J18.9 - Pneumonia, unspecified organism
[2022-01-29] MEDS ORDERED: ACETAMINOPHEN 325 MG TAB PO PRN (03:49)
[2022-01-29] MEDS ORDERED: ONDANSETRON INJ 2 MG/ML 2 ML VIAL IV PRN (03:49)
[2022-01-29] MEDS ORDERED: PIPERACILLIN/TAZOBACTAM 3.375 GM in DEXTROSE 5% 100 ML IV ONE (04:30)
--- NOTE | 2022-01-29 05:11 | Surgery Consultation ---
Date of Consultation January 29, 2022 Assessment & Plan (1) Left leg swelling: Based on the patient's clinical history the patient may have a hematoma of his left lower extremity. It is noteworthy mention that the patient does take Plavix for history of atrial fibrillation. We therefore recommend proceeding as follows: Withhold Plavix for the present time if clinically able Follow serial hemoglobin and hematocrits with transfusion as needed if significant drop in these values are noted Monitor for signs and symptoms of compartment syndrome. At the present time the patient does not have any pallor of his left lower extremity. He is currently does not have any pain with active or passive range of motion. He does not have any numbness or decreased sensation at the present time. As noted his pulses are not palpable but are dopplerable. In addition, the patient is able to flex and plantarflex his foot. With hold on any attempt to drain this fluid collection in the setting of taking Plavix. (2) Inguinal hernia: There is mention of inguinal hernia containing bowel on patient's abdominal CT scan. At the present time the patient has no abdominal pain. He also denies any abdominal pain with palpation or palpation of his groins bilaterally. He also does not have any nausea or vomiting. Therefore, would clinically monitor this condition and consideration be given to repairing if it becomes bothersome to the patient. Supervising Physician Co-Signing Physician Notes Patient seen and examined, labs and imaging reviewed, agree with above. 86-year-old male admitted after fall, surgery consulted for distal left lower extremity hematoma versus abscess. Patient is on Plavix. Also noted to have incidentally found left inguinal hernia without evidence of obstruction. On exam afebrile stable vitals. Abdomen soft, nondistended, nontender. Reducible, barely palpable left inguinal hernia. Left lower extremity with edema and palpable likely hematoma in the medial left lower extremity. No intervention for the inguinal hernia as an inpatient. Can discuss as an outpatient. Regarding hematoma we would recommend orthopedic or vascular consult. In the meantime keep left lower extremity elevated, hold anticoagulation. General surgery will sign off, call with questions or concerns History of Present Illness Reason for Consultation: Left lower extremity fluid collection Attending Physician: Chandni Benavides, History of Present Illness This is an 86-year-old male who presented to the emergency department after an unwitnessed fall. Patient says that he was trying to sit in a chair and he s ubsequently lost his balance and fell. He cannot provide any other details but says that he does not believe he hit his head or lost consciousness. He does report some tenderness of the left lower extremity but specifically denies any headache. He denies any blurred or double vision. He denies any chest pain. He denies any shortness of breath. He denies any abdominal pain. He denies any nausea or vomiting. Patient was reportedly febrile and hypoxic with oxygen saturations in 80s upon arrival by EMS. Since arrival to the hospital the patient has had numerous labs and imaging which I independently reviewed. CT scan of the lumbar spine showed multiple lucent lesions at T12 as well as several lesions in the sacrum. A CT scan of the chest showed a mild right pleural effusion versus infiltrate. There are some old right-sided healed rib fractures. No sternal vertebral fractures were noted. There is no pneumothorax. A CT scan of the abdomen pelvis showed a 15 mm right adrenal nodule. There is also a left inguinal hernia containing bowel that was felt to be mildly obstructing by the interpreting radiologist. No free air or free intraperitoneal fluid was noted. A CT scan of the head showed no skull fractures or acute intracranial bleed. A CT scan of the cervical spine showed no fractures or subluxations. A left lower extremity venous Doppler was negative for DVT. There was a fluid collection measuring 14 x 7 x 3 cm in the left distal calf. Labs include a CBC her white blood cell count was 4.1. Hemoglobin and hematocrit were 28.9. (Review of labs show that this level of hemoglobin was approximately 4 g drop from values performed in December 2019; more recent labs for comparison are not available) platelet count was noted to be normal. His INR is noted to be 1.5. Chemistry profile showed sodium, potassium, BUN, and creatinine were normal. There is no significant elevation of LFTs. COVID test was negative. An EKG showed atrial fibrillation. There were no changes indicative of acute ischemia. At the time of my interview he was resting comfortably in bed. He was in no distress. Allergies Allergy/AdvReac Type Severity Reaction Status Date / Time animal dander Allergy Intermediate ASTHMATIC Verified 10/25/21 14:41 REACTION Home Medications Medication Instructions Recorded Confirmed Type acetaminophen 500 mg tablet 1,000 mg PO Q6H PRN Pain 11/20/20 01/29/22 History aspirin 81 mg tablet,delayed 81 mg PO DAILY 11/20/20 01/29/22 History release balsalazide 750 mg capsule 750 mg PO DAILY 11/20/20 01/29/22 History (Colazal) dabigatran etexilate 150 mg 150 mg PO BID 11/20/20 01/29/22 History capsule (Pradaxa) levothyroxine 88 mcg capsule 88 mcg PO DAILY 11/20/20 01/29/22 History lisinopril 2.5 mg tablet 2.5 mg PO DAILY 11/20/20 01/29/22 History simvastatin 10 mg tablet 10 mg PO DAILY 11/20/20 01/29/22 History tamsulosin 0.4 mg capsule 0.4 mg PO DAILY 11/20/20 01/29/22 History metoprolol succinate 25 mg 25 mg PO DAILY #90 tabs 08/05/21 01/29/22 Rx tablet,extended release 24 hr acyclovir 400 mg tablet 400 mg PO BID 01/29/22 01/29/22 History clonazepam 1 mg tablet 1 mg PO HS 01/29/22 01/29/22 History dexamethasone 4 mg tablet 20 mg PO WE 01/29/22 01/29/22 History lenalidomide 15 mg capsule 15 mg PO DIRECTED 01/29/22 01/29/22 History (Revlimid) pregabalin 75 mg capsule 75 mg PO HS 01/29/22 01/29/22 History sodium di- and 500 tab PO DAILY 01/29/22 01/29/22 History monophosphate-potassium phos monobasic 250 mg tablet (Phospha 250 Neutral) Patient History Medical History Cataract, left Cataract, right History of cardioversion Hypercholesteremia Hypertension Hypothyroid Malignant plasmacytoma Paroxysmal atrial fibrillation Surgical History History of appendectomy History of laparotomy Benign tumor removed from colon History of lumbosacral spine surgery Hx of tonsillectomy Family History Mother , Mother 89yo Dementia Natural with unknown cause Father , 64yo Myocardial infarction Heart disease Brother No problems noted. Son No problems noted. Daughter No problems noted. Social History Smoking Status: Never smoker Hx Alcohol Use: Yes Alcohol type: wine and hard liquor Alcohol type Comment: Occassional wine; Hx Substance Use: No Preferred Language: Uzbek Communication Ability: Effective Visual Impairment: No Limitations Hearing Ability: Hard of Hearing Power Saw Operator Required: No Beliefs That Will Affect Care: None marital status: Current Living Situation: Significant Other current occupational status: retired current occupation: [employer]; Other Information That Helps Us Care for You: No Feels Safe at Home: Yes Safety Concerns: Feels Safe At This Time caffeine: Yes (1 cup/day) during the past year weight has: remained stable Assistive Devices: Glasses, Hearing Aid - Bilateral and Walker Assistive Devices Comment: pt does not have hearing aids or glasses with him at this time Review of Systems Constitutional: + fever; no chills Eyes: no diplopia Ear, Nose, Mouth, Throat: no ear pain Respiratory: no cough and no dyspnea Cardiovascular: no chest pain Gastrointestinal: no abdominal pain, no nausea and no vomiting Genitourinary: no dysuria Musculoskeletal: no back pain Integumentary: no rash Neurologic: no localized weakness Physical Exam Constitutional: well developed and well nourished; no acute distress Eyes: no conjunctival abnormality ENMT: Ears: + hearing impairment; no external ear abnormality Mouth: no oropharynx abnormality Neck: No pain with palpation of his cervical spine Respiratory: normal respiratory effort; no respiratory distress and no labored breathing Cardiovascular: Rate/Rhythm: + irregularly irregular Gastrointestinal (Abdomen): Abdomen is soft, nondistended, nonrigid. There is no pain with palpation. There is no rebound tenderness or guarding. I do not appreciate any palpable masses in the groins consistent with hernia noted on CT scan. Musculoskeletal: The patient's left lower extremity was examined and was noted to be swollen compared to the right. The left lower extremity in the region of his calf was swollen and warm to touch with some erythema. There were no open areas or drainage. The patient did not have any pain with passive range of motion of his ankle. Both posterior tibial and dorsalis pedis pulses were not palpable however they were dopplerable. The patient did have intact sensation to sharp and light touch in his foot. Skin: no rashes Neurologic: The patient is alert and oriented x3. He is able to follow simple commands and move all 4 extremities without noted focal deficits Results & Data ([facility]) Vital Signs (Past 12 Hours) Vital Signs Temp Pulse Pulse Resp BP BP Pulse Ox 01/29/22 03:58 37.9 C H 72 103/63 94 01/29/22 03:51 01/29/22 02:01 75 17 112/76 99 01/28/22 23:00 85 12 134/87 90 01/28/22 22:21 72 21 137/66 95 01/28/22 21:00 67 23 127/68 94 01/28/22 20:18 66 10 L 95 01/28/22 21:16 93 01/28/22 20:14 38.0 C H 70 14 114/61 86 L O2 Del Method O2 Flow Rate 01/29/22 03:58 Nasal Cannula 3 01/29/22 03:51 Nasal Cannula 3 01/29/22 02:01 Nasal Cannula 4 01/28/22 23:00 Room Air 01/28/22 22:21 Room Air 01/28/22 21:00 Nasal Cannula 2 01/28/22 20:18 Nasal Cannula 2 01/28/22 21:16 Nasal Cannula 2 01/28/22 20:14 Room Air PG Care Time/CCT Total # of Minutes Spent Total Time Spent with Patient: Total time spent is greater than 50% in coordination of care (as documented) at patient's floor/unit and/or counseling patient: Coding Level of Care Code 44192 Inpt Consult Level 5 Diagnoses Left leg swelling M79.89 Inguinal hernia K40.90
[2022-01-29] MEDS: LEVOTHYROXINE SODIUM 88 MCG TABLET PO SCH (05:48)
[2022-01-29 07:01] LABS: Folate (Folic Acid) 10.91 ng/ml (>5.38)
--- NOTE | 2022-01-29 07:24 | CT Scan Report ---
CT OF THE CHEST WITHOUT IV CONTRAST CLINICAL HISTORY: Fall, hypoxia, fever. Multiple myeloma. COMPARISON STUDY: Chest radiograph August 21, 2017. Chest CT November 07, 2016. Treatment planning chest CT March 15, 2020. TECHNIQUE: Axial images of the chest were obtained without IV contrast. Images were reviewed in the axial, sagittal, and coronal planes. IV contrast was not administered for this examination. Automat ed exposure control was utilized for the study. A dose lowering technique was utilized adhering to t he principles of ALARA. FINDINGS: Thoracic aorta is suboptimally assessed on this unenhanced exam but there is no evidence f or traumatic injury. Dilatation of the ascending aorta, measuring 4.2 cm, is unchanged since CT [facility]2019. This extensive coronary artery calcification. There is cardiomegaly. No mediastinal h ematoma. No pericardial effusion. There are trace bilateral pleural effusions. No pneumothorax is pre sent. Lungs are suboptimally assessed due to respiratory motion. Mild interlobular septal thickening is noted. Minimal right middle lobe airspace opacity is present. There is no lobar consolidation. Josefa tral airways are patent. Numerous old bilateral rib fractures are noted. Several these fractures are healing. T12 lytic lesion is again noted. There is no acute thoracic spine fracture. Abdomen and pelv is CT will be reported separately. IMPRESSION: 1. No acute traumatic findings within the chest on unenhanced exam. 2. Numerous old bilateral rib fractures. Redemonstration of a lytic T12 lesion consistent with known history of myeloma. No acute thoracic spine fracture. 3. Trace bilateral pleural effusions. Mild interstitial edema. 4. Minimal right middle lobe airspace opacity. This may reflect an infectious bronchiolitis. ACT 112: Negative or not required by law. Electronically signed by: Ilir Patten M.D. 01/29/2022 7:23 AM
--- NOTE | 2022-01-29 07:35 | CT Scan Report ---
CERVICAL SPINE CT CT DOSE: 3527.81 mGy.cm HISTORY: fall TECHNIQUE: Multiaxial CT images of the cervical spine were performed and reformatted in the sagittal and coronal plane without the use of contrast. A dose lowering technique was utilized adhering to th e principles of ALARA. COMPARISON: Cervical spine MRI 08/28/2020. FINDINGS: No fractures. No subluxation. Prevertebral soft tissues and the C1-C2 interval are intact. No pneumothorax. Severe degenerative disc disease from C3 through C7. The right C2-C3 facets are fuse d. IMPRESSION: No fractures within the cervical spine. ACT 112: Negative or not required by law. Electronically signed by: Rk Pritchett M.D. 01/29/2022 7:34 AM
--- NOTE | 2022-01-29 07:36 | Ultrasound Report ---
LEFT LOWER EXTREMITY VENOUS DOPPLER CLINICAL HISTORY: swelling COMPARISON STUDY: No previous studies for comparison. TECHNIQUE: Sonography of the deep venous system of the left lower extremity was performed. Compressi on and augmentation were evaluated. FINDINGS: The left common femoral, superficial femoral and popliteal veins were compressible. Augmen tation was normal. Flow was shown within the deep calf vessels. Note is made of a complex fluid colle ction of the medial distal left calf that measures 14.1 x 2.6 x 7.3 cm. This contains no color flow a nd overlies the fascia. IMPRESSION: 1. No evidence of deep venous thrombus within the left lower extremity. 2. 14.1 x 2.6 x 7.3 cm complex fluid collection of the medial left calf. This is suggestive of a parmjit valarie. A follow-up ultrasound in 3 months to ensure resolution is recommended. ACT 112: Negative or not required by law. Electronically signed by: Ilir Patten M.D. 01/29/2022 7:34 AM
--- NOTE | 2022-01-29 07:41 | CT Scan Report ---
CT OF THE HEAD WITHOUT CONTRAST CLINICAL HISTORY: fall COMPARISON STUDY: Head CT August 11, 2017. TECHNIQUE: Helical axial images of the head were obtained without IV contrast. Automated exposure con trol was utilized for the study. A dose lowering technique was utilized adhering to the principles o f ALARA. FINDINGS: No acute intracranial hemorrhage, midline shift or mass effect is present. The ventricular system is stable. White matter hypodensity suggests small vessel disease. The basal cisterns are dean nt. No extra-axial collections are present. There are no findings to suggest acute dural sinus thromb osis or acute territorial infarct. No significant calvarial abnormalities are present. Visualized por tions of the sinuses and mastoid air cells are clear. IMPRESSION: 1. No acute intracranial findings. 2. No acute calvarial fracture. ACT 112: Negative or not required by law. Electronically signed by: Ilir Patten M.D. 01/29/2022 7:39 AM
--- NOTE | 2022-01-29 07:46 | CT Scan Report ---
LUMBAR SPINE CT CT DOSE: HISTORY: fall, back pain. History of myeloma in back TECHNIQUE: Multiaxial CT images of the lumbar spine were performed and reformatted in the sagittal an d coronal plane without the use of contrast. A dose lowering technique was utilized adhering to the principles of ALARA. COMPARISON: CT lumbar spine 07/31/2020. FINDINGS: Severe compression deformity at S1 which has slightly progressed in the interval. This favo rs a chronic fracture. There is grade 2 anterolisthesis of L5 on S1, unchanged. Severe disc space jimmy rowing at L2-L3 which has progressed. There is posterior fusion with pedicle screws and rods from L3 through S2. Bilateral sacroiliac bolts are also noted. There is periprosthetic lucency within the ped icle screws at L3, L4, S2, and the sacroiliac bolts. This is similar to the prior study and favors lo osening. Infection could also a similar appearance but is considered less likely given the stability. Mixed lytic and sclerotic lesions at the residual S1 vertebral body and the sacrum again noted. No d efinite acute fractures within the lumbar spine. Trace right pleural effusion. A right adrenal gland nodule is again noted. Lucent lesion at T12 is also unchanged. IMPRESSION: 1. Mixed lytic and sclerotic lesions within the lumbar spine and sacrum again noted consistent the malcolm luna's history of multiple myeloma. 2. Progressive severe compression deformity at S1 which is likely chronic. 3. Severe disc space narrowing at L2-L3 has also progressed. 4. Postoperative changes as described above with persistent periprosthetic lucency suggestive of loos ening. Infection could also have a similar appearance but is considered less likely. ACT 112: Negative or not required by law. Electronically signed by: Rk Pritchett M.D. 01/29/2022 7:45 AM
--- NOTE | 2022-01-29 08:53 | CT Scan Report ---
ABDOMEN AND PELVIS CT WITHOUT CONTRAST CT DOSE: HISTORY: fall, fever TECHNIQUE: Multiaxial CT images of the abdomen and pelvis were performed without contrast. A dose lo wering technique was utilized adhering to the principles of ALARA. COMPARISON STUDY: Abdomen and pelvis CT 11/07/2016. FINDINGS: Trace bilateral pleural effusions with mild interstitial thickening at the lung bases. This is better appreciated on the same day chest CT. No pneumoperitoneum. No pneumatosis. 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 The mixed lytic and sclerotic lesions within the sacrum an d T12 bodies are again noted with posterior fusion hardware within the lumbar sacral spine. This is b joanna appreciated on the same day lumbar spine CT. There are old, healed bilateral rib fractures. The heart remains mildly enlarged. Small fat-containing ventral hernias remain unchanged. Small left ing uinal hernia containing a short segment of small bowel. There is suboptimal evaluation for bowel path ology due to the lack of intravenous and oral contrast. However, there is no definite bowel wall thic kening or obstruction. Colonic diverticulosis. No evidence for acute diverticulitis. Prior sigmoid an astomosis is noted. The bladder is partially obscured by metallic artifact but appears unremarkable. No retroperitoneal lymphadenopathy. Calcified plaque within the mildly ectatic abdominal aorta and il iac arteries. The unenhanced liver, gallbladder, spleen, left adrenal gland unremarkable. Stable 1 cm right adrenal gland nodule. Left renal hypodense lesions which likely represent cysts. There is mild fullness within the left renal collecting system without salima hydronephrosis. No ureteral stones id entified. Of note, the distal left ureter is partially obscured by the metallic artifact. No right-si ded hydronephrosis. Fatty replacement of the pancreatic head. There is a 2.2 cm cystic lesion at the uncinate process of the pancreas best seen on image 148. IMPRESSION: 1. Mild fullness within the left renal collecting system without salima hydronephrosis. No ureteral st ones identified. Of note, the distal left ureter is obscured by the metallic artifact from the bilate ral total hip arthroplasties. 2. Small left inguinal hernia containing a short segment of small bowel. However, no evidence for bow el obstruction at this time. 3. Colonic diverticulosis. No evidence for acute diverticulitis. 4. Please refer to the same day lumbar spine CT for further evaluation. 5. A 2.2 cm cystic lesion within the uncinate process of the pancreas. This is nonspecific but could represent a serous cystadenoma or side branch intraductal papillary mucinous neoplasm. 6. Additional findings as described above. ACT 112: Negative or not required by law. Electronically signed by: Rk Pritchett M.D. 01/29/2022 8:50 AM
[2022-01-29] MEDS: POT PHOSPHATE MONOBASIC W/ SOD TAB PO SCH (08:57)
[2022-01-29] MEDS: ACYCLOVIR 400 MG TAB PO SCH ×2 (08:57→20:17)
[2022-01-29] MEDS: ASPIRIN 81 MG ECTAB PO SCH (08:57)
[2022-01-29] MEDS: lisinopril 2.5 MG TAB PO SCH (08:57)
[2022-01-29] MEDS: METOPROLOL SUCC 25MG EXT REL TAB PO SCH (08:57)
[2022-01-29] MEDS: TAMSULOSIN HCL 0.4 MG CAP PO SCH (08:57)
[2022-01-29] MEDS: SIMVASTATIN 10 MG TAB PO SCH (08:57)
[2022-01-29] MEDS: ACETAMINOPHEN 500 MG TAB PO PRN ×2 (08:59→17:14)
[2022-01-29] MEDS ORDERED: DABIGATRAN ETEXILATE 75 MG CAP PO SCH (09:00)
[2022-01-29 10:57] LABS: Basophils # (auto) 0.08 K/uL (0-0.2); Basophils % (auto) 1.2 %; Eosinophils # (auto) 0.02 K/uL (0-0.50); Eosinophils % (auto) 0.3 %; Hemoglobin 10.5 g/dl (14.0-18.0); Immature Granulocytes # (auto) 0.05 K/uL (0.00-0.02); Immature Granulocytes % (auto) 0.7 %; Lymphocytes # (auto) 0.63 K/uL (1.2-3.4); Lymphocytes % (auto) 9.4 %; Mean Corpuscular Hgb Conc 30.9 g/dL (32.0-36.0); Mean Corpuscular Volume 100.3 fL (80.0-100.0); Mean Platelet Volume 10.9 fL (9.4-12.4); Monocytes # (auto) 0.89 K/uL (0.24-0.82); Monocytes % (auto) 13.3 %; Neutrophils % (auto) 75.1 %; Platelet Count 183 K/uL (130-400); RDW Coefficient of Variation 16.6 % (11.5-14.5); RDW Standard Deviation 61.5 fL (36.4-46.3); Red Blood Count 3.39 M/uL (4.63-6.08); White Blood Count 6.67 K/ul (4.8-10.8)
[2022-01-29 11:34] LABS: BUN Creatinine Ratio 14.7 (10-20); Calcium 8.4 mg/dl (8.5-10.1); Creatinine Clr Calc Pharmacy 60.7 ml/min; Est GFR (African American) 77.9 ml/min; Est GFR (Non-African American) 67.2 ml/min; Potassium 4.3 mmol/L (3.5-5.1)
[2022-01-29] MEDS: PIPERACILLIN/TAZOBACTAM 3.375 GM in DEXTROSE 5% 100 ML IV SCH ×2 (11:46→20:22)
--- NOTE | 2022-01-29 17:22 | Communication Note ---
Date of Service: January 29, 2022 Patient was seen and examined however admitted the same day therefore will not be billing for this encounter. Orientated to self, year, month unaware he is in hospital although did not know the name of the hospital. He is unable to tell me why he is here. No answer on contacts phone numbers provided. Fever last night and today consistent with RLL pneumonia +/- hematoma. Will have SLT assessment due to RLL PNA. Add doxycycline for atypical coverage. Dabigatran placed on hold due to hematoma.
--- NOTE | 2022-01-29 17:48 | Electrocardiogram Report ---
Test Reason : Blood Pressure : / mmHG Vent. Rate : 073 BPM Atrial Rate : 073 BPM P-R Int : 000 ms QRS Dur : 098 ms QT Int : 392 ms P-R-T Axes : 000 003 051 degrees QTc Int : 431 ms Atrial fibrillation Abnormal ECG When compared with ECG of 17-DEC-2016 09:29, Atrial fibrillation has replaced Sinus rhythm ST no longer depressed in Inferior leads Confirmed by Gabriel Kay ([id number]) on 01/29/2022 5:48:01 PM Referred By: REFERRED SELF Confirmed By:Kerwin Kay
[2022-01-29 18:24] LABS: INR 1.4 (0.9-1.1); Partial Thromboplastin Ratio 1.6; Partial Thromboplastin Time 44.4 Seconds (21.0-31.0); Prothrombin Time 14.9 Seconds (9.0-12.0)
[2022-01-29] MEDS: DOXYCYCLINE HYCLATE 100 MG CAP PO SCH (20:02)
[2022-01-29] MEDS: clonazePAM 1 MG TAB PO SCH (20:21)
[2022-01-29] MEDS: PREGABALIN 75 MG CAP PO SCH (20:21)
[2022-01-29] MEDS: CYANOCOBALAMIN 1000 MCG/ML VIAL IM SCH (21:09)
[2022-01-30] MEDS: PIPERACILLIN/TAZOBACTAM 3.375 GM in DEXTROSE 5% 100 ML IV SCH ×3 (02:53→17:23)
[2022-01-30] MEDS: LEVOTHYROXINE SODIUM 88 MCG TABLET PO SCH (05:33)
[2022-01-30 06:42] LABS: Basophils # (auto) 0.05 K/uL (0-0.2); Basophils % (auto) 1.1 %; Eosinophils # (auto) 0.02 K/uL (0-0.50); Eosinophils % (auto) 0.4 %; Hematocrit (blood only) 27.8 % (40.1-51.0); Hemoglobin 8.9 g/dl (14.0-18.0); Immature Granulocytes # (auto) 0.04 K/uL (0.00-0.02); Immature Granulocytes % (auto) 0.9 %; Lymphocytes # (auto) 0.44 K/uL (1.2-3.4); Lymphocytes % (auto) 9.5 %; Mean Corpuscular Hemoglobin 31.2 pg (25.0-34.0); Mean Corpuscular Volume 97.5 fL (80.0-100.0); Mean Platelet Volume 10.8 fL (9.4-12.4); Monocytes # (auto) 0.73 K/uL (0.24-0.82); Monocytes % (auto) 15.8 %; Neutrophils # (auto) 3.33 K/uL (1.4-6.5); Neutrophils % (auto) 72.3 %; Platelet Count 151 K/uL (130-400); RDW Coefficient of Variation 16.4 % (11.5-14.5); RDW Standard Deviation 59.7 fL (36.4-46.3); Red Blood Count 2.85 M/uL (4.63-6.08); White Blood Count 4.61 K/ul (4.8-10.8)
[2022-01-30] MEDS: ACETAMINOPHEN 500 MG TAB PO PRN ×2 (06:43→16:13)
[2022-01-30 07:08] LABS: BUN Creatinine Ratio 17.9 (10-20); Calcium 7.6 mg/dl (8.5-10.1); Est GFR (African American) 74.3 ml/min; Est GFR (Non-African American) 64.1 ml/min; Potassium 3.7 mmol/L (3.5-5.1)
[2022-01-30] MEDS: lisinopril 2.5 MG TAB PO SCH (07:59)
[2022-01-30] MEDS: SIMVASTATIN 10 MG TAB PO SCH (07:59)
[2022-01-30] MEDS: TAMSULOSIN HCL 0.4 MG CAP PO SCH (07:59)
[2022-01-30] MEDS: METOPROLOL SUCC 25MG EXT REL TAB PO SCH (07:59)
[2022-01-30] MEDS: ASPIRIN 81 MG ECTAB PO SCH (07:59)
[2022-01-30] MEDS: ACYCLOVIR 400 MG TAB PO SCH ×2 (07:59→20:18)
[2022-01-30] MEDS: POT PHOSPHATE MONOBASIC W/ SOD TAB PO SCH (07:59)
[2022-01-30] MEDS: DOXYCYCLINE HYCLATE 100 MG CAP PO SCH ×2 (07:59→20:22)
[2022-01-30] MEDS: CYANOCOBALAMIN 1000 MCG/ML VIAL IM SCH (13:05)
[2022-01-30] MEDS ORDERED: traMADol HCL 50 MG TABLET PO STA (17:36)
[2022-01-30] MEDS: clonazePAM 1 MG TAB PO SCH (20:25)
[2022-01-30] MEDS: PREGABALIN 75 MG CAP PO SCH (20:26)
--- NOTE | 2022-01-30 21:37 | Hospitalist Progress Note ---
Date of Service January 30, 2022 Assessment & Plan (1) Fall: Plan: 86[place]. Patient had a second fall in the ER while trying to get up by himself to the bathroom. No LOC or head trauma. No complaint of focal pain -Fall precautions -PT/OT evaluation appreciate input (2) Hypoxia: Plan: Possibly secondary to developing PNA -Follow culture -patient continues to have fever, will continue antibitoics as stated below. -Continue Zosyn and Doxycycline (3) RLL pneumonia: Plan: As above -Continue Zosyn and Doxycycline -Tylenol PRN -Check MRSA nares -Supplemental O2 as needed currently on room air. (4) Left leg swelling: Plan: With complex fluid collection noted on US. ?Hematoma vs abscess -Monitor CBC -Zosyn -General Surgery consultation appreciated (5) Persistent atrial fibrillation: Plan: Rate controlled -Continue Metoprolol -hold home Pradaxa (6) Hypercholesteremia: Plan: Chronic -Continue Simvastatin (7) Plasmacytoma: Plan: Continue Chemo Admission and Anticipated Discharge Date Admission Date: January 29, 2022 Subjective Patient reports no new symptoms. Review of Systems Review of Systems: All systems reviewed & are unremarkable except as noted in HPI & below Physical Exam Physical Exam: General: elderly male patient resting comfortably, NAD, non- toxic in appearance Skin: warm, dry, intact, redness on LLE HEENT: NC/AT, PERRL, EOMI, anicteric sclera, conjunctiva without injection, external ear normal to inspection and nontender, nares patent, moist mucus membranes, dentition intact, no oropharyngeal lesions, neck supple, trachea midline, no LAD, no thyromegaly, no JVD Heart: +S1/S2, regular, no m/r/g Lungs: equal air entry bilaterally, no rales/rhonchi/wheezes Abd: +BS, soft, NT/ND, no masses/organomegaly/ascites Ext: warm, 2+ pulses in UE/LE bilaterally, no clubbing/cyanosis, LLE warm, swollen and tender, no crepitus/bullae Neuro: nonfocal, speech intact, no facial droop, moving all extremities on command with equal strength 5/5 Results & Data Results & Data ([facility]) Vital Signs (Past 12 Hours) Vital Signs Temp Pulse Resp BP Pulse Ox O2 Del Method 01/30/22 19:40 Room Air 01/30/22 16:11 37.8 C H 01/30/22 14:35 36.5 C 68 16 117/62 91 Room Air PG Care Time/CCT Total # of Minutes Spent Total Time Spent with Patient: Total time spent is greater than 50% in coordination of care (as documented) at patient's floor/unit and/or counseling patient: Coding Level of Care Code 61834 Subseq Hosp Care Lvl 3 Diagnoses Fall W19.XXXA Encounter type: initial encounter Hypoxia R09.02 RLL pneumonia J18.9 Pneumonia type: due to unspecified organism Left leg swelling M79.89 Persistent atrial fibrillation I48.19 Hypercholesteremia E78.00 Plasmacytoma C90.30 (1) Fall Encounter type: initial encounter Qualified Code(s): W19.XXXA - Unspecified fall, initial encounter (2) RLL pneumonia Pneumonia type: due to unspecified organism Qualified Code(s): J18.9 - Pneumonia, unspecified organism
[2022-01-31] MEDS: PIPERACILLIN/TAZOBACTAM 3.375 GM in DEXTROSE 5% 100 ML IV SCH ×3 (01:41→18:01)
[2022-01-31] MEDS: LEVOTHYROXINE SODIUM 88 MCG TABLET PO SCH (05:28)
[2022-01-31 06:28] LABS: Hematocrit (blood only) 26.1 % (40.1-51.0); Hemoglobin 8.2 g/dl (14.0-18.0); Mean Corpuscular Hemoglobin 31.1 pg (25.0-34.0); Mean Corpuscular Hgb Conc 31.4 g/dL (32.0-36.0); Mean Corpuscular Volume 98.9 fL (80.0-100.0); Mean Platelet Volume 10.4 fL (9.4-12.4); Platelet Count 161 K/uL (130-400); RDW Standard Deviation 58.4 fL (36.4-46.3); Red Blood Count 2.64 M/uL (4.63-6.08); White Blood Count 5.07 K/ul (4.8-10.8)
[2022-01-31 07:05] LABS: BUN Creatinine Ratio 17.8 (10-20); Calcium 7.6 mg/dl (8.5-10.1); Creatinine Clr Calc Pharmacy 57.5 ml/min; Est GFR (African American) 73.5 ml/min; Est GFR (Non-African American) 63.4 ml/min; Potassium 3.6 mmol/L (3.5-5.1)
[2022-01-31] MEDS: ASPIRIN 81 MG ECTAB PO SCH (08:20)
[2022-01-31] MEDS: lisinopril 2.5 MG TAB PO SCH (08:20)
[2022-01-31] MEDS: SIMVASTATIN 10 MG TAB PO SCH (08:20)
[2022-01-31] MEDS: CYANOCOBALAMIN 1000 MCG/ML VIAL IM SCH (08:20)
[2022-01-31] MEDS: METOPROLOL SUCC 25MG EXT REL TAB PO SCH (08:20)
[2022-01-31] MEDS: TAMSULOSIN HCL 0.4 MG CAP PO SCH (08:21)
[2022-01-31] MEDS: DOXYCYCLINE HYCLATE 100 MG CAP PO SCH ×2 (08:21→20:08)
[2022-01-31] MEDS: ACYCLOVIR 400 MG TAB PO SCH ×2 (08:22→20:07)
[2022-01-31] MEDS: POT PHOSPHATE MONOBASIC W/ SOD TAB PO SCH (08:23)
--- NOTE | 2022-01-31 13:10 | Orthopedic Consultation ---
Date of Service January 31, 2022 Assessment & Plan (1) Left leg swelling: He does not seem to be having much pain in the left leg. His labs seem to be stable. His Plavix has been discontinued. He is currently on antibiotics for his pneumonia. He has been seen by physical therapy and is able to be weightbe aring as tolerated. I do not see any surgical indications at this time. I agree with the radiology reading of a hematoma of his left calf. It will resolve on its own. We can repeat the ultrasound in 3 months if necessary. I agree with the surgical consultation as well. We will treat this conservatively. If you have any further questions please feel free to contact me at [phone]. History of Present Illness Reason for Consultation: Left leg swelling . Requesting Physician: . Attending Physician: Wm Cuadra is a pleasant 86-year-old male who lives at the [facility]. He states he ambulates with a walker. He is a poor historian but he states he has been having swelling in his left leg and some discoloration for 6 weeks now. He does have a history of a recent fall that was unwitnessed at the [facility]. He came to the emergency room. He was found to have a pneumonia and is currently on antibiotics for that. Ultrasound of his left leg showed no DVT but did show a fluid collection posteriorly. His Plavix was discontinued. A surgical consultation was ordered yesterday and they examine the left leg did not feel any surgery was necessary. Orthopedics was consulted to evaluate and treat. . Allergies Allergy/AdvReac Type Severity Reaction Status Date / Time animal dander Allergy Intermediate ASTHMATIC Verified 10/25/21 14:41 REACTION Home Medications Medication Instructions Recorded Confirmed Type acetaminophen 500 mg tablet 1,000 mg PO Q6H PRN Pain 11/20/20 01/29/22 History aspirin 81 mg tablet,delayed 81 mg PO DAILY 11/20/20 01/29/22 History release balsalazide 750 mg capsule 750 mg PO DAILY 11/20/20 01/29/22 History (Colazal) dabigatran etexilate 150 mg 150 mg PO BID 11/20/20 01/29/22 History capsule (Pradaxa) levothyroxine 88 mcg capsule 88 mcg PO DAILY 11/20/20 01/29/22 History lisinopril 2.5 mg tablet 2.5 mg PO DAILY 11/20/20 01/29/22 History simvastatin 10 mg tablet 10 mg PO DAILY 11/20/20 01/29/22 History tamsulosin 0.4 mg capsule 0.4 mg PO DAILY 11/20/20 01/29/22 History metoprolol succinate 25 mg 25 mg PO DAILY #90 tabs 08/05/21 01/29/22 Rx tablet,extended release 24 hr acyclovir 400 mg tablet 400 mg PO BID 01/29/22 01/29/22 History clonazepam 1 mg tablet 1 mg PO HS 01/29/22 01/29/22 History dexamethasone 4 mg tablet 20 mg PO WE 01/29/22 01/29/22 History lenalidomide 15 mg capsule 15 mg PO DIRECTED 01/29/22 01/29/22 History (Revlimid) pregabalin 75 mg capsule 75 mg PO HS 01/29/22 01/29/22 History sodium di- and 500 tab PO DAILY 01/29/22 01/29/22 History monophosphate-potassium phos monobasic 250 mg tablet (Phospha 250 Neutral) Past Med/Surg History Medical History Cataract, left Cataract, right History of cardioversion Hypercholesteremia Hypertension Hypothyroid Malignant plasmacytoma Paroxysmal atrial fibrillation Surgical History History of appendectomy History of laparotomy Benign tumor removed from colon History of lumbosacral spine surgery Hx of tonsillectomy Family History Mother , Mother 89yo Dementia Natural with unknown cause Father , 64yo Myocardial infarction Heart disease Brother No problems noted. Son No problems noted. Daughter No problems noted. Social History Smoking Status: Never smoker Hx Alcohol Use: Yes Alcohol type: wine and hard liquor Alcohol type Comment: Occassional wine; Hx Substance Use: No Preferred Language: [place] Communication Ability: Effective Visual Impairment: No Limitations Hearing Ability: Hard of Hearing Insurance Commissioner Required: No Beliefs That Will Affect Care: None marital status: Life Partner Current Living Situation: Significant Other current occupational status: retired current occupation: [employer]; Other Information That Helps Us Care for You: No Feels Safe at Home: Yes Safety Concerns: Feels Safe At This Time caffeine: Yes (1 cup/day) during the past year weight has: remained stable Assistive Devices: Walker Assistive Devices Comment: pt does not have hearing aids or glasses with him at this time Review of Systems All systems reviewed & are unremarkable except as noted in HPI & below. Physical Exam On physical examination of the left leg, he has no signs of compartment syndrome. He has active motion of his left ankle. He does have some dependent edema and some discoloration of his left leg. It looks like it could be a cellulitis. He does not have much pain in the calf region. I do not see any significant induration. . Constitutional WD/WN, vitals as above Eyes PERRL, conjunctivae normal, anicteric sclerae ENMT external ear and nose normal, oropharynx normal Neck trachea midline, no thyromegaly Respiratory normal respiratory effort, lungs clear to auscultation Cardiovascular RRR, no murmur, no edema Gastrointestinal (Abdomen) normal bowel sounds, soft, nontender, no hepatosplenomegaly Skin no rashes, warm and dry Psychiatric A+Ox3, euthymic affect Results & Data Results & Data Laboratory Results . Diagnostic Findings Ultrasound the left leg did not show a 14 x 7 cm fluid collection in the left calf region. . PG Care Time/CCT Total # of Minutes Spent Total Time Spent with Patient: Total time spent is greater than 50% in coordination of care (as documented) at patient's floor/unit and/or counseling patient: Coding Level of Care Code None Diagnoses Left leg swelling M79.89
--- NOTE | 2022-01-31 17:27 | Hospitalist Progress Note ---
Date of Service January 31, 2022 Assessment & Plan (1) Fall: Plan: 86[place]. Patient had a second fall in the ER while trying to get up by himself to the bathroom. No LOC or head trauma. No complaint of focal pain -Fall precautions -PT/OT evaluation appreciate input Will discuss with family need for placement. (2) Hypoxia: Plan: Possibly secondary to developing PNA -Follow culture -patient continues to have fever, will continue antibiotics as stated below. -Continue Zosyn and Doxycycline (3) RLL pneumonia: Plan: As above -Continue Zosyn and Doxycycline -Tylenol PRN -fever on 01/30, will monitor for 24 hours. -Supplemental O2 as needed currently on room air. (4) Left leg swelling: Plan: With complex fluid collection noted on US. -Appears to be a hematoma, will need repeat imaging in 3 months -Monitor CBC -Zosyn -General Surgery consultation appreciated (5) Persistent atrial fibrillation: Plan: Rate controlled -Continue Metoprolol -hold home Pradaxa (6) Hypercholesteremia: Plan: Chronic -Continue Simvastatin (7) Plasmacytoma: Plan: Continue Chemo Admission and Anticipated Discharge Date Admission Date: January 29, 2022 Subjective 86 yo male reports no new symptoms today. Review of Systems Review of Systems: All systems reviewed & are unremarkable except as noted in HPI & below Physical Exam Physical Exam: General: elderly male patient resting comfortably, NAD, non- toxic in appearance Skin: warm, dry, intact, redness on LLE HEENT: NC/AT, PERRL, EOMI, anicteric sclera, conjunctiva without injection, external ear normal to inspection and nontender, nares patent, moist mucus membranes, dentition intact, no oropharyngeal lesions, neck supple, trachea midline, no LAD, no thyromegaly, no JVD Heart: +S1/S2, regular, no m/r/g Lungs: equal air entry bilaterally, no rales/rhonchi/wheezes Abd: +BS, soft, NT/ND, no masses/organomegaly/ascites Ext: warm, 2+ pulses in UE/LE bilaterally, no clubbing/cyanosis, LLE warm, swollen and tender, no crepitus/bullae Neuro: nonfocal, speech intact, no facial droop, moving all extremities on command with equal strength 5/5 Results & Data Results & Data ([facility]) Vital Signs (Past 12 Hours) Vital Signs Temp Pulse Resp BP BP Pulse Ox O2 Del Method 01/31/22 15:51 36.9 C 61 18 103/59 L 93 Room Air 01/31/22 08:00 Room Air 01/31/22 07:50 37.2 C 73 18 107/64 91 Room Air PG Care Time/CCT Total # of Minutes Spent Total Time Spent with Patient: Total time spent is greater than 50% in coordination of care (as documented) at patient's floor/unit and/or counseling patient: Coding Level of Care Code 68172 Subseq Hosp Care Lvl 2 Diagnoses Fall W19.XXXA Encounter type: initial encounter Hypoxia R09.02 RLL pneumonia J18.9 Pneumonia type: due to unspecified organism Left leg swelling M79.89 Persistent atrial fibrillation I48.19 Hypercholesteremia E78.00 Plasmacytoma C90.30 (1) RLL pneumonia Pneumonia type: due to unspecified organism Qualified Code(s): J18.9 - Pneumonia, unspecified organism (2) Fall Encounter type: initial encounter Qualified Code(s): W19.XXXA - Unspecified fall, initial encounter
[2022-01-31] MEDS: clonazePAM 1 MG TAB PO SCH (20:07)
[2022-01-31] MEDS: PREGABALIN 75 MG CAP PO SCH (20:07)
[2022-01-31] MEDS: ACETAMINOPHEN 500 MG TAB PO PRN (23:09)
[2022-02-01] MEDS: PIPERACILLIN/TAZOBACTAM 3.375 GM in DEXTROSE 5% 100 ML IV SCH ×3 (01:01→17:36)
[2022-02-01] MEDS: LEVOTHYROXINE SODIUM 88 MCG TABLET PO SCH (05:43)
[2022-02-01] MEDS: ASPIRIN 81 MG ECTAB PO SCH (08:04)
[2022-02-01] MEDS: SIMVASTATIN 10 MG TAB PO SCH (08:04)
[2022-02-01] MEDS: DOXYCYCLINE HYCLATE 100 MG CAP PO SCH ×2 (08:04→22:32)
[2022-02-01] MEDS: TAMSULOSIN HCL 0.4 MG CAP PO SCH (08:04)
[2022-02-01] MEDS: METOPROLOL SUCC 25MG EXT REL TAB PO SCH (08:04)
[2022-02-01] MEDS: ACYCLOVIR 400 MG TAB PO SCH ×2 (08:04→22:32)
[2022-02-01 08:05] LABS: Hematocrit (blood only) 28.3 % (40.1-51.0); Hemoglobin 8.6 g/dl (14.0-18.0); Mean Corpuscular Hemoglobin 30.2 pg (25.0-34.0); Mean Corpuscular Hgb Conc 30.4 g/dL (32.0-36.0); Mean Corpuscular Volume 99.3 fL (80.0-100.0); Mean Platelet Volume 10.8 fL (9.4-12.4); Platelet Count 167 K/uL (130-400); RDW Coefficient of Variation 15.9 % (11.5-14.5); RDW Standard Deviation 58.1 fL (36.4-46.3); Red Blood Count 2.85 M/uL (4.63-6.08); White Blood Count 3.54 K/ul (4.8-10.8)
[2022-02-01] MEDS: CYANOCOBALAMIN 1000 MCG/ML VIAL IM SCH (08:05)
[2022-02-01] MEDS: lisinopril 2.5 MG TAB PO SCH (08:05)
[2022-02-01 08:47] LABS: BUN Creatinine Ratio 15.7 (10-20); Calcium 8.1 mg/dl (8.5-10.1); Creatinine Clr Calc Pharmacy 69.1 ml/min; Est GFR (Non-African American) 78.5 ml/min; Potassium 3.8 mmol/L (3.5-5.1)
[2022-02-01] MEDS: POT PHOSPHATE MONOBASIC W/ SOD TAB PO SCH (13:23)
--- NOTE | 2022-02-01 17:39 | Hospitalist Progress Note ---
Date of Service February 01, 2022 Assessment & Plan (1) Fall: Plan: 86[place]. Patient had a second fall in the ER while trying to get up by himself to the bathroom. No LOC or head trauma. No complaint of focal pain -Fall precautions -PT/OT evaluation appreciate input Patient lacks capacity. D/W son who was able to convince patient to go to [facility] for rehab. His girlfriend Alice has significant dementia and she does not make medical decisions. (2) Hypoxia: Plan: Possibly secondary to developing PNA -Follow culture -patient continues to have fever, will continue antibiotics as stated below. -Continue Zosyn and Doxycycline (3) RLL pneumonia: Plan: As above -Continue Zosyn and Doxycycline -Tylenol PRN -fever on 01/30, will monitor for 24 hours. -Supplemental O2 as needed currently on room air. (4) Left leg swelling: Plan: With complex fluid collection noted on US. -Appears to be a hematoma, will need repeat imaging in 3 months -Monitor CBC -Zosyn -General Surgery consultation appreciated (5) Persistent atrial fibrillation: Plan: Rate controlled -Continue Metoprolol -hold home Pradaxa (6) Hypercholesteremia: Plan: Chronic -Continue Simvastatin (7) Plasmacytoma: Plan: Continue Chemo Admission and Anticipated Discharge Date Admission Date: January 29, 2022 Subjective Patient initially wanted to sign out AMA. However, patient lacks capacity. Review of Systems Review of Systems: All systems reviewed & are unremarkable except as noted in HPI & below Physical Exam Physical Exam: General: elderly male patient resting comfortably, NAD, non- toxic in appearance Skin: warm, dry, intact, redness on LLE HEENT: NC/AT, PERRL, EOMI, anicteric sclera, conjunctiva without injection, external ear normal to inspection and nontender, nares patent, moist mucus membranes, dentition intact, no oropharyngeal lesions, neck supple, trachea midline, no LAD, no thyromegaly, no JVD Heart: +S1/S2, regular, no m/r/g Lungs: equal air entry bilaterally, no rales/rhonchi/wheezes Abd: +BS, soft, NT/ND, no masses/organomegaly/ascites Ext: warm, 2+ pulses in UE/LE bilaterally, no clubbing/cyanosis, LLE warm, swollen and tender, no crepitus/bullae Neuro: nonfocal, speech intact, no facial droop, moving all extremities on command with equal strength 5/5 Results & Data Results & Data ([facility]) Vital Signs (Past 12 Hours) Vital Signs Temp Pulse Resp BP BP Pulse Ox O2 Del Method 02/01/22 08:00 Room Air 02/01/22 15:56 37.4 C 81 18 128/72 94 Room Air 02/01/22 08:01 36.5 C 61 16 113/73 94 Room Air PG Care Time/CCT Total # of Minutes Spent Total Time Spent with Patient: Total time spent is greater than 50% in coordination of care (as documented) at patient's floor/unit and/or counseling patient: Coding Level of Care Code 72071 Subseq Hosp Care Lvl 3 Diagnoses Fall W19.XXXA Encounter type: initial encounter Hypoxia R09.02 RLL pneumonia J18.9 Pneumonia type: due to unspecified organism Left leg swelling M79.89 Persistent atrial fibrillation I48.19 Hypercholesteremia E78.00 Plasmacytoma C90.30 Time Spent (min) 45 (1) RLL pneumonia Pneumonia type: due to unspecified organism Qualified Code(s): J18.9 - Pneumonia, unspecified organism (2) Fall Encounter type: initial encounter Qualified Code(s): W19.XXXA - Unspecified fall, initial encounter
[2022-02-01] MEDS: PREGABALIN 75 MG CAP PO SCH (20:54)
[2022-02-01] MEDS: clonazePAM 1 MG TAB PO SCH (20:54)
[2022-02-02] MEDS: PIPERACILLIN/TAZOBACTAM 3.375 GM in DEXTROSE 5% 100 ML IV SCH ×3 (02:05→17:25)
[2022-02-02 07:46] LABS: Hematocrit (blood only) 27.1 % (40.1-51.0); Hemoglobin 8.6 g/dl (14.0-18.0); Mean Corpuscular Hgb Conc 31.7 g/dL (32.0-36.0); Mean Corpuscular Volume 97.8 fL (80.0-100.0); Mean Platelet Volume 10.3 fL (9.4-12.4); Platelet Count 187 K/uL (130-400); RDW Coefficient of Variation 15.6 % (11.5-14.5); RDW Standard Deviation 56.1 fL (36.4-46.3); Red Blood Count 2.77 M/uL (4.63-6.08); White Blood Count 3.07 K/ul (4.8-10.8)
[2022-02-02] MEDS: ACYCLOVIR 400 MG TAB PO SCH ×2 (07:59→20:31)
[2022-02-02] MEDS: LEVOTHYROXINE SODIUM 88 MCG TABLET PO SCH (07:59)
[2022-02-02] MEDS: DOXYCYCLINE HYCLATE 100 MG CAP PO SCH ×2 (07:59→20:31)
[2022-02-02 08:12] LABS: BUN Creatinine Ratio 15.2 (10-20); Calcium 8.2 mg/dl (8.5-10.1); Creatinine Clr Calc Pharmacy 77.9 ml/min; Est GFR (African American) 95.6 ml/min; Est GFR (Non-African American) 82.5 ml/min; Potassium 3.8 mmol/L (3.5-5.1)
[2022-02-02] MEDS: METOPROLOL SUCC 25MG EXT REL TAB PO SCH (10:03)
[2022-02-02] MEDS: POT PHOSPHATE MONOBASIC W/ SOD TAB PO SCH (10:03)
[2022-02-02] MEDS: ASPIRIN 81 MG ECTAB PO SCH (10:03)
[2022-02-02] MEDS: lisinopril 2.5 MG TAB PO SCH (10:04)
[2022-02-02] MEDS: SIMVASTATIN 10 MG TAB PO SCH (10:04)
[2022-02-02] MEDS: TAMSULOSIN HCL 0.4 MG CAP PO SCH (10:04)
[2022-02-02] MEDS: clonazePAM 1 MG TAB PO SCH (20:30)
[2022-02-02] MEDS: PREGABALIN 75 MG CAP PO SCH (20:30)
--- NOTE | 2022-02-02 22:23 | Hospitalist Progress Note ---
Date of Service February 02, 2022 Assessment & Plan (1) Fall: Plan: 86[place]. Patient had a second fall in the ER while trying to get up by himself to the bathroom. No LOC or head trauma. No complaint of focal pain -Fall precautions -PT/OT evaluation appreciate input Patient lacks capacity. D/W son who was able to convince patient to go to [facility] for rehab. His girlfriend Alice has significant dementia and she does not make medical decisions. Patient had a fever on 02/02. will obtain imaging, and recheck blood work. (2) Hypoxia: Plan: Possibly secondary to developing PNA -Follow culture -patient continues to have fever, will continue antibiotics as stated below. -Continue Zosyn and Doxycycline (3) RLL pneumonia: Plan: As above -Continue Zosyn and Doxycycline -Tylenol PRN -fever on 01/30, will monitor for 24 hours. -Supplemental O2 as needed currently on room air. (4) Left leg swelling: Plan: With complex fluid collection noted on US. -Appears to be a hematoma, will need repeat imaging in 3 months -Monitor CBC -Zosyn -General Surgery consultation appreciated (5) Persistent atrial fibrillation: Plan: Rate controlled -Continue Metoprolol -hold home Pradaxa (6) Hypercholesteremia: Plan: Chronic -Continue Simvastatin (7) Plasmacytoma: Plan: Continue Chemo Admission and Anticipated Discharge Date Admission Date: January 29, 2022 Subjective Patient reports no new symptoms. Review of Systems Review of Systems: All systems reviewed & are unremarkable except as noted in HPI & below Physical Exam Physical Exam: General: elderly male patient resting comfortably, NAD, non- toxic in appearance Skin: warm, dry, intact, redness on LLE HEENT: NC/AT, PERRL, EOMI, anicteric sclera, conjunctiva without injection, external ear normal to inspection and nontender, nares patent, moist mucus membranes, dentition intact, no oropharyngeal lesions, neck supple, trachea midline, no LAD, no thyromegaly, no JVD Heart: +S1/S2, regular, no m/r/g Lungs: equal air entry bilaterally, no rales/rhonchi/wheezes Abd: +BS, soft, NT/ND, no masses/organomegaly/ascites Ext: warm, 2+ pulses in UE/LE bilaterally, no clubbing/cyanosis, LLE warm, swollen and tender, no crepitus/bullae Neuro: nonfocal, speech intact, no facial droop, moving all extremities on command with equal strength 5/5 Results & Data Results & Data ([facility]) Vital Signs (Past 12 Hours) Vital Signs Temp Pulse Resp BP Pulse Ox O2 Del Method 02/02/22 21:56 38.2 C H 99 H 20 133/88 90 Room Air 02/02/22 15:33 37.2 C 67 22 132/81 95 Room Air PG Care Time/CCT Total # of Minutes Spent Total Time Spent with Patient: Total time spent is greater than 50% in coordination of care (as documented) at patient's floor/unit and/or counseling patient: Coding Level of Care Code 18739 Subseq Hosp Care Lvl 2 Diagnoses Fall W19.XXXA Encounter type: initial encounter Hypoxia R09.02 RLL pneumonia J18.9 Pneumonia type: due to unspecified organism Left leg swelling M79.89 Persistent atrial fibrillation I48.19 Hypercholesteremia E78.00 Plasmacytoma C90.30 Time Spent (min) 25 (1) RLL pneumonia Pneumonia type: due to unspecified organism Qualified Code(s): J18.9 - Pneumonia, unspecified organism (2) Fall Encounter type: initial encounter Qualified Code(s): W19.XXXA - Unspecified fall, initial encounter
[2022-02-03] MEDS: PIPERACILLIN/TAZOBACTAM 3.375 GM in DEXTROSE 5% 100 ML IV SCH ×3 (02:11→17:31)
[2022-02-03] MEDS: LEVOTHYROXINE SODIUM 88 MCG TABLET PO SCH (05:32)
[2022-02-03] MEDS: POT PHOSPHATE MONOBASIC W/ SOD TAB PO SCH (10:27)
[2022-02-03] MEDS: SIMVASTATIN 10 MG TAB PO SCH (10:27)
[2022-02-03] MEDS: TAMSULOSIN HCL 0.4 MG CAP PO SCH (10:27)
[2022-02-03] MEDS: ASPIRIN 81 MG ECTAB PO SCH (10:28)
[2022-02-03] MEDS: DOXYCYCLINE HYCLATE 100 MG CAP PO SCH ×2 (10:28→20:21)
[2022-02-03] MEDS: METOPROLOL SUCC 25MG EXT REL TAB PO SCH (10:28)
[2022-02-03] MEDS: lisinopril 2.5 MG TAB PO SCH (10:28)
[2022-02-03] MEDS: ACYCLOVIR 400 MG TAB PO SCH ×2 (10:29→20:21)
[2022-02-03 12:16] LABS: Basophils # (auto) 0.06 K/uL (0-0.2); Basophils % (auto) 1.8 %; Eosinophils # (auto) 0.08 K/uL (0-0.50); Eosinophils % (auto) 2.4 %; Hematocrit (blood only) 28.6 % (40.1-51.0); Hemoglobin 8.8 g/dl (14.0-18.0); Immature Granulocytes # (auto) 0.01 K/uL (0.00-0.02); Immature Granulocytes % (auto) 0.3 %; Lymphocytes # (auto) 0.37 K/uL (1.2-3.4); Lymphocytes % (auto) 11.1 %; Mean Corpuscular Hemoglobin 29.9 pg (25.0-34.0); Mean Corpuscular Hgb Conc 30.8 g/dL (32.0-36.0); Mean Corpuscular Volume 97.3 fL (80.0-100.0); Mean Platelet Volume 9.5 fL (9.4-12.4); Neutrophils # (auto) 2.22 K/uL (1.4-6.5); Neutrophils % (auto) 66.4 %; Platelet Count 206 K/uL (130-400); RDW Coefficient of Variation 15.6 % (11.5-14.5); RDW Standard Deviation 55.5 fL (36.4-46.3); Red Blood Count 2.94 M/uL (4.63-6.08); White Blood Count 3.34 K/ul (4.8-10.8)
[2022-02-03 12:39] LABS: BUN Creatinine Ratio 14.1 (10-20); Calcium 8.5 mg/dl (8.5-10.1); Creatinine Clr Calc Pharmacy 72.4 ml/min; Est GFR (African American) 92.7 ml/min; Potassium 3.9 mmol/L (3.5-5.1)
[2022-02-03] MEDS ORDERED: OPTIRAY 300 100mL IV ONE (13:24)
--- NOTE | 2022-02-03 15:04 | CT Scan Report ---
CT chest diagnostic w con CLINICAL HISTORY: unknown fever TECHNIQUE: Multidetector row helical CT of the chest was performed with intravenous contrast. Coronal and sagittal reformations were obtained. Automated dose lowering techniques and/or adjustment accord ing to patient size were utilized for this exam. CT DOSE: 842.44 mGy.cm Comparison: Comparison is made to CT chest 01/28/2022 FINDINGS: Lungs and pleura: Exam is limited by patient motion. There is interval development of small bilateral pleural effusions with underlying atelectasis. There is a rounded density in the left lung base fransisca uring 30 mm likely represent a focus of atelectasis rather than a true nodule, this was not seen on p rior exam. Biapical scarring is seen. A few punctate pulmonary nodules are unchanged from prior exam. A cluster of calcified nodules in the right middle lobe is unchanged from prior exam. Heart and pericardium: Cardiomegaly is seen with biatrial enlargement. Vessels: Severe atherosclerotic changes in the aorta and coronary arteries. The ascending aorta measu res 41 mm in diameter. Mediastinum and howie: Unremarkable. No lymphadenopathy is seen. Chest wall and lower neck: Unremarkable. Abdomen: A hiatal hernia is seen. The gallbladder is contracted. A lipid rich adenoma is seen in the right adrenal gland. Bones: Degenerative changes of the thoracic spine. Old healed rib fractures are seen. Lucency in the T12 vertebral bodies compatible with history of myeloma. IMPRESSION: 1. Interval development of small bilateral pleural effusions with associated atelectasis. No evidenc e of pneumonia is seen. 2. Cardiomegaly. Previously noted interlobular septal thickening is no longer seen, compatible with improvement in pulmonary edema. 3. Cluster of calcified nodules in the right middle lobe is unchanged from prior exam, nonspecific b ut may represent old granulomatous disease with or without superimposed infectious/inflammatory proce ss. 4. Additional findings as above. ACT 112: Negative or not required by law. Electronically signed by: Marty Huddleston M.D. 02/03/2022 3:02 PM
--- NOTE | 2022-02-03 16:20 | CT Scan Report ---
ABDOMEN AND PELVIS CT WITH IV CONTRAST CT DOSE: HISTORY: Diarrhea. Weakness. unknown fever TECHNIQUE: Multiaxial CT images of the abdomen and pelvis were performed following the use of intrave nous contrast. A dose lowering technique was utilized adhering to the principles of ALARA. COMPARISON STUDY: Abdomen and pelvis CT 01/28/2022. FINDINGS: Suboptimal evaluation of the abdomen and pelvis due to the metallic artifact within the lum bar sacral spine and bilateral total hip arthroplasties. Small bilateral pleural effusions and a smal l pericardial effusion have slightly progressed in the interval. The heart is mildly enlarged. Marquez ry artery calcifications are again noted. Patchy bibasilar densities within the bilateral lower lobes favor subsegmental atelectasis. A pneumonia could also have a similar appearance in the appropriate clinical setting. No pneumoperitoneum. No pneumatosis. No change in the scattered lucent lesions with in the left inferior pubic ramus, sacrum, and T12 vertebral body. No new osseous lesions identified. There are old, healed left-sided rib fractures. Extensive posterior fusion seen within the lumbar sac ral spine. There is associated periprosthetic lucency within the pedicle screws and sacroiliac bolts. This is also unchanged. Fat-containing midline ventral hernias remain unchanged. There is a small fa t-containing left inguinal hernia. The bladder is unremarkable. Colonic diverticulosis. No evidence f or acute diverticulitis. No bowel wall thickening or obstruction. The gallbladder is decompressed. Th e liver and left adrenal gland unremarkable. Stable 11 mm right adrenal gland nodule. Stable 2.2 cm c ystic lesion at the uncinate process of the pancreas. No hydronephrosis. Stable left renal cyst. Ther e is a 1.1 cm hypodense lesion within the inferior aspect of the spleen. This is likely stable compar ed to prior studies. The main portal vein is patent. Calcified plaque within the ectatic abdominal ao rta measuring up to 2.9 cm in diameter. IMPRESSION: 1. Small bilateral pleural effusions and a small pericardial effusion which have slightly increased i n size. 2. Patchy bibasilar densities are nonspecific but favor atelectasis. A pneumonia could also have a si milar appearance in the appropriate clinical setting. 3. No bowel wall thickening or obstruction. 4. Colonic diverticulosis. No evidence for acute diverticulitis. 5. Lytic lesions at T12 and within the sacrum remain unchanged. This is likely consistent with the pa jeremy's known history of multiple myeloma. 6. Redemonstration of a periprosthetic lucency within the lumbosacral posterior fusion hardware. This could be due to loosening. Underlying infection would be difficult to exclude. 7. Additional findings as described above. ACT 112: Negative or not required by law. Electronically signed by: Rk Pritchett M.D. 02/03/2022 4:19 PM
[2022-02-03] MEDS: clonazePAM 1 MG TAB PO SCH (20:21)
[2022-02-03] MEDS: PREGABALIN 75 MG CAP PO SCH (20:21)
--- NOTE | 2022-02-03 22:11 | Hospitalist Progress Note ---
Date of Service February 03, 2022 Assessment & Plan (1) Fall: Plan: 86[place]. Patient had a second fall in the ER while trying to get up by himself to the bathroom. No LOC or head trauma. No complaint of focal pain -Fall precautions -PT/OT evaluation appreciate input Patient lacks capacity. D/W son who was able to convince patient to go to [facility] for rehab. His girlfriend Alice has significant dementia and she does not make medical decisions. Patient had a fever on 02/02. will obtain imaging, and recheck blood work on 02/03 fever likely from atelectasis. (2) Hypoxia: Plan: Possibly secondary to developing PNA -Follow culture -patient continues to have fever, will continue antibiotics as stated below. -Continue Zosyn and Doxycycline (3) RLL pneumonia: Plan: As above -Continue Zosyn and Doxycycline -Tylenol PRN -fever on 01/30, will monitor for 24 hours. -Supplemental O2 as needed currently on room air. (4) Left leg swelling: Plan: With complex fluid collection noted on US. -Appears to be a hematoma, will need repeat imaging in 3 months -Monitor CBC -Zosyn -General Surgery consultation appreciated (5) Persistent atrial fibrillation: Plan: Rate controlled -Continue Metoprolol -hold home Pradaxa (6) Hypercholesteremia: Plan: Chronic -Continue Simvastatin (7) Plasmacytoma: Plan: Continue Chemo Admission and Anticipated Discharge Date Admission Date: January 29, 2022 Subjective Patient doing well. Poor historian. He did have a fever overnight. Review of Systems Review of Systems: All systems reviewed & are unremarkable except as noted in HPI & below Physical Exam Physical Exam: General: elderly male patient resting comfortably, NAD, non- toxic in appearance Skin: warm, dry, intact, redness on LLE HEENT: NC/AT, PERRL, EOMI, anicteric sclera, conjunctiva without injection, external ear normal to inspection and nontender, nares patent, moist mucus membranes, dentition intact, no oropharyngeal lesions, neck supple, trachea midline, no LAD, no thyromegaly, no JVD Heart: +S1/S2, regular, no m/r/g Lungs: equal air entry bilaterally, no rales/rhonchi/wheezes Abd: +BS, soft, NT/ND, no masses/organomegaly/ascites Ext: warm, 2+ pulses in UE/LE bilaterally, no clubbing/cyanosis, LLE warm, swollen and tender, no crepitus/bullae Neuro: nonfocal, speech intact, no facial droop, moving all extremities on command with equal strength 5/5 Results & Data Results & Data ([facility]) Vital Signs (Past 12 Hours) Vital Signs Temp Pulse Resp BP Pulse Ox O2 Del Method 02/03/22 15:22 36.7 C 65 16 122/72 97 Room Air PG Care Time/CCT Total # of Minutes Spent Total Time Spent with Patient: Total time spent is greater than 50% in coordination of care (as documented) at patient's floor/unit and/or counseling patient: Coding Level of Care Code 12155 Subseq Hosp Care Lvl 2 Diagnoses Fall W19.XXXA Encounter type: initial encounter Hypoxia R09.02 RLL pneumonia J18.9 Pneumonia type: due to unspecified organism Left leg swelling M79.89 Persistent atrial fibrillation I48.19 Hypercholesteremia E78.00 Plasmacytoma C90.30 Time Spent (min) 25 (1) RLL pneumonia Pneumonia type: due to unspecified organism Qualified Code(s): J18.9 - Pneumonia, unspecified organism (2) Fall Encounter type: initial encounter Qualified Code(s): W19.XXXA - Unspecified fall, initial encounter
[2022-02-03 23:14] VITALS: TEMP 98.2
[2022-02-04] MEDS: PIPERACILLIN/TAZOBACTAM 3.375 GM in DEXTROSE 5% 100 ML IV SCH ×2 (01:35→10:07)
[2022-02-04] MEDS: LEVOTHYROXINE SODIUM 88 MCG TABLET PO SCH (06:02)
[2022-02-04 07:45] LABS: Hematocrit (blood only) 29.5 % (40.1-51.0); Hemoglobin 9.2 g/dl (14.0-18.0); Mean Corpuscular Hgb Conc 31.2 g/dL (32.0-36.0); Mean Corpuscular Volume 96.1 fL (80.0-100.0); Mean Platelet Volume 10.3 fL (9.4-12.4); Platelet Count 233 K/uL (130-400); RDW Coefficient of Variation 15.5 % (11.5-14.5); RDW Standard Deviation 54.9 fL (36.4-46.3); Red Blood Count 3.07 M/uL (4.63-6.08)
[2022-02-04 07:47] VITALS: PULSE 66; O2SAT 94
[2022-02-04 08:09] LABS: BUN Creatinine Ratio 15.7 (10-20); Calcium 8.6 mg/dl (8.5-10.1); Creatinine Clr Calc Pharmacy 74.1 ml/min; Est GFR (African American) 93.6 ml/min; Est GFR (Non-African American) 80.8 ml/min; Potassium 3.8 mmol/L (3.5-5.1)
[2022-02-04] MEDS: METOPROLOL SUCC 25MG EXT REL TAB PO SCH (08:30)
[2022-02-04] MEDS: DOXYCYCLINE HYCLATE 100 MG CAP PO SCH (08:30)
[2022-02-04] MEDS: ACYCLOVIR 400 MG TAB PO SCH (08:30)
[2022-02-04] MEDS: lisinopril 2.5 MG TAB PO SCH (08:30)
[2022-02-04] MEDS: ASPIRIN 81 MG ECTAB PO SCH (08:30)
[2022-02-04] MEDS: TAMSULOSIN HCL 0.4 MG CAP PO SCH (08:31)
[2022-02-04] MEDS: POT PHOSPHATE MONOBASIC W/ SOD TAB PO SCH (08:31)
[2022-02-04] MEDS: SIMVASTATIN 10 MG TAB PO SCH (08:31)
[2022-02-04 13:21] VITALS: BP 103/62
--- NOTE | 2022-02-04 13:22 | Discharge Summary ---
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 Patient reports he was trying to sit in a chair and missed and ended up falling to the floor. He denies head trauma or LOC. No chest pain, palpitations, dizziness or incontinence. He does have some chronic swelling of his LLE, now with some tenderness. Otherwise, he has no complaints. Patient was febrile and hypoxic to the 80's by EMS. Has diarrhea for the last several weeks. Principal Diagnosis possible aspiration pneumonia Discharge Exam General: elderly male patient resting comfortably, NAD, non-toxic in appearance Skin: warm, dry, intact, redness on LLE HEENT: NC/AT, PERRL, EOMI, anicteric sclera, conjunctiva without injection, external ear normal to inspection and nontender, nares patent, moist mucus membranes, dentition intact, no oropharyngeal lesions, neck supple, trachea midline, no LAD, no thyromegaly, no JVD Heart: +S1/S2, regular, no m/r/g Lungs: equal air entry bilaterally, no rales/rhonchi/wheezes Abd: +BS, soft, NT/ND, no masses/organomegaly/ascites Ext: warm, 2+ pulses in UE/LE bilaterally, no clubbing/cyanosis, LLE warm, swollen and tender, no crepitus/bullae Neuro: nonfocal, speech intact, no facial droop, moving all extremities on command with equal strength 5/5 Discharge Data Allergies Allergy/AdvReac Type Severity Reaction Status Date / Time animal dander Allergy Intermediate ASTHMATIC Verified 10/25/21 14:41 REACTION Consultations 01/29/22 01:01 ED Decision to Admit Stat 01/29/22 03:49 Consult General Surgery Routine 01/31/22 12:19 Consult Orthopedic Surgery Routine Ordered Studies 01/28/22 21:16 CT abd pelvis wo con Urgent CT chest diagnostic wo con Urgent CT head/brain wo con Urgent 01/28/22 21:19 US venous doppler LE LT Urgent 01/28/22 21:27 CT cervical spine wo con Urgent CT lumbar spine wo con Urgent 02/03/22 11:43 CT abd pelvis IV con only Routine CT chest with contrast [CT chest diagnostic w con] Routine Hospital Course (1) Fall: 86[place]. Patient had a second fall in the ER while trying to get up by himself to the bathroom. No LOC or head trauma. No complaint of focal pain -Fall precautions -PT/OT evaluation appreciate input Patient lacks capacity. D/W son who was able to convince patient to go to [facility] for rehab. His girlfriend Alice has significant dementia and she does not make medical decisions. Patient had a fever on 02/02 likely from atelectasis as blood work on 02/03 was negative Patient can be discharged (2) Hypoxia: Possibly secondary to developing PNA -treated with zosyn and doxy complete 10 days total (3) RLL pneumonia: As above possible aspiration pneumonia immmunocompromised in the setting of chemotherapy (leukopenia) -Continue Zosyn and Doxycycline -Tylenol PRN -fever on 01/30, will monitor for 24 hours. -Supplemental O2 as needed currently on room air. as stated above, will complete 10 days total (4) Left leg swelling: With complex fluid collection noted on US. -Appears to be a hematoma, will need repeat imaging in 3 months -Monitor CBC -Zosyn -General Surgery consultation appreciated will hold dabigatran and plavix in the short term (5) Persistent atrial fibrillation: Rate controlled -Continue Metoprolol -hold home Pradaxa will defer to PCP when to resume (6) Hypercholesteremia: Chronic -Continue Simvastatin (7) Plasmacytoma: Continue Chemo Total Time Total Time Spent Total Time Spent (In Minutes): 35 Discharge Plan Discharge Items Patient Disposition: Transfer [facility] Reason For Visit: FALL Discharge Diagnosis: Fall Activity: Resume your previous activity Non-emergency contact: Primary Care Provider Call non-emergency contact if: you have any medication questions Follow-up/Referrals: Laura Mo [Primary Care Provider] - Diet: Heart Healthy Addtl Attending Provider Instructions: You have been hospitalized for an acute medical problem. During your stay at [facility], we have made an effort to correct the problem that brought you to the hospital while keeping you as comfortable as possible. Medications were used to bring your condition under control and your discharge instructions will include directions for any medications you should take after leaving the hospital. Please make sure you see your Primary Care Provider as part of your follow up plan. Will hold off dabigatran and plavix in the short term, GIVEN his leg hematoma and his frequent falls. Patient will be [facility] to the [facility]. Repeat imaging (ultrasound) in 3 months. Will defer to PCP as to when patient should restart his plavix and dabigatran given stroke risk. Will recommend completing 10 days of antibiotics: 4 more days as he has received 6 days of antibiotics. Aggressive oral hygiene and mouth care ACHS. Pending Studies at Discharge: No Stand-Alone Forms: My [facility] Skilled Items Patient informed of condition?: Yes DNR: Yes Discharge Level of Care: Skilled Communicable Disease: No Discharge Prognosis: Stable Lines: None Urinary Catheter: No Medications and DC Order Prescriptions: New amoxicillin-pot clavulanate 875-125 mg tablet 1 tab PO BID Qty: 8 0RF Continued acetaminophen 500 mg tablet 1,000 mg PO Q6H PRN (Reason: Pain) aspirin 81 mg tablet,delayed release (DR/EC) 81 mg PO DAILY balsalazide [Colazal] 750 mg capsule 750 mg PO DAILY levothyroxine 88 mcg capsule 88 mcg PO DAILY lisinopril 2.5 mg tablet 2.5 mg PO DAILY simvastatin 10 mg tablet 10 mg PO DAILY tamsulosin 0.4 mg capsule 0.4 mg PO DAILY metoprolol succinate 25 mg tablet extended release 24 hr 25 mg PO DAILY Qty: 90 3RF Rx Instructions: PER DR GOODSON clonazepam 1 mg tablet 1 mg PO HS acyclovir 400 mg tablet 400 mg PO BID Rx Instructions: FILLED 01/06/22 FOR 30 DAYS dexamethasone 4 mg tablet 20 mg PO WE Rx Instructions: TAKE WITH FOOD Phospha 250 Neutral 250 mg tablet 500 tab PO DAILY Rx Instructions: FILLED 01/06/22 FOR 30 DAYS pregabalin 75 mg capsule 75 mg PO HS lenalidomide [Revlimid] 15 mg capsule 15 mg PO DIRECTED Rx Instructions: 2 WEEKS ON, 1 WEEK OFF, PER DR GOODSON Discontinued Pradaxa 150 mg capsule 150 mg PO BID Discharge Orders: Discharge Order (Routine); Ordered 02/04/22 Ordered By: Wm Hogan Admission Data Admit Date/Time: 01/29/22 01:24 Attending Provider: Wm Hogan Admit Provider: Chandni Benavides Primary Care Provider: [facility] Other Providers: Chandni Benavides ; Omar Ca ; Eleuterio Baker Other Interventions: Discharge Summary Assessment (RN) Last Done: 02/04/22 14:15 Coding Level of Care Code D/C DAY MANAGEMENT >30 MINS Diagnoses Fall W19.XXXA Encounter type: initial encounter Hypoxia R09.02 RLL pneumonia J18.9 Pneumonia type: due to unspecified organism Left leg swelling M79.89 Persistent atrial fibrillation I48.19 Hypercholesteremia E78.00 Plasmacytoma C90.30
== END 2022-02-04 14:28 | DRG 178 ==
LOC: ED 20:05 → 2N 01-29 01:24 → SUATTDRO 01-29 01:24 → 2N 01-29 03:49 → 3W 02-01 07:59
DX: E78.00 Pure hypercholesterolemia, unspecified; D84.821 Immunodeficiency due to drugs; J91.8 Pleural effusion in other conditions classified elsewhere; C90.30 Solitary plasmacytoma not having achieved remission; T45.1X5A Adverse effect of antineoplastic and immunosuppressive drugs, initial encounter; W18.09XA Striking against other object with subsequent fall, initial encounter; R09.02 Hypoxemia; J98.11 Atelectasis; S80.12XA Contusion of left lower leg, initial encounter; K40.90 Unilateral inguinal hernia, without obstruction or gangrene, not specified as recurrent; I48.19 Other persistent atrial fibrillation; Z79.82 Long term (current) use of aspirin; F03.90 Unspecified dementia, unspecified severity, without behavioral disturbance, psychotic disturbance, mood disturbance, and anxiety; J69.0 Pneumonitis due to inhalation of food and vomit; Y92.89 Other specified places as the place of occurrence of the external cause; Y92.019 Unspecified place in single-family (private) house as the place of occurrence of the external cause; E03.9 Hypothyroidism, unspecified; H26.9 Unspecified cataract

== ENCOUNTER 2022-12-24 04:01 | Observation (INO) ==
[2022-12-24] MEDS ORDERED: IOVERSOL 350 MG 125mL Prefilled Syringe IV ONE (04:21)
--- NOTE | 2022-12-24 04:33 | Emergency Department Note ---
Impression & Plan Solitary plasmacytoma ED Provider Note CHIEF COMPLAINT: Altered mental status, found down HISTORY OF PRESENT ILLNESS: This 87-year-old male patient with past medical history of persistent atrial fibrillation, frequent falls, malignant solitary plasmacytoma presents to the emergency department nursing facility at the [facility] after he was found on the ground and altered. The patient was not able to follow commands and could not speak clearly. Patient is awake and speaking at this time. He is able to follow commands but his speech is word salad, difficult to comprehend. Patient does not seem to have any dysarthria. Patient denies injuring himself however there is very little report from EMS and the [facility]. Was recently taken off of blood thinners for his persistent atrial fibrillation. He does have a history of frequent falls. Of note the patient is a DNR. Last known well time was 6:30 PM, approximately 9-1/2 hours prior to arrival. REVIEW OF SYSTEMS: A review of systems was performed with positives and pertinent negatives listed in the history of present illness. 10 systems were reviewed and are otherwise negative. ALLERGIES: see below MEDICATIONS: see below PMH: see below SOCIAL HISTORY: see below DDx: Intracranial hemorrhage, ischemic stroke, seizure episode, UTI, dehydration, electrolyte abnormality among others PHYSICAL EXAM: Vital signs reviewed. General: Well-appearing, pleasant 87-year-old male, in no significant distress. HEENT: No scleral icterus, PERRLA, neck supple. Atraumatic. Cardiovascular: Irregular but rate controlled, no extra sounds. Pulmonary: Clear to auscultation bilaterally, normal work of breathing. Abdomen: Soft, nontender, nondistended, positive bowel sounds. Musculoskeletal: Atraumatic, no peripheral edema. Neurologic: Patient awake alert and able to follow commands. Patient can state his name but not age and date of . Patient is able to independently raise his left and right lower extremity. Equal insole reinforcer strength bilaterally. Negative pronator drift. Unable to perform yeaffp-hy-ochn, but patient is hard of hearing and he does not seem to comprehend this complex command. Skin: Warm, dry, no rash EMERGENCY DEPARTMENT COURSE/MDM: This patient was evaluated and appeared to be i n no significant distress. Patient seemed to comprehend the conversation but spoke mostly in word salad. He was able to follow simple commands. Patient's last known well was 6:30 PM. He was found down but awake. CT imaging was performed with CT angiograms upon his arrival to the emergency department. There is no evidence of intracranial hemorrhage or mass. CT angiograms reveal no evidence of large vessel occlusion. Patient is noted to be in a rate controlled atrial fibrillation. Patient was hydrated with normal saline solution. The patient has likely suffered an embolic process of an unclear timeline. Patient's laboratory work is fairly reassuring. Patient's case was discussed with the hospitalist service for further evaluation and management MONITORING: An order for cardiac monitoring was placed and the patient is noted to be in a atrial fibrillation at 85 beats per minute. RADIOLOGY: CT of the head to my interpretation reveals no evidence of intracr anial mass or hemorrhage. Otherwise defer to radiology CT angiogram of the head and neck reveals no evidence of large vessel flow- limiting stenosis Chest x-ray to my interpretation reveals cardiomegaly with mild congestion EKG: To my interpretation reveals significant baseline artifact, atrial fib rillation at 79 bpm. Possible previous inferior infarct. QTc is 419. Normal ST segments. When compared to previous dated January 28, 2022, no significant changes found DISPOSITION: Patient Past Med/Surg History Medical History (Updated 12/24/22 @ 06:39 by Orville Lopez DO) NAY (acute kidney injury) Atrial fibrillation with slow ventricular response Bronchitis Bronchitis Cataract, left Cataract, right Fall Fever Fever History of cardioversion Hypercholesteremia Hyperkalemia Hypertension Hypothyroid Influenza-like illness Influenza-like symptoms Malignant plasmacytoma Paroxysmal atrial fibrillation Plasmacytoma RLL pneumonia Surgical History (Updated 12/24/22 @ 05:41 by Orville Lopez DO) History of appendectomy History of laparotomy Benign tumor removed from colon History of lumbosacral spine surgery Hx of tonsillectomy Post-operative state (10/18/13) Family History Mother , Mother 89yo Dementia Natural with unknown cause Father , 64yo Myocardial infarction Heart disease Brother No problems noted. Son No problems noted. Daughter No problems noted. 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 Required: No Beliefs That Will Affect Care: None marital status: Life Partner Current Living Situation: Care Home current occupational status: retired current occupation: [employer]; Other Information That Helps Us Care for You: No Feels Safe at Home: Yes Safety Concerns: Feels Safe At This Time Diet: other caffeine: Yes (1 cup/day) during the past year weight has: remained stable Assistive Devices: Glasses, Hearing Aid - Bilateral and Walker Allergies Allergies Allergy/AdvReac Type Severity Reaction Status Date / Time animal dander Allergy Intermediate ASTHMATIC Verified 10/25/21 14:41 REACTION Home Meds Home Medications Medication Instructions Recorded Confirmed acetaminophen 500 mg tablet 1,000 mg PO Q6H PRN Pain 11/20/20 01/29/22 aspirin 81 mg tablet,delayed 81 mg PO DAILY 11/20/20 01/29/22 release balsalazide 750 mg capsule 750 mg PO DAILY 11/20/20 01/29/22 (Colazal) levothyroxine 88 mcg capsule 88 mcg PO DAILY 11/20/20 01/29/22 lisinopril 2.5 mg tablet 2.5 mg PO DAILY 11/20/20 01/29/22 simvastatin 10 mg tablet 10 mg PO DAILY 11/20/20 01/29/22 tamsulosin 0.4 mg capsule 0.4 mg PO DAILY 11/20/20 01/29/22 acyclovir 400 mg tablet 400 mg PO BID 01/29/22 01/29/22 clonazepam 1 mg tablet 1 mg PO HS 01/29/22 01/29/22 dexamethasone 4 mg tablet 20 mg PO WE 01/29/22 01/29/22 lenalidomide 15 mg capsule 15 mg PO DIRECTED 01/29/22 01/29/22 (Revlimid) pregabalin 75 mg capsule 75 mg PO HS 01/29/22 01/29/22 sodium di- and 500 tab PO DAILY 01/29/22 01/29/22 monophosphate-potassium phos monobasic 250 mg tablet (Phospha Neutral) Previous Rx's Medication Instructions Recorded metoprolol succinate 25 mg 25 mg PO DAILY #90 tabs 08/05/21 tablet,extended release 24 hr amoxicillin 875 mg-potassium 1 tab PO BID #8 tabs 02/04/22 clavulanate 125 mg tablet Results & Data (ED) Vital Signs Vital Signs - 24 hr 12/24/22 04:10 12/24/22 04:08 12/24/22 04:30 Temperature 36.9 C Temperature Source Oral Pulse Rate 85 80 75 Pulse Rate from SpO2 Sensor Respiratory Rate 18 20 Respiratory Effort / Characteristics Non-Labored Spontaneous Respiratory Depth Normal Respiratory Pattern Regular Blood Pressure 142/101 H 173/94 H Blood Pressure Mean 114 120 Blood Pressure Position Semi-fowlers Pulse Oximetry 95 96 Oxygen Delivery Method Room Air Room Air Oxygen Flow Rate Sepsis Recent Fever Within 48 Hours No Sepsis New/Unexplained Change in Mental Status N/A Sepsis Action Taken by Nursing No Action Required 12/24/22 05:28 12/24/22 06:01 Temperature Temperature Source Pulse Rate 77 76 Pulse Rate from SpO2 Sensor 73 Respiratory Rate 20 23 Respiratory Effort / Characteristics Respiratory Depth Respiratory Pattern Blood Pressure 160/97 H 149/92 H Blood Pressure Mean 118 111 Blood Pressure Position Pulse Oximetry 98 99 Oxygen Delivery Method Nasal Cannula Room Air Oxygen Flow Rate 2 Sepsis Recent Fever Within 48 Hours Sepsis New/Unexplained Change in Mental Status Sepsis Action Taken by Care Home Medications Current Medication List: was personally reviewed by me Laboratory Data Attestation: I reviewed the patient's lab results. 12/24/22 04:11 12/24/22 04:11 Lab Results 12/24/22 12/24/22 12/24/22 Range/Units 04:10 04:11 04:11 WBC 11.24 H (4.8-10.8) K/ul RBC 4.39 L (4.70-6.10) M/uL Hgb 12.8 L (14.0-18.0) g/dl Hct 40.2 L (42.0-52.0) % MCV 91.6 (80.0-100.0) fL MCH 29.2 (25.0-34.0) pg MCHC 31.8 L (32.0-36.0) g/dL RDW Std Deviation 53.3 H (36.4-46.3) fL RDW Coeff of Joann 15.9 H (11.5-14.5) % Plt Count 211 (130-400) K/uL MPV 9.7 (9.4-12.4) fL Immature Gran % (Auto) 3.6 % Neut % (Auto) 78.6 % Lymph % (Auto) 5.9 % [place] % (Auto) 9.7 % Eos % (Auto) 1.8 % Baso % (Auto) 0.4 % Neut # (Auto) 8.84 H (1.40-6.50) K/uL Lymph # (Auto) 0.66 L (1.2-3.4) K/uL [place] # (Auto) 1.09 H (0.11-0.59) K/uL Eos # (Auto) 0.20 (0-0.50) K/uL Baso # (Auto) 0.05 (0-0.2) K/uL Immature Gran # (Auto) 0.40 H (0.01-0.20) K/uL PT 10.7 (9.0-12.0) Seconds INR 1.0 (0.9-1.1) APTT 25.7 (21.0-31.0) Seconds PTT Ratio 0.9 Sodium (136-145) mmol/L Potassium (3.5-5.1) mmol/L Chloride (98-107) mmol/L Carbon Dioxide (21-32) mmol/L Anion Gap (3-11) BUN (6-23) mg/dl Creatinine (0.6-1.4) mg/dl Est Cr Clr Drug Dosing Est GFR ( Amer) ml/min Est GFR (Non-Af Amer) ml/min BUN/Creatinine Ratio (10-20) Glucose (70-99(Fasting)) mg/dl POC Glucose (70-99) mg/dl Estimat Average Glucose mg/dl Hemoglobin A1c (4.5-5.6) % Calcium (8.6-10.3) mg/dl Magnesium (1.7-2.4) mg/dl Total Bilirubin (0.2-1.0) mg/dl AST (13-39) U/L ALT (7-52) U/L Alkaline Phosphatase (34-104) U/L Total Creatine Kinase (30-223) U/L Troponin I High Sens (0-20) pg/ml Total Protein (6.0-8.3) gm/dl Albumin (3.4-5.0) gm/dl Globulin (2.5-4.0) gm/dl Albumin/Globulin Ratio (0.9-2) Triglycerides (0-150) mg/dl Cholesterol (0-200) mg/dl LDL Cholesterol, Calc mg/dl VLDL Cholesterol, Calc (0-30) mg/dl HDL Cholesterol mg/dl Cholesterol/HDL Ratio (0-5) TSH 4.865 H (0.300-4.500) uIu/ml Free T4 1.06 (0.61-1.60) ng/dl Urine Color Urine Appearance (Clear) Urine pH (4.5-7.5) Ur Specific [place] (1.000-1.030) Urine Protein (Negative) Urine Glucose (UA) (Negative) Urine Ketones (Negative) Urine Blood (Negative) Urine Nitrite (Negative) Urine Bilirubin (Negative) Urine Urobilinogen (Negative) Ur Leukocyte Esterase (Negative) Urine WBC (Auto) (0-5) /hpf Urine RBC (Auto) (0-4) /hpf U Hyaline Cast (Auto) (0-5) /lpf U Epithel Cells (Auto) (0-5) /lpf Urine Bacteria (Auto) (Negative) SARS-CoV-2, RNA, NAAT (NEGATIVE) 12/24/22 12/24/22 12/24/22 Range/Units 04:11 04:11 04:13 WBC (4.8-10.8) K/ul RBC (4.70-6.10) M/uL Hgb (14.0-18.0) g/dl Hct (42.0-52.0) % MCV (80.0-100.0) fL MCH (25.0-34.0) pg MCHC (32.0-36.0) g/dL RDW Std Deviation (36.4-46.3) fL RDW Coeff of Joann (11.5-14.5) % Plt Count (130-400) K/uL MPV (9.4-12.4) fL Immature Gran % (Auto) % Neut % (Auto) % Lymph % (Auto) % [place] % (Auto) % Eos % (Auto) % Baso % (Auto) % Neut # (Auto) (1.40-6.50) K/uL Lymph # (Auto) (1.2-3.4) K/uL [place] # (Auto) (0.11-0.59) K/uL Eos # (Auto) (0-0.50) K/uL Baso # (Auto) (0-0.2) K/uL Immature Gran # (Auto) (0.01-0.20) K/uL PT (9.0-12.0) Seconds INR (0.9-1.1) APTT (21.0-31.0) Seconds PTT Ratio Sodium 140 (136-145) mmol/L Potassium 4.3 (3.5-5.1) mmol/L Chloride 101 (98-107) mmol/L Carbon Dioxide 32 (21-32) mmol/L Anion Gap 7 (3-11) BUN 28 H (6-23) mg/dl Creatinine 1.12 (0.6-1.4) mg/dl Est Cr Clr Drug Dosing Not Reportable Est GFR ( Amer) 69.1 ml/min Est GFR (Non-Af Amer) 59.6 ml/min BUN/Creatinine Ratio 25.0 H (10-20) Glucose 133 H (70-99(Fasting)) mg/dl POC Glucose 137 H (70-99) mg/dl Estimat Average Glucose 126 mg/dl Hemoglobin A1c 6.0 H (4.5-5.6) % Calcium 10.0 (8.6-10.3) mg/dl Magnesium 1.9 (1.7-2.4) mg/dl Total Bilirubin 0.7 (0.2-1.0) mg/dl AST 14 (13-39) U/L ALT 11 (7-52) U/L Alkaline Phosphatase 65 (34-104) U/L Total Creatine Kinase 88 (30-223) U/L Troponin I High Sens 9.9 (0-20) pg/ml Total Protein 6.6 (6.0-8.3) gm/dl Albumin 4.1 (3.4-5.0) gm/dl Globulin 2.5 (2.5-4.0) gm/dl Albumin/Globulin Ratio 1.6 (0.9-2) Triglycerides 110 (0-150) mg/dl Cholesterol 259 H (0-200) mg/dl LDL Cholesterol, Calc 183 mg/dl VLDL Cholesterol, Calc 22 (0-30) mg/dl HDL Cholesterol 54 mg/dl Cholesterol/HDL Ratio 4.8 (0-5) TSH (0.300-4.500) uIu/ml Free T4 (0.61-1.60) ng/dl Urine Color Urine Appearance (Clear) Urine pH (4.5-7.5) Ur Specific [place] (1.000-1.030) Urine Protein (Negative) Urine Glucose (UA) (Negative) Urine Ketones (Negative) Urine Blood (Negative) Urine Nitrite (Negative) Urine Bilirubin (Negative) Urine Urobilinogen (Negative) Ur Leukocyte Esterase (Negative) Urine WBC (Auto) (0-5) /hpf Urine RBC (Auto) (0-4) /hpf U Hyaline Cast (Auto) (0-5) /lpf U Epithel Cells (Auto) (0-5) /lpf Urine Bacteria (Auto) (Negative) SARS-CoV-2, RNA, NAAT (NEGATIVE) 12/24/22 12/24/22 Range/Units 04:31 04:42 WBC (4.8-10.8) K/ul RBC (4.70-6.10) M/uL Hgb (14.0-18.0) g/dl Hct (42.0-52.0) % MCV (80.0-100.0) fL MCH (25.0-34.0) pg MCHC (32.0-36.0) g/dL RDW Std Deviation (36.4-46.3) fL RDW Coeff of Joann (11.5-14.5) % Plt Count (130-400) K/uL MPV (9.4-12.4) fL Immature Gran % (Auto) % Neut % (Auto) % Lymph % (Auto) % [place] % (Auto) % Eos % (Auto) % Baso % (Auto) % Neut # (Auto) (1.40-6.50) K/uL Lymph # (Auto) (1.2-3.4) K/uL [place] # (Auto) (0.11-0.59) K/uL Eos # (Auto) (0-0.50) K/uL Baso # (Auto) (0-0.2) K/uL Immature Gran # (Auto) (0.01-0.20) K/uL PT (9.0-12.0) Seconds INR (0.9-1.1) APTT (21.0-31.0) Seconds PTT Ratio Sodium (136-145) mmol/L Potassium (3.5-5.1) mmol/L Chloride (98-107) mmol/L Carbon Dioxide (21-32) mmol/L Anion Gap (3-11) BUN (6-23) mg/dl Creatinine (0.6-1.4) mg/dl Est Cr Clr Drug Dosing Est GFR ( Amer) ml/min Est GFR (Non-Af Amer) ml/min BUN/Creatinine Ratio (10-20) Glucose (70-99(Fasting)) mg/dl POC Glucose (70-99) mg/dl Estimat Average Glucose mg/dl Hemoglobin A1c (4.5-5.6) % Calcium (8.6-10.3) mg/dl Magnesium (1.7-2.4) mg/dl Total Bilirubin (0.2-1.0) mg/dl AST (13-39) U/L ALT (7-52) U/L Alkaline Phosphatase (34-104) U/L Total Creatine Kinase (30-223) U/L Troponin I High Sens (0-20) pg/ml Total Protein (6.0-8.3) gm/dl Albumin (3.4-5.0) gm/dl Globulin (2.5-4.0) gm/dl Albumin/Globulin Ratio (0.9-2) Triglycerides (0-150) mg/dl Cholesterol (0-200) mg/dl LDL Cholesterol, Calc mg/dl VLDL Cholesterol, Calc (0-30) mg/dl HDL Cholesterol mg/dl Cholesterol/HDL Ratio (0-5) TSH (0.300-4.500) uIu/ml Free T4 (0.61-1.60) ng/dl Urine Color Yellow Urine Appearance Clear (Clear) Urine pH 6.5 (4.5-7.5) Ur Specific [place] 1.028 (1.000-1.030) Urine Protein Trace H (Negative) Urine Glucose (UA) Negative (Negative) Urine Ketones Negative (Negative) Urine Blood Negative (Negative) Urine Nitrite Negative (Negative) Urine Bilirubin Negative (Negative) Urine Urobilinogen Negative (Negative) Ur Leukocyte Esterase Negative (Negative) Urine WBC (Auto) 1-5 (0-5) /hpf Urine RBC (Auto) 0-4 (0-4) /hpf U Hyaline Cast (Auto) 1-5 (0-5) /lpf U Epithel Cells (Auto) 0-5 (0-5) /lpf Urine Bacteria (Auto) Negative (Negative) SARS-CoV-2, RNA, NAAT NEGATIVE (NEGATIVE) Administered Medications Acyclovir (Acyclovir 400 Mg Tab) 400 mg PO BID KRAIG Stop: 01/23/23 08:59 Last Admin: 12/24/22 19:51 Dose: 400 mg Documented By: Admin: 12/24/22 10:56 Dose: Not Given Documented By: ROXANNE Dabigatran (Dabigatran Etexilate 75 Mg Cap) 150 mg PO BID KRAIG Stop: 01/23/23 20:59 Last Admin: 12/24/22 19:51 Dose: 150 mg Documented By: BRISSA Sodium Chloride (Nss 1000ml) 1,000 mls @ 125 mls/hr IV .Q8H KRAIG Stop: 01/23/23 07:09 Last Admin: 12/24/22 18:25 Dose: 125 mls/hr Documented By: Infusion: 12/24/22 18:13 Dose: 125 mls/hr Documented By: Admin: 12/24/22 10:13 Dose: 125 mls/hr Documented By: ROXANNE Levothyroxine Sodium (Levothyroxine Sodium 88 Mcg Tablet) 88 mcg [facility] Stop: 01/23/23 07:29 Last Admin: 12/24/22 10:13 Dose: Not Given Documented By: ROXANNE Miscellaneous (*Balsalazide*Order Awaiting Action) 1 each N/A QS KRAIG Stop: 01/23/23 07:59 Last Admin: 12/24/22 18:44 Dose: Not Given Documented By: Admin: 12/24/22 10:57 Dose: Not Given Documented By: ROXANNE Simvastatin (Simvastatin 10 Mg Tab) 10 mg PO DAILY KRAIG Stop: 01/23/23 08:59 Last Admin: 12/24/22 10:56 Dose: Not Given Documented By: ROXANNE Tamsulosin HCl (Tamsulosin Hcl 0.4 Mg Cap) 0.4 mg PO DAILY KRAIG Stop: 01/23/23 08:59 Last Admin: 12/24/22 10:56 Dose: Not Given Documented By: ROXANNE Discontinued Medications Aspirin (Aspirin 300 Mg Supp) 300 mg AK NOW ONE Stop: 12/24/22 07:11 Last Admin: 12/24/22 09:03 Dose: 300 mg Documented By: RICKEY Ioversol (Ioversol 350 Mg 125ml Prefilled Syringe) 114 ml IV ONCE ONE Stop: 12/24/22 04:22 Last Admin: 12/24/22 04:21 Dose: 114 ml Documented By: MARCELLE Imaging Data Radiologist's Impression: Head CT 12/24/22 04:11 CR Exam(s): CT HEAD Without Contrast EXAM: CT Head Without Intravenous Contrast CLINICAL HISTORY: Reason for exam: neuro deficit, acute stroke suspected. TECHNIQUE: Axial computed tomography images of the head/brain without intravenous contrast. CTDI is 76 mGy and DLP is 1134.23 mGy-cm. Automated exposure control was utilized for the study. A dose lowering technique was utilized adhering to the principles of ALARA. COMPARISON: No relevant prior studies available. FINDINGS: Brain: No acute intracranial abnormality. Consider MRI if there is further concern. Areas of decreased attenuation in the deep cerebral white matter are consistent with small vessel ischemic/degenerative changes. The cerebral and cerebellar sulci are prominent consistent with brain atrophy. No hemorrhage. Ventricles: Unremarkable. No ventriculomegaly. Bones/joints: Unremarkable. No acute fracture. Soft tissues: Unremarkable. Vasculature: Atherosclerotic disease. Sinuses: Right brenda bullosa. Mastoid air cells: Unremarkable as visualized. No mastoid effusion. IMPRESSION: 1. No acute intracranial abnormality. Consider MRI if there is further concern. 2. Small vessel ischemic/degenerative changes. 3. Cerebral and cerebellar atrophy. Communications: Call Doctor Above results Electronically signed by: Clarke Florentino MD 12/24/22 05:09 AM Head CTA 12/24/22 04:11 CR Exam(s): CTA HEAD With Contrast IV Amt: 114ml EXAM: CT Angiography Head and Neck With Intravenous Contrast CLINICAL HISTORY: Reason for exam: neuro deficit, acute stroke suspected. TECHNIQUE: [place] [facility] [place]/head and neck CT angiography protocol performed with intravenous contrast. CTDI is 76 mGy and DLP is 1134.23 mGy-cm. Automated exposure control was utilized for the study. A dose lowering technique was utilized adhering to the principles of ALARA. MIP reconstructed images were created and reviewed. CONTRAST: Patient received 114ml of IV contrast COMPARISON: None. FINDINGS: Limitations: Limited examination given lack of thin slice reformatted images. HEAD: Right anterior cerebral artery: Unremarkable. No significant stenosis at the visualized segments. Anterior communicating artery is present. No aneurysm. Right middle cerebral artery: Unremarkable. No significant stenosis at the visualized segments. No aneurysm. Right posterior cerebral artery: Unremarkable. No occlusion or significant stenosis. No aneurysm. Right intracranial internal carotid artery: Unremarkable. No significant stenosis. No dissection or occlusion. Right intracranial vertebral artery: Moderate to severe stenosis of the intracranial segment of the right vertebral artery. No dissection or occlusion. Left anterior cerebral artery: Unremarkable. No significant stenosis at the visualized segments. No aneurysm. Left middle cerebral artery: Unremarkable. No significant stenosis at the visualized segments. No aneurysm. Left posterior cerebral artery: Unremarkable. No occlusion or significant stenosis. No aneurysm. Left intracranial internal carotid artery: Unremarkable. No significant stenosis. No dissection or occlusion. Left intracranial vertebral artery: Unremarkable. No significant stenosis. No dissection or occlusion. Basilar artery: Unremarkable. No significant stenosis. No aneurysm. Other vasculature: Retrograde course of the left internal carotid artery. Findings suspicious for occlusive thrombus within the right M3 branch. Associated asymmetric distal arborization noted. Moderate to severe stenosis of the right carotid siphon. Mild stenosis of the left carotid siphon. NECK: Right common carotid artery: Unremarkable. No significant stenosis. No dissection or occlusion. Right extracranial internal carotid artery: Atherosclerotic plaque and calcifications at the right carotid bifurcation without flow-limiting stenosis NASCET criteria. No dissection or occlusion. Right external carotid artery: Unremarkable. No occlusion. Right extracranial vertebral artery: Unremarkable. No significant stenosis. No dissection or occlusion. Left common carotid artery: Unremarkable. No significant stenosis. No dissection or occlusion. Left extracranial internal carotid artery: Atherosclerotic plaque and calcifications at the left carotid bifurcation without flow-limiting stenosis per NASA criteria. No dissection or occlusion. Left external carotid artery: Unremarkable. No occlusion. Left extracranial vertebral artery: Unremarkable. No significant stenosis. No dissection or occlusion. Retropharyngeal space: Retropharyngeal course of the right common internal carotid artery. Aorta: Incomplete visualization of the aortic arch with the evaluation. Lung apices: Unremarkable as visualized. HEAD and NECK: Bones/joints: Unremarkable. No discrete lytic or blastic abnormalities. Soft tissues: Unremarkable. CAROTID STENOSIS REFERENCE USING NASCET CRITERIA: % ICA stenosis = (1 - narrowest ICA diameter/diameter of distal cervical ICA) x 100. Mild - <50% stenosis. Moderate - 50-69% stenosis. Severe - 70-94% stenosis. Near occlusion - 95-99% stenosis. Occluded - 100% stenosis. IMPRESSION: 1. Limited examination given lack of thin slice reformatted images. 2. Incomplete visualization of the aortic arch with the evaluation. 3. No evidence of large vessel flow-limiting stenosis within the head or neck. 4. Lindsay of atherosclerotic disease as described in the body of report. Communications: Call Doctor Stroke Electronically signed by: Clarke Florentino MD 12/24/22 05:17 AM Neck CTA 12/24/22 04:11 CR Exam(s): CTA NECK With Contrast IV Amt: 114ml EXAM: CT Angiography Head and Neck With Intravenous Contrast CLINICAL HISTORY: Reason for exam: neuro deficit, acute stroke suspected. TECHNIQUE: [place]/head and neck CT angiography protocol performed with intravenous contrast. CTDI is 76 mGy and DLP is 1134.23 mGy-cm. Automated exposure control was utilized for the study. A dose lowering technique was utilized adhering to the principles of ALARA. MIP reconstructed images were created and reviewed. CONTRAST: Patient received 114ml of IV contrast COMPARISON: None. FINDINGS: Limitations: Limited examination given lack of thin slice reformatted images. HEAD: Right anterior cerebral artery: Unremarkable. No significant stenosis at the visualized segments. Anterior communicating artery is present. No aneurysm. Right middle cerebral artery: Unremarkable. No significant stenosis at the visualized segments. No aneurysm. Right posterior cerebral artery: Unremarkable. No occlusion or significant stenosis. No aneurysm. Right intracranial internal carotid artery: Unremarkable. No significant stenosis. No dissection or occlusion. Right intracranial vertebral artery: Moderate to severe stenosis of the intracranial segment of the right vertebral artery. No dissection or occlusion. Left anterior cerebral artery: Unremarkable. No significant stenosis at the visualized segments. No aneurysm. Left middle cerebral artery: Unremarkable. No significant stenosis at the visualized segments. No aneurysm. Left posterior cerebral artery: Unremarkable. No occlusion or significant stenosis. No aneurysm. Left intracranial internal carotid artery: Unremarkable. No significant stenosis. No dissection or occlusion. Left intracranial vertebral artery: Unremarkable. No significant stenosis. No dissection or occlusion. Basilar artery: Unremarkable. No significant stenosis. No aneurysm. Other vasculature: Retrograde course of the left internal carotid artery. Findings suspicious for occlusive thrombus within the right M3 branch. Associated asymmetric distal arborization noted. Moderate to severe stenosis of the right carotid siphon. Mild stenosis of the left carotid siphon. NECK: Right common carotid artery: Unremarkable. No significant stenosis. No dissection or occlusion. Right extracranial internal carotid artery: Atherosclerotic plaque and calcifications at the right carotid bifurcation without flow-limiting stenosis NASCET criteria. No dissection or occlusion. Right external carotid artery: Unremarkable. No occlusion. Right extracranial vertebral artery: Unremarkable. No significant stenosis. No dissection or occlusion. Left common carotid artery: Unremarkable. No significant stenosis. No dissection or occlusion. Left extracranial internal carotid artery: Atherosclerotic plaque and calcifications at the left carotid bifurcation without flow-limiting stenosis per [employer] criteria. No dissection or occlusion. Left external carotid artery: Unremarkable. No occlusion. Left extracranial vertebral artery: Unremarkable. No significant stenosis. No dissection or occlusion. Retropharyngeal space: Retropharyngeal course of the right common internal carotid artery. Aorta: Incomplete visualization of the aortic arch with the evaluation. Lung apices: Unremarkable as visualized. HEAD and NECK: Bones/joints: Unremarkable. No discrete lytic or blastic abnormalities. Soft tissues: Unremarkable. CAROTID STENOSIS REFERENCE USING NASCET CRITERIA: % ICA stenosis = (1 - narrowest ICA diameter/diameter of distal cervical ICA) x 100. Mild - <50% stenosis. Moderate - 50-69% stenosis. Severe - 70-94% stenosis. Near occlusion - 95-99% stenosis. Occluded - 100% stenosis. IMPRESSION: 1. Limited examination given lack of thin slice reformatted images. 2. Incomplete visualization of the aortic arch with the evaluation. 3. No evidence of large vessel flow-limiting stenosis within the head or neck. 4. [place] of atherosclerotic disease as described in the body of report. Communications: Call Doctor Stroke Electronically signed by: Clarke Florentino MD 12/24/22 05:17 AM Discharge Plan Visit Data Chief Complaint: Altered Mental Status Stated Complaint: AMS, Fall, Gargled Speech ED Provider: Maria T Jalloh Discharge Problem: Solitary plasmacytoma Patient Disposition: Admitted As Inpatient Discharge Instructions Interventions: ED Discharge Assessment Last Done: 12/24/22 09:40
[2022-12-24 04:51] LABS: Appearance Urine Clear (Clear); Bacteria Urine Automated Negative (Negative); Bilirubin Urine Negative (Negative); Blood Urine Negative (Negative); Color Urine Yellow; Epithelial Cell Urine Auto 0-5 /lpf (0-5); Glucose Urine UA Negative (Negative); Ketones Urine Negative (Negative); Leukocyte Esterase Urine Negative (Negative); Nitrite Urine Negative (Negative); Protein Urine Trace (Negative); RBC Urine Automated 0-4 /hpf (0-4); Specific Gravity Urine 1.028 (1.000-1.030); Urobilinogen Urine Negative (Negative); pH Urine 6.5 (4.5-7.5)
[2022-12-24 04:55] LABS: Alanine Aminotransferase 11 U/L (7-52); Albumin Globulin Ratio 1.6 (0.9-2); Albumin Level 4.1 gm/dl (3.4-5.0); Alkaline Phosphatase 65 U/L (34-104); Anion Gap 7 (3-11); Aspartate Aminotransferase 14 U/L (13-39); Bilirubin,Total 0.7 mg/dl (0.2-1.0); Blood Urea Nitrogen 28 mg/dl (6-23); Carbon Dioxide 32 mmol/L (21-32); Chloride 101 mmol/L (98-107); Creatine Kinase 88 U/L (30-223); Est GFR (African American) 69.1 ml/min; Est GFR (Non-African American) 59.6 ml/min; Globulin 2.5 gm/dl (2.5-4.0); Glucose 133 mg/dl (70-99(Fasting)); Magnesium 1.9 mg/dl (1.7-2.4); Potassium 4.3 mmol/L (3.5-5.1); Sodium 140 mmol/L (136-145); Total Protein 6.6 gm/dl (6.0-8.3)
[2022-12-24 04:58] LABS: Hematocrit (blood only) 40.2 % (42.0-52.0); Hemoglobin 12.8 g/dl (14.0-18.0); Mean Corpuscular Hemoglobin 29.2 pg (25.0-34.0); Mean Corpuscular Hgb Conc 31.8 g/dL (32.0-36.0); Mean Corpuscular Volume 91.6 fL (80.0-100.0); RDW Standard Deviation 53.3 fL (36.4-46.3); Red Blood Count 4.39 M/uL (4.70-6.10); White Blood Count 11.24 K/ul (4.8-10.8)
[2022-12-24 04:59] LABS: Basophils # (auto) 0.05 K/uL (0-0.2); Basophils % (auto) 0.4 %; Eosinophils % (auto) 1.8 %; Immature Granulocytes % (auto) 3.6 %; Lymphocytes # (auto) 0.66 K/uL (1.2-3.4); Lymphocytes % (auto) 5.9 %; Mean Platelet Volume 9.7 fL (9.4-12.4); Monocytes # (auto) 1.09 K/uL (0.11-0.59); Monocytes % (auto) 9.7 %; Neutrophils # (auto) 8.84 K/uL (1.40-6.50); Neutrophils % (auto) 78.6 %; Platelet Count 211 K/uL (130-400); RDW Coefficient of Variation 15.9 % (11.5-14.5)
[2022-12-24 05:01] LABS: Troponin I High Sensitivity 9.9 pg/ml (0-20)
[2022-12-24 05:07] LABS: Partial Thromboplastin Ratio 0.9; Partial Thromboplastin Time 25.7 Seconds (21.0-31.0); Prothrombin Time 10.7 Seconds (9.0-12.0)
--- NOTE | 2022-12-24 05:10 | CT Scan Report ---
Exam(s): CT HEAD Without Contrast EXAM: CT Head Without Intravenous Contrast CLINICAL HISTORY: Reason for exam: neuro deficit, acute stroke suspected. TECHNIQUE: Axial computed tomography images of the head/brain without intravenous contrast. CTDI is 76 mGy and DLP is 1134.23 mGy-cm. Automated exposure control was utilized for the study. A dose lowering technique was utilized adhering to the principles of ALARA. COMPARISON: No relevant prior studies available. FINDINGS: Brain: No acute intracranial abnormality. Consider MRI if there is further concern. Areas of decreased attenuation in the deep cerebral white matter are consistent with small vessel ischemic/degenerative changes. The cerebral and cerebellar sulci are prominent consistent with brain atrophy. No hemorrhage. Ventricles: Unremarkable. No ventriculomegaly. Bones/joints: Unremarkable. No acute fracture. Soft tissues: Unremarkable. Vasculature: Atherosclerotic disease. Sinuses: Right brenda bullosa. Mastoid air cells: Unremarkable as visualized. No mastoid effusion. IMPRESSION: 1. No acute intracranial abnormality. Consider MRI if there is further concern. 2. Small vessel ischemic/degenerative changes. 3. Cerebral and cerebellar atrophy. Communications: Call Doctor Above results Electronically signed by: Clarke Florentino MD 12/24/22 05:09 AM
--- NOTE | 2022-12-24 05:18 | CT Scan Report ---
Exam(s): CTA HEAD With Contrast IV Amt: 114ml EXAM: CT Angiography Head and Neck With Intravenous Contrast CLINICAL HISTORY: Reason for exam: neuro deficit, acute stroke suspected. TECHNIQUE: [place]/head and neck CT angiography protocol performed with intravenous contrast. CTDI is 76 mGy and DLP is 1134.23 mGy-cm. Automated exposure control was utilized for the study. A dose lowering technique was utilized adhering to the principles of ALARA. MIP reconstructed images were created and reviewed. CONTRAST: Patient received 114ml of IV contrast COMPARISON: None. FINDINGS: Limitations: Limited examination given lack of thin slice reformatted images. HEAD: Right anterior cerebral artery: Unremarkable. No significant stenosis at the visualized segments. Anterior communicating artery is present. No aneurysm. Right middle cerebral artery: Unremarkable. No significant stenosis at the visualized segments. No aneurysm. Right posterior cerebral artery: Unremarkable. No occlusion or significant stenosis. No aneurysm. Right intracranial internal carotid artery: Unremarkable. No significant stenosis. No dissection or occlusion. Right intracranial vertebral artery: Moderate to severe stenosis of the intracranial segment of the right vertebral artery. No dissection or occlusion. Left anterior cerebral artery: Unremarkable. No significant stenosis at the visualized segments. No aneurysm. Left middle cerebral artery: Unremarkable. No significant stenosis at the visualized segments. No aneurysm. Left posterior cerebral artery: Unremarkable. No occlusion or significant stenosis. No aneurysm. Left intracranial internal carotid artery: Unremarkable. No significant stenosis. No dissection or occlusion. Left intracranial vertebral artery: Unremarkable. No significant stenosis. No dissection or occlusion. Basilar artery: Unremarkable. No significant stenosis. No aneurysm. Other vasculature: Retrograde course of the left internal carotid artery. Findings suspicious for occlusive thrombus within the right M3 branch. Associated asymmetric distal arborization noted. Moderate to severe stenosis of the right carotid siphon. Mild stenosis of the left carotid siphon. NECK: Right common carotid artery: Unremarkable. No significant stenosis. No dissection or occlusion. Right extracranial internal carotid artery: Atherosclerotic plaque and calcifications at the right carotid bifurcation without flow-limiting stenosis NASCET criteria. No dissection or occlusion. Right external carotid artery: Unremarkable. No occlusion. Right extracranial vertebral artery: Unremarkable. No significant stenosis. No dissection or occlusion. Left common carotid artery: Unremarkable. No significant stenosis. No dissection or occlusion. Left extracranial internal carotid artery: Atherosclerotic plaque and calcifications at the left carotid bifurcation without flow-limiting stenosis per [employer] criteria. No dissection or occlusion. Left external carotid artery: Unremarkable. No occlusion. Left extracranial vertebral artery: Unremarkable. No significant stenosis. No dissection or occlusion. Retropharyngeal space: Retropharyngeal course of the right common internal carotid artery. Aorta: Incomplete visualization of the aortic arch with the evaluation. Lung apices: Unremarkable as visualized. HEAD and NECK: Bones/joints: Unremarkable. No discrete lytic or blastic abnormalities. Soft tissues: Unremarkable. CAROTID STENOSIS REFERENCE USING NASCET CRITERIA: % ICA stenosis = (1 - narrowest ICA diameter/diameter of distal cervical ICA) x 100. Mild - <50% stenosis. Moderate - 50-69% stenosis. Severe - 70-94% stenosis. Near occlusion - 95-99% stenosis. Occluded - 100% stenosis. IMPRESSION: 1. Limited examination given lack of thin slice reformatted images. 2. Incomplete visualization of the aortic arch with the evaluation. 3. No evidence of large vessel flow-limiting stenosis within the head or neck. 4. [place] of atherosclerotic disease as described in the body of report. Communications: Call Doctor Stroke Electronically signed by: Clarke Florentino MD 12/24/22 05:17 AM
--- NOTE | 2022-12-24 05:35 | History & Physical Report ---
Date of Service December 24, 2022 Assessment & Plan (1) Stroke-like symptoms: Plan: 87 yo male with PMHx hypoxia, persistent afib, frequent falls, malignant plasmacytoma, hypothyroidism, chronic pain, BPH, HLD, and HTN presents with stroke like symptoms. #Stroke like symptoms #Altered Mental Status -Brought by EMS from nursing facility at the [facility] after he was found on the ground and altered. The patient was not able to follow commands and could not speak clearly.Patient is arousable when seen at bedside. Last known well time was 6:30 PM, approximately 9-1/2 hours prior to arrival. Appears to have dysarthria with expressive aphasia. +motor deficits R>L. He does have persistent afib not currently on anticoagulation. UA neg. -CXR unremarkable -CT head without bleed -CTA head/neck: suspicious for occlusive thrombus within the right M3 branch -MRI brain pending -echo pending -lipids, a1c ordered -speech, PT/OT -neuro checks, fall/aspiration precautions, NPO -on daily aspirin and low dose statin at home. Will give 300mg asa DE. Will likely need increased dose on statin. Unable to start DAPT since NPO. -allow for permissive HTN -consider neuro consult #Persistent afib -EKG shows afib -hold metoprolol for permissive HTN. Rate currently controlled. -anticoagulation previously d/c'd, presumably due to frequent falls #HTN -hold lisinopril, metoprolol for permissive HTN #HLD -cont. statin #BPH -cont. flomax #Hypothyroidism -cont. levothyroxine #H/o plasmacytoma -cont. augmentin, acyclovir, balsalazide -also takes dexamethasone qweekly and lenalidomide (chemotherapy- dosing unknown) which will be held for now. Unclear who he follows with for this. #Chronic pain -med rec with pregabalin and clonazepam. Unclear if these used for his pain. Hold due to AMS. DVT ppx: SCDs FEN/GI: NPO Code Status: DNI/DNR Dispo: PCU (2) Hypoxia: (3) Persistent atrial fibrillation: (4) Falling episodes: (5) Hypercholesteremia: (6) Malignant plasmacytoma: (7) Chronic back pain: (8) Hypertension: (9) BPH (benign prostatic hyperplasia): (10) Hypothyroid: History of Present Illness Chief Complaint: stroke like symptoms Primary Care Provider: [facility] 87 yo male with PMHx hypoxia, persistent afib, frequent falls, malignant plasmacytoma, hypothyroidism, chronic pain, BPH, HLD, and HTN presents with stroke like symptoms. Brought by EMS from nursing facility at the [facility] after he was found on the ground and altered. The patient was not able to follow commands and could not speak clearly.Patient is arousable when seen at bedside. Last known well time was 6:30 PM, approximately 9-1/2 hours prior to arrival. He seems to comprehend but not able to express his words and with dysarthria. Does have persistent afib and was taken off of anticoagulation in the last couple of years presumably due to frequent falls. Allergies Allergy/AdvReac Type Severity Reaction Status Date / Time animal dander Allergy Intermediate ASTHMATIC Verified 10/25/21 14:41 REACTION Home Medications Medication Instructions Recorded Confirmed Type acetaminophen 500 mg tablet 1,000 mg PO Q6H PRN Pain 11/20/20 01/29/22 History aspirin 81 mg tablet,delayed 81 mg PO DAILY 11/20/20 01/29/22 History release balsalazide 750 mg capsule 750 mg PO DAILY 11/20/20 01/29/22 History (Colazal) levothyroxine 88 mcg capsule 88 mcg PO DAILY 11/20/20 01/29/22 History lisinopril 2.5 mg tablet 2.5 mg PO DAILY 11/20/20 01/29/22 History simvastatin 10 mg tablet 10 mg PO DAILY 11/20/20 01/29/22 History tamsulosin 0.4 mg capsule 0.4 mg PO DAILY 11/20/20 01/29/22 History metoprolol succinate 25 mg 25 mg PO DAILY #90 tabs 08/05/21 01/29/22 Rx tablet,extended release 24 hr acyclovir 400 mg tablet 400 mg PO BID 01/29/22 01/29/22 History clonazepam 1 mg tablet 1 mg PO HS 01/29/22 01/29/22 History dexamethasone 4 mg tablet 20 mg PO WE 01/29/22 01/29/22 History lenalidomide 15 mg capsule 15 mg PO DIRECTED 01/29/22 01/29/22 History (Revlimid) pregabalin 75 mg capsule 75 mg PO HS 01/29/22 01/29/22 History sodium di- and 500 tab PO DAILY 01/29/22 01/29/22 History monophosphate-potassium phos monobasic 250 mg tablet (Phospha Neutral) amoxicillin 875 mg-potassium 1 tab PO BID #8 tabs 02/04/22 Rx clavulanate 125 mg tablet dabigatran etexilate 75 mg capsule 150 mg PO BID 30 days #120 caps 12/25/22 Rx (Pradaxa) Past Med/Surg History Medical History (Updated 12/24/22 @ 06:39 by Orville Lopez DO) NAY (acute kidney injury) Atrial fibrillation with slow ventricular response Bronchitis Bronchitis Cataract, left Cataract, right Fall Fever Fever History of cardioversion Hypercholesteremia Hyperkalemia Hypertension Hypothyroid Influenza-like illness Influenza-like symptoms Malignant plasmacytoma Paroxysmal atrial fibrillation Plasmacytoma RLL pneumonia Surgical History (Updated 12/24/22 @ 05:41 by Orville Lopez DO) History of appendectomy History of laparotomy Benign tumor removed from colon History of lumbosacral spine surgery Hx of tonsillectomy Post-operative state (10/18/13) Family History Mother , Mother 89yo Dementia Natural with unknown cause Father , 64yo Myocardial infarction Heart disease Brother No problems noted. Son No problems noted. Daughter No problems noted. Social History Smoking Status: Never smoker Do You Dip or Chew Tobacco: No; Hx Alcohol Use: Yes Alcohol type: hard liquor Alcohol type Comment: Occassional wine; Hx Substance Use: No Preferred Language: Kiswahili Communication Ability: Impaired Visual Impairment: No Limitations Hearing Ability: Hard of Hearing Neuropsychology Service Director Required: No Beliefs That Will Affect Care: None marital status: Life Partner Current Living Situation: [facility] current occupational status: retired current occupation: [employer]; Feels Safe at Home: Yes Diet: other caffeine: Yes (1 cup/day) during the past year weight has: remained stable Assistive Devices: Glasses, Hearing Aid - Bilateral and Walker Review of Systems Review of Systems: Unobtainable due to cognitive status Physical Exam Physical Exam: Constitutional: in no acute distress, pleasant. Vitals as above. HEENT: No scleral injection or discharge.Dry mucous membranes. Neck: Supple without lymphadenopathy or thyromegaly. Trachea midline. Lungs: Clear to auscultation bilaterally with good effort. No wheezes/rales/rhonchi. Cardiac: Regular rate and rhythm.No murmurs. No extremity edema. 2+ distal peripheral pulses. Abdomen: Bowel sounds present. Soft, nontender, and nondistended.No guarding. No hepatosplenomegaly. MSK: No cyanosis or clubbing. Skin: No abnormal rashes, warm, dry. Neurologic: Able to lift both legs off bed only slightly L>R. Unable to wiggle toes. Raised left arm with 4/5 cut plug packer strength. Could not raise R arm up and with 3/5 cut plug packer strength. Cranial nerves appear intact. +dysarthria with expressive aphasia. Seems to understand commands. Results & Data Results & Data Vital Signs (Past 12 Hours) Vital Signs Temp Pulse Resp BP Pulse Ox O2 Del Method O2 Flow Rate 12/24/22 05:28 77 20 160/97 H 98 Nasal Cannula 2 12/24/22 04:30 75 20 173/94 H 96 Room Air 12/24/22 04:08 80 12/24/22 04:10 36.9 C 85 18 142/101 H 95 Room Air Laboratory Results Laboratory Results WBC 11.24 K/ul (4.8-10.8) H 12/24/22 04:11 RBC 4.39 M/uL (4.70-6.10) L 12/24/22 04:11 Hgb 12.8 g/dl (14.0-18.0) L 12/24/22 04:11 Hct 40.2 % (42.0-52.0) L 12/24/22 04:11 MCV 91.6 fL (80.0-100.0) 12/24/22 04:11 MCH 29.2 pg (25.0-34.0) 12/24/22 04:11 MCHC 31.8 g/dL (32.0-36.0) L 12/24/22 04:11 RDW Std Deviation 53.3 fL (36.4-46.3) H 12/24/22 04:11 RDW Coeff of Joann 15.9 % (11.5-14.5) H 12/24/22 04:11 Plt Count 211 K/uL (130-400) 12/24/22 04:11 MPV 9.7 fL (9.4-12.4) 12/24/22 04:11 Immature Gran % (Auto) 3.6 % 12/24/22 04:11 Neut % (Auto) 78.6 % 12/24/22 04:11 Lymph % (Auto) 5.9 % 12/24/22 04:11 [place] % (Auto) 9.7 % 12/24/22 04:11 Eos % (Auto) 1.8 % 12/24/22 04:11 Baso % (Auto) 0.4 % 12/24/22 04:11 Neut # (Auto) 8.84 K/uL (1.40-6.50) H 12/24/22 04:11 Lymph # (Auto) 0.66 K/uL (1.2-3.4) L 12/24/22 04:11 [place] # (Auto) 1.09 K/uL (0.11-0.59) H 12/24/22 04:11 Eos # (Auto) 0.20 K/uL (0-0.50) 12/24/22 04:11 Baso # (Auto) 0.05 K/uL (0-0.2) 12/24/22 04:11 Immature Gran # (Auto) 0.40 K/uL (0.01-0.20) H 12/24/22 04:11 PT 10.7 Seconds (9.0-12.0) 12/24/22 04:11 INR 1.0 (0.9-1.1) 12/24/22 04:11 APTT 25.7 Seconds (21.0-31.0) 12/24/22 04:11 PTT Ratio 0.9 12/24/22 04:11 Sodium 140 mmol/L (136-145) 12/24/22 04:11 Potassium 4.3 mmol/L (3.5-5.1) 12/24/22 04:11 Chloride 101 mmol/L (98-107) 12/24/22 04:11 Carbon Dioxide 32 mmol/L (21-32) 12/24/22 04:11 Anion Gap 7 (3-11) 12/24/22 04:11 BUN 28 mg/dl (6-23) H 12/24/22 04:11 Creatinine 1.12 mg/dl (0.6-1.4) 12/24/22 04:11 Est Cr Clr Drug Dosing Not Reportable 12/24/22 04:11 Est GFR ( Amer) 69.1 ml/min 12/24/22 04:11 Est GFR (Non-Af Amer) 59.6 ml/min 12/24/22 04:11 BUN/Creatinine Ratio 25.0 (10-20) H 12/24/22 04:11 Glucose 133 mg/dl (70-99(Fasting)) H 12/24/22 04:11 POC Glucose 137 mg/dl (70-99) H 12/24/22 04:13 Calcium 10.0 mg/dl (8.6-10.3) 12/24/22 04:11 Magnesium 1.9 mg/dl (1.7-2.4) 12/24/22 04:11 Total Bilirubin 0.7 mg/dl (0.2-1.0) 12/24/22 04:11 AST 14 U/L (13-39) 12/24/22 04:11 ALT 11 U/L (7-52) 12/24/22 04:11 Alkaline Phosphatase 65 U/L (34-104) 12/24/22 04:11 Total Creatine Kinase 88 U/L (30-223) 12/24/22 04:11 Troponin I High Sens 9.9 pg/ml (0-20) 12/24/22 04:11 Total Protein 6.6 gm/dl (6.0-8.3) 12/24/22 04:11 Albumin 4.1 gm/dl (3.4-5.0) 12/24/22 04:11 Globulin 2.5 gm/dl (2.5-4.0) 12/24/22 04:11 Albumin/Globulin Ratio 1.6 (0.9-2) 12/24/22 04:11 Urine Color Yellow 12/24/22 04:42 Urine Appearance Clear (Clear) 12/24/22 04:42 Urine pH 6.5 (4.5-7.5) 12/24/22 04:42 Ur Specific [place] 1.028 (1.000-1.030) 12/24/22 04:42 Urine Protein Trace (Negative) H 12/24/22 04:42 Urine Glucose (UA) Negative (Negative) 12/24/22 04:42 Urine Ketones Negative (Negative) 12/24/22 04:42 Urine Blood Negative (Negative) 12/24/22 04:42 Urine Nitrite Negative (Negative) 12/24/22 04:42 Urine Bilirubin Negative (Negative) 12/24/22 04:42 Urine Urobilinogen Negative (Negative) 12/24/22 04:42 Ur Leukocyte Esterase Negative (Negative) 12/24/22 04:42 Urine WBC (Auto) 1-5 /hpf (0-5) 12/24/22 04:42 Urine RBC (Auto) 0-4 /hpf (0-4) 12/24/22 04:42 U Hyaline Cast (Auto) 1-5 /lpf (0-5) 12/24/22 04:42 U Epithel Cells (Auto) 0-5 /lpf (0-5) 12/24/22 04:42 Urine Bacteria (Auto) Negative (Negative) 12/24/22 04:42 SARS-CoV-2, RNA, NAAT NEGATIVE (NEGATIVE) 12/24/22 04:[address] 12/24/22 04:11 CR Exam(s): CT HEAD Without Contrast EXAM: CT Head Without Intravenous Contrast CLINICAL HISTORY: Reason for exam: neuro deficit, acute stroke suspected. TECHNIQUE: Axial computed tomography images of the head/brain without intravenous contrast. CTDI is 76 mGy and DLP is 1134.23 mGy-cm. Automated exposure control was utilized for the study. A dose lowering technique was utilized adhering to the principles of ALARA. COMPARISON: No relevant prior studies available. FINDINGS: Brain: No acute intracranial abnormality. Consider MRI if there is further concern. Areas of decreased attenuation in the deep cerebral white matter are consistent with small vessel ischemic/degenerative changes. The cerebral and cerebellar sulci are prominent consistent with brain atrophy. No hemorrhage. Ventricles: Unremarkable. No ventriculomegaly. Bones/joints: Unremarkable. No acute fracture. Soft tissues: Unremarkable. Vasculature: Atherosclerotic disease. Sinuses: Right brenda bullosa. Mastoid air cells: Unremarkable as visualized. No mastoid effusion. IMPRESSION: 1. No acute intracranial abnormality. Consider MRI if there is further concern. 2. Small vessel ischemic/degenerative changes. 3. Cerebral and cerebellar atrophy. Communications: Call Doctor Above results Electronically signed by: Clarke Florentino MD 12/24/22 05:09 AM Head CTA 12/24/22 04:11 CR Exam(s): CTA HEAD With Contrast IV Amt: 114ml EXAM: CT Angiography Head and Neck With Intravenous Contrast CLINICAL HISTORY: Reason for exam: neuro deficit, acute stroke suspected. TECHNIQUE: [place]/head and neck CT angiography protocol performed with intravenous contrast. CTDI is 76 mGy and DLP is 1134.23 mGy-cm. Automated exposure control was utilized for the study. A dose lowering technique was utilized adhering to the principles of ALARA. MIP reconstructed images were created and reviewed. CONTRAST: Patient received 114ml of IV contrast COMPARISON: None. FINDINGS: Limitations: Limited examination given lack of thin slice reformatted images. HEAD: Right anterior cerebral artery: Unremarkable. No significant stenosis at the visualized segments. Anterior communicating artery is present. No aneurysm. Right middle cerebral artery: Unremarkable. No significant stenosis at the visualized segments. No aneurysm. Right posterior cerebral artery: Unremarkable. No occlusion or significant stenosis. No aneurysm. Right intracranial internal carotid artery: Unremarkable. No significant stenosis. No dissection or occlusion. Right intracranial vertebral artery: Moderate to severe stenosis of the intracranial segment of the right vertebral artery. No dissection or occlusion. Left anterior cerebral artery: Unremarkable. No significant stenosis at the visualized segments. No aneurysm. Left middle cerebral artery: Unremarkable. No significant stenosis at the visualized segments. No aneurysm. Left posterior cerebral artery: Unremarkable. No occlusion or significant stenosis. No aneurysm. Left intracranial internal carotid artery: Unremarkable. No significant stenosis. No dissection or occlusion. Left intracranial vertebral artery: Unremarkable. No significant stenosis. No dissection or occlusion. Basilar artery: Unremarkable. No significant stenosis. No aneurysm. Other vasculature: Retrograde course of the left internal carotid artery. Findings suspicious for occlusive thrombus within the right M3 branch. Associated asymmetric distal arborization noted. Moderate to severe stenosis of the right carotid siphon. Mild stenosis of the left carotid siphon. NECK: Right common carotid artery: Unremarkable. No significant stenosis. No dissection or occlusion. Right extracranial internal carotid artery: Atherosclerotic plaque and calcifications at the right carotid bifurcation without flow-limiting stenosis NASCET criteria. No dissection or occlusion. Right external carotid artery: Unremarkable. No occlusion. Right extracranial vertebral artery: Unremarkable. No significant stenosis. No dissection or occlusion. Left common carotid artery: Unremarkable. No significant stenosis. No dissection or occlusion. Left extracranial internal carotid artery: Atherosclerotic plaque and calcifications at the left carotid bifurcation without flow-limiting stenosis per NASA criteria. No dissection or occlusion. Left external carotid artery: Unremarkable. No occlusion. Left extracranial vertebral artery: Unremarkable. No significant stenosis. No dissection or occlusion. Retropharyngeal space: Retropharyngeal course of the right common internal carotid artery. Aorta: Incomplete visualization of the aortic arch with the evaluation. Lung apices: Unremarkable as visualized. HEAD and NECK: Bones/joints: Unremarkable. No discrete lytic or blastic abnormalities. Soft tissues: Unremarkable. CAROTID STENOSIS REFERENCE USING NASCET CRITERIA: % ICA stenosis = (1 - narrowest ICA diameter/diameter of distal cervical ICA) x 100. Mild - <50% stenosis. Moderate - 50-69% stenosis. Severe - 70-94% stenosis. Near occlusion - 95-99% stenosis. Occluded - 100% stenosis. IMPRESSION: 1. Limited examination given lack of thin slice reformatted images. 2. Incomplete visualization of the aortic arch with the evaluation. 3. No evidence of large vessel flow-limiting stenosis within the head or neck. 4. [place] of atherosclerotic disease as described in the body of report. Communications: Call Doctor Stroke Electronically signed by: Clarke Florentino MD 12/24/22 05:17 AM Neck CTA 12/24/22 04:11 CR Exam(s): CTA NECK With Contrast IV Amt: 114ml EXAM: CT Angiography Head and Neck With Intravenous Contrast CLINICAL HISTORY: Reason for exam: neuro deficit, acute stroke suspected. TECHNIQUE: [place]/head and neck CT angiography protocol performed with intravenous contrast. CTDI is 76 mGy and DLP is 1134.23 mGy-cm. Automated exposure control was utilized for the study. A dose lowering technique was utilized adhering to the principles of ALARA. MIP reconstructed images were created and reviewed. CONTRAST: Patient received 114ml of IV contrast COMPARISON: None. FINDINGS: Limitations: Limited examination given lack of thin slice reformatted images. HEAD: Right anterior cerebral artery: Unremarkable. No significant stenosis at the visualized segments. Anterior communicating artery is present. No aneurysm. Right middle cerebral artery: Unremarkable. No significant stenosis at the visualized segments. No aneurysm. Right posterior cerebral artery: Unremarkable. No occlusion or significant stenosis. No aneurysm. Right intracranial internal carotid artery: Unremarkable. No significant stenosis. No dissection or occlusion. Right intracranial vertebral artery: Moderate to severe stenosis of the intracranial segment of the right vertebral artery. No dissection or occlusion. Left anterior cerebral artery: Unremarkable. No significant stenosis at the visualized segments. No aneurysm. Left middle cerebral artery: Unremarkable. No significant stenosis at the visualized segments. No aneurysm. Left posterior cerebral artery: Unremarkable. No occlusion or significant stenosis. No aneurysm. Left intracranial internal carotid artery: Unremarkable. No significant stenosis. No dissection or occlusion. Left intracranial vertebral artery: Unremarkable. No significant stenosis. No dissection or occlusion. Basilar artery: Unremarkable. No significant stenosis. No aneurysm. Other vasculature: Retrograde course of the left internal carotid artery. Findings suspicious for occlusive thrombus within the right M3 branch. Associated asymmetric distal arborization noted. Moderate to severe stenosis of the right carotid siphon. Mild stenosis of the left carotid siphon. NECK: Right common carotid artery: Unremarkable. No significant stenosis. No dissection or occlusion. Right extracranial internal carotid artery: Atherosclerotic plaque and calcifications at the right carotid bifurcation without flow-limiting stenosis NASCET criteria. No dissection or occlusion. Right external carotid artery: Unremarkable. No occlusion. Right extracranial vertebral artery: Unremarkable. No significant stenosis. No dissection or occlusion. Left common carotid artery: Unremarkable. No significant stenosis. No dissection or occlusion. Left extracranial internal carotid artery: Atherosclerotic plaque and calcifications at the left carotid bifurcation without flow-limiting stenosis per NASA criteria. No dissection or occlusion. Left external carotid artery: Unremarkable. No occlusion. Left extracranial vertebral artery: Unremarkable. No significant stenosis. No dissection or occlusion. Retropharyngeal space: Retropharyngeal course of the right common internal carotid artery. Aorta: Incomplete visualization of the aortic arch with the evaluation. Lung apices: Unremarkable as visualized. HEAD and NECK: Bones/joints: Unremarkable. No discrete lytic or blastic abnormalities. Soft tissues: Unremarkable. CAROTID STENOSIS REFERENCE USING NASCET CRITERIA: % ICA stenosis = (1 - narrowest ICA diameter/diameter of distal cervical ICA) x 100. Mild - <50% stenosis. Moderate - 50-69% stenosis. Severe - 70-94% stenosis. Near occlusion - 95-99% stenosis. Occluded - 100% stenosis. IMPRESSION: 1. Limited examination given lack of thin slice reformatted images. 2. Incomplete visualization of the aortic arch with the evaluation. 3. No evidence of large vessel flow-limiting stenosis within the head or neck. 4. [place] of atherosclerotic disease as described in the body of report. Communications: Call Doctor Stroke Electronically signed by: Clarke Florentino MD 12/24/22 05:17 AM Supervising Physician Co-Signing Physician Notes Attending addendum: I have physically seen this patient, have supervised the medical residents activities, and agree with the H&P unless as otherwise noted. Assessment and Plan: Strokelike symptoms- The patient will be admitted to telemetry for serial cardiac enzymes, serial EKG's, cardiac rhythm monitoring and a 2-D echocardiogram with Dopplers. CT head without acute event CTA head and neck suspicious for occlusive thrombus within the right M3 branch Order MRI brain to further clarify Stroke without tPA order set Consult speech therapy/PT/OT/neurology Neurochecks per protocol Giving additional 3 mg aspirin DE Permissive hypertension We will start oral medications after he clears speech therapy assessment Atrial fibrillation/hypertension and lisinopril- Rate controlled Holding metoprolol for permissive hypertension Previously on anticoagulation but discontinued Hyperlipidemia- Resume statin when able to take oral medications resume oral medications when able to swallow Plasmacytoma- Resume supportive medications when able to pass speech assessment Remaining orders and notations as noted Resident Activity Tracking Resident Involvement: Resident Care Provided Care Provided: Adult [facility] Medicine
--- NOTE | 2022-12-24 07:05 | XRay Report ---
XR chest 1V portable HISTORY: 87 years-old Male neuro deficit, acute stroke suspected acute strokelike symptoms COMPARISON: Chest CT 02/03/2022 TECHNIQUE: AP view of the chest FINDINGS: Cardiac silhouette is enlarged. Pulmonary vascular congestion. Interstitial coarsening of the lung ba ses. No pneumothorax, pleural effusion or overt pulmonary edema. Trace pleural effusions. IMPRESSION: 1. Cardiomegaly with pulmonary vascular congestion. 2. Trace pleural effusions with mild bibasilar atelectasis. ACT 112: Negative or not required by law. The above report was generated using voice recognition software. It may contain grammatical, syntax o r spelling errors. Electronically signed by: Lino Don M.D. 12/24/2022 7:03 AM
[2022-12-24] MEDS ORDERED: PHARMACIST DISCHARGE MED REC CONSULT PRN (07:10)
[2022-12-24] MEDS ORDERED: ACETAMINOPHEN 1,000 MG/100 ML VIAL IV PRN (07:10)
[2022-12-24] MEDS ORDERED: ASPIRIN 300 MG SUPP PR ONE (07:10)
[2022-12-24 07:53] LABS: Chol HDL Ratio 4.8 (0-5); Cholesterol 259 mg/dl (0-200); HDL Cholesterol 54 mg/dl; LDL Cholesterol Calculated 183 mg/dl; Triglycerides 110 mg/dl (0-150); VLDL Cholesterol 22 mg/dl (0-30)
[2022-12-24 08:11] LABS: Thyroid Stimulating Hormone 4.865 uIu/ml (0.300-4.500)
[2022-12-24 08:19] LABS: Estimated Average Glucose 126 mg/dl
[2022-12-24] MEDS ORDERED: AMOXICILLIN/CLAVULANATE 875 MG TAB PO SCH (09:00)
[2022-12-24 09:02] LABS: T4 Free Thyroxine 1.06 ng/dl (0.61-1.60)
--- NOTE | 2022-12-24 09:59 | Magnetic Resonance Report ---
MRI OF THE BRAIN WITHOUT IV CONTRAST CLINICAL HISTORY: Strokelike symptoms. Slurred speech. COMPARISON STUDY: CT of the brain dated 12/24/2022. TECHNIQUE: MRI of the brain was performed utilizing various T1 and T2-weighted sequences in the axial , sagittal, and coronal planes. IV contrast was not administered for this examination. FINDINGS: Brain parenchyma: There is age-related involutional change noted in moderate subcortical and perivent ricular microangiopathic disease. There is linear subcortical restricted diffusion seen in the [facility] ior cortex and insula of the left temporal lobe consistent with an acute to subacute infarct. No jefferson tional foci of restricted diffusion are identified. No hemorrhage or mass effect is seen. No extra-ax ial fluid collection is seen. The cerebellar tonsils are normal in configuration. Ventricles, sulci, and cisterns: Prominent secondary to involutional change. Pituitary and sella: Unremarkable. Intracranial vasculature: Normal flow voids are maintained at the skull base. Orbits: The bony orbits are grossly intact. Orbital contents are normal in appearance nothing bilater al ocular lens implants. Sinuses and mastoids: There is trace mucosal thickening within the maxillary antra and ethmoid sinuse s. The remaining paranasal sinuses are clear. There is trace right mastoid effusion. Calvarium: Unremarkable. Cervical cord: Partially visualized cervical spinal cord is normal in morphology and signal intensity . IMPRESSION: 1. There are linear foci of subcortical restricted diffusion in the posterior cortex and insula of th e left temporal lobe consistent with an acute to subacute infarct. 2. No additional foci of acute ischemia are identified. 3. There is no hemorrhage or mass effect. ACT 112: Negative or not required by law. Electronically signed by: Alfred Avila M.D. 12/24/2022 9:58 AM
[2022-12-24] MEDS: LEVOTHYROXINE SODIUM 88 MCG TABLET PO SCH (10:13)
[2022-12-24] MEDS: SODIUM CHLORIDE 0.9% 1000ML 1,000 ML IV SCH ×2 (10:13→18:25)
[2022-12-24] MEDS: TAMSULOSIN HCL 0.4 MG CAP PO SCH (10:56)
[2022-12-24] MEDS: SIMVASTATIN 10 MG TAB PO SCH (10:56)
[2022-12-24] MEDS: ACYCLOVIR 400 MG TAB PO SCH ×2 (10:56→19:51)
--- NOTE | 2022-12-24 16:16 | XCELERA ---
[id number] \\[id number]_PDF_Reports\[id number]}___[id number]
--- NOTE | 2022-12-24 17:56 | Communication Note ---
Date of Service: December 24, 2022 Seen twice today in follow-up from early AM admit. Earlier was very confused hard to arouse, would wake up would follow commands poorly, right facial droop hard to assess motor weakness or sensory. Later on revisit he is awake alert talkinghas a little bit of difficulty getting the right words out but mostly can communicate clearly, still has a very mild right facial droop, but equal 5 out of 5 strength upper and lower extremities. MRI CT, etc. reviewed. Son updated extensively and answered all questions to the best my ability and to his satisfaction. Son does not recall any prior major bleeding. CVAmost consistent with cardioembolic from atrial fibrillationreached out to [facility], awaiting callback, but talking with son and reviewing the chart, I do not see where there is a hard contraindication to resuming anticoagulation, and given no active bleeding right now and no obvious hard contraindication, resuming anticoagulation (more recent hospital medicine literature suggest that earlier resumption is associated with better outcomes). Would appreciate speech reevaluation given that he is much more awake and alert, PT/OT eval and treat, and anticipate return to the [facility] tomorrow with ongoing PT/OT/speech
[2022-12-24] MEDS: DABIGATRAN ETEXILATE 75 MG CAP PO SCH (19:51)
[2022-12-25] MEDS: SODIUM CHLORIDE 0.9% 1000ML 1,000 ML IV SCH ×2 (02:14→11:06)
[2022-12-25] MEDS: LEVOTHYROXINE SODIUM 88 MCG TABLET PO SCH (06:38)
--- NOTE | 2022-12-25 06:58 | Hospitalist Progress Note ---
Date of Service December 25, 2022 Assessment & Plan (1) Stroke-like symptoms: Plan: 87 yo male with PMHx hypoxia, persistent afib, frequent falls, malignant plasmacytoma, hypothyroidism, chronic pain, BPH, HLD, and HTN presents with stroke like symptoms. #Stroke like symptoms #Altered Mental Status -Brought by EMS from nursing facility at the [facility] after he was found on the ground and altered. The patient was not able to follow commands and could not speak clearly.Patient is arousable when seen at bedside. Last known well time was 6:30 PM, approximately 9-1/2 hours prior to arrival. Appears to have dysarthria with expressive aphasia. +motor deficits R>L. He does have persistent afib not currently on anticoagulation. UA neg. -CXR unremarkable -CT head without bleed -CTA head/neck: suspicious for occlusive thrombus within the right M3 branch -MRI brain pending -echo pending -lipids, a1c ordered -speech, PT/OT -neuro checks, fall/aspiration precautions, NPO -on daily aspirin and low dose statin at home. Will give 300mg asa SD. Will likely need increased dose on statin. Unable to start DAPT since NPO. -allow for permissive HTN -consider neuro consult #Persistent afib -EKG shows afib -hold metoprolol for permissive HTN. Rate currently controlled. -anticoagulation previously d/c'd, presumably due to frequent falls #HTN -hold lisinopril, metoprolol for permissive HTN #HLD -cont. statin #BPH -cont. flomax #Hypothyroidism -cont. levothyroxine #H/o plasmacytoma -cont. augmentin, acyclovir, balsalazide -also takes dexamethasone qweekly and lenalidomide (chemotherapy- dosing unknown) which will be held for now. Unclear who he follows with for this. #Chronic pain -med rec with pregabalin and clonazepam. Unclear if these used for his pain. Hold due to AMS. DVT ppx: SCDs FEN/GI: NPO Code Status: DNI/DNR Dispo: PCU (2) Hypoxia: (3) Persistent atrial fibrillation: (4) Falling episodes: (5) Hypercholesteremia: (6) Malignant plasmacytoma: (7) Chronic back pain: (8) Hypertension: (9) BPH (benign prostatic hyperplasia): (10) Hypothyroid: Admission and Anticipated Discharge Date Admission Date: December 24, 2022 Results & Data Results & Data Vital Signs (Past 12 Hours) Vital Signs Temp Pulse Pulse Resp BP Pulse Ox O2 Del Method 12/25/22 03:59 36.9 C 92 H 22 156/96 H 93 Room Air 12/24/22 22:29 86 12/24/22 20:00 Room Air 12/24/22 23:09 37.0 C 85 16 151/61 H 91 Room Air 12/24/22 21:10 36.7 C 80 18 131/84 92 Nasal Cannula O2 Flow Rate 12/25/22 03:59 12/24/22 22:29 12/24/22 20:00 12/24/22 23:09 12/24/22 21:10 2
[2022-12-25] MEDS: ACYCLOVIR 400 MG TAB PO SCH (08:23)
[2022-12-25] MEDS: DABIGATRAN ETEXILATE 75 MG CAP PO SCH (08:24)
[2022-12-25] MEDS: SIMVASTATIN 10 MG TAB PO SCH (08:26)
[2022-12-25] MEDS: TAMSULOSIN HCL 0.4 MG CAP PO SCH (08:26)
[2022-12-25] MEDS ORDERED: ASPIRIN 81 MG ECTAB PO SCH (09:00)
[2022-12-25 10:57] VITALS: BP 142/83; PULSE 89; TEMP 98.1; O2SAT 96
[2022-12-25] MEDS ORDERED: STROKE PATIENT DISCHARGE STA (11:35)
--- NOTE | 2022-12-25 18:29 | Discharge Summary ---
Date of Service December 25, 2022 Admission HPI Per Admitting Provider 87 yo male with PMHx hypoxia, persistent afib, frequent falls, malignant plasmacytoma, hypothyroidism, chronic pain, BPH, HLD, and HTN presents with stroke like symptoms. Brought by EMS from nursing facility at the [facility] after he was found on the ground and altered. The patient was not able to follow commands and could not speak clearly.Patient is arousable when seen at bedside. Last known well time was 6:30 PM, approximately 9-1/2 hours prior to arrival. He seems to comprehend but not able to express his words and with dysarthria. Does have persistent afib and was taken off of anticoagulation in the last couple of years presumably due to frequent falls. 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 Very mild right facial droop markedly improved. Alert, strength 5 out of 5 and equal bilateral upper and lower extremities, save a chronic left foot drop. Skin without rashes pallor or icterus. Discharge Data Allergies Allergy/AdvReac Type Severity Reaction Status Date / Time animal dander Allergy Intermediate ASTHMATIC Verified 10/25/21 14:41 REACTION Consultations 12/24/22 05:30 ED Decision to Admit Stat Ordered Studies 12/24/22 04:11 CT angio head w con Stat CT angio neck with con Stat CT head/brain wo con Stat 12/24/22 07:10 MR brain wo con Routine Hospital Course (1) Atrial fibrillation: Strokemost likely related to his atrial fibrillation. After discussion with his son about goals of care, and discussion with his PCP as far as prior bleedingresuming Pradaxa for secondary risk reduction. It definitely appears most consistent with cardioembolic, particularly given the territory and the fact that there was a small area consistent with thrombus in the M3 branch of the MCA. He certainly does have atherosclerotic risks as well, and 1 could consider escalating statin and adding an aspirin, but given that this particular event appeared entirely consistent with atrial fibrillation, and the patient's goals are largely moving towards more of a palliative goal, in keeping with his wishes trying to only treat what is directly relevant. Outpatient speech, [facility], stable to go. Total Time Total Time Spent Total Time Spent (In Minutes): <30 Discharge Plan Discharge Items Patient Disposition: Personal Snf Reason For Visit: STROKE LIKE SYMPTOMS Discharge Diagnosis: Stroke Activity: Resume your previous activity Non-emergency contact: Primary Care Provider Call non-emergency contact if: you have any medication questions and your s ymptoms worsen Follow-up/Referrals: Juwan Mo [Primary Care Provider] - Diet: Regular Diet Comment: please have speech therapist repeat his swallow eval due to aspiration risk Addtl Attending Provider Instructions: You were admitted due to concern for possible stroke. During your hospitalization, imaging findings were consistent with a stroke, showing occlusion of a vessel in your brain. Given that you have atrial fibrillation and are not taking blood thinners, it is highly probable that this was the cause of your stroke. For this reason, you are being discharged on Pradaxa, to be taken twice daily. This medication is a blood thinner that will reduce the risk for recurrent stroke. Please follow up with your primary care provider to address other risk factors. Pending Studies at Discharge: No Stand-Alone Forms: My [employer], Smoking Cessation Skilled Items Patient informed of condition?: Yes DNR: Yes Discharge Level of Care: Other Communicable Disease: No Discharge Prognosis: Stable Lines: None Urinary Catheter: No Medications and DC Order Prescriptions: New dabigatran etexilate [Pradaxa] 75 mg Capsule 150 mg PO BID 30 Days Qty: 120 0RF Continued acetaminophen 500 mg tablet 1,000 mg PO Q6H PRN (Reason: Pain) aspirin 81 mg tablet,delayed release (DR/EC) 81 mg PO DAILY balsalazide [Colazal] 750 mg capsule 750 mg PO DAILY levothyroxine 88 mcg capsule 88 mcg PO DAILY lisinopril 2.5 mg tablet 2.5 mg PO DAILY simvastatin 10 mg tablet 10 mg PO DAILY tamsulosin 0.4 mg capsule 0.4 mg PO DAILY metoprolol succinate 25 mg tablet extended release 24 hr 25 mg PO DAILY Qty: 90 3RF Rx Instructions: PER DR 1ST clonazepam 1 mg tablet 1 mg PO HS acyclovir 400 mg tablet 400 mg PO BID Rx Instructions: FILLED 01/06/22 FOR 30 DAYS dexamethasone 4 mg tablet 20 mg PO WE Rx Instructions: TAKE WITH FOOD Phospha 250 Neutral 250 mg tablet 500 tab PO DAILY Rx Instructions: FILLED 01/06/22 FOR 30 DAYS pregabalin 75 mg capsule 75 mg PO HS lenalidomide [Revlimid] 15 mg capsule 15 mg PO DIRECTED Rx Instructions: 2 WEEKS ON, 1 WEEK OFF, PER 1ST amoxicillin-pot clavulanate 875-125 mg tablet 1 tab PO BID Qty: 8 0RF Discharge Orders: Discharge Order (Routine); Ordered 12/25/22 Ordered By: Nas Lockhart/Other Patient Handouts: A1C Admission Data Admit Date/Time: 12/24/22 06:13 Attending Provider: Manjit Peacock Admit Provider: Orville Lopez Primary Care Provider: Juwan Mo Other Providers: Jhonathan Merchant Other Interventions: Discharge Summary Assessment (RN) Last Done: 12/25/22 14:21 Coding Level of Care Code 75467 IN/OBS DISCH 30 MIN/LESS Diagnoses Atrial fibrillation I48.91
--- NOTE | 2022-12-26 00:31 | Billing Data ---
Date of Service December 26, 2022 Coding Level of Care Code 14546 INT INP/OBS CARE
--- NOTE | 2022-12-26 06:32 | Electrocardiogram Report ---
Test Reason : Blood Pressure : / mmHG Vent. Rate : 079 BPM Atrial Rate : 000 BPM P-R Int : 000 ms QRS Dur : 090 ms QT Int : 366 ms P-R-T Axes : 000 009 036 degrees QTc Int : 419 ms Atrial fibrillation Abnormal ECG When compared with ECG of 28-JAN-2022 23:35, No significant change was found Confirmed by Sandor Bishop ([id number]) on 12/26/2022 6:31:54 AM Referred By: [facility] Confirmed By:Sandor Bishop
== END 2022-12-25 14:47 | disposition home or self-care (01) ==
LOC: ED 04:01 → EDINP 04:01 → SUATTDRO 06:13 → EDINP 09:40 → 2S 10:03

== ENCOUNTER 2023-05-20 13:36 | Observation (INO) ==
[2023-05-20 13:50] VITALS: TEMP 98.2
[2023-05-20] MEDS ORDERED: ACETAMINOPHEN 1,000 MG/100 ML VIAL IV STA (13:59)
[2023-05-20] MEDS ORDERED: SODIUM CHLORIDE 0.9% 500 ML IV ONE (13:59)
--- NOTE | 2023-05-20 14:06 | Emergency Department Note ---
Impression & Plan Hypoxia, Wheezing, L3 vertebral fracture, Fall, Multiple myeloma ED Provider Note NAME: MERCEDEZ TANG AGE: 88 SEX: M : 1935 ARRIVES VIA: Walk-In INFORMANT: [Patient][ems, nursing] ED PROVIDER(S): [Alfred Cohen MD] CHIEF COMPLAINT: Fall, back pain HISTORY OF PRESENT ILLNESS: The patient is an 88-year-old male with a history of previous malignancy. He states that he was trying to maneuver and, fell. The patient states that he has lower back pain since the fall. He may have struck his head but did not lose consciousness. He denies any neck pain. No upper or lower extremity pain. The patient is a poor historian. He is currently at the [facility], he is in the memory care unit. EMS noted his O2 saturation was low, this improved with O2 supplementation. Given the mental state and history of memory issues, no further history obtainable. Of note, the patient is on Eliquis chronically for A-fib. PMHx/PSHx/Social Hx: See Below PHYSICAL EXAM: GENERAL: Patient is in no acute distress. HEENT: No acute trauma, normocephalic atraumatic, mucous membranes dry, no nasal congestion. NECK: No stridor, no adenopathy, no meningismus, trachea is midline. LUNGS: Scattered wheezing bilaterally, no respiratory distress, breath sounds equal. HEART: Irregular rhythm, normal rate, no obvious murmurs, heart tones are distant. ABDOMEN: Soft, nontender, no peritonitis. EXTREMITIES: No cyanosis, full range of motion of all the joints without pain or difficulty. Mild bilateral pedal edema. NEUROLOGIC: Awake and alert, poor historian, no acute motor or sensory deficits, no focal weakness. SKIN: No jaundice, no diaphoresis. DIFFERENTIAL DIAGNOSIS: Lumbar or thoracic fracture, C-spine fracture, intracranial bleeding, pelvic fracture, dehydration, anemia, electrolyte imbalance, UTI, among others. EMERGENCY DEPARTMENT PROCEDURES: MEDICAL DECISION MAKING: There is no leukocytosis. A very mild anemia was seen, this appears baseline looking back at previous testing. There was a normal platelet count. No renal failure or significant electrolyte abnormality. No concerning liver enzyme elevation. ECG shows atrial fibrillation, no obvious ischemia. Cardiac enzyme testing x 1 is not consistent with acute cardiac injury. Urinalysis does not show findings of infection. Respiratory bio fire was completely negative. Pelvis film did not show any fracture. Chest x-ray did not show pneumonia or CHF. Brain CT imaging showed no acute bleed or mass effect. Spinal imaging was performed, the patient did have a fracture of the L3 right pedicle which was thought acute. His hardware was noted to be loose but in stable position. There was no C-spine fracture or T-spine fracture. On exam, the patient complained of lower back pain. He was wheezing and was found to be hypoxic. The patient was given IV Tylenol for pain. He was given a DuoNeb. He received a 500 cc saline bolus. I spoke with Dr. Power of spinal surgery, the L3 fracture is considered stable and there is no need for acute surgical intervention. I did speak with the patient's son by phone. Given the patient's increased pain, his hypoxia and wheezing, I do think hospitalization would be warranted. I spoke with the patient, I did speak with case management, the on-call hospitalist was consulted. Prior/Outside records/notes reviewed: EMS notes. ECG per my interpretation: Indication was fall and weakness. The ECG shows atrial fibrillation with a rate of 76. There is some nonspecific ST change. There is no ST elevation, no PVCs. The QTc is 427. Continuous Cardiac Monitoring per my interpretation: An order was placed for continuous cardiac monitoring. The monitor shows a rate of 72 with atrial fibrillation. Imaging/x-ray results per my interpretation: Pelvis film and chest x-ray were performed, there was no pneumonia or CHF, no pelvic fracture or bony dislocation. Chronic Medical/Social conditions affecting care: [facility] care chronically, history of A-fib on chronic anticoagulation. Care/Management discussed with: Case management and the on-call hospitalist. Orthopedic spinal surgery-Dr. Power Level of care consideration(s): After review of the information above and other included data: --I believe the patient requires escalation of care to admission DISPOSITION: Admission Past Med/Surg History Medical History Stroke-like symptoms RLL pneumonia Hypoxia Fall Atrial fibrillation with slow ventricular response Paroxysmal atrial fibrillation Malignant plasmacytoma Plasmacytoma History of cardioversion Hypercholesteremia Hypertension Influenza-like symptoms Influenza-like illness Fever Fever Bronchitis Bronchitis NAY (acute kidney injury) Hyperkalemia Hypothyroid Cataract, left Cataract, right Surgical History (Updated 12/24/22 @ 05:41 by Orville Lopez DO) History of appendectomy Hx of tonsillectomy History of lumbosacral spine surgery History of laparotomy Benign tumor removed from colon Post-operative state (10/18/13) Family History Mother , Mother 89yo Dementia Natural with unknown cause Father , 64yo Myocardial infarction Heart disease Brother No problems noted. Son No problems noted. Daughter No problems noted. Social History Smoking Status: Never smoker Do You Dip or Chew Tobacco: No; Hx Alcohol Use: Yes Alcohol type: hard liquor Alcohol type Comment: Occassional wine; Hx Substance Use: No Preferred Language: Icelandic Communication Ability: Impaired Visual Impairment: No Limitations Hearing Ability: Hard of Hearing Reel Operator Required: No Beliefs That Will Affect Care: None marital status: Life Partner Current Living Situation: [place] current occupational status: retired current occupation: [employer]; Feels Safe at Home: Yes Diet: other caffeine: Yes (1 cup/day) during the past year weight has: remained stable Assistive Devices: Glasses, Hearing Aid - Bilateral and Walker Allergies Allergies Allergy/AdvReac Type Severity Reaction Status Date / Time animal dander Allergy Intermediate ASTHMATIC Verified 05/20/23 16:41 REACTION-HORSE, CAT & DOGS Home Meds Home Medications Medication Instructions Recorded Confirmed aspirin 81 mg tablet,delayed 81 mg PO DAILY 11/20/20 05/20/23 release balsalazide 750 mg capsule 750 mg PO DAILY 11/20/20 05/20/23 (Colazal) levothyroxine 88 mcg capsule 88 mcg PO DAILY 11/20/20 05/20/23 tamsulosin 0.4 mg capsule 0.4 mg PO DAILY 11/20/20 05/20/23 pregabalin 75 mg capsule 75 mg PO HS 01/29/22 05/20/23 sodium di- and 1 tab PO DAILY 01/29/22 05/20/23 monophosphate-potassium phos monobasic 250 mg tablet (Phospha Neutral) acetaminophen 325 mg tablet 650 mg PO QID 05/20/23 05/20/23 (Tylenol) albuterol sulfate 90 mcg/actuation 2 puff inhalation Q4H PRN 05/20/23 05/20/23 aerosol inhaler Shortness Of Breath Or Wheezing apixaban 2.5 mg tablet (Eliquis) 2.5 mg PO BID 05/20/23 05/20/23 calcium carbonate 600 mg-vitamin 1 tab PO DAILY 05/20/23 05/20/23 D3 20 mcg (800 unit) chewable tablet (Caltrate 600 plus D) clonazepam 0.5 mg tablet 0.5 mg PO HS 05/20/23 05/20/23 dexamethasone 20 mg tablet 20 mg PO WK 05/20/23 05/20/23 escitalopram oxalate 10 mg tablet 10 mg PO DAILY 05/20/23 05/20/23 (Lexapro) lidocaine 4 % topical patch 1 patch topical DAILY LOWER BACK 05/20/23 05/20/23 metoprolol tartrate 25 mg tablet 12.5 mg PO BID 05/20/23 05/20/23 morphine 15 mg immediate release 15 mg PO Q4H PRN Pain 05/20/23 05/20/23 tablet Results & Data (ED) Vital Signs Vital Signs - 24 hr 05/20/23 13:36 05/20/23 13:43 05/20/23 13:59 Temperature 36.8 C Temperature Source Axillary Pulse Rate 77 72 Respiratory Rate 20 Blood Pressure 120/93 Blood Pressure Mean 102 Pulse Oximetry 87 L 87 L Oxygen Delivery Method Nasal Cannula Room Air Oxygen Flow Rate 0 Sepsis Recent Fever Within 48 Hours No Sepsis New/Unexplained Change in Mental Status No Sepsis Action Taken by Nursing No Action Required Oxygen Flow Rate - Titration 2 Pulse Oximetry Post Tiitration 93 05/20/23 15:09 Temperature Temperature Source Pulse Rate Respiratory Rate Blood Pressure Blood Pressure Mean Pulse Oximetry 98 Oxygen Delivery Method Nasal Cannula Oxygen Flow Rate 3 Sepsis Recent Fever Within 48 Hours Sepsis New/Unexplained Change in Mental Status Sepsis Action Taken by Nursing Oxygen Flow Rate - Titration Pulse Oximetry Post Tiitration Home Medications Current Medication List: was personally reviewed by me Laboratory Data Attestation: I reviewed the patient's lab results. 05/20/23 14:41 05/20/23 14:41 Lab Results 05/20/23 05/20/23 Range/Units 14:41 Unknown WBC 6.88 (4.8-10.8) K/ul RBC 4.60 L (4.70-6.10) M/uL Hgb 13.2 L (14.0-18.0) g/dl Hct 42.4 (42.0-52.0) % MCV 92.2 (80.0-100.0) fL MCH 28.7 (25.0-34.0) pg MCHC 31.1 L (32.0-36.0) g/dL RDW Std Deviation 52.0 H (36.4-46.3) fL RDW Coeff of Joann 15.4 H (11.5-14.5) % Plt Count 210 (130-400) K/uL MPV 9.6 (9.4-12.4) fL Immature Gran % (Auto) 1.0 % Neut % (Auto) 77.4 % Lymph % (Auto) 8.1 % [place] % (Auto) 9.9 % Eos % (Auto) 3.2 % Baso % (Auto) 0.4 % Neut # (Auto) 5.32 (1.40-6.50) K/uL Lymph # (Auto) 0.56 L (1.20-3.40) K/uL [place] # (Auto) 0.68 H (0.11-0.59) K/uL Eos # (Auto) 0.22 (0.00-0.50) K/uL Baso # (Auto) 0.03 (0.00-0.20) K/uL Immature Gran # (Auto) 0.07 (0.01-0.20) K/uL Sodium 139 (136-145) mmol/L Potassium 4.3 (3.5-5.1) mmol/L Chloride 104 (98-107) mmol/L Carbon Dioxide 31 (21-32) mmol/L Anion Gap 4 (3-11) BUN 18 (6-23) mg/dl Creatinine 0.96 (0.6-1.4) mg/dl Est Cr Clr Drug Dosing 65.8 ml/min Est GFR ( Amer) 82.6 ml/min Est GFR (Non-Af Amer) 71.3 ml/min BUN/Creatinine Ratio 18.8 (10-20) Glucose 93 (70-99(Fasting)) mg/dl Calcium 8.6 (8.6-10.3) mg/dl Magnesium 1.9 (1.7-2.4) mg/dl Total Bilirubin 0.6 (0.2-1.0) mg/dl AST 12 L (13-39) U/L ALT 11 (7-52) U/L Alkaline Phosphatase 64 (34-104) U/L Troponin I High Sens 7.1 (0-20) pg/ml Total Protein 5.8 L (6.0-8.3) gm/dl Albumin 3.6 (3.4-5.0) gm/dl Globulin 2.2 L (2.5-4.0) gm/dl Albumin/Globulin Ratio 1.6 (0.9-2) Urine Color Yellow Urine Appearance Clear (Clear) Urine pH 6.0 (4.5-7.5) Ur Specific Blue 1.019 (1.000-1.030) Urine Protein Negative (Negative) Urine Glucose (UA) Negative (Negative) Urine Ketones Negative (Negative) Urine Blood Negative (Negative) Urine Nitrite Negative (Negative) Urine Bilirubin Negative (Negative) Urine Urobilinogen Negative (Negative) Ur Leukocyte Esterase Negative (Negative) Adenovirus (PCR) Not Detected (NotDetected) B. pertussis DNA (PCR) Not Detected (NotDetected) B.parapertussis DNA PCR Not Detected (NotDetected) C. pneumoniae DNA (PCR) Not Detected (NotDetected) Coronavirus OC43 (PCR) Not Detected (NotDetected) Coronavirus HKU1 (PCR) Not Detected (NotDetected) Coronavirus 229E (PCR) Not Detected (NotDetected) SARS-CoV-2 (PCR) Not Detected (NotDetected) Coronavirus NL63 (PCR) Not Detected (NotDetected) Human Metapneumovir PCR Not Detected (NotDetected) Influenza Type A (PCR) Not Detected (NotDetected) Influenza Type B (PCR) Not Detected (NotDetected) M. pneumoniae (PCR) Not Detected (NotDetected) Parainfluenza 1 (PCR) Not Detected (NotDetected) Parainfluenza 2 (PCR) Not Detected (NotDetected) Parainfluenza 3 (PCR) Not Detected (NotDetected) Parainfluenza 4 (PCR) Not Detected (NotDetected) RSV (PCR) Not Detected (NotDetected) Entero/Rhino (PCR) Not Detected (NotDetected) Administered Medications Discontinued Medications Albuterol (Albut/Ipratrop 3mg/0.5mg Neb 3 Ml Vial) 3 ml NEB NOW STA; Protocol Stop: 05/20/23 16:31 Last Admin: 05/20/23 16:42 Dose: 3 ml Documented By: ANUSHA Sodium Chloride (Nss) 500 mls @ 999 mls/hr IV .Q31M ONE Stop: 05/20/23 14:29 Last Infusion: 05/20/23 15:10 Dose: Infused Documented By: Admin: 05/20/23 14:45 Dose: 999 mls/hr Documented By: ANUSHA Acetaminophen (Ofirmev) 1,000 mg in 100 mls @ 400 mls/hr IV NOW STA Stop: 05/20/23 14:13 Last Infusion: 05/20/23 15:00 Dose: Infused Documented By: Admin: 05/20/23 14:44 Dose: 400 mls/hr Documented By: ANUSHA Imaging Data Radiologist's Impression: Cervical Spine CT 05/20/23 13:59 CT cervical spine wo con CLINICAL HISTORY: 88 years-old Male with fall. Acute head and neck injury status post fall COMPARISON: Head CT of same day TECHNIQUE: Multiple axial CT images of the cervical spine were obtained without contrast. A dose lowering technique was utilized adhering to the principles of ALARA. FINDINGS: Moderate to severe multilevel facet arthrosis. Multilevel intervertebral disc space narrowing, severe at C5-C6 and C6-C7. Probable vertebral body hemangioma at T2. Mild mid cervical kyphosis. The cervical soft tissues appear unremarkable. The visualized lung apices appear clear. Coarsened trabecular markings with bony expansion of the left mandibular condyle is likely benign. IMPRESSION: No acute cervical spine fracture or subluxation. ACT 112: Negative or not required by law. The above report was generated using voice recognition software. It may contain grammatical, syntax or spelling errors. Electronically signed by: Lino Don M.D. 05/20/2023 3:02 PM Chest X-Ray 05/20/23 13:59 XR chest 1V portable CLINICAL HISTORY: fall, weak COMPARISON STUDY: Chest CT February 03, 2022. Chest radiograph December 24, 2022. FINDINGS: Old left clavicular fracture is incidentally noted. Degenerative changes within the shoulders are more severe on the right. Cardiomegaly is unchanged. There is no evidence for pulmonary edema. No pneumothorax or pleural effusion is present. Multiple old bilateral rib fractures are present. IMPRESSION: No acute cardiopulmonary findings. No significant change in appearance of the chest. ACT 112: Negative or not required by law. Electronically signed by: Ilir Patten M.D. 05/20/2023 2:[address] 05/20/23 13:59 CT head/brain wo con CLINICAL HISTORY: 88 years-old Male with fall, eliquis. Acute head injury status post fall TECHNIQUE: Multiple axial CT images of the head were obtained without contrast. A dose lowering technique was utilized adhering to the principles of ALARA. CT DOSE: 3655.56 mGy.cm COMPARISON: 12/24/2022 FINDINGS: No acute intracranial hemorrhage, midline shift, intracranial mass, hydrocephalus, territorial ischemia or abnormal extra-axial collection. Involutional changes with chronic microvascular ischemic disease. Prominent arterial calcifications at the level of the skull base. 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 The calvarium is intact. The paranasal sinuses, mastoid air cells, and middle ear cavities are clear. IMPRESSION: No acute intracranial abnormality or calvarial fracture. ACT 112: Negative or not required by law. The above report was generated using voice recognition software. It may contain grammatical, syntax or spelling errors. Electronically signed by: Lino Don M.D. 05/20/2023 2:[address] 05/20/23 13:59 CT SCAN OF THE LUMBAR SPINE WITHOUT IV CONTRAST CLINICAL HISTORY: Fall. History of multiple myeloma. COMPARISON STUDY: CT scan of the lumbar spine dated 01/28/2022. TECHNIQUE: CT scan of the lumbar spine is performed from the lower thoracic spine to the sacrum. Images are reviewed in the axial, sagittal, and coronal planes. IV contrast was not administered for this examination. The examination is degraded by streak artifact from metallic spinal hardware. A dose lowering technique was utilized adhering to the principles of ALARA. FINDINGS: The skeletal structures are heterogeneously osteopenic. There is an age-indeterminant right pedicular fracture of L3 seen on axial image #205. This is new from 01/28/2022 and may be acute. No additional findings are suspicious for acute fracture. Mixed lytic and sclerotic lesions throughout the lumbar spine have not appreciably changed and are consistent with the known history of multiple myeloma. There is a severe compression deformity of S1, which is unchanged from previous. There is wedging of the posterior aspect of the L5 vertebral body, which is also similar to previous. Vertebral body height is otherwise maintained throughout the lumbar spine. There is postsurgical change from laminectomy and posterior fusion throughout the lumbosacral spine. This extends from L3 to the sacrum. Interpedicular screws are present at all levels with the exceptions of L5 and S1. Bilateral iliac bolts are in place. Lucency around the lumbar interpedicular screws and the iliac bolts suggest loosening. There is grade 1 anterolisthesis at L5-S1, which is similar to previous. Alignment is preserved. The transverse processes and the remaining spinous processes appear intact. There is severe disc space narrowing at L2-L3 with associated endplate sclerosis. Only mild disc space narrowing is seen at the remaining lumbar levels. There is no CT evidence of high-grade central canal stenosis. Postsurgical change is seen posterior to the thecal sac at the operative levels. There is fatty atrophy of the paraspinous musculature. There is [id number] atherosclerotic calcification and ectasia of the abdominal aorta. No retroperitoneal lymphadenopathy is seen. Postoperative change is noted in the partially imaged sigmoid colon. IMPRESSION: 1. There is an age-indeterminant right pedicular fracture of L3. This is new from 01/28/2022 and may be acute. 2. No additional findings are seen to suggest acute fracture. 3. Mixed lytic/blastic lesions throughout the lumbar spine and sacrum have not appreciably changed and are consistent with the reported history of multiple myeloma. 4. A severe compression deformity of S1 is unchanged, with postsurgical change throughout the lumbosacral spine. Lucency around the orthopedic hardware is similar to previous and suggests loosening. 5. Additional chronic findings as above. ACT 112: Negative or not required by law. Dictated: 05/20/2023 2:51 PM Transcribed: 05/20/2023 4:13 PM Anhtony [id number] [email or web address] Electronically signed by: Alfred Avila M.D. 05/20/2023 4:16 PM Pelvis X-Ray 05/20/23 13:59 SINGLE VIEW PELVIS CLINICAL HISTORY: Fall. FINDINGS: An AP, portable, supine pelvic radiograph is compared to study dated 12/17/2016 and correlated with pelvic CT dated 02/03/2022. The skeletal structures are osteopenic. There is no radiographic evidence of acute fracture involving the hips or bony pelvis. There is chronic deformity of the left pubic ring. Bilateral hip arthroplasties are in near anatomic alignment. Extensive fusion hardware is seen at the lumbosacral junction with bilateral iliac folds in place. Extensive sclerotic change is seen around the sacroiliac joints. Lucency around the iliac bolts and the interpedicular screws in the lower lumbar spine is suggestive of loosening. The overlying soft tissues are within normal limits. IMPRESSION: No acute bony abnormality is identified. See above. Electronically signed by: Alfred Avila M.D. 05/20/2023 2:[address] 05/20/23 13:59 CT OF THE THORACIC SPINE CLINICAL HISTORY: Fall. COMPARISON STUDY: MRI of the thoracic spine August 28, 2020. Chest CT February 03, 2022. TECHNIQUE: Helical axial images of the thoracic spine were obtained. Sagittal and coronal reconstructions were viewed. Automated exposure control was utilized for the study. A dose lowering technique was utilized adhering to the principles of ALARA. FINDINGS: Thoracic spine vertebral body heights are maintained. No fractures within the thoracic spine are present. A lucent/lytic lesion within the T12 vertebra is unchanged. A smaller lucent lesion within T2 is also unchanged. No new lesions within the thoracic spine are present. Mild multilevel endplate osteophytosis is present. Paravertebral soft tissues are unremarkable. No acute fractures are identified within the visualized posterior ribs. IMPRESSION: No acute thoracic spine fracture or subluxation. ACT 112: Negative or not required by law. Electronically signed by: Ilir Patten M.D. 05/20/2023 2:52 PM Discharge Plan Visit Data Chief Complaint: Back Injury/Pain Stated Complaint: back pain ED Provider: Alfred Cohen Discharge Problem: Hypoxia, Wheezing, L3 vertebral fracture, Fall, Multiple myeloma Patient Disposition: Admitted As Inpatient Condition: Fair Forms Stand Alone Forms: [facility] Prescriptions Prescriptions: No Action aspirin 81 mg tablet,delayed release (DR/EC) 81 mg PO DAILY balsalazide [Colazal] 750 mg capsule 750 mg PO DAILY levothyroxine 88 mcg capsule 88 mcg PO DAILY tamsulosin 0.4 mg capsule 0.4 mg PO DAILY acetaminophen [Tylenol] 325 mg Tablet 650 mg PO QID lidocaine 4 % Adhesive Patch,Medicated 1 patch TOPICAL DAILY Rx Instructions: APPLY QAM, THEN REMOVE AT HS. MAY USE HEAT TO LOWER BACK IF NOT USING PATCH. clonazepam 0.5 mg tablet 0.5 mg PO HS albuterol sulfate 90 mcg/actuation Hfa Aerosol Inhaler 2 puff INHALATION Q4H PRN (Reason: Shortness Of Breath Or Wheezing) morphine 15 mg Tablet 15 mg PO Q4H PRN (Reason: Pain) escitalopram oxalate [Lexapro] 10 mg Tablet 10 mg PO DAILY metoprolol tartrate 25 mg tablet 12.5 mg PO BID Rx Instructions: HOLD FOR SBP <90 OR HR <50 Eliquis 2.5 mg Tablet 2.5 mg PO BID Caltrate 600 plus D 600 mg-20 mcg (800 unit) Tablet,Chewable 1 tab PO DAILY dexamethasone 20 mg Tablet 20 mg PO WK Rx Instructions: [facility] Phospha 250 Neutral 250 mg tablet 1 tab PO DAILY pregabalin 75 mg capsule 75 mg PO HS Referrals Referrals: Juwan Mo [Primary Care Provider] - Discharge Problem: L3 vertebral fracture Qualifiers: Encounter type: initial encounter Fracture type: closed Fracture morphology: u nspecified fracture morphology Qualified Code(s): S32.039A - Unspecified fracture of third lumbar vertebra, initial encounter for closed fracture Fall Qualifiers: Encounter type: initial encounter Qualified Code(s): W19.XXXA - Unspecified fall, initial encounter Multiple myeloma Qualifiers: Multiple myeloma remission status: unspecified Qualified Code(s): C90.00 - Multiple myeloma not having achieved remission
--- NOTE | 2023-05-20 14:26 | XRay Report ---
SINGLE VIEW PELVIS CLINICAL HISTORY: Fall. FINDINGS: An AP, portable, supine pelvic radiograph is compared to study dated 12/17/2016 and correlat ed with pelvic CT dated 02/03/2022. The skeletal structures are osteopenic. There is no radiographic e vidence of acute fracture involving the hips or bony pelvis. There is chronic deformity of the left p ubic ring. Bilateral hip arthroplasties are in near anatomic alignment. Extensive fusion hardware is seen at the lumbosacral junction with bilateral iliac folds in place. Extensive sclerotic change is s een around the sacroiliac joints. Lucency around the iliac bolts and the interpedicular screws in the lower lumbar spine is suggestive of loosening. The overlying soft tissues are within normal limits. IMPRESSION: No acute bony abnormality is identified. See above. Electronically signed by: Alfred Avila M.D. 05/20/2023 2:25 PM
--- NOTE | 2023-05-20 14:41 | XRay Report ---
XR chest 1V portable CLINICAL HISTORY: fall, weak COMPARISON STUDY: Chest CT February 03, 2022. Chest radiograph December 24, 2022. FINDINGS: Old left clavicular fracture is incidentally noted. Degenerative changes within the shoulde rs are more severe on the right. Cardiomegaly is unchanged. There is no evidence for pulmonary edema. No pneumothorax or pleural effusion is present. Multiple old bilateral rib fractures are present. IMPRESSION: No acute cardiopulmonary findings. No significant change in appearance of the chest. ACT 112: Negative or not required by law. Electronically signed by: Ilir Patten M.D. 05/20/2023 2:39 PM
--- NOTE | 2023-05-20 14:54 | CT Scan Report ---
CT OF THE THORACIC SPINE CLINICAL HISTORY: Fall. COMPARISON STUDY: MRI of the thoracic spine August 28, 2020. Chest CT February 03, 2022. TECHNIQUE: Helical axial images of the thoracic spine were obtained. Sagittal and coronal reconstru ctions were viewed. Automated exposure control was utilized for the study. A dose lowering techniqu e was utilized adhering to the principles of ALARA. FINDINGS: Thoracic spine vertebral body heights are maintained. No fractures within the thoracic spin e are present. A lucent/lytic lesion within the T12 vertebra is unchanged. A smaller lucent lesion wi thin T2 is also unchanged. No new lesions within the thoracic spine are present. Mild multilevel endp late osteophytosis is present. Paravertebral soft tissues are unremarkable. No acute fractures are id entified within the visualized posterior ribs. IMPRESSION: No acute thoracic spine fracture or subluxation. ACT 112: Negative or not required by law. Electronically signed by: Ilir Patten M.D. 05/20/2023 2:52 PM
--- NOTE | 2023-05-20 14:58 | CT Scan Report ---
CT head/brain wo con CLINICAL HISTORY: 88 years-old Male with fall, eliquis. Acute head injury status post fall TECHNIQUE: Multiple axial CT images of the head were obtained without contrast. A dose lowering tech nique was utilized adhering to the principles of ALARA. CT DOSE: 3655.56 mGy.cm COMPARISON: 12/24/2022 FINDINGS: No acute intracranial hemorrhage, midline shift, intracranial mass, hydrocephalus, territorial ischem ia or abnormal extra-axial collection. Involutional changes with chronic microvascular ischemic disea se. Prominent arterial calcifications at the level of the skull base. 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 The calvarium is intact. The paranasal sinuses, mastoid air cells, and middle ear cavities are clear . IMPRESSION: No acute intracranial abnormality or calvarial fracture. ACT 112: Negative or not required by law. The above report was generated using voice recognition software. It may contain grammatical, syntax o r spelling errors. Electronically signed by: Lino Don M.D. 05/20/2023 2:57 PM
--- NOTE | 2023-05-20 15:03 | CT Scan Report ---
CT cervical spine wo con CLINICAL HISTORY: 88 years-old Male with fall. Acute head and neck injury status post fall COMPARISON: Head CT of same day TECHNIQUE: Multiple axial CT images of the cervical spine were obtained without contrast. A dose low ering technique was utilized adhering to the principles of ALARA. FINDINGS: Moderate to severe multilevel facet arthrosis. Multilevel intervertebral disc space narrowi ng, severe at C5-C6 and C6-C7. Probable vertebral body hemangioma at T2. Mild mid cervical kyphosis. The cervical soft tissues appear unremarkable. The visualized lung apices appear clear. Coarsened tr abecular markings with bony expansion of the left mandibular condyle is likely benign. IMPRESSION: No acute cervical spine fracture or subluxation. ACT 112: Negative or not required by law. The above report was generated using voice recognition software. It may contain grammatical, syntax o r spelling errors. Electronically signed by: Lino Don M.D. 05/20/2023 3:02 PM
[2023-05-20 15:05] LABS: Basophils # (auto) 0.03 K/uL (0.00-0.20); Basophils % (auto) 0.4 %; Eosinophils # (auto) 0.22 K/uL (0.00-0.50); Eosinophils % (auto) 3.2 %; Hematocrit (blood only) 42.4 % (42.0-52.0); Hemoglobin 13.2 g/dl (14.0-18.0); Immature Granulocytes # (auto) 0.07 K/uL (0.01-0.20); Lymphocytes # (auto) 0.56 K/uL (1.20-3.40); Lymphocytes % (auto) 8.1 %; Mean Corpuscular Hemoglobin 28.7 pg (25.0-34.0); Mean Corpuscular Hgb Conc 31.1 g/dL (32.0-36.0); Mean Corpuscular Volume 92.2 fL (80.0-100.0); Mean Platelet Volume 9.6 fL (9.4-12.4); Monocytes # (auto) 0.68 K/uL (0.11-0.59); Monocytes % (auto) 9.9 %; Neutrophils # (auto) 5.32 K/uL (1.40-6.50); Neutrophils % (auto) 77.4 %; Platelet Count 210 K/uL (130-400); RDW Coefficient of Variation 15.4 % (11.5-14.5); White Blood Count 6.88 K/ul (4.8-10.8)
[2023-05-20 15:15] LABS: Albumin Globulin Ratio 1.6 (0.9-2); Albumin Level 3.6 gm/dl (3.4-5.0); BUN Creatinine Ratio 18.8 (10-20); Bilirubin,Total 0.6 mg/dl (0.2-1.0); Calcium 8.6 mg/dl (8.6-10.3); Creatinine Clr Calc Pharmacy 65.8 ml/min; Est GFR (African American) 82.6 ml/min; Est GFR (Non-African American) 71.3 ml/min; Globulin 2.2 gm/dl (2.5-4.0); Magnesium 1.9 mg/dl (1.7-2.4); Potassium 4.3 mmol/L (3.5-5.1); Total Protein 5.8 gm/dl (6.0-8.3)
[2023-05-20 15:22] LABS: Troponin I High Sensitivity 7.1 pg/ml (0-20)
[2023-05-20 16:18] LABS: Adenovirus PCR Not Detected (NotDetected); Bordetella parapertussis PCR Not Detected (NotDetected); Bordetella pertussis PCR Not Detected (NotDetected); Chlamydia pneumoniae PCR Not Detected (NotDetected); Coronavirus 229E PCR Not Detected (NotDetected); Coronavirus CoV-2 (COVID19)PCR Not Detected (NotDetected); Coronavirus HKU1 PCR Not Detected (NotDetected); Coronavirus NL63 PCR Not Detected (NotDetected); Coronavirus OC43PCR Not Detected (NotDetected); Human Metapneumovirus PCR Not Detected (NotDetected); Influenza A PCR Not Detected (NotDetected); Influenza B PCR Not Detected (NotDetected); Mycoplasma pneumoniae PCR Not Detected (NotDetected); Parainfluenza Virus 1 PCR Not Detected (NotDetected); Parainfluenza Virus 2 PCR Not Detected (NotDetected); Parainfluenza Virus 3 PCR Not Detected (NotDetected); Parainfluenza Virus 4 PCR Not Detected (NotDetected); Respiratory Syncytial VirusPCR Not Detected (NotDetected); Rhinovirus/Enterovirus PCR Not Detected (NotDetected)
--- NOTE | 2023-05-20 16:18 | CT Scan Report ---
CT SCAN OF THE LUMBAR SPINE WITHOUT IV CONTRAST CLINICAL HISTORY: Fall. History of multiple myeloma. COMPARISON STUDY: CT scan of the lumbar spine dated 01/28/2022. TECHNIQUE: CT scan of the lumbar spine is performed from the lower thoracic spine to the sacrum. Imag es are reviewed in the axial, sagittal, and coronal planes. IV contrast was not administered for this examination. The examination is degraded by streak artifact from metallic spinal hardware. A dose lo wering technique was utilized adhering to the principles of ALARA. FINDINGS: The skeletal structures are heterogeneously osteopenic. There is an age-indeterminant right pedicular fracture of L3 seen on axial image #205. This is new from 01/28/2022 and may be acute. No ad ditional findings are suspicious for acute fracture. Mixed lytic and sclerotic lesions throughout the lumbar spine have not appreciably changed and are consistent with the known history of multiple myel ivania. There is a severe compression deformity of S1, which is unchanged from previous. There is wedgin g of the posterior aspect of the L5 vertebral body, which is also similar to previous. Vertebral body height is otherwise maintained throughout the lumbar spine. There is postsurgical change from siddharth ctomy and posterior fusion throughout the lumbosacral spine. This extends from L3 to the sacrum. Inte rpedicular screws are present at all levels with the exceptions of L5 and S1. Bilateral iliac bolts a re in place. Lucency around the lumbar interpedicular screws and the iliac bolts suggest loosening. T here is grade 1 anterolisthesis at L5-S1, which is similar to previous. Alignment is preserved. The t ransverse processes and the remaining spinous processes appear intact. There is severe disc space jimmy rowing at L2-L3 with associated endplate sclerosis. Only mild disc space narrowing is seen at the rem aining lumbar levels. There is no CT evidence of high-grade central canal stenosis. Postsurgical price ge is seen posterior to the thecal sac at the operative levels. There is fatty atrophy of the paraspi nous musculature. There is pdnompcs-lo-owmsaqdi atherosclerotic calcification and ectasia of the abdo raciel aorta. No retroperitoneal lymphadenopathy is seen. Postoperative change is noted in the partial ly imaged sigmoid colon. IMPRESSION: 1. There is an age-indeterminant right pedicular fracture of L3. This is new from 01/28/2022 and may be acute. 2. No additional findings are seen to suggest acute fracture. 3. Mixed lytic/blastic lesions throughout the lumbar spine and sacrum have not appreciably changed an d are consistent with the reported history of multiple myeloma. 4. A severe compression deformity of S1 is unchanged, with postsurgical change throughout the lumbosa cral spine. Lucency around the orthopedic hardware is similar to previous and suggests loosening. 5. Additional chronic findings as above. ACT 112: Negative or not required by law. Dictated: 05/20/2023 2:51 PM Transcribed: 05/20/2023 4:13 PM Anthony [id number] [email or web address] Electronically signed by: Alfred Avila M.D. 05/20/2023 4:16 PM
[2023-05-20] MEDS ORDERED: ALBUT/IPRATROP 3MG/0.5MG NEB 3 ML VIAL NEB STA (16:30)
--- NOTE | 2023-05-20 17:39 | History & Physical Report ---
Date of Service May 20, 2023 Assessment & Plan (1) Multiple myeloma: (2) Fall: (3) L3 vertebral fracture: (4) Closed compression fracture of sacrum: (5) BPH (benign prostatic hyperplasia): (6) Hypothyroid: (7) Hypertension: (8) Persistent atrial fibrillation: (9) Chronic anticoagulation: (10) Malignant plasmacytoma: (11) Chronic back pain: Plan Acute worsening of chronic low back pain- Patient with known history of S1 severe compression defect, unchanged on CT scan New L3 right pedicle fracture Mixed lytic and blastic lesions consistent with multiple myeloma Atenolol 650 mg by mouth every 6 hours as needed for mild pain or fever Continue morphine 15 mg every 4 hours as needed for breakthrough pain Continue lidocaine patch and pregabalin Patient may require PT/OT assessment to return to the [facility]. Would wait until pain is controlled to do so Atrial fibrillation/hypertension- Continue apixaban, aspirin, metoprolol tartrate Depression/insomnia- Continue Lexapro and clonazepam History of Present Illness Chief Complaint: The patient is referred to the emergency department from [facility] where he fell as he was trying to walk around, and had reported a worsening of his usual lower back pain after the fall. Primary Care Provider: [facility] The patient is an 88-year-old male with a past medical history including multiple myeloma, previous S1 compression fracture, hypothyroidism, BPH, hypertension, balance disorder, hypercholesterolemia, malignant plasmacytoma, atrial fibrillation and anemia. The patient presents to the emergency department after a worsening of his usual back pain, and was found to have a new L3 right pedicle fracture on CT scan, along with his usual mixed lytic and blastic lesions consistent with his multiple myeloma. There was again noted S1 severe compression defect without change. The patient himself was somewhat confused when asked why he was brought to the ED, and so his HPI and ROS are gathered in large part from EMS relayed information from the [facility] Allergies Allergy/AdvReac Type Severity Reaction Status Date / Time animal dander Allergy Intermediate ASTHMATIC Verified 05/20/23 16:41 REACTION-HORSE, CAT & DOGS Home Medications Medication Instructions Recorded Confirmed Type aspirin 81 mg tablet,delayed 81 mg PO DAILY 11/20/20 05/20/23 History release balsalazide 750 mg capsule 750 mg PO DAILY 11/20/20 05/20/23 History (Colazal) levothyroxine 88 mcg capsule 88 mcg PO DAILY 11/20/20 05/20/23 History tamsulosin 0.4 mg capsule 0.4 mg PO DAILY 11/20/20 05/20/23 History pregabalin 75 mg capsule 75 mg PO HS 01/29/22 05/20/23 History sodium di- and 1 tab PO DAILY 01/29/22 05/20/23 History monophosphate-potassium phos monobasic 250 mg tablet (Phospha Neutral) acetaminophen 325 mg tablet 650 mg PO QID 05/20/23 05/20/23 History (Tylenol) albuterol sulfate 90 mcg/actuation 2 puff inhalation Q4H PRN 05/20/23 05/20/23 History aerosol inhaler Shortness Of Breath Or Wheezing apixaban 2.5 mg tablet (Eliquis) 2.5 mg PO BID 05/20/23 05/20/23 History calcium carbonate 600 mg-vitamin 1 tab PO DAILY 05/20/23 05/20/23 History D3 20 mcg (800 unit) chewable tablet (Caltrate 600 plus D) clonazepam 0.5 mg tablet 0.5 mg PO HS 05/20/23 05/20/23 History dexamethasone 20 mg tablet 20 mg PO WK 05/20/23 05/20/23 History escitalopram oxalate 10 mg tablet 10 mg PO DAILY 05/20/23 05/20/23 History (Lexapro) lidocaine 4 % topical patch 1 patch topical DAILY LOWER BACK 05/20/23 05/20/23 History metoprolol tartrate 25 mg tablet 12.5 mg PO BID 05/20/23 05/20/23 History morphine 15 mg immediate release 15 mg PO Q4H PRN Pain 05/20/23 05/20/23 History tablet Past Med/Surg History Medical History (Updated 05/20/23 @ 20:56 by Jhonathan Merchant MD) Closed compression fracture of sacrum Stroke-like symptoms RLL pneumonia Hypoxia Fall Atrial fibrillation with slow ventricular response Paroxysmal atrial fibrillation Malignant plasmacytoma Plasmacytoma History of cardioversion Hypercholesteremia Hypertension Influenza-like symptoms Influenza-like illness Fever Fever Bronchitis Bronchitis NAY (acute kidney injury) Hyperkalemia Hypothyroid Cataract, left Cataract, right Surgical History (Updated 12/24/22 @ 05:41 by Orville Lopez DO) History of appendectomy Hx of tonsillectomy History of lumbosacral spine surgery History of laparotomy Benign tumor removed from colon Post-operative state (10/18/13) Family History Mother , Mother 89yo Dementia Natural with unknown cause Father , 64yo Myocardial infarction Heart disease Brother No problems noted. Son No problems noted. Daughter No problems noted. Social History Smoking Status: Never smoker Do You Dip or Chew Tobacco: No; Hx Alcohol Use: Yes Alcohol type: hard liquor Alcohol type Comment: Occassional wine; Hx Substance Use: No Preferred Language: Yakut Communication Ability: Impaired Visual Impairment: No Limitations Hearing Ability: Hard of Hearing Registered Associate Required: No Beliefs That Will Affect Care: None marital status: Life Partner Current Living Situation: Residential current occupational status: retired current occupation: [employer]; Feels Safe at Home: Yes Diet: other caffeine: Yes (1 cup/day) during the past year weight has: remained stable Assistive Devices: Glasses, Hearing Aid - Bilateral and Walker Review of Systems Review of Systems: Review of systems is limited due to memory dysfunction Physical Exam Physical Exam: The patient is awake, and mildly disoriented. Normocephalic and atraumatic, lying in bed and in no acute distress. HEENT--PERRL, EOMI, mucous membranes and oropharynx mildly dry. Neck--supple. No JVD. No bruits. Thyroid normal, trachea midline, no adenopathy. Heart--normal S1 and S2. No murmurs, rubs or gallops. Lungs--clear bilaterally, no respiratory distress, no accessory muscle use. Abdomen--normal bowel sounds and soft. Nontender. Nondistended, no hernias or masses, no organomegaly. Extremities--no cyanosis or clubbing. No edema. Dermatologic--normal skin turgor, normal color, no abnormal lymph nodes, no rash. Neurologic--cranial nerves II through XII grossly intact. Rheumatologic--limited exam Psychiatric--intermittently confused, occasionally mildly agitated Results & Data Results & Data Vital Signs (Past 12 Hours) Vital Signs Temp Pulse Resp BP Pulse Ox O2 Del Method O2 Flow Rate 05/20/23 15:09 98 Nasal Cannula 3 05/20/23 13:59 72 05/20/23 13:43 36.8 C 77 20 120/93 87 L Room Air 05/20/23 13:36 87 L Nasal Cannula 0 Laboratory Results Laboratory Results WBC 6.88 K/ul (4.8-10.8) 05/20/23 14:41 RBC 4.60 M/uL (4.70-6.10) L 05/20/23 14:41 Hgb 13.2 g/dl (14.0-18.0) L 05/20/23 14:41 Hct 42.4 % (42.0-52.0) 05/20/23 14:41 MCV 92.2 fL (80.0-100.0) 05/20/23 14:41 MCH 28.7 pg (25.0-34.0) 05/20/23 14:41 MCHC 31.1 g/dL (32.0-36.0) L 05/20/23 14:41 RDW Std Deviation 52.0 fL (36.4-46.3) H 05/20/23 14:41 RDW Coeff of Joann 15.4 % (11.5-14.5) H 05/20/23 14:41 Plt Count 210 K/uL (130-400) 05/20/23 14:41 MPV 9.6 fL (9.4-12.4) 05/20/23 14:41 Immature Gran % (Auto) 1.0 % 05/20/23 14:41 Neut % (Auto) 77.4 % 05/20/23 14:41 Lymph % (Auto) 8.1 % 05/20/23 14:41 [place] % (Auto) 9.9 % 05/20/23 14:41 Eos % (Auto) 3.2 % 05/20/23 14:41 Baso % (Auto) 0.4 % 05/20/23 14:41 Neut # (Auto) 5.32 K/uL (1.40-6.50) 05/20/23 14:41 Lymph # (Auto) 0.56 K/uL (1.20-3.40) L 05/20/23 14:41 [place] # (Auto) 0.68 K/uL (0.11-0.59) H 05/20/23 14:41 Eos # (Auto) 0.22 K/uL (0.00-0.50) 05/20/23 14:41 Baso # (Auto) 0.03 K/uL (0.00-0.20) 05/20/23 14:41 Immature Gran # (Auto) 0.07 K/uL (0.01-0.20) 05/20/23 14:41 Sodium 139 mmol/L (136-145) 05/20/23 14:41 Potassium 4.3 mmol/L (3.5-5.1) 05/20/23 14:41 Chloride 104 mmol/L (98-107) 05/20/23 14:41 Carbon Dioxide 31 mmol/L (21-32) 05/20/23 14:41 Anion Gap 4 (3-11) 05/20/23 14:41 BUN 18 mg/dl (6-23) 05/20/23 14:41 Creatinine 0.96 mg/dl (0.6-1.4) 05/20/23 14:41 Est Cr Clr Drug Dosing 65.8 ml/min 05/20/23 14:41 Est GFR ( Amer) 82.6 ml/min 05/20/23 14:41 Est GFR (Non-Af Amer) 71.3 ml/min 05/20/23 14:41 BUN/Creatinine Ratio 18.8 (10-20) 05/20/23 14:41 Glucose 93 mg/dl (70-99(Fasting)) 05/20/23 14:41 Calcium 8.6 mg/dl (8.6-10.3) 05/20/23 14:41 Magnesium 1.9 mg/dl (1.7-2.4) 05/20/23 14:41 Total Bilirubin 0.6 mg/dl (0.2-1.0) 05/20/23 14:41 AST 12 U/L (13-39) L 05/20/23 14:41 ALT 11 U/L (7-52) 05/20/23 14:41 Alkaline Phosphatase 64 U/L (34-104) 05/20/23 14:41 Troponin I High Sens 7.1 pg/ml (0-20) 05/20/23 14:41 Total Protein 5.8 gm/dl (6.0-8.3) L 05/20/23 14:41 Albumin 3.6 gm/dl (3.4-5.0) 05/20/23 14:41 Globulin 2.2 gm/dl (2.5-4.0) L 05/20/23 14:41 Albumin/Globulin Ratio 1.6 (0.9-2) 05/20/23 14:41 Urine Color Yellow 05/20/23 Unknown Urine Appearance Clear (Clear) 05/20/23 Unknown Urine pH 6.0 (4.5-7.5) 05/20/23 Unknown Ur Specific [place] 1.019 (1.000-1.030) 05/20/23 Unknown Urine Protein Negative (Negative) 05/20/23 Unknown Urine Glucose (UA) Negative (Negative) 05/20/23 Unknown Urine Ketones Negative (Negative) 05/20/23 Unknown Urine Blood Negative (Negative) 05/20/23 Unknown Urine Nitrite Negative (Negative) 05/20/23 Unknown Urine Bilirubin Negative (Negative) 05/20/23 Unknown Urine Urobilinogen Negative (Negative) 05/20/23 Unknown Ur Leukocyte Esterase Negative (Negative) 05/20/23 Unknown Adenovirus (PCR) Not Detected (NotDetected) 05/20/23 Unknown B. pertussis DNA (PCR) Not Detected (NotDetected) 05/20/23 Unknown B.parapertussis DNA PCR Not Detected (NotDetected) 05/20/23 Unknown C. pneumoniae DNA (PCR) Not Detected (NotDetected) 05/20/23 Unknown Coronavirus OC43 (PCR) Not Detected (NotDetected) 05/20/23 Unknown Coronavirus HKU1 (PCR) Not Detected (NotDetected) 05/20/23 Unknown Coronavirus 229E (PCR) Not Detected (NotDetected) 05/20/23 Unknown SARS-CoV-2 (PCR) Not Detected (NotDetected) 05/20/23 Unknown Coronavirus NL63 (PCR) Not Detected (NotDetected) 05/20/23 Unknown Human Metapneumovir PCR Not Detected (NotDetected) 05/20/23 Unknown Influenza Type A (PCR) Not Detected (NotDetected) 05/20/23 Unknown Influenza Type B (PCR) Not Detected (NotDetected) 05/20/23 Unknown M. pneumoniae (PCR) Not Detected (NotDetected) 05/20/23 Unknown Parainfluenza 1 (PCR) Not Detected (NotDetected) 05/20/23 Unknown Parainfluenza 2 (PCR) Not Detected (NotDetected) 05/20/23 Unknown Parainfluenza 3 (PCR) Not Detected (NotDetected) 05/20/23 Unknown Parainfluenza 4 (PCR) Not Detected (NotDetected) 05/20/23 Unknown RSV (PCR) Not Detected (NotDetected) 05/20/23 Unknown Entero/Rhino (PCR) Not Detected (NotDetected) 05/20/23 Unknown Impressions Cervical Spine CT 05/20/23 13:59 CT cervical spine wo con CLINICAL HISTORY: 88 years-old Male with fall. Acute head and neck injury status post fall COMPARISON: Head CT of same day TECHNIQUE: Multiple axial CT images of the cervical spine were obtained without contrast. A dose lowering technique was utilized adhering to the principles of ALARA. FINDINGS: Moderate to severe multilevel facet arthrosis. Multilevel intervertebral disc space narrowing, severe at C5-C6 and C6-C7. Probable vertebral body hemangioma at T2. Mild mid cervical kyphosis. The cervical soft tissues appear unremarkable. The visualized lung apices appear clear. Coarsened trabecular markings with bony expansion of the left mandibular condyle is likely benign. IMPRESSION: No acute cervical spine fracture or subluxation. ACT 112: Negative or not required by law. The above report was generated using voice recognition software. It may contain grammatical, syntax or spelling errors. Electronically signed by: Lino Don M.D. 05/20/2023 3:02 PM Chest X-Ray 05/20/23 13:59 XR chest 1V portable CLINICAL HISTORY: fall, weak COMPARISON STUDY: Chest CT February 03, 2022. Chest radiograph December 24, 2022. FINDINGS: Old left clavicular fracture is incidentally noted. Degenerative changes within the shoulders are more severe on the right. Cardiomegaly is unchanged. There is no evidence for pulmonary edema. No pneumothorax or pleural effusion is present. Multiple old bilateral rib fractures are present. IMPRESSION: No acute cardiopulmonary findings. No significant change in appearance of the chest. ACT 112: Negative or not required by law. Electronically signed by: Ilir Patten M.D. 05/20/2023 2:[address] 05/20/23 13:59 CT head/brain wo con CLINICAL HISTORY: 88 years-old Male with fall, eliquis. Acute head injury status post fall TECHNIQUE: Multiple axial CT images of the head were obtained without contrast. A dose lowering technique was utilized adhering to the principles of ALARA. CT DOSE: 3655.56 mGy.cm COMPARISON: 12/24/2022 FINDINGS: No acute intracranial hemorrhage, midline shift, intracranial mass, hydrocep halus, territorial ischemia or abnormal extra-axial collection. Involutional changes with chronic microvascular ischemic disease. Prominent arterial calcifications at the level of the skull base. 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 The calvarium is intact. The paranasal sinuses, mastoid air cells, and middle ear cavities are clear. IMPRESSION: No acute intracranial abnormality or calvarial fracture. ACT 112: Negative or not required by law. The above report was generated using voice recognition software. It may contain grammatical, syntax or spelling errors. Electronically signed by: Lino Don M.D. 05/20/2023 2:[address] 05/20/23 13:59 CT SCAN OF THE LUMBAR SPINE WITHOUT IV CONTRAST CLINICAL HISTORY: Fall. History of multiple myeloma. COMPARISON STUDY: CT scan of the lumbar spine dated 01/28/2022. TECHNIQUE: CT scan of the lumbar spine is performed from the lower thoracic spine to the sacrum. Images are reviewed in the axial, sagittal, and coronal planes. IV contrast was not administered for this examination. The examination is degraded by streak artifact from metallic spinal hardware. A dose lowering technique was utilized adhering to the principles of ALARA. FINDINGS: The skeletal structures are heterogeneously osteopenic. There is an age-indeterminant right pedicular fracture of L3 seen on axial image #205. This is new from 01/28/2022 and may be acute. No additional findings are suspicious for acute fracture. Mixed lytic and sclerotic lesions throughout the lumbar spine have not appreciably changed and are consistent with the known history of multiple myeloma. There is a severe compression deformity of S1, which is unchanged from previous. There is wedging of the posterior aspect of the L5 vertebral body, which is also similar to previous. Vertebral body height is otherwise maintained throughout the lumbar spine. There is postsurgical change from laminectomy and posterior fusion throughout the lumbosacral spine. This extends from L3 to the sacrum. Interpedicular screws are present at all levels with the exceptions of L5 and S1. Bilateral iliac bolts are in place. Lucency around the lumbar interpedicular screws and the iliac bolts suggest loosening. There is grade 1 anterolisthesis at L5-S1, which is similar to previous. Alignment is preserved. The transverse processes and the remaining spinous processes appear intact. There is severe disc space narrowing at L2-L3 with associated endplate sclerosis. Only mild disc space narrowing is seen at the remaining lumbar levels. There is no CT evidence of high-grade central canal stenosis. Postsurgical change is seen posterior to the thecal sac at the operative levels. There is fatty atrophy of the paraspinous musculature. There is [id number] atherosclerotic calcification and ectasia of the abdominal aorta. No retroperitoneal lymphadenopathy is seen. Postoperative change is noted in the partially imaged sigmoid colon. IMPRESSION: 1. There is an age-indeterminant right pedicular fracture of L3. This is new from 01/28/2022 and may be acute. 2. No additional findings are seen to suggest acute fracture. 3. Mixed lytic/blastic lesions throughout the lumbar spine and sacrum have not appreciably changed and are consistent with the reported history of multiple myeloma. 4. A severe compression deformity of S1 is unchanged, with postsurgical change throughout the lumbosacral spine. Lucency around the orthopedic hardware is similar to previous and suggests loosening. 5. Additional chronic findings as above. ACT 112: Negative or not required by law. Dictated: 05/20/2023 2:51 PM Transcribed: 05/20/2023 4:13 PM Anthony [id number] [id number] Electronically signed by: Alfred Avila M.D. 05/20/2023 4:16 PM Pelvis X-Ray 05/20/23 13:59 SINGLE VIEW PELVIS CLINICAL HISTORY: Fall. FINDINGS: An AP, portable, supine pelvic radiograph is compared to study dated 12/17/2016 and correlated with pelvic CT dated 02/03/2022. The skeletal structures are osteopenic. There is no radiographic evidence of acute fracture involving the hips or bony pelvis. There is chronic deformity of the left pubic ring. Bilateral hip arthroplasties are in near anatomic alignment. Extensive fusion hardware is seen at the lumbosacral junction with bilateral iliac folds in place. Extensive sclerotic change is seen around the sacroiliac joints. Lucency around the iliac bolts and the interpedicular screws in the lower lumbar spine is suggestive of loosening. The overlying soft tissues are within normal limits. IMPRESSION: No acute bony abnormality is identified. See above. Electronically signed by: Alfred Avila M.D. 05/20/2023 2:[address] 05/20/23 13:59 CT OF THE THORACIC SPINE CLINICAL HISTORY: Fall. COMPARISON STUDY: MRI of the thoracic spine August 28, 2020. Chest CT February 03, 2022. TECHNIQUE: Helical axial images of the thoracic spine were obtained. Sagittal and coronal reconstructions were viewed. Automated exposure control was utilized for the study. A dose lowering technique was utilized adhering to the principles of ALARA. FINDINGS: Thoracic spine vertebral body heights are maintained. No fractures within the thoracic spine are present. A lucent/lytic lesion within the T12 vertebra is unchanged. A smaller lucent lesion within T2 is also unchanged. No new lesions within the thoracic spine are present. Mild multilevel endplate osteophytosis is present. Paravertebral soft tissues are unremarkable. No acute fractures are identified within the visualized posterior ribs. IMPRESSION: No acute thoracic spine fracture or subluxation. ACT 112: Negative or not required by law. Electronically signed by: Ilir Patten M.D. 05/20/2023 2:52 PM Code Status & VTE Plan Code Status DNR/DNI VTE Prophylaxis Plan VTE Prophylaxis will be ordered: Yes PG Care Time/CCT Total # of Minutes Spent Total Time Spent with Patient: Total time spent is greater than 50% in coordination of care (as documented) at patient's floor/unit and/or counseling patient: Coding Level of Care Code 37998 INT INP/OBS CARE 2/55MIN Diagnoses Multiple myeloma C90.00 Multiple myeloma remission status: unspecified Fall W19.XXXA Encounter type: initial encounter L3 vertebral fracture S32.039A Encounter type: initial encounter Fracture morphology: unspecified fracture morphology Fracture type: closed Closed compression fracture of sacrum S32.10XA BPH (benign prostatic hyperplasia) N40.0 Hypothyroid E03.9 Hypertension I10 Persistent atrial fibrillation I48.19 Chronic anticoagulation Z79.01 Malignant plasmacytoma C90.30 Chronic back pain M54.9; G89.29 (1) Multiple myeloma Multiple myeloma remission status: unspecified Qualified Code(s): C90.00 - Multiple myeloma not having achieved remission (2) Fall Encounter type: initial encounter Qualified Code(s): W19.XXXA - Unspecified fall, initial encounter (3) L3 vertebral fracture Encounter type: initial encounter Fracture morphology: unspecified fracture morphology Fracture type: closed Qualified Code(s): S32.039A - Unspecified fracture of third lumbar vertebra, initial encounter for closed fracture
[2023-05-20 17:46] LABS: Appearance Urine Clear (Clear); Bilirubin Urine Negative (Negative); Blood Urine Negative (Negative); Color Urine Yellow; Glucose Urine UA Negative (Negative); Ketones Urine Negative (Negative); Leukocyte Esterase Urine Negative (Negative); Nitrite Urine Negative (Negative); Protein Urine Negative (Negative); Specific Gravity Urine 1.019 (1.000-1.030); Urobilinogen Urine Negative (Negative)
[2023-05-20] MEDS ORDERED: ALBUTEROL HFA 8 GM INHALER INH PRN (20:40)
[2023-05-20] MEDS ORDERED: ONDANSETRON INJ 2 MG/ML 2 ML VIAL IV PRN (20:40)
[2023-05-20] MEDS ORDERED: ALBUT/IPRATROP 3MG/0.5MG NEB 3 ML VIAL NEB PRN (20:40)
[2023-05-20] MEDS: clonazePAM 0.5 MG TAB PO SCH (21:26)
[2023-05-20] MEDS: MoRPHine SULFATE IR 15 MG TAB (IMMEDIATE RELEASE) PO PRN (21:26)
[2023-05-20] MEDS: APIXABAN 2.5 MG TAB PO SCH (21:27)
[2023-05-20] MEDS: METOPROLOL TARTRATE 25 MG TAB PO SCH (21:27)
[2023-05-20] MEDS: ACETAMINOPHEN 325 MG TAB PO SCH (21:27)
[2023-05-20] MEDS: PREGABALIN 75 MG CAP PO SCH (21:27)
--- NOTE | 2023-05-21 06:46 | Hospitalist Progress Note ---
"Date of Service May 21, 2023 Assessment & Plan (1) Multiple myeloma: (2) Fall: (3) L3 vertebral fracture: (4) Closed compression fracture of sacrum: (5) BPH (benign prostatic hyperplasia): (6) Hypothyroid: (7) Hypertension: (8) Persistent atrial fibrillation: (9) Chronic anticoagulation: (10) Malignant plasmacytoma: (11) Chronic back pain: Plan Neeraj is a 88M w/ PMH of multiple myeloma, hypothyroidism, BPH, HTN, AFib (on ), HLD, anemia, and plasmocytoma who presents from the [facility] unit after a fall. Acute on Chronic Low Back Pain | New L3 R Pedicle Fracture | Chronic S1 Compression Defect - CT Cervical Spine: Negative - CT Thoracic Spine: Negative - CT Head: Negative - XR Hip/Pelvis: Negative - CT Lumbar Spine: No acute changes to S1 Compression Defect on CT, NEW L3 R Pedicle Fracture, mixed lytic and blastic lesions (consistent with chronic multiple myeloma) - Ortho evaluated in ED: No interventions recommended - Pain Mgmt: Continue Tylenol, Pregabalin, and Lidocaine patch - PT/OT Ordered - Goal to return to [facility] upon discharge --- Added Oxycodone 5 mg Q4h PRN, PT/OT Pending New O2 Requirement - Intermittent need for O2, patient w/o respiratory distress or abnormality on examination - No previous pulmonary diagnosis - CXR: Negative - Likely longstanding, continue to monitor Atrial fibrillation/hypertension - Continue apixaban, aspirin, metoprolol tartrate Depression/insomnia- - Continue Lexapro and clonazepam Code: DNR/DNI Diet: Heart Healthy DVT/PPx: Full anticoagulation on Eliquis Dispo: PT/OT Eval, [facility] [place] Admission and Anticipated Discharge Date Admission Date: May 20, 2023 Supervising Physician Co-Signing Physician Notes I also saw the patient confirmed doyle portions of the clinical history and physical examination. I agree with the impression and plan as noted in the resident documentation above. He is quite hard of hearing. Difficult to tell his degree of pain; he tells me it is better, and then a few minutes later, tells me is not controlled. No outward signs of significant uncontrolled pain. Exam 125/87, 59, 19, 36.8, 99% on oxygen mask at 4 L/min Hard of hearing Heart Irregularly irregular, consistent rate controlled atrial fibrillation Respirations nonlabored Labs Hemoglobin 13.2, platelet count 210 Sodium 139, potassium 4.3, BUN 18, creatinine 0.96 AST 12, ALT 11 Imaging An age-indeterminate right Pedicle fracture at L3 Previously identified compression of S1 Acute on chronic low back pain Multiple myeloma Known history of S1 compression, new L3 right pedicle fracture Mixed lytic and blastic lesions consistent with known history of multiple myeloma Atenolol 650 mg by mouth every 6 hours as needed for mild pain or fever Oxycodone 5 mg every 4 hours as needed pain Continue lidocaine patch and pregabalin 75 mg daily PT/OT assessment once pain better controlled Atrial fibrillation/hypertension- Continue apixaban, aspirin, metoprolol tartrate Depression/insomnia- Continue Lexapro and clonazepam Subjective 05/21: Patient resting in bed comfortably upon arrival. Endorses good pain control. Patient denies any chest pain, dyspnea, nausea, vomiting, or abdominal pain. Patient does not recall why he is here. Otherwise, no meaningful HPI as patient is extremely hard of hearing and a poor historian. Review of Systems Review of Systems: Review of systems is limited due to memory dysfunction Physical Exam Physical Exam: Gen: Awake & alert, AO x ?, NAD HEENT: NC/AT, MMM Neck: Supple, no adenopathy or thyromegaly Heart: RRR, normal S1/S2 no MRG Lungs: Non-labored, CTAB Abdomen: Active bowel sounds, non-distended, no TTP, no masses, rebound, or guarding Extremities: No cyanosis, clubbing, or edema. Distal pulses 2+. Neurologic: CN II-XII grossly intact, strength 5/5 bilaterally Psychiatric: intermittently confused, occasionally mildly agitated Results & Data Results & Data Vital Signs (Past 12 Hours) Vital Signs Pulse Pulse Resp BP BP Pulse Ox Pulse Ox 05/21/23 06:00 59 L 19 99 05/21/23 04:00 57 L 17 98 05/21/23 03:39 99 05/21/23 03:31 58 L 14 125/87 83 L 05/20/23 23:23 64 05/20/23 23:00 62 18 138/86 96 05/20/23 22:08 69 18 134/84 97 05/20/23 21:56 05/20/23 21:44 71 19 168/109 H 97 05/20/23 19:00 73 23 146/89 H 95 O2 Del Method O2 Del Method O2 Flow Rate O2 Flow Rate 05/21/23 06:00 Oxymask 4 05/21/23 04:00 05/21/23 03:39 Oxymask 3 05/21/23 03:31 05/20/23 23:23 05/20/23 23:00 Nasal Cannula 3 05/20/23 22:08 Nasal Cannula 3 05/20/23 21:56 Nasal Cannula 3 05/20/23 21:44 Nasal Cannula 3 05/20/23 19:00 Nasal Cannula 3 Diagnostic Findings Cervical Spine CT 05/20/23 13:59 CT cervical spine wo con CLINICAL HISTORY: 88 years-old Male with fall. Acute head and neck injury status post fall COMPARISON: Head CT of same day TECHNIQUE: Multiple axial CT images of the cervical spine were obtained without contrast. A dose lowering technique was utilized adhering to the principles of ALARA. FINDINGS: Moderate to severe multilevel facet arthrosis. Multilevel intervertebral disc space narrowing, severe at C5-C6 and C6-C7. Probable vertebral body hemangioma at T2. Mild mid cervical kyphosis. The cervical soft tissues appear unremarkable. The visualized lung apices appear clear. Coarsened trabecular markings with bony expansion of the left mandibular condyle is likely benign. IMPRESSION: No acute cervical spine fracture or subluxation. ACT 112: Negative or not required by law. The above report was generated using voice recognition software. It may contain grammatical, syntax or spelling errors. Electronically signed by: Lino Don M.D. 05/20/2023 3:02 PM Chest X-Ray 05/20/23 13:59 XR chest 1V portable CLINICAL HISTORY: fall, weak COMPARISON STUDY: Chest CT February 03, 2022. Chest radiograph December 24, 2022. FINDINGS: Old left clavicular fracture is incidentally noted. Degenerative changes within the shoulders are more severe on the right. Cardiomegaly is unchanged. There is no evidence for pulmonary edema. No pneumothorax or pleural effusion is present. Multiple old bilateral rib fractures are present. IMPRESSION: No acute cardiopulmonary findings. No significant change in appearance of the chest. ACT 112: Negative or not required by law. Electronically signed by: Ilir Patten M.D. 05/20/2023 2:[address] 05/20/23 13:59 CT head/brain wo con CLINICAL HISTORY: 88 years-old Male with fall, eliquis. Acute head injury status post fall TECHNIQUE: Multiple axial CT images of the head were obtained without contrast. A dose lowering technique was utilized adhering to the principles of ALARA. CT DOSE: 3655.56 mGy.cm COMPARISON: 12/24/2022 FINDINGS: No acute intracranial hemorrhage, midline shift, intracranial mass, hydrocephalus, territorial ischemia or abnormal extra-axial collection. Involutional changes with chronic microvascular ischemic disease. Prominent arterial calcifications at the level of the skull base. 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 The calvarium is intact. The paranasal sinuses, mastoid air cells, and middle ear cavities are clear. IMPRESSION: No acute intracranial abnormality or calvarial fracture. ACT 112: Negative or not required by law. The above report was generated using voice recognition software. It may contain grammatical, syntax or spelling errors. Electronically signed by: Lino Don M.D. 05/20/2023 2:[address] 05/20/23 13:59 CT SCAN OF THE LUMBAR SPINE WITHOUT IV CONTRAST CLINICAL HISTORY: Fall. History of multiple myeloma. COMPARISON STUDY: CT scan of the lumbar spine dated 01/28/2022. TECHNIQUE: CT scan of the lumbar spine is performed from the lower thoracic spine to the sacrum. Images are reviewed in the axial, sagittal, and coronal planes. IV contrast was not administered for this examination. The examination is degraded by streak artifact from metallic spinal hardware. A dose lowering technique was utilized adhering to the principles of ALARA. FINDINGS: The skeletal structures are heterogeneously osteopenic. There is an age-indeterminant right pedicular fracture of L3 seen on axial image #205. This is new from 01/28/2022 and may be acute. No additional findings are suspicious for acute fracture. Mixed lytic and sclerotic lesions throughout the lumbar spine have not appreciably changed and are consistent with the known history of multiple myeloma. There is a severe compression deformity of S1, which is un changed from previous. There is wedging of the posterior aspect of the L5 vertebral body, which is also similar to previous. Vertebral body height is otherwise maintained throughout the lumbar spine. There is postsurgical change from laminectomy and posterior fusion throughout the lumbosacral spine. This extends from L3 to the sacrum. Interpedicular screws are present at all levels with the exceptions of L5 and S1. Bilateral iliac bolts are in place. Lucency around the lumbar interpedicular screws and the iliac bolts suggest loosening. There is grade 1 anterolisthesis at L5-S1, which is similar to previous. Alignment is preserved. The transverse processes and the remaining spinous processes appear intact. There is severe disc space narrowing at L2-L3 with associated endplate sclerosis. Only mild disc space narrowing is seen at the remaining lumbar levels. There is no CT evidence of high-grade central canal stenosis. Postsurgical change is seen posterior to the thecal sac at the operati ve levels. There is fatty atrophy of the paraspinous musculature. There is [id number] atherosclerotic calcification and ectasia of the abdominal aorta. No retroperitoneal lymphadenopathy is seen. Postoperative change is noted in the partially imaged sigmoid colon. IMPRESSION: 1. There is an age-indeterminant right pedicular fracture of L3. This is new from 01/28/2022 and may be acute. 2. No additional findings are seen to suggest acute fracture. 3. Mixed lytic/blastic lesions throughout the lumbar spine and sacrum have not appreciably changed and are consistent with the reported history of multiple myeloma. 4. A severe compression deformity of S1 is unchanged, with postsurgical change throughout the lumbosacral spine. Lucency around the orthopedic hardware is similar to previous and suggests loosening. 5. Additional chronic findings as above. ACT 112: Negative or not required by law. Dictated: 05/20/2023 2:51 PM Transcribed: 05/20/2023 4:13 PM Anthony [id number] [email or web address] Electronically signed by: Alfred Avila M.D. 05/20/2023 4:16 PM Pelvis X-Ray 05/20/23 13:59 SINGLE VIEW PELVIS CLINICAL HISTORY: Fall. FINDINGS: An AP, portable, supine pelvic radiograph is compared to study dated 12/17/2016 and correlated with pelvic CT dated 02/03/2022. The skeletal structures are osteopenic. There is no radiographic evidence of acute fracture involving the hips or bony pelvis. There is chronic deformity of the left pubic ring. Bilateral hip arthroplasties are in near anatomic alignment. Extensive fusion hardware is seen at the lumbosacral junction with bilateral iliac folds in place. Extensive sclerotic change is seen around the sacroiliac joints. Lucency around the iliac bolts and the interpedicular screws in the lower lumbar spine is suggestive of loosening. The overlying soft tissues are within normal limits. IMPRESSION: No acute bony abnormality is identified. See above. Electronically signed by: Alfred Avila M.D. 05/20/2023 2:[address] 05/20/23 13:59 CT OF THE THORACIC SPINE CLINICAL HISTORY: Fall. COMPARISON STUDY: MRI of the thoracic spine August 28, 2020. Chest CT February 03, 2022. TECHNIQUE: Helical axial images of the thoracic spine were obtained. Sagittal and coronal reconstructions were viewed. Automated exposure control was utilized for the study. A dose lowering technique was utilized adhering to the principles of ALARA. FINDINGS: Thoracic spine vertebral body heights are maintained. No fractures within the thoracic spine are present. A lucent/lytic lesion within the T12 vertebra is unchanged. A smaller lucent lesion within T2 is also unchanged. No new lesions within the thoracic spine are present. Mild multilevel endplate osteophytosis is present. Paravertebral soft tissues are unremarkable. No acute fractures are identified within the visualized posterior ribs. IMPRESSION: No acute thoracic spine fracture or subluxation. ACT 112: Negative or not required by law. Electronically signed by: Ilir Patten M.D. 05/20/2023 2:52 PM Resident Activity Tracking Resident Involvement: Resident Care Provided Care Provided: Adult Hospital Medicine (1) Multiple myeloma Multiple myeloma remission status: unspecified Qualified Code(s): C90.00 - Multiple myeloma not having achieved remission (2) Fall Encounter type: initial encounter Qualified Code(s): W19.XXXA - Unspecified fall, initial encounter (3) L3 vertebral fracture Encounter type: initial encounter Fracture morphology: unspecified fracture morphology Fracture type: closed Qualified Code(s): S32.039A - Unspecified fracture of third lumbar vertebra, initial encounter for closed fracture"
[2023-05-21] MEDS: TAMSULOSIN HCL 0.4 MG CAP PO SCH (08:05)
[2023-05-21] MEDS: METOPROLOL TARTRATE 25 MG TAB PO SCH ×2 (08:05→23:06)
[2023-05-21] MEDS: POT PHOSPHATE MONOBASIC W/ SOD TAB PO SCH (08:05)
[2023-05-21] MEDS: ESCITALOPRAM OXALATE 10 MG TAB PO SCH (08:06)
[2023-05-21] MEDS: LIDOCAINE 5% 1 PATCH TD SCH (08:06)
[2023-05-21] MEDS: ACETAMINOPHEN 325 MG TAB PO SCH ×4 (08:06→23:13)
[2023-05-21] MEDS: APIXABAN 2.5 MG TAB PO SCH ×2 (08:07→23:06)
[2023-05-21] MEDS: LEVOTHYROXINE SODIUM 88 MCG TABLET PO SCH (08:07)
[2023-05-21] MEDS: CALCIUM 600MG + VIT D 400 IU TAB PO SCH (08:08)
[2023-05-21] MEDS: ASPIRIN 81 MG ECTAB PO SCH (08:08)
--- NOTE | 2023-05-21 11:07 | Electrocardiogram Report ---
Test Reason : Blood Pressure : / mmHG Vent. Rate : 076 BPM Atrial Rate : 000 BPM P-R Int : 000 ms QRS Dur : 094 ms QT Int : 380 ms P-R-T Axes : 000 -10 085 degrees QTc Int : 427 ms Atrial fibrillation Nonspecific ST and T wave abnormality Abnormal ECG When compared with ECG of 24-DEC-2022 04:10, ST no longer depressed in Inferior leads Nonspecific T wave abnormality now evident in Lateral leads Confirmed by Gabriel Kay ([id number]) on 05/21/2023 11:07:14 AM Referred By: REFERRED SELF Confirmed By:Kerwin Kay
[2023-05-21] MEDS ORDERED: oxyCODONE HCL IR 5 MG TAB (IMMEDIATE RELEASE) PO PRN (12:07)
[2023-05-21] MEDS ORDERED: Nursing to Pharmacy Communication SCH (23:00)
[2023-05-21] MEDS: PREGABALIN 75 MG CAP PO SCH (23:06)
[2023-05-21] MEDS: clonazePAM 0.5 MG TAB PO SCH (23:06)
[2023-05-22] MEDS ORDERED: LORazepam 1 MG/1 ML SYR ED Inj Use ONE (01:35)
[2023-05-22] MEDS: MoRPHine SULFATE IR 15 MG TAB (IMMEDIATE RELEASE) PO PRN (02:55)
[2023-05-22] MEDS: ACETAMINOPHEN 325 MG TAB PO SCH ×2 (03:05→10:49)
--- NOTE | 2023-05-22 07:13 | Hospitalist Progress Note ---
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 Acute on Chronic Low Back Pain | New L3 R Pedicle Fracture | Chronic S1 Compression Defect - CT Cervical Spine: Negative - CT Thoracic Spine: Negative - CT Head: Negative - XR Hip/Pelvis: Negative - CT Lumbar Spine: No acute changes to S1 Compression Defect on CT, NEW L3 R Pedicle Fracture, mixed lytic and blastic lesions (consistent with chronic multiple myeloma) - Ortho evaluated in ED: No interventions recommended - Pain Mgmt: Continue Tylenol, Pregabalin, and Lidocaine patch - PT/OT Ordered - Goal to return to [facility] upon discharge --- Added Oxycodone 5 mg Q4h PRN, PT/OT Pending New O2 Requirement - Intermittent need for O2, patient w/o respiratory distress or abnormality on examination - No previous pulmonary diagnosis - CXR: Negative - Likely longstanding, continue to monitor Atrial fibrillation/hypertension - Continue apixaban, aspirin, metoprolol tartrate Depression/insomnia- - Continue Lexapro and clonazepam Code: DNR/DNI Diet: Heart Healthy DVT/PPx: Full anticoagulation on Eliquis Dispo: PT/OT Eval, [facility] [place] Admission and Anticipated Discharge Date Admission Date: May 20, 2023 Subjective 05/21: Patient resting in bed comfortably upon arrival. Endorses good pain control. Patient denies any chest pain, dyspnea, nausea, vomiting, or abdominal pain. Patient does not recall why he is here. Otherwise, no meaningful HPI as patient is extremely hard of hearing and a poor historian. 05/22 Review of Systems Review of Systems: Review of systems is limited due to memory dysfunction Physical Exam Physical Exam: Gen: Awake & alert, AO x ?, NAD HEENT: NC/AT, MMM Neck: Supple, no adenopathy or thyromegaly Heart: RRR, normal S1/S2 no MRG Lungs: Non-labored, CTAB Abdomen: Active bowel sounds, non-distended, no TTP, no masses, rebound, or guarding Extremities: No cyanosis, clubbing, or edema. Distal pulses 2+. Neurologic: CN II-XII grossly intact, strength 5/5 bilaterally Psychiatric: intermittently confused, occasionally mildly agitated Results & Data Results & Data Vital Signs (Past 12 Hours) Vital Signs Pulse Pulse Resp BP BP Pulse Ox Pulse Ox 05/22/23 04:01 67 22 109/77 94 05/22/23 03:05 99 05/22/23 02:30 109 H 18 162/136 H 93 05/22/23 02:00 64 13 98 05/22/23 00:42 61 05/22/23 00:00 60 19 132/96 98 05/21/23 23:16 88 21 140/94 97 05/21/23 23:05 63 17 142/94 H 99 05/21/23 23:00 72 14 142/94 H 96 05/21/23 19:54 70 18 134/83 93 O2 Del Method O2 Del Method O2 Flow Rate O2 Flow Rate 05/22/23 04:01 Oxymask 2 05/22/23 03:05 Oxymask 4 05/22/23 02:30 Room Air 3 05/22/23 02:00 Oxymask 3 05/22/23 00:42 05/22/23 00:00 Oxymask 4 05/21/23 23:16 Oxymask 4 05/21/23 23:05 Oxymask 4 05/21/23 23:00 Room Air 05/21/23 19:54 Oxymask 4.5 (1) Multiple myeloma Multiple myeloma remission status: unspecified Qualified Code(s): C90.00 - Multiple myeloma not having achieved remission (2) Fall Encounter type: initial encounter Qualified Code(s): W19.XXXA - Unspecified f all, initial encounter (3) L3 vertebral fracture Encounter type: initial encounter Fracture morphology: unspecified fracture morphology Fracture type: closed Qualified Code(s): S32.039A - Unspecified fracture of third lumbar vertebra, initial encounter for closed fracture"
[2023-05-22] MEDS: LEVOTHYROXINE SODIUM 88 MCG TABLET PO SCH (10:46)
[2023-05-22] MEDS: ESCITALOPRAM OXALATE 10 MG TAB PO SCH (10:48)
[2023-05-22] MEDS: APIXABAN 2.5 MG TAB PO SCH (10:48)
[2023-05-22] MEDS: CALCIUM 600MG + VIT D 400 IU TAB PO SCH (10:49)
[2023-05-22] MEDS: ASPIRIN 81 MG ECTAB PO SCH (10:49)
[2023-05-22] MEDS: TAMSULOSIN HCL 0.4 MG CAP PO SCH (10:50)
[2023-05-22] MEDS: POT PHOSPHATE MONOBASIC W/ SOD TAB PO SCH (10:50)
[2023-05-22] MEDS: METOPROLOL TARTRATE 25 MG TAB PO SCH (10:55)
[2023-05-22] MEDS: LIDOCAINE 5% 1 PATCH TD SCH (11:32)
--- NOTE | 2023-05-22 13:51 | Discharge Summary ---
"Date of Service May 22, 2023 Admission HPI Per Admitting Provider The patient is an 88-year-old male with a past medical history including multiple myeloma, previous S1 compression fracture, hypothyroidism, BPH, hypertension, balance disorder, hypercholesterolemia, malignant plasmacytoma, atrial fibrillation and anemia. The patient presents to the emergency department after a worsening of his usual back pain, and was found to have a new L3 right pedicle fracture on CT scan, along with his usual mixed lytic and blastic lesions consistent with his multiple myeloma. There was again noted S1 severe compression defect without change. The patient himself was somewhat confused when asked why he was brought to the ED, and so his HPI and ROS are gathered in large part from EMS relayed information from the [facility] Admission Exam Per Admitting Provider The patient is awake, and mildly disoriented. Normocephalic and atraumatic, lying in bed and in no acute distress. HEENT--PERRL, EOMI, mucous membranes and oropharynx mildly dry. Neck--supple. No JVD. No bruits. Thyroid normal, trachea midline, no adenopathy. Heart--normal S1 and S2. No murmurs, rubs or gallops. Lungs--clear bilaterally, no respiratory distress, no accessory muscle use. Abdomen--normal bowel sounds and soft. Nontender. Nondistended, no hernias or masses, no organomegaly. Extremities--no cyanosis or clubbing. No edema. Dermatologic--normal skin turgor, normal color, no abnormal lymph nodes, no rash. Neurologic--cranial nerves II through XII grossly intact. Rheumatologic--limited exam Psychiatric--intermittently confused, occasionally mildly agitated Principal Diagnosis New L3 Fx in setting of Multiple Myeloma Hypoxia Discharge Exam Gen: Tired, hard of hearing, AO x ?, NAD HEENT: NC/AT, MMM Neck: Supple, no adenopathy or thyromegaly Heart: RRR, normal S1/S2 no MRG Lungs: Non-labored, CTAB Abdomen: Active bowel sounds, non-distended, no TTP, no masses, rebound, or guarding Extremities: No cyanosis, clubbing, or edema. Distal pulses 2+. Neurologic: CN II-XII grossly intact, strength 5/5 bilaterally Psychiatric: intermittently confused, occasionally mildly agitated Discharge Data Allergies Allergy/AdvReac Type Severity Reaction Status Date / Time animal dander Allergy Intermediate ASTHMATIC Verified 05/20/23 16:41 REACTION-HORSE, CAT & DOGS Consultations 05/20/23 16:33 ED Decision to Admit Stat Ordered Studies 05/20/23 13:59 CT cervical spine wo con Stat CT head/brain wo con Stat CT lumbar spine wo con Stat CT thoracic spine wo con Stat Hospital Course (1) Multiple myeloma: (2) Fall: (3) L3 vertebral fracture: (4) Closed compression fracture of sacrum: (5) BPH (benign prostatic hyperplasia): (6) Hypothyroid: (7) Hypertension: (8) Persistent atrial fibrillation: (9) Chronic anticoagulation: (10) Malignant plasmacytoma: (11) Chronic back pain: Plan Neeraj is a 88M w/ PMH of multiple myeloma, hypothyroidism, BPH, HTN, AFib (on ), HLD, anemia, and plasmocytoma who presents from the [facility] unit after a fall. Patient with good family support and family expressed thorough understanding of patient's diagnosis and comorbidities. Family notes progressive decline over the last year a/w increasing amount of falls and pain. Ultimate goal is to keep patient in his home/familiar environment and treat his pain adequately. Hospice discussed with patient's son (POA) who notes they have access to adequate resources and support and feel that patient's comfort needs are well met at the [facility]. Acute on Chronic Low Back Pain | New L3 R Pedicle Fracture | Chronic S1 Compression Defect - CT Cervical Spine: Negative - CT Thoracic Spine: Negative - CT Head: Negative - XR Hip/Pelvis: Negative - CT Lumbar Spine: No acute changes to S1 Compression Defect on CT, NEW L3 R Pedicle Fracture, mixed lytic and blastic lesions (consistent with chronic multiple myeloma) - Ortho evaluated in ED: No interventions recommended - Pain Mgmt: Continue Tylenol, Pregabalin, and Lidocaine patch, Oxycodone added inpatient - PT/OT Ordered: Deferred evaluation for return to [facility], patient w/ L foot drop at baseline requiring walker for ambulation --- Return to home pain management regimen upon discharge (pregabalin, morphine PO, lidocaine patch, Tylenol) New O2 Requirement - Intermittent need for O2, patient w/o respiratory distress or abnormality on examination - CPAP use recommended at baseline w/o compliant use - Albuterol use at baseline for underlying asthma/COPD (per family) - CXR: Negative - Likely longstanding, in setting of asthma & progressing disease burden --- Recommend ongoing use of 2-3 L nasal canula w/ goal O2 saturations 89-92% (patient would benefit most from use while sleeping) Atrial fibrillation/hypertension - Continue apixaban, aspirin, metoprolol tartrate Depression/insomnia- - Continue Lexapro and clonazepam LCode: DNR/DNI Diet: Heart Healthy DVT/PPx: Full anticoagulation on Eliquis Dispo: [facility] Total Time Total Time Spent Total Time Spent (In Minutes): 45 (see attending attestation) Discharge Plan Discharge Items Patient Disposition: Transfer Inpatient Rehab Fac Reason For Visit: NEW L3 FX, HYPOXIA Discharge Diagnosis: L3 Fx in setting of Multiple Myelome New Hypoxia Condition on Discharge: Fair Activity: Per Instructions section Non-emergency contact: Primary Care Provider Call non-emergency contact if: your symptoms worsen and your pain is not controlled Follow-up/Referrals: Juwan Mo [Primary Care Provider] - Diet: Regular Addtl Attending Provider Instructions: Instructions for facility: Neeraj is a 88M w/ PMH of multiple myeloma, hypothyroidism, BPH, HTN, AFib (on ), HLD, anemia, and plasmocytoma who presents from the [facility] unit after a fall. Patient with good family support and family expressed thorough understanding of patient's diagnosis and comorbidities. Family notes progressive decline over the last year a/w increasing amount of falls and pain. Ultimate goal is to keep patient in his home/familiar environment and treat his pain adequately. Hospice discussed with patient's son (POA) who notes they have access to adequate resources and support and feel that patient's comfort needs are well met at the [facility]. Acute on Chronic Low Back Pain | New L3 R Pedicle Fracture | Chronic S1 Compression Defect - CT Cervical Spine: Negative - CT Thoracic Spine: Negative - CT Head: Negative - XR Hip/Pelvis: Negative - CT Lumbar Spine: No acute changes to S1 Compression Defect on CT, NEW L3 R Pedicle Fracture, mixed lytic and blastic lesions (consistent with chronic multiple myeloma) - Ortho evaluated in ED: No interventions recommended - Pain Mgmt: Continue Tylenol, Pregabalin, and Lidocaine patch, Oxycodone added inpatient - PT/OT Ordered: Deferred evaluation for return to [facility], patient w/ L foot drop at baseline requiring walker for ambulation --- Return to home pain management regimen upon discharge (pregabalin, morphine PO, lidocaine patch, Tylenol) New O2 Requirement - Intermittent need for O2, patient w/o respiratory distress or abnormality on examination - CPAP use recommended at baseline w/o compliant use - Albuterol use at baseline for underlying asthma/COPD (per family) - CXR: Negative - Likely longstanding, in setting of asthma & progressing disease burden --- Recommend ongoing use of 2-3 L nasal canula w/ goal O2 saturations 89-92% (patient would benefit most from use while sleeping) Atrial fibrillation/hypertension - Continue apixaban, aspirin, metoprolol tartrate Depression/insomnia- - Continue Lexapro and clonazepam Code: DNR/DNI Diet: Heart Healthy DVT/PPx: Full anticoagulation on Eliquis Dispo: [facility] Pending Studies at Discharge: No Stand-Alone Forms: [facility] Patient informed of condition?: Yes DNR: Yes Discharge Level of Care: Skilled Communicable Disease: No Discharge Prognosis: Stable Lines: None Urinary Catheter: No Medications and DC Order Prescriptions: Continued aspirin 81 mg tablet,delayed release (DR/EC) 81 mg PO DAILY balsalazide [Colazal] 750 mg capsule 750 mg PO DAILY levothyroxine 88 mcg capsule 88 mcg PO DAILY tamsulosin 0.4 mg capsule 0.4 mg PO DAILY acetaminophen [Tylenol] 325 mg Tablet 650 mg PO QID lidocaine 4 % Adhesive Patch,Medicated 1 patch TOPICAL DAILY Rx Instructions: APPLY QAM, THEN REMOVE AT HS. MAY USE HEAT TO LOWER BACK IF NOT USING PATCH. clonazepam 0.5 mg tablet 0.5 mg PO HS albuterol sulfate 90 mcg/actuation Hfa Aerosol Inhaler 2 puff INHALATION Q4H PRN (Reason: Shortness Of Breath Or Wheezing) morphine 15 mg Tablet 15 mg PO Q4H PRN (Reason: Pain) escitalopram oxalate [Lexapro] 10 mg Tablet 10 mg PO DAILY metoprolol tartrate 25 mg tablet 12.5 mg PO BID Rx Instructions: HOLD FOR SBP <90 OR HR <50 Eliquis 2.5 mg Tablet 2.5 mg PO BID Caltrate 600 plus D 600 mg-20 mcg (800 unit) Tablet,Chewable 1 tab PO DAILY dexamethasone 20 mg Tablet 20 mg PO WK Rx Instructions: WEDNESDAYS Phospha 250 Neutral 250 mg tablet 1 tab PO DAILY pregabalin 75 mg capsule 75 mg PO HS Discharge Orders: Discharge Order (Routine); Ordered 05/22/23 Ordered By: Carlos Enrique Morales Admission Data Admit Date/Time: 05/20/23 17:38 Attending Provider: Marizol Waters Admit Provider: Jhonathan Merchant Primary Care Provider: [facility] Other Providers: Jhonathan Merchant Supervising Physician Co-Signing Physician Notes I personally examined the patient and verified doyle points of history and exam, discussed case, and agree with decision making and plan documented by Dr. Morales. Primary medical team had conversation with patient's son and MILTON Nunes who expressed desire for patient to [facility] the [facility] where [facility] for many years. Patient is very happy to be [facility] to the [facility]. Recommend continued supplemental oxygen as needed. Resident Activity Tracking Resident Involvement: Resident Care Provided Care Provided: Adult Hospital Medicine"
[2023-05-22 16:08] VITALS: BP 111/71; PULSE 68; RESP 20; O2SAT 99
[2023-05-27] MEDS ORDERED: dexAMETHasone 4 MG TAB PO SCH (09:00)
== END 2023-05-22 16:41 ==
LOC: ED 13:36 → EDINP 13:36 → SUATTDRO 17:38 → EDINP 05-21 20:14